=== PATIENT | male | born 1940 | race Caucasian/White ===

== ENCOUNTER 2016-06-10 06:34 | Outpatient (CLI) | payer MEDICARE ==
[2016-06-10] VITALS (13 sets, daily range): BP systolic 113–173; BP diastolic 57–93
[~2016-06-10] VITALS: Ht 167.6 cm; Wt 78.0 kg
[~2016-06-10 06:34] MED LIST: ACET325T9 PO; AMLO10TA2 PO; ASCO10002 PO; ATEN50TA PO; ATOR10TA60 PO; CALC500T27 PO; CIPR500T94 PO; FLUT16SP NS; HYDR12.53 PO; IBUP-1027 PO; LISI-334 PO; LOSA1TAB2 PO; TAMS0.4C2 PO; TIOT18CA IH; VENTOLIN HFA18 GM INH; atenolol; atorvastin PO; calcium PO; flomax PO; flonase NS; norvasc PO; nystatin
[2016-06-10] MEDS ORDERED: ASCO10002 PO (07:12)
[2016-06-10] MEDS ORDERED: ASPI81TA2 PO (07:12)
[2016-06-10 07:29] LABS: INR 1.1 (0.8-1.1); PROTHROMBIN TIME PATIENT 13.7 SEC (11.7-14.0)
[2016-06-10 07:42] LABS: BASO # 0.1 x10^3/uL (0.0-0.2); BASO % 2 % (0-3); EOS % 5 % (0-3); HEMATOCRIT 38.6 % (39.0-53.0); HEMOGLOBIN 12.4 g/dL (13.0-17.5); LYMPH % 17 % (24-48); MEAN CORPUSCULAR HEMOGLOBIN 28 pg (25-35); MEAN CORPUSCULAR HGB CONC 32 g/dL (31-37); MEAN CORPUSCULAR VOLUME 88 fL (79-100); MONO % 11 % (0-9); NEUT % 66 % (31-73); PLATELET COUNT 163 x10^3/uL (140-400); RED BLOOD COUNT 4.39 x10^6/uL (4.30-5.70); WHITE BLOOD COUNT 6.2 x10^3/uL (4.0-11.0)
[2016-06-10] MEDS ORDERED: ALBUTEROL SULFATE 2.5 MG/3 ML NEBU. NEB ONE ×2 (08:00→13:30)
[2016-06-10] MEDS ORDERED: LIDOCAINE 1% / SOD BICARB 8.4% 20 ML VIAL. IJ ONE ×2 (08:11→09:00)
[2016-06-10] MEDS ORDERED: MIDAZOLAM HCL 2 MG/2 ML VIAL. ONE (08:36)
[2016-06-10] MEDS ORDERED: FENTANYL PF 100 MCG/2 ML VIAL. ONE (08:37)
[2016-06-10] MEDS ORDERED: MIDAZOLAM HCL 2 MG/2 ML VIAL. IV ONE (09:00)
[2016-06-10] MEDS ORDERED: FENTANYL PF 100 MCG/2 ML VIAL. IV ONE (09:00)
--- NOTE | 2016-06-10 09:44 | PDOC ---
MODERATE SEDATION ASSESSMENT RISKS/ALTERNATIVES Risks/Alternatives Risks and alternatives of this type of sedation and procedure discussed with: RISK/ALTERNATIVES: Patient H & P ON CHART H & P H & P on chart and reviewed for co-morbid conditions and appropriate labs. H&P ON CHART: Yes STATUS PREG STATUS ASSESSED: N/A MEDS/ALLERGIES REVIEWED Meds/Allergies Reviewed Medications and Allergies including time and route of recently administered narcotics and sedatives. MEDS/ALLERGIES REVIEWED: Yes ASA RATING ASA RATING: II AIRWAY ASSESSMENT Airway Assessment Airway patency, oral function limitations, presence of caps, crowns, dentures, partials, and ability to extend neck assessed. AIRWAY ASSESSMENT: Yes MALLAMPATI SCORE MALLAMPATI SCORE: III PRE-SEDATION ASSESSMENT PRE-SEDATION ASSESSMENT: Yes MAURICIO BAILON MD Jun 10, 2016 09:44
--- NOTE | 2016-06-10 09:46 | PDOC1 ---
History and Physical Date of Procedure Date of Admission 06/10/[address] guided renal bx Indication Indication 76 YO male with HTN and CKD. Past Medical History Past Medical History See Nursing Pre procedure PMH Past Surgical History Past Surgical History See Nursing Pre procedure PSH Current Medications Current Medications Current Medications Albuterol Sulfate (Ventolin Neb Soln) 2.5 mg 1X ONCE NEB Last administered on 06/10/16 08:03; Start 06/10/16 at 08:00; Stop 06/10/16 at 08:01; Status DC Lidocaine/Sodium Bicarbonate (Buffered Lidocaine 1%) 20 ml STK-MED ONCE IJ ; Start 06/10/16 at 08:11; Stop 06/10/16 at 08:12; Status DC Midazolam HCl (Versed) 2 mg STK-MED ONCE .ROUTE ; Start 06/10/16 at 08:36; Stop 06/10/16 at 08:37; Status DC Fentanyl Citrate (Fentanyl 2ml Vial) 100 mcg STK-MED ONCE .ROUTE ; Start at 08:37; Stop 06/10/16 at 08:38; Status DC Lidocaine/Sodium Bicarbonate (Buffered Lidocaine 1%) 20 ml 1X ONCE IJ Last administered on 06/10/16 09:00; Start 06/10/16 at 09:00; Stop 06/10/16 at 09:05 ; Status DC Midazolam HCl (Versed) 2 mg 1X ONCE IV Last administered on 06/10/16 09:20; Start 06/10/16 at 09:00; Stop 06/10/16 at 09:05; Status DC Fentanyl Citrate (Fentanyl 2ml Vial) 100 mcg 1X ONCE IV Last administered on 09:20; Start 06/10/16 at 09:00; Stop 06/10/16 at 09:05; Status DC Active Scripts Active Reported Vitamin C (Ascorbic Acid) 1,000 Mg Tablet 1,000 Mg PO DAILY Aspirin 81 Mg Tab.chew 1 Tab PO DAILY Hyzaar 50-12.5 Tablet (Losartan/Hydrochlorothiazide) 1 Each Tablet 1 Tab PO DAILY Ibuprofen 400 Mg Tablet 400 Mg PO PRN Q6HRS PRN Vitamin C (Ascorbic Acid) 1,000 Mg Tablet 1,000 Mg PO DAILY Tamsulosin Hcl 0.4 Mg Cap.er.24h 0.4 Mg PO BID Spiriva (Tiotropium Ovalo) 18 Mcg Cap.w.dev 1 Cap IH DAILY Fluticasone Propionate Nasal [place] (Fluticasone Propionate) 16 Gm [place].susp 1 [place] NS BID Ventolin Hfa Inhaler (Albuterol Sulfate) 18 Gm Hfa.aer.ad 2 Puff INH QID Amlodipine Besylate 10 Mg Tablet 10 Mg PO HS Atorvastatin Calcium 10 Mg Tablet 10 Mg PO HS Atenolol 50 Mg Tablet 25 Mg PO DAILY Allergies Allergies: Coded Allergies: cetirizine (Verified Allergy, Intermediate, hives, 03/19/16) Physical Exam Vital Signs Vital Signs Date Time Temp Pulse Resp B/P Pulse Ox O2 Delivery O2 Flow Rate FiO2 06/10/16 09:27 58 14 98 Nasal Cannula 3.0 06/10/16 07:30 97.7 146/72 97.7 Lungs: Clear to auscultation Heart: Regular rate Psych/Mental Status: Mental status NL Assessment Assessment Essential HTN. CKD. Image guided renal bx requested by Nephrology Problems: Plan Plan CT guided renal bx MAURICIO BAILON MD Jun 10, 2016 09:46
--- NOTE | 2016-06-10 09:49 | PDOC ---
Exam Shipwright Apprentice Shipwright Apprentice Camille Vendor Analyst Vendor Analyst B Cates Pre-Procedure Diagnosis Pre-Procedure Diagnosis 76 YO male with HTN and CKD. Post-Procedure Diagnosis Post-Procedure Diagnosis Same Procedure Performed Procedure Performed CT guided bx lower pole left kidney Type of Anesthesia Type of Anesthesia Local + mod sedation Estimated Blood Loss EBL: Minimal Specimens Specimans 2 18 G core bx in formalin 2 18G core bx in Charanjit's fixative Condition of Patient Condition of Patient Stable. No apparent complication. Minimal, localized post bx perinephric bleed Disposition Disposition Home from [facility] post 4 hr observation, if no bleeding or other problems. F/u with Dr Cummings. Full report to follow. MAURICIO BAILON MD Jun 10, 2016 09:49
[2016-06-10] MEDS ORDERED: ALBUTEROL SULFATE 2.5 MG/3 ML NEBU. ONE (13:26)
--- NOTE | 2016-06-11 06:49 | RAD ---
CT-guided renal biopsy Indication: 76-year-old male with essential hypertension and with chronic kidney disease. Image guided renal biopsy has been requested by nephrology. Anesthesia: 26 minutes moderate sedation was provided utilizing a total of 1 mg Versed and 50 mcg fentanyl, IV. The patient was appropriately monitored by a qualified independent observer throughout the time of moderate sedation. RS Compliance Statement: One or more of the following individualized dose reduction techniques were utilized for this CT procedure: 1. Automated exposure control. 2. Adjustment of mA and/or kV according to patient size. 3. Iterative reconstruction technique. Procedure: Informed consent was obtained from the patient. He was placed prone on the CT scanner. Preliminary noncontrast CT images were obtained through kidneys. An overlying left posterolateral skin site suitable for CT-guided biopsy of lower pole of left kidney was selected and marked. That area was prepped and draped in the usual sterile fashion. Moderate sedation was provided with IV Versed and fentanyl. Using aseptic technique, local anesthesia, and CT guidance, an 18-gauge guide needle was successfully advanced into parenchyma of lower pole of left kidney. A total of 4 18-gauge core biopsy samples were obtained. 2 samples were submitted in formalin to pathology. 2 samples were submitted in Charanjit's fixative to pathology. Hemostasis was achieved with autologous clot introduced through the biopsy guide needle, which was then removed. A sterile dressing was applied. Completion CT images revealed no evidence of significant postbiopsy subcapsular or perinephric hemorrhage. Impression: Successful, uneventful CT-guided biopsy of lower pole of left kidney, as described.
--- NOTE | 2016-06-15 08:40 | PATHOLOGY ---
PATHOLOGY REPORT * * * * * * * * FINAL DIAGNOSIS: Please see next page for scanned image of report submitted by consultant nurse pathologist, Aurelio Jeffrey M.D. (JPM:[email or web address]; d/t: 06/15/2016) REPORT ELECTRONICALLY SIGNED BY: Adalberto De La Paz M.D. DATE/TIME: 06/15/2016 08:39 * * * * * * * * INITIAL CPT CODE(S): A; 505[address] Professional and Technical services performed by [employer], [facility] , [address], [place] [address]. SPECIMEN(S) RECEIVED: A.Percutaneous renal biopsy CLINICAL HISTORY: HTN/CKD PATIENT: NEGAR ADALBERTO /AGE: 11 1940 (Age: 76) PATIENT #: [id number] ALT CASE #: SPECIMEN COLLECTION DATE: 06/10/2016 SPECIMEN RECEIVED DATE: 06/10/2016 [facility] - [id number] [place] [address] - PHONE: [phone] * * * END OF REPORT * * *
== END 2016-06-10 13:45 | disposition home or self-care (01) ==
LOC: INTRAD 06:34
PROVIDERS: ATTEND Internal Medicine Nephrology
DX: I12.9 Hypertensive chronic kidney disease with stage 1 through stage 4 chronic kidney disease, or unspecified chronic kidney disease (principal); N18.9 Chronic kidney disease, unspecified; E78.00 Pure hypercholesterolemia, unspecified; J44.9 Chronic obstructive pulmonary disease, unspecified; J45.909 Unspecified asthma, uncomplicated; M19.90 Unspecified osteoarthritis, unspecified site; F17.200 Nicotine dependence, unspecified, uncomplicated
CPT/HCPCS: 36415; 50200; 77012; 85027; 85610; 94640; J2250; J3010; 88305

== ENCOUNTER 2016-06-15 10:31 | Emergency (ER) | payer MEDICARE ==
[~2016-06-15] VITALS: Ht 167.6 cm; Wt 81.2 kg
[~2016-06-15 10:31] MED LIST changes: +ASPI81TA2 PO
[2016-06-15 11:42] LABS: BASO % 1 % (0-3); EOS % 8 % (0-3); HEMATOCRIT 40.4 % (39.0-53.0); LYMPH # 1.1 x10^3/uL (1.0-4.8); LYMPH % 16 % (24-48); MEAN CORPUSCULAR HEMOGLOBIN 28 pg (25-35); MEAN CORPUSCULAR HGB CONC 32 g/dL (31-37); MEAN CORPUSCULAR VOLUME 88 fL (79-100); MONO % 10 % (0-9); NEUT % 66 % (31-73); PLATELET COUNT 150 x10^3/uL (140-400); RED BLOOD COUNT 4.61 x10^6/uL (4.30-5.70); RED CELL DISTRIBUTION WIDTH 14.8 % (11.5-14.5); WHITE BLOOD COUNT 6.8 x10^3/uL (4.0-11.0)
[2016-06-15 11:51] LABS: CALCIUM 9.8 mg/dL (8.5-10.1); CREATININE 2.6 mg/dL (0.7-1.3); GFR 24.1; POTASSIUM 3.7 mmol/L (3.5-5.1)
--- NOTE | 2016-06-15 12:16 | RAD ---
Exam performed: CT scan of the abdomen and pelvis without contrast. Clinical Indication: Recent left renal biopsy. Continued pain, suspected bleeding Date of Service: 06/15/16 comparison: Limited CT images during left renal biopsy. Technique: Contiguous helical acquisitions are obtained through the abdomen and pelvis without IV contrast. Sagittal and coronal reformatted images are obtained and reviewed. CT abdomen and pelvis findings: Streaky linear left basilar opacity. Right lung base is clear. Visualized heart is normal. Lack of IV contrast limits evaluation of abdominal viscera, however the liver, gallbladder, spleen and pancreas are normal. Bilateral adrenal nodules. Bilateral kidneys are symmetric in size without hydronephrosis or nephrolithiasis. No evidence of perinephric fluid collection or hematoma is identified. Bilateral renal cysts are redemonstrated. Aorta is normal in caliber demonstrating atheromatous changes without aneurysm. The small and large bowel loops are nondilated and unremarkable. The appendix is not clearly seen. No secondary signs of acute appendicitis Distal ureters are nondilated. Urinary bladder is decompressed, however normal. [Prostate gland, seminal vesicles appear normal] diffuse scattered stool throughout the colon with extensive stool in the rectosigmoid region. Diffuse sigmoid diverticulosis without acute diverticulitis No free or focal fluid collections are identified. Spondylotic changes multilevel degenerative changes involving the lumbar spine. Impression: 1. No acute intra-abdominal or pelvic process detected. 2. Bilateral renal cysts 3. No evidence of perinephric fluid collection or hematoma is identified PQRS Compliance Statement: One or more of the following individualized dose reduction techniques were utilized for this examination: 1. Automated exposure control 2. Adjustment of the mA and/or kV according to patient size 3. Use of iterative reconstruction technique
--- NOTE | 2016-06-15 13:04 | PHYS DOC ---
Past Medical History Past Medical History: COPD, High Cholesterol, Hypertension, Other Additional Past Medical Histor: seasonal allergies/sob/smoker,ENLARGED PROSTATE Past Surgical History: Other Additional Past Surgical Histo: cataracts,L KNEE Alcohol Use: None Drug Use: None Adult General Chief Complaint Chief Complaint: POST-OP PROBLEM HPI HPI Patient is a 76 year old male with history of COPD, kidney failure and hypertension who presents today with concern of blood collection on the left upper abdomen. Patient states he had a left renal biopsy done one week ago. He states he feels the left upper abdomen is swollen, he states he called the renal doctor in the and the nurse told him to come to the ED to be evaluated for fluid collection in the area. Patient denies any urgency frequency or dysuria. Denies any hematuria. Denies any abdominal pain. Review of Systems Review of Systems Constitutional: Denies fever or chills [] Eyes: Denies change in visual acuity, redness, or eye pain [] HENT: Denies nasal congestion or sore throat [] Respiratory: Denies cough or shortness of breath [] Cardiovascular: No additional information not addressed in HPI [] GI: Denies abdominal pain, nausea, vomiting, bloody stools or diarrhea [] : left upper abdomen possible fluid collection from renal biopsy Musculoskeletal: Denies back pain or joint pain [] Integument: Denies rash or skin lesions [] Neurologic: Denies headache, focal weakness or sensory changes [] Endocrine: Denies polyuria or polydipsia [] Allergies Allergies Allergies Coded Allergies Type Severity Reaction Last Updated Verified cetirizine Allergy Intermediate hives 03/19/16 Yes Physical Exam Physical Exam Constitutional: Well developed, well nourished, no acute distress, non-toxic appearance. [] HENT: Normocephalic, atraumatic, bilateral external ears normal, oropharynx moist, no oral exudates, nose normal. [] Eyes: PERRLA, EOMI, conjunctiva normal, no discharge. [] Neck: Normal range of motion, no tenderness, supple, no stridor. [] Cardiovascular:Heart rate regular rhythm, no murmur [] Lungs & Thorax: Bilateral breath sounds clear to auscultation [] Abdomen: Bowel sounds normal, soft, no tenderness, no masses, no pulsatile masses. [] Patient has no swelling on the left upper abdomen, there is no swelling on his left upper back. There is no signs of fluid collection anywhere in his abdomen or back. Skin: Warm, dry, no erythema, no rash. [] Back: No tenderness, no CVA tenderness. [] Extremities: No tenderness, no cyanosis, no clubbing, ROM intact, no edema. [] Neurologic: Alert and oriented X 3, normal motor function, normal sensory function, no focal deficits noted. [] Psychologic: Affect normal, judgement normal, mood normal. [] Current Patient Data Vital Signs Vital Signs Date Time Temp Pulse Resp B/P Pulse Ox O2 Delivery O2 Flow Rate FiO2 06/15/16 12:29 50 13 179/80 100 Nasal Cannula 3 06/15/16 10:45 97.9 97.9 Lab Values Laboratory Tests Test 06/15/16 11:10 White Blood Count 6.8x10^3/uL (4.0-11.0) Red Blood Count 4.61x10^6/uL (4.30-5.70) Hemoglobin 13.0g/dL (13.0-17.5) Hematocrit 40.4% (39.0-53.0) Mean Corpuscular Volume 88fL (79-100) Mean Corpuscular Hemoglobin 28pg (25-35) Mean Corpuscular Hemoglobin Concent 32g/dL (31-37) Red Cell Distribution Width 14.8% (11.5-14.5) H Platelet Count 150x10^3/uL (140-400) Neutrophils (%) (Auto) 66% (31-73) Lymphocytes (%) (Auto) 16% (24-48) L Monocytes (%) (Auto) 10% (0-9) H Eosinophils (%) (Auto) 8% (0-3) H Basophils (%) (Auto) 1% (0-3) Neutrophils # (Auto) 4.5x10^3uL (1.8-7.7) Lymphocytes # (Auto) 1.1x10^3/uL (1.0-4.8) Monocytes # (Auto) 0.7x10^3/uL (0.0-1.1) Eosinophils # (Auto) 0.5x10^3/uL (0.0-0.7) Basophils # (Auto) 0.0x10^3/uL (0.0-0.2) Sodium Level 147mmol/L (136-145) H Potassium Level 3.7mmol/L (3.5-5.1) Chloride Level 107mmol/L (98-107) Carbon Dioxide Level 35mmol/L (21-32) H Anion Gap 5 (6-14) L Blood Urea Nitrogen 33mg/dL (8-26) H Creatinine 2.6mg/dL (0.7-1.3) H Estimated GFR (Cockcroft-Gault) 24.1 Glucose Level 97mg/dL (70-99) Calcium Level 9.8mg/dL (8.5-10.1) Laboratory Tests 06/15/16 11:10 Laboratory Tests 06/15/16 11:10 EKG EKG [] Radiology/Procedures Radiology/Procedures []PROCEDURE: ABDOMEN PELVIS WO CONTRAST Exam performed: CT scan of the abdomen and pelvis without contrast. Clinical Indication: Recent left renal biopsy. Continued pain, suspected bleeding Date of Service: 06/15/16 comparison: Limited CT images during left renal biopsy. Technique: Contiguous helical acquisitions are obtained through the abdomen and pelvis without IV contrast. Sagittal and coronal reformatted images are obtained and reviewed. CT abdomen and pelvis findings: Streaky linear left basilar opacity. Right lung base is clear. Visualized heart is normal. Lack of IV contrast limits evaluation of abdominal viscera, however the liver, gallbladder, spleen and pancreas are normal. Bilateral adrenal nodules. Bilateral kidneys are symmetric in size without hydronephrosis or nephrolithiasis. No evidence of perinephric fluid collection or hematoma is identified. Bilateral renal cysts are redemonstrated. Aorta is normal in caliber demonstrating atheromatous changes without aneurysm. The small and large bowel loops are nondilated and unremarkable. The appendix is not clearly seen. No secondary signs of acute appendicitis Distal ureters are nondilated. Urinary bladder is decompressed, however normal. [Prostate gland, seminal vesicles appear normal] diffuse scattered stool throughout the colon with extensive stool in the rectosigmoid region. Diffuse sigmoid diverticulosis without acute diverticulitis No free or focal fluid collections are identified. Spondylotic changes multilevel degenerative changes involving the lumbar spine. Impression: 1. No acute intra-abdominal or pelvic process detected. 2. Bilateral renal cysts 3. No evidence of perinephric fluid collection or hematoma is identified PQRS Compliance Statement: One or more of the following individualized dose reduction techniques were utilized for this examination: 1. Automated exposure control 2. Adjustment of the mA and/or kV according to patient size 3. Use of iterative reconstruction technique DICTATED and SIGNED BY: ESTEFANIA VIGIL MD DATE: 06/15/16 1208 CC: LEONELA EDGE MD; DAVID SANTIAGO APRN ~ Course & Med Decision Making Course & Med Decision Making Pertinent Labs and Imaging studies reviewed. (See chart for details) Patient had a renal biopsy done one week ago and is presenting today concerned he could have fluid collection on the left upper abdomen. There is no obvious sign of fluid collection anywhere on his back or abdomen. CT of the abdomen and pelvic is negative for any fluid collection or hematoma. CT is negative for any acute findings. It's noted for bilateral renal cysts. BMP with creatinine of 2.6, BUN 33, this is patient's baseline from chronic kidney disease. CBC no acute findings. Patient was discharged with instructions to follow-up with his kidney doctor in the next 7 days. He was precautions and discharged in stable condition. Provided return Dragon Disclaimer Dragon Disclaimer This electronic medical record was generated, in whole or in part, using a voice recognition dictation system. Departure Departure Impression: Primary Impression: Well adult Additional Impression: Chronic renal failure Disposition: HOME, SELF-CARE Condition: STABLE Referrals: LEONELA EDGE MD (PCP) Follow-up with your your kidney doctor in one week Patient Instructions: Kidney Failure, [id number] Additional Instructions: You were seen with concern of fluid collection on the left upper abdomen. We did a CT scan of your abdomen and pelvic. There is no fluid collection to the area. Follow-up with your kidney doctor in the next 7 days. Come back to the emergency room if you have any other concerning symptoms. Problem Qualifiers Additional Impression: Chronic renal failure Chronic kidney disease stage: stage 4 (severe) Qualified Code: N18.4 - Chronic kidney disease, stage 4 (severe) DAVID SANTIAGO APRN Jun 15, 2016 13:03
[2016-06-15 13:23] VITALS: BP 192/84
== END 2016-06-15 13:35 | disposition home or self-care (01) ==
LOC: ER 10:31
DX: N18.9 Chronic kidney disease, unspecified (principal); I12.9 Hypertensive chronic kidney disease with stage 1 through stage 4 chronic kidney disease, or unspecified chronic kidney disease; Z00.00 Encounter for general adult medical examination without abnormal findings; E78.00 Pure hypercholesterolemia, unspecified; J44.9 Chronic obstructive pulmonary disease, unspecified; N40.0 Benign prostatic hyperplasia without lower urinary tract symptoms; N28.1 Cyst of kidney, acquired; Z88.8 Allergy status to other drugs, medicaments and biological substances
CPT/HCPCS: 36415; 74176; 80048; 85027; 99285-25

== ENCOUNTER → 2016-08-14 | Outpatient (CLI) | payer MEDICARE ==
--- NOTE | 2016-08-14 14:48 | RAD ---
CT of the chest without contrast, 08/14/2016: History: Follow-up pulmonary nodule Noncontrast scans were obtained and compared to a study from 02/24/2016. There is a persistent tiny right upper lobe pulmonary opacity. It is elongated in configuration measuring approximate 6 x 2.5 mm on sagittal image 6 of series #5. It is unchanged since 02/24/2016. There is a tiny 2 mm nodule in the lateral aspect of the right lower lobe as seen on image 172 of series #3 which is unchanged. There is a small subpleural linear opacity in the anterior aspect of the right middle lobe compatible with a scar. There is also mild linear scarring or atelectasis anterior inferiorly in the right middle lobe. Streaky parenchymal opacities in the lingula have worsened. This process abuts the oblique fissure the appearance suggests atelectasis and/or pneumonitis. Mild streaky opacities in the anterior aspect of the left lower lobe are similar to those seen on the previous study. A couple of tiny calcified granulomata are present in the left lower lobe. A small elongated opacity in the lateral aspect of the left lower lobe seen on image 245 of series #3 is new. There is no evidence of pleural fluid. There is calcific plaquing of the thoracic aorta without evidence of aneurysm. Moderate scattered coronary artery calcifications are present. No mediastinal adenopathy is identified. Again noted are bilateral low-density adrenal nodules compatible with adenomatous. A small right renal cyst is again noted. A 2.5 cm left renal cortical nodule is of higher density than a simple cyst and may be a complicated cyst. It was smaller on an old study from 03/09/2014, but that time demonstrated a low density compatible with a simple cyst. IMPRESSION: 1. Worsening streaky lingular opacity is on the left compatible with atelectasis and/or pneumonitis. CT follow-up is suggested to exclude underlying neoplasm. 2. Unchanged small right upper lobe nodule. 3. Scattered linear scars and granulomas. 4. New tiny left lower lobe nodule or scar. 5. Coronary artery disease. PQRS Compliance Statement: One or more of the following individualized dose reduction techniques were utilized for this examination: 1. Automated exposure control 2. Adjustment of the mA and/or kV according to patient size 3. Use of iterative reconstruction technique
== END | disposition home or self-care (01) ==
LOC: CT 09:39
PROVIDERS: ATTEND Internal Medicine Pulmonary Disease
DX: R91.1 Solitary pulmonary nodule (principal); I25.10 Atherosclerotic heart disease of native coronary artery without angina pectoris
CPT/HCPCS: 71250

== ENCOUNTER → 2016-09-01 | Outpatient (CLI) | payer MEDICARE ==
--- NOTE | 2016-09-01 12:07 | KCIC ---
PROCEDURE Bone density. HISTORY Loss of height. Adult fracture. 76-year-old male. COMPARISON None. FINDINGS Dual photon densitometry of the lumbar spine and left proximal femur is performed. Bone mineral density values are measured in grams per cm2. Lumbar spine, L1-L4, total bone mineral density 1.546, T-score 4.1, Z-score 5.2. There is probably reactive sclerosis of the L3 and L4 vertebral bodies that likely increase the bone mineral density. Left femur bone mineral density 0.975, T-score -0.4, Z-score 0.5. World Health Organization criteria for bone mineral density interpretation classify patient's as normal (T-score at or above -1.0), osteopenic (T-score between -1 and -2.5), or osteoporotic (T-score at or below -2.5). IMPRESSION Normal bone mineral density of the lumbar spine and the left femur. Electronically signed by: Jah Gee MD (Sep 01, 2016 12:05:59)
--- NOTE | 2016-09-01 12:28 | KCIC ---
PROCEDURE Coronary artery calcium score HISTORY Calcium screening. Hypertension, hyperlipidemia. TECHNIQUE High resolution, computed tomography of the heart was performed with ECG gating and suspended respiration using the Siemens HeartView CT. No contrast material was administered. Post processing was performed on the 3-D computer workstation using diastolic phase images to measure the amount of coronary vascular calcium. Scoring was performed utilizing the Agatston Method. COMPARISON CT chest without contrast February 24, 2016. FINDINGS Thorax: Cardiac size is normal. No pericardial effusion. Bilateral adrenal adenomas are partially seen in the upper abdomen and appear stable. There is linear consolidation in the left lower lobe that is similar, there are a few air bronchograms. There is linear consolidation with air bronchograms in the lingula that is increased from prior study. Slight thickening along the left major fissure is unchanged. Coronary arteries:CALCIUM IS PRESENT TOTAL AGATSTON CALCIUM SCORE = 293.7. Calcium is detected in the coronary circulation and confirms the presence of atherosclerotic plaque. Calcium score in the left main is 132.5, LAD 119.1, circumflex 0, and RCA 42. The presence of coronary calcium confirms the presence of atherosclerotic plaque. The greater the amount of coronary calcium, the greater the likelihood of stenotic or occlusive coronary artery disease. However, there is not a one-to-one relationship, and findings may not be site specific. The total amount of calcium correlates best with the total amount of atherosclerotic plaque, although the true "plaque burden" can be underestimated by calcium score. MODERATE coronary atherosclerosis is present. Individuals in this score range typically have mild to moderate luminal irregularity at coronary angiography. There is an INTERMEDIATE RISK of cardiovascular events based on this test. IMPRESSION 1. Coronary atherosclerosis is present, moderate amount. 2. Intermediate risk of cardiovascular event. 3. There is increased linear consolidation with air bronchograms in the lingula. Scarring or chronic atelectasis are considerations. Suggest outpatient follow-up CT chest. RECOMMENDATIONS 1. Further evaluation and prevention strategies should be based on global assessment of cardiovascular risk factors in addition to the results of this test. 2. Aggressive reduction of modifiable cardiovascular risk factors should be considered. Additional supporting information concerning the findings and recommendation contained within this report can be found in the consensus statements on coronary vascular calcium published by the [place] [employer] and [place] College [employer] and Prevention 5 Conference (Circulation 1996; 94: 5734-2464; J Am Gill Cardiol 2000; 36: 326-340 and Circulation 2000; 101: 111-116). Electronically signed by: Jah Gee MD (Sep 01, 2016 12:26:36)
== END | disposition home or self-care (01) ==
LOC: KCIC CT 09:18
PROVIDERS: ATTEND Family Medicine
DX: I10 Essential (primary) hypertension (principal); E78.5 Hyperlipidemia, unspecified; I25.10 Atherosclerotic heart disease of native coronary artery without angina pectoris; R29.890 Loss of height; Z87.81 Personal history of (healed) traumatic fracture; M85.88 Other specified disorders of bone density and structure, other site
CPT/HCPCS: 75571; 77080

== ENCOUNTER → 2016-10-14 | Outpatient (CLI) | payer MEDICARE ==
--- NOTE | 2016-10-14 14:11 | KCIC ---
EXAM: Lumbar spine, 3 views. HISTORY: Pain. COMPARISON: None. FINDINGS: Frontal, lateral and coned sacral views of the lumbar spine are obtained. There is lumbar levoscoliosis centered at L3. There is slight retrolisthesis of L2 on L3, L3 on L4 and L4-L5. There is degenerative endplate remodeling with disc space narrowing, osteophytosis and facet arthropathy predominantly at L3-L4 and L4-L5. IMPRESSION: 1. Multilevel degenerative change throughout the lumbar spine, predominantly at L3-L4 and L4-L5. 2. Lumbar scoliosis and slight listhesis at multilevels. Electronically signed by: Ronna Gentile MD (10/14/2016 2:08 PM)
== END | disposition home or self-care (01) ==
LOC: KCIC 13:44
PROVIDERS: ATTEND Nurse Practitioner Family
DX: M47.896 Other spondylosis, lumbar region (principal); M41.86 Other forms of scoliosis, lumbar region
CPT/HCPCS: 72100

== ENCOUNTER → 2017-03-12 | Outpatient (CLI) | payer MEDICARE ==
[~2017-03-12] MED LIST changes: +ASPI-630 PO; -ASPI81TA2 PO; -CALC500T27 PO; +CALC500T30 PO
--- NOTE | 2017-03-12 09:39 | RAD ---
CT of the chest without contrast, 03/12/2017: History: Follow-up lung nodule Noncontrast scans were obtained and compared to a study from 08/14/2016. There are several calcified granulomata are present bilaterally. A tiny elongated nodule is again seen anteriorly in the right upper lobe on image 163 of series #3. It measures 4-5 mm in AP dimension and is unchanged. A tiny nodule seen laterally in the right lower lobe on image 170 of series 3 is also unchanged. It may be partially calcified, suggesting a granuloma. A small subpleural density in the anterior aspect of the right middle lobe seen on image 202 of series #3 is unchanged and is probably a scar. There are streaky opacities in the posterior aspect of the left upper lobe, most prominent in the lingula. These have worsened since the previous study. There are underlying air bronchograms and probable mild bronchiectasis. There is mild narrowing of the left upper lobe bronchus as seen on axial image 147 of series #3. This may be due to mucous debris or scarring. A neoplastic etiology cannot be excluded. No large central obstructing mass is evident. Faint linear and tree-in-bud type opacities in the lateral aspect of the left lower lobe are unchanged. The findings suggest scarring and/or chronic inflammation. There is moderate calcific plaquing of the thoracic aorta without evidence of aneurysm. Moderate coronary artery calcifications are present. The heart is not enlarged. No mediastinal adenopathy is seen. Renal and adrenal nodules appear unchanged. IMPRESSION: 1. Old healed granulomatous disease in the chest with scattered parenchymal scars. 2. Increasing elongated parenchymal opacities in the posterior aspect of the left upper lobe compatible with atelectasis and/or scarring. A component of chronic pneumonia cannot be excluded. 3. Mild narrowing of the proximal left upper lobe bronchus may be due to mucoid debris. Correlation with bronchoscopic findings is suggested. 4. Coronary artery disease. PQRS Compliance Statement: One or more of the following individualized dose reduction techniques were utilized for this examination: 1. Automated exposure control 2. Adjustment of the mA and/or kV according to patient size 3. Use of iterative reconstruction technique
== END | disposition home or self-care (01) ==
LOC: CT 07:21
PROVIDERS: ATTEND Internal Medicine Pulmonary Disease
DX: I25.10 Atherosclerotic heart disease of native coronary artery without angina pectoris (principal); R91.8 Other nonspecific abnormal finding of lung field; R91.1 Solitary pulmonary nodule
CPT/HCPCS: 71250

== ENCOUNTER 2017-03-17 07:15 | Day surgery (SDC) | payer MEDICARE ==
[~2017-03-17] VITALS: Ht 167.6 cm; Wt 77.1 kg
[~2017-03-17 07:15] MED LIST changes: +BACL10TA PO; +CALC600T4 PO; +HEPARIN SODIUM 5,000 UNIT in IV NORMAL SALINE 500ML BAG 500 ML IRR ONE; +HYDROmorphone 2 MG/ML VIAL IV PRN; +IV RINGERS,LACTATED 1000ML 1,000 ML IV SCH; +LIDOCAINE 1% PF 2 ML VIAL. ID PRN; +MORPHINE SULFATE 2 MG/ML DISP.SYRIN. IV PRN; +ONDANSETRON PF 4 MG/2 ML VIAL. IV PRN; +PROCHLORPERAZINE 10 MG/2 ML VIAL. IV PRN; +UMEC62.5 IH; +fentaNYL PF VIAL 100 MCG/2 ML VIAL IV PRN
[2017-03-17] MEDS ORDERED: SURGICEL FIBRILLAR 1X2 EACH. ONE (07:47)
[2017-03-17] MEDS ORDERED: LIDOCAINE 1% 20 ML VIAL. ONE (07:47)
[2017-03-17] MEDS ORDERED: IV NORMAL SALINE 1000ML BAG 1,000 ML IV SCH (08:15)
--- NOTE | 2017-03-17 08:29 | DISCH ---
DISCHARGE INSTRUCTIONS Condition on Discharge Condition on Discharge: Stable Activity After Discharge Activity Instructions for Disc: Activity as tolerated Bathing Instructions: Shower-keep dressing dry Diet after Discharge Diet after Discharge: Renal Dialysis Wound Incision Care Wound Care Equipment: Dressings (remove dressing in 2 days, keep steristrips in place 7 days) Follow-Up Follow up with: Dr. Bethea in 3 weeks, CIRO YARBROUGH APRN Mar 17, 2017 08:29
[2017-03-17] MEDS ORDERED: LIDOCAINE 2% PF Vial for OR 5 ML VIAL. ONE (08:32)
[2017-03-17] MEDS ORDERED: ONDANSETRON PF 4 MG/2 ML VIAL. ONE (08:32)
[2017-03-17] MEDS ORDERED: DEXAMETHASONE SOD PHOS 20 MG/5 ML VIAL. ONE (08:32)
[2017-03-17] MEDS ORDERED: fentaNYL PF VIAL 100 MCG/2 ML VIAL ONE (08:32)
[2017-03-17] MEDS ORDERED: PROPOFOL 20 ML IV ONE ×2 (08:32→09:36)
[2017-03-17 08:47] LABS: BASO % 1 % (0-3); EOS % 2 % (0-3); HEMATOCRIT 43.8 % (39.0-53.0); HEMOGLOBIN 14.3 g/dL (13.0-17.5); LYMPH # 0.8 x10^3/uL (1.0-4.8); LYMPH % 11 % (24-48); MEAN CORPUSCULAR HEMOGLOBIN 30 pg (25-35); MEAN CORPUSCULAR HGB CONC 33 g/dL (31-37); MEAN CORPUSCULAR VOLUME 91 fL (79-100); MONO % 10 % (0-9); NEUT % 77 % (31-73); PLATELET COUNT 162 x10^3/uL (140-400); RED BLOOD COUNT 4.79 x10^6/uL (4.30-5.70); RED CELL DISTRIBUTION WIDTH 14.7 % (11.5-14.5); WHITE BLOOD COUNT 7.8 x10^3/uL (4.0-11.0)
[2017-03-17 09:02] LABS: CALCIUM 9.6 mg/dL (8.5-10.1); CREATININE 2.5 mg/dL (0.7-1.3); GFR 25.2; POTASSIUM 3.7 mmol/L (3.5-5.1)
[2017-03-17 09:10] LABS: PROTHROMBIN TIME PATIENT 12.4 SEC (11.7-14.0)
--- NOTE | 2017-03-17 10:00 | PDOC ---
BRIEF OPERATIVE NOTE Date: Mar 17, 2017 Pre-Op Diagnosis Renal failure Post-Op Diagnosis same Procedure Performed Left brachiocephalic fistula placement Surgeon Dr. Bethea Patient Admitting Representative Ciro Yarbrough NP Anesthesia Type: MAC, Local Blood Loss 10cc Specimens Obtained none Findings good thrill and bruit post procedure Complications none, stable to [facility] CIRO YARBROUGH APRN Mar 17, 2017 10:00
[2017-03-17] MEDS ORDERED: ASPIRIN ENTERIC COATED 81 MG TABLET.DR. PO ONE (10:30)
[2017-03-17] MEDS ORDERED: HYDROcodone/APAP 5/325MG 1 TAB TABLET PO ONE (10:30)
[2017-03-17] MEDS ORDERED: HYDR-971 PO (10:32)
[2017-03-17] MEDS ORDERED: ASPI-612 PO (10:34)
--- NOTE | 2017-03-17 10:38 | OP ---
DATE OF SURGERY: 03/17/2017 PREOPERATIVE DIAGNOSIS: Renal failure with need for access. POSTOPERATIVE DIAGNOSIS: Renal failure with need for access. PROCEDURE PERFORMED: Placement of left antecubital arteriovenous fistula to cephalic vein. SURGEON: Kehinde Bethea M.D. COASTAL/HARBOR DEFENSE OFFICER: Odilia Toribio APRN, certified nurse practitioner, carpenter's assistant. ANESTHETIC: 1% lidocaine with sedation. DESCRIPTION OF PROCEDURE: After preparation and draping, lidocaine was used to infiltrate the antecubital area. Incision made, bleeding controlled with cautery. Crossing small vessels divided between Hemoclips with a cautery. The cephalic vein was dissected out, there was also a nice medial basilic vein as well, which was preserved a branch off the cephalic vein was ligated distally and it was divided and then, it was ligated off of the basilic vein junction and divided and then spatulated through these branches. Heparin irrigated easily into the cephalic vein. He was given 4000 units of heparin IV, lidocaine was used to infiltrate the fascia. The fascia was divided. The brachial artery was identified, dissected out, clamped proximally and distally and arteriotomy made. The vein was anastomosed to the side of the artery with a 7-0 Prolene stitch. After completion of that, clamps were released and flow was allowed into the vein and it was very nice distention of the vein. A couple of additional stitches were needed to control bleeding. The side branch was identified within the confines of the incision ligated and divided between silk tie and Hemoclip. The wound was irrigated and the incision was then closed with subcutaneous Vicryl, subcuticular Vicryl, Mastisol, Steri-Strips, sterile dressings were applied. The patient tolerated the procedure well. Minimal blood loss. Left the Operating Room in stable condition. KEHINDE BETHEA MD DR: VAL/carly JOB#: [id number] / [id number]
[2017-03-17 10:51] VITALS: BP 188/80
== END 2017-03-17 11:33 | disposition home or self-care (01) ==
LOC: SURG 07:15
PROVIDERS: ATTEND Specialist
DX: N18.4 Chronic kidney disease, stage 4 (severe) (principal); Z99.2 Dependence on renal dialysis; I25.10 Atherosclerotic heart disease of native coronary artery without angina pectoris; Z98.49 Cataract extraction status, unspecified eye; Z98.890 Other specified postprocedural states; Z85.828 Personal history of other malignant neoplasm of skin; F17.210 Nicotine dependence, cigarettes, uncomplicated; Z79.899 Other long term (current) drug therapy
CPT/HCPCS: 36415; 36821; 80048; 85025; 85610; 85730; C1769; J0690; J1100; J1644; J2405; J2704; J3010; J7040; J2001

== ENCOUNTER → 2017-03-24 | Day surgery (SDC) | payer MEDICARE ==
[~2017-03-24] MED LIST changes: +ALBUTEROL SULFATE 2.5 MG/3 ML NEBU. ONE; +ASPI-612 PO; -HEPARIN SODIUM 5,000 UNIT in IV NORMAL SALINE 500ML BAG 500 ML IRR ONE; +HYDR-971 PO; +IV NORMAL SALINE 1000ML BAG 1,000 ML IV SCH; +PROPOFOL 20 ML IV ONE
[2017-03-24 12:57] LABS: BASO % 0 % (0-3); EOS % 3 % (0-3); HEMATOCRIT 41.4 % (39.0-53.0); HEMOGLOBIN 13.8 g/dL (13.0-17.5); LYMPH % 12 % (24-48); MEAN CORPUSCULAR HEMOGLOBIN 30 pg (25-35); MEAN CORPUSCULAR HGB CONC 33 g/dL (31-37); MEAN CORPUSCULAR VOLUME 92 fL (79-100); MONO % 10 % (0-9); NEUT % 75 % (31-73); PLATELET COUNT 167 x10^3/uL (140-400); RED BLOOD COUNT 4.53 x10^6/uL (4.30-5.70); RED CELL DISTRIBUTION WIDTH 14.7 % (11.5-14.5); WHITE BLOOD COUNT 8.4 x10^3/uL (4.0-11.0)
[2017-03-24 13:04] LABS: PROTHROMBIN TIME PATIENT 12.1 SEC (11.7-14.0)
[2017-03-24 13:36] VITALS: BP 153/72
--- NOTE | 2017-03-25 13:37 | PATHOLOGY ---
CYTOPATHOLOGY REPORT CLINICAL HISTORY: Endobronchial lesion. SPECIMEN(S) RECEIVED: A.Bronchoalveolar lavage, JHONY FINAL DIAGNOSIS: Left upper lobe bronchoalveolar lavage, ThinPrep: - No malignant cells identified. - Focally reactive bronchial epithelial cells, squamous epithelial cells, few pulmonary macrophages, and scattered inflammatory cells identified. (JPM:mgr; 03/25/2017) PATHOLOGIST: Adalberto De La Paz M.D. REPORT ELECTRONICALLY SIGNED BY: Adalberto De La Paz M.D. DATE/TIME: 03/25/2017 13:36 GROSS PATHOLOGY: A. Bronchoalveolar lavage, JHONY: The specimen is submitted unfixed, labeled "Adalberto Barbosa". Received by the Cytology Department is 7 mL of cloudy fluid. One ThinPrep slide was prepared. (clt 03.24.2017) RECORDS MANAGEMENT ASSISTANT(S): JOSIE Messina(ASCP) INITIAL CPT CODE(S): A; 97488 Professional services performed by [facility] [place] [address] Technical services performed by [facility] at [address] [place] [address], [address], [place] [address]. PATIENT: ADALBERTO BARBOSA /AGE: 11 1940 (Age: 76) SEX: M PATIENT #: [id number] ALT CASE #: SPECIMEN COLLECTION DATE: 03/24/2017 SPECIMEN RECEIVED DATE: 03/24/[address] [facility] [address] [place] [address], [address] [place] [address] PHONE: [phone] DIRECTOR: Aidan Valdovinos M.D. * * * END OF REPORT * * *
== END | disposition home or self-care (01) ==
LOC: SURG 11:29
PROVIDERS: ATTEND Internal Medicine Pulmonary Disease
DX: J98.09 Other diseases of bronchus, not elsewhere classified (principal); E78.00 Pure hypercholesterolemia, unspecified; I10 Essential (primary) hypertension; J44.9 Chronic obstructive pulmonary disease, unspecified; F17.200 Nicotine dependence, unspecified, uncomplicated; Z79.01 Long term (current) use of anticoagulants; Z72.0 Tobacco use; Z88.8 Allergy status to other drugs, medicaments and biological substances
CPT/HCPCS: 31624; 36415; 85025; 85610; 85730; 87070; 87102; 87205; 88112; 94640; J2704; J7613; 31622

== ENCOUNTER → 2018-02-25 | Outpatient (CLI) | payer MEDICARE ==
[2017-03-24 13:36] VITALS: BP 153/72
[~2018-02-25] MED LIST changes: -ALBUTEROL SULFATE 2.5 MG/3 ML NEBU. ONE; -AMLO10TA2 PO; +AMLO10TA6 PO; -HYDROmorphone 2 MG/ML VIAL IV PRN; -IV NORMAL SALINE 1000ML BAG 1,000 ML IV SCH; -IV RINGERS,LACTATED 1000ML 1,000 ML IV SCH; -LIDOCAINE 1% PF 2 ML VIAL. ID PRN; -MORPHINE SULFATE 2 MG/ML DISP.SYRIN. IV PRN; -ONDANSETRON PF 4 MG/2 ML VIAL. IV PRN; -PROCHLORPERAZINE 10 MG/2 ML VIAL. IV PRN; -PROPOFOL 20 ML IV ONE; -fentaNYL PF VIAL 100 MCG/2 ML VIAL IV PRN
--- NOTE | 2018-02-25 12:09 | RAD ---
CT CHEST WO CONTRAST Indication: Cough Technique: Noncontrast CT imaging was performed of the chest, multiplanar reconstruction images submitted. One or more of the following individualized dose reduction techniques were utilized for this examination: 1. Automated exposure control 2. Adjustment of the mA and/or kV according to patient size 3. Use of iterative reconstruction technique. Contrast: None Comparison: 03/12/2017 Findings: There is persistent, somewhat increased infiltrate of the lingula. For example this now measures 3.2 x 4.6 cm versus previously 3.7 x 3.8 cm axial oblique dimensions. There is no new separate infiltrate. There is no significant pericardial pleural fluid or pneumothorax. There is coronary calcification. Thoracic aortic caliber is stable, maximal dimension about 3.6 cm ascending thoracic aorta near arch. There is no new significant lymphadenopathy of the chest. There is emphysema, most notable left upper lobe. Small right upper lobe nodule axial image 30 series 2 at 0.5 cm is stable. Tiny 0.2 cm right lower lobe nodule axial image 32 is unchanged. There are again foci of nodularity of the bilateral adrenal glands overall similar in appearance, largest on the left about 1.9 cm. There is exophytic focus of density along the lateral margin of left kidney up to 3.7 cm versus previously 2.6 cm, internal density measurements of 36 Hounsfield units. There may be minimal cholelithiasis. There is again exophytic lesion of the superior, posterior right kidney, density measurements 23 Hounsfield units, size about 1.7 cm similar. There is coronary calcification. There is minimal density in the right mainstem bronchus likely due to mucus. There is multilevel thoracic degenerative disc disease. IMPRESSION: 1. There is persistent, somewhat increased focus of infiltrate of the lingula. Findings may be due to indolent/chronic infection or inflammatory process although variants of adenocarcinoma not excludable by imaging. No new separate infiltrate is identified. Previously seen small pulmonary nodules are stable. 2. There is emphysema most notable left upper lobe. 3. There is coronary calcification. 4. There are again foci of nodularity of the bilateral adrenal glands which are similar. There is stable probable cyst of the superior right kidney. There is exophytic focus of density of the lateral left kidney which is larger, indeterminate measurements for a simple cyst for which ultrasound evaluation recommended. Electronically signed by: Maynor Carpio MD (02/25/2018 12:07 PM) [facility]
== END | disposition home or self-care (01) ==
LOC: CT 10:07
PROVIDERS: ATTEND Internal Medicine Pulmonary Disease
DX: J43.8 Other emphysema (principal); R91.8 Other nonspecific abnormal finding of lung field; I25.10 Atherosclerotic heart disease of native coronary artery without angina pectoris; M51.34 Other intervertebral disc degeneration, thoracic region
CPT/HCPCS: 71250

== ENCOUNTER → 2018-03-10 | Outpatient (CLI) | payer MEDICARE ==
[2017-03-24 13:36] VITALS: BP 153/72
--- NOTE | 2018-03-10 12:22 | RAD ---
FDG tumor localization scan, PET/CT, 03/10/2018: History: Lung mass Following IV injection of 14.2 mCi of 18 F-FDG, imaging was performed from the skull base to the proximal thighs. The noncontrast CT component was performed for attenuation correction and anatomic localization purposes rather than for primary diagnosis. The patient's blood glucose level at the time of injection was 122 MG/DL. There is physiologic activity in the larynx. There are elongated areas of increased activity in the neck, more so on the left than the right. These appear to correspond to musculature and are probably physiologic. No definite hypermetabolic adenopathy is seen. There is streaky pulmonary consolidation in the left upper lobe along the anterior aspect of the left hilum in the lingula region, as also evident on previous CT studies such as a 02/25/2018 exam. There is low level FDG uptake in this region with a maximum SUV of approximately 2.6. This is similar to the mediastinal background activity. No focal avid FDG uptake is seen in this region to suggest underlying neoplasm. There is a smaller abnormal streaky parenchymal opacity anteromedially in the left lower lobe abutting the left heart border. This cannot be clearly from the hypermetabolic left ventricle, however, there appears to be only low level FDG uptake in this region, similar to that seen in the left upper lobe perihilar region. Normal GI tract and urinary tract activity is present in the abdomen and pelvis. No hypermetabolic abdominal or pelvic process is seen. Incidental CT findings include the presence of moderate calcific plaquing of the aorta and its branches including the coronary arteries. There are bilateral renal cysts. A hyperdense small cortical nodule arising from the anterior aspect of the right kidney may be a complicated cyst. There is moderate sigmoid diverticulosis. The prostate gland is mildly enlarged. Mucoid debris is evident in the trachea and proximal left main bronchus. There is narrowing of the left main bronchus and the origins of the upper and lower lobe bronchi at the left hilum. There is volume loss in the left upper lobe. The left lower lobe is hyperexpanded and hyperlucent. IMPRESSION: 1. Low level FDG uptake related to areas of consolidation in the lingula and anteromedial aspect of the left lower lobe, likely inflammatory in nature. No avid focal uptake is seen to suggest malignancy, although low-grade malignancy cannot be entirely excluded. 2. Mucoid debris in the trachea and left main bronchus with bronchial narrowing at the left hilum. There is volume loss in the left upper lobe and hyperexpansion of the left lower lobe. Correlation with bronchoscopic findings is suggested. 3. Incidental CT findings as described above.
== END | disposition home or self-care (01) ==
LOC: PETSC 08:46
PROVIDERS: ATTEND Internal Medicine Pulmonary Disease
DX: R91.8 Other nonspecific abnormal finding of lung field (principal); K57.30 Diverticulosis of large intestine without perforation or abscess without bleeding; N28.1 Cyst of kidney, acquired
CPT/HCPCS: 78815; A9552

== ENCOUNTER 2019-11-29 17:52 | Inpatient (IN) | payer MEDICARE ==
[~2019-11-29] VITALS: Ht 167.6 cm; Wt 67.6 kg
[2019-11-29 17:50] VITALS: BP 139/53
[~2019-11-29 17:52] MED LIST changes: +ACET500T68 PO; +AMIO200T4 PO; -AMLO10TA6 PO; +AMLO10TA8 PO; +AMOX1TAB58 PO; -CALC600T4 PO; +CALC600T5 PO; +CALC667T6 PO; +FLUT1DIS3 PO; +FOLI1TAB30 PO; +HYDR-2869 PO; +HYDR-3164 PO; -HYDR-971 PO; -HYDR12.53 PO; +HYDR12.575 PO; +IPRA3AMP29 NEB; +ISOS30TA4 PO; +METO25TA4 PO; +[UNRECOGNIZED DRUG - OTHER] PO
[2019-11-29 19:00] VITALS: BP 125/49
[2019-11-29] MEDS: PIPERACILLIN/TAZOBACTAM 2.25 GM in IV NORMAL SALINE 50ML 50 ML IV SCH ×2 (21:18→23:18)
[2019-11-29 23:00] VITALS: BP 135/48
[2019-11-30 03:00] VITALS: BP 133/50
[2019-11-30 04:27] LABS: BASO % 0 % (0-3); EOS % 1 % (0-3); HEMATOCRIT 29.5 % (39.0-53.0); HEMOGLOBIN 9.1 g/dL (13.0-17.5); LYMPH # 0.3 x10^3/uL (1.0-4.8); LYMPH % 13 % (24-48); MEAN CORPUSCULAR HEMOGLOBIN 31 pg (25-35); MEAN CORPUSCULAR HGB CONC 31 g/dL (31-37); MEAN CORPUSCULAR VOLUME 100 fL (79-100); MONO # 0.5 x10^3/uL (0.0-1.1); MONO % 20 % (0-9); NEUT # 1.6 x10^3/uL (1.8-7.7); NEUT % 66 % (31-73); PLATELET COUNT 105 x10^3/uL (140-400); RED BLOOD COUNT 2.95 x10^6/uL (4.30-5.70); RED CELL DISTRIBUTION WIDTH 16.8 % (11.5-14.5); WHITE BLOOD COUNT 2.5 x10^3/uL (4.0-11.0)
[2019-11-30 04:45] LABS: ALBUMIN 2.2 g/dL (3.4-5.0); ALBUMIN/GLOBULIN RATIO 0.7 (1.0-1.7); CALCIUM 8.3 mg/dL (8.5-10.1); CREATININE 8.6 mg/dL (0.7-1.3); POTASSIUM 5.2 mmol/L (3.5-5.1); TOTAL BILIRUBIN 0.3 mg/dL (0.2-1.0); TOTAL PROTEIN 5.5 g/dL (6.4-8.2)
[2019-11-30 06:05] LABS: % BANDS 17 % (0-9); % EOS 1 % (0-5); % LYMPHS 13 % (24-48); % METAS 1 % (0-0); % MONOS 15 % (0-10); % SEGS 53 % (35-66); NUCLEATED RBC 1; PLT ESTIMATE DECREASED (ADEQUATE)
[2019-11-30 06:06] LABS: ANISOCYTOSIS SLIGHT
[2019-11-30 06:07] LABS: POLYCHROMASIA SLIGHT
[2019-11-30] MEDS: PIPERACILLIN/TAZOBACTAM 2.25 GM in IV NORMAL SALINE 50ML 50 ML IV SCH ×3 (06:31→16:54)
[2019-11-30 07:15] VITALS: BP 141/54
[2019-11-30] MEDS ORDERED: CHOL100013 PO (07:28)
[2019-11-30] MEDS ORDERED: ZINC220T3 PO (07:29)
--- NOTE | 2019-11-30 10:13 | PDOC2 ---
CONSULT Date of Consult Date of Consult DATE: 11/30/19 TIME: 09:59 Reason for Consult Reason for Consult: ESRD Source Source: Chart review, Patient History of Present Illness Reason for Visit: Pt is a 79 yo male with ESRD transferred to [facility] from [facility]. He was sent to [facility] from Dialysis unit yesterday with fever of 101. He felt some chills and has chronic cough. He states cough is mildly worse with sinus drainage . He also noticed some pain in Lt scapula with coughing .He Denies any exposure to CoVId -19. He has Chr SOB which is stable , has COPD and is on home O2 . Denies any N/V/D. No abdominal pain . He makes small amt of Urine, denies dysuria. Currently he states he is feeling ok except some decreased energy . He missed HD yesterday as he was sent to the ER from the OP unit Past Medical History Cardiovascular: HTN, Hyperlipidemia Pulmonary: COPD CENTRAL NERVOUS SYSTEM: Other GI: No pertinent hx Heme/Onc: No pertinent hx Hepatobiliary: No pertinent hx Psych: No pertinent hx Musculoskeletal: Osteoarthritis Rheumatologic: No pertinent hx Infectious disease: No pertinent hx Renal/: Benign prostatic enlarg. Endocrine: No pertinent hx Past Surgical History Past Surgical History: Cataract Removal, Total knee replacement, Other Family History Family History Cancer, Diabetes Social History ALCOHOL: none Drugs: None Lives: Alone Domestic Violence: Neg Current Medications Current Medications Current Medications Piperacillin Sod/ Tazobactam Sod 2.25 gm/Sodium Chloride 50 ml @ 100 mls/hr Q6HRS IV Last administered on 11/30/19at 06:31; Start 11/29/19 at 20:00 Active Scripts Active Isosorbide Mononitrate Er (Isosorbide Mononitrate) 30 Mg Tab.er.24h 30 Mg PO BID 30 Days Hydralazine Hcl 50 Mg Tablet 50 Mg PO BID 30 Days Amiodarone Hcl 200 Mg Tablet 1 Tab PO DAILY 30 Days Duoneb 0.5-3(2.5) Mg/3 Ml (Albuterol/Ipratropium) 3 Ml Ampul.neb 3 Ml NEB RTQID 30 Days Reported Zinc Sulfate 220 Mg Tablet 1 Tab PO DAILY 30 Days Vitamin D3 (Cholecalciferol (Vitamin D3)) 25 Mcg Capsule 25 Mcg PO DAILY 1 Days Acetaminophen 500 Mg Tablet 1 Tab PO PRN Q6HRS PRN 15 Days Calcium Acetate 667 Mg Tablet 1 Cap PO TIDAC Metoprolol Tartrate 25 Mg Tablet 0.5 Tab PO BID [ahreds] 1 Cap PO BID Ahreds #2 Preservision, One softgel by mouth twice a day Dialyvite Tablet (Folic Acid/Vitamin B Comp W-C) 1 Each Tablet 1 Tab PO DAILY Advair 250-50 Diskus (Fluticasone/Salmeterol) 1 Each Disk.w.dev 1 Puff PO BID Aspirin Ec (Aspirin) 81 Mg Tablet.dr 1 Tab PO BID LAST DOSE GIVEN: DATE: 03/17/17 TIME: 1030 am so start taking this daily tomorrow Hyzaar 50-12.5 Tablet (Losartan/Hydrochlorothiazide) 1 Each Tablet 1 Tab PO DAILY Tamsulosin Hcl 0.4 Mg Cap.er.24h 0.4 Mg PO BID Ventolin Hfa Inhaler (Albuterol Sulfate) 18 Gm Hfa.aer.ad 2 Puff INH QID Atorvastatin Calcium 10 Mg Tablet 10 Mg PO HS Allergies Allergies: Coded Allergies: cetirizine (Verified Allergy, Intermediate, hives, 03/30/19) ROS Review of System As per HPI, rest 12 point ROS is negative Physical Exam Physical Exam General: No acute distress HEENT: OM moist , Chronic home O2 Neck supple Lungs: Clear to auscultation Heart: Regular rate, Normal S1, Normal S2 Abdomen: Normal bowel sounds, Soft, No tenderness Extremities: No edema Skin: No rash Neuro: grossly normal No clark Vital Signs Vital Signs Date Time Temp Pulse Resp B/P (MAP) Pulse Ox O2 Delivery O2 Flow Rate FiO2 11/30/19 07:15 96.6 86 16 141/54 (83) 92 Nasal Cannula 4.0 96.6 Assessment & Plan ESRD- On HD MWF Missed yesterday, currently stable Vol status , No emergent indication for HD Dialysis tomorrow per his schedule HyperKalemia- Mild Pneumonia- Reported on CxR Covid19 pending Lt Pleural effusion- moderate, new in interval. Underlying neoplastic etiology not excluded Defer to Primary/Pulm Pancytopenia - present at previous admission as well Per primary Anemia CHF- compensated, On RA CAD- stable AFib- HTN - stable Labs Labs Laboratory Tests Test 11/30/19 04:00 11/30/19 04:06 Sodium Level 138 mmol/L (136-145) Potassium Level 5.2 mmol/L (3.5-5.1) Chloride Level 102 mmol/L (98-107) Carbon Dioxide Level 27 mmol/L (21-32) Anion Gap 9 (6-14) Blood Urea Nitrogen 58 mg/dL (8-26) Creatinine 8.6 mg/dL (0.7-1.3) Estimated GFR (Cockcroft-Gault) 6.0 BUN/Creatinine Ratio 7 (6-20) Glucose Level 96 mg/dL (70-99) Calcium Level 8.3 mg/dL (8.5-10.1) Total Bilirubin 0.3 mg/dL (0.2-1.0) Aspartate Amino Transf (AST/SGOT) 11 U/L (15-37) Alanine Aminotransferase (ALT/SGPT) 9 U/L (16-63) Alkaline Phosphatase 48 U/L (46-116) Total Protein 5.5 g/dL (6.4-8.2) Albumin 2.2 g/dL (3.4-5.0) Albumin/Globulin Ratio 0.7 (1.0-1.7) White Blood Count 2.5 x10^3/uL (4.0-11.0) Red Blood Count 2.95 x10^6/uL (4.30-5.70) Hemoglobin 9.1 g/dL (13.0-17.5) Hematocrit 29.5 % (39.0-53.0) Mean Corpuscular Volume 100 fL (79-100) Mean Corpuscular Hemoglobin 31 pg (25-35) Mean Corpuscular Hemoglobin Concent 31 g/dL (31-37) Red Cell Distribution Width 16.8 % (11.5-14.5) Platelet Count 105 x10^3/uL (140-400) Neutrophils (%) (Auto) 66 % (31-73) Lymphocytes (%) (Auto) 13 % (24-48) Monocytes (%) (Auto) 20 % (0-9) Eosinophils (%) (Auto) 1 % (0-3) Basophils (%) (Auto) 0 % (0-3) Neutrophils # (Auto) 1.6 x10^3/uL (1.8-7.7) Lymphocytes # (Auto) 0.3 x10^3/uL (1.0-4.8) Monocytes # (Auto) 0.5 x10^3/uL (0.0-1.1) Eosinophils # (Auto) 0.0 x10^3/uL (0.0-0.7) Basophils # (Auto) 0.0 x10^3/uL (0.0-0.2) Segmented Neutrophils % 53 % (35-66) Band Neutrophils % 17 % (0-9) Lymphocytes % 13 % (24-48) Monocytes % 15 % (0-10) Eosinophils % 1 % (0-5) Metamyelocytes % 1 % (0-0) Nucleated Red Blood Cells 1 Platelet Estimate Decreased (ADEQUATE) Polychromasia Slight Anisocytosis Slight Laboratory Tests Test 11/30/19 04:00 11/30/19 04:06 Sodium Level 138 mmol/L (136-145) Potassium Level 5.2 mmol/L (3.5-5.1) Chloride Level 102 mmol/L (98-107) Carbon Dioxide Level 27 mmol/L (21-32) Anion Gap 9 (6-14) Blood Urea Nitrogen 58 mg/dL (8-26) Creatinine 8.6 mg/dL (0.7-1.3) Estimated GFR (Cockcroft-Gault) 6.0 BUN/Creatinine Ratio 7 (6-20) Glucose Level 96 mg/dL (70-99) Calcium Level 8.3 mg/dL (8.5-10.1) Total Bilirubin 0.3 mg/dL (0.2-1.0) Aspartate Amino Transf (AST/SGOT) 11 U/L (15-37) Alanine Aminotransferase (ALT/SGPT) 9 U/L (16-63) Alkaline Phosphatase 48 U/L (46-116) Total Protein 5.5 g/dL (6.4-8.2) Albumin 2.2 g/dL (3.4-5.0) Albumin/Globulin Ratio 0.7 (1.0-1.7) White Blood Count 2.5 x10^3/uL (4.0-11.0) Red Blood Count 2.95 x10^6/uL (4.30-5.70) Hemoglobin 9.1 g/dL (13.0-17.5) Hematocrit 29.5 % (39.0-53.0) Mean Corpuscular Volume 100 fL (79-100) Mean Corpuscular Hemoglobin 31 pg (25-35) Mean Corpuscular Hemoglobin Concent 31 g/dL (31-37) Red Cell Distribution Width 16.8 % (11.5-14.5) Platelet Count 105 x10^3/uL (140-400) Neutrophils (%) (Auto) 66 % (31-73) Lymphocytes (%) (Auto) 13 % (24-48) Monocytes (%) (Auto) 20 % (0-9) Eosinophils (%) (Auto) 1 % (0-3) Basophils (%) (Auto) 0 % (0-3) Neutrophils # (Auto) 1.6 x10^3/uL (1.8-7.7) Lymphocytes # (Auto) 0.3 x10^3/uL (1.0-4.8) Monocytes # (Auto) 0.5 x10^3/uL (0.0-1.1) Eosinophils # (Auto) 0.0 x10^3/uL (0.0-0.7) Basophils # (Auto) 0.0 x10^3/uL (0.0-0.2) Segmented Neutrophils % 53 % (35-66) Band Neutrophils % 17 % (0-9) Lymphocytes % 13 % (24-48) Monocytes % 15 % (0-10) Eosinophils % 1 % (0-5) Metamyelocytes % 1 % (0-0) Nucleated Red Blood Cells 1 Platelet Estimate Decreased (ADEQUATE) Polychromasia Slight Anisocytosis Slight Review All relevant outside records, renal labs, imaging studies, telemetry/EKG's were reviewed. Images Images CxR- Large Lt apical Bulla. Subjacent atelectasis and infiltrates . Mod Lt Pl effusion new in interval. Underlying neoplastic etiology is not excluded GLORIA ANGUIANO MD Nov 30, 2019 10:13
--- NOTE | 2019-11-30 10:49 | PDOC ---
Infectious Disease Note Vital Sign Vital Signs Vital Signs Date Time Temp Pulse Resp B/P (MAP) Pulse Ox O2 Delivery O2 Flow Rate FiO2 11/30/19 07:15 96.6 86 16 141/54 (83) 92 Nasal Cannula 4.0 96.6 Labs Lab Laboratory Tests Test 11/30/19 04:00 11/30/19 04:06 Sodium Level 138 mmol/L (136-145) Potassium Level 5.2 mmol/L (3.5-5.1) Chloride Level 102 mmol/L (98-107) Carbon Dioxide Level 27 mmol/L (21-32) Anion Gap 9 (6-14) Blood Urea Nitrogen 58 mg/dL (8-26) Creatinine 8.6 mg/dL (0.7-1.3) Estimated GFR (Cockcroft-Gault) 6.0 BUN/Creatinine Ratio 7 (6-20) Glucose Level 96 mg/dL (70-99) Calcium Level 8.3 mg/dL (8.5-10.1) Total Bilirubin 0.3 mg/dL (0.2-1.0) Aspartate Amino Transf (AST/SGOT) 11 U/L (15-37) Alanine Aminotransferase (ALT/SGPT) 9 U/L (16-63) Alkaline Phosphatase 48 U/L (46-116) Total Protein 5.5 g/dL (6.4-8.2) Albumin 2.2 g/dL (3.4-5.0) Albumin/Globulin Ratio 0.7 (1.0-1.7) White Blood Count 2.5 x10^3/uL (4.0-11.0) Red Blood Count 2.95 x10^6/uL (4.30-5.70) Hemoglobin 9.1 g/dL (13.0-17.5) Hematocrit 29.5 % (39.0-53.0) Mean Corpuscular Volume 100 fL (79-100) Mean Corpuscular Hemoglobin 31 pg (25-35) Mean Corpuscular Hemoglobin Concent 31 g/dL (31-37) Red Cell Distribution Width 16.8 % (11.5-14.5) Platelet Count 105 x10^3/uL (140-400) Neutrophils (%) (Auto) 66 % (31-73) Lymphocytes (%) (Auto) 13 % (24-48) Monocytes (%) (Auto) 20 % (0-9) Eosinophils (%) (Auto) 1 % (0-3) Basophils (%) (Auto) 0 % (0-3) Neutrophils # (Auto) 1.6 x10^3/uL (1.8-7.7) Lymphocytes # (Auto) 0.3 x10^3/uL (1.0-4.8) Monocytes # (Auto) 0.5 x10^3/uL (0.0-1.1) Eosinophils # (Auto) 0.0 x10^3/uL (0.0-0.7) Basophils # (Auto) 0.0 x10^3/uL (0.0-0.2) Segmented Neutrophils % 53 % (35-66) Band Neutrophils % 17 % (0-9) Lymphocytes % 13 % (24-48) Monocytes % 15 % (0-10) Eosinophils % 1 % (0-5) Metamyelocytes % 1 % (0-0) Nucleated Red Blood Cells 1 Platelet Estimate Decreased (ADEQUATE) Polychromasia Slight Anisocytosis Slight Objective Assessment PT SEEN, CONSULT DICTATED Plan Plan of Care / ATTILA MEADOWS MD Nov 30, 2019 10:49
[2019-11-30 11:15] VITALS: BP 138/50
--- NOTE | 2019-11-30 11:16 | CONS ---
DATE OF CONSULTATION: 11/30/2019 REQUESTING PHYSICIAN: Lance Luis MD REASON FOR CONSULTATION: Pneumonia, antibiotic management, leukopenia. HISTORY OF PRESENT ILLNESS: This is an 79-year-old gentleman who has multiple medical problems including on hemodialysis. The patient in fact went to the hemodialysis center yesterday without any symptoms or complaints or problems. The patient was found to be having 101 fever on hemodialysis and had chills. The patient does have a chronic cough, which is nothing new. Dialysis has been trying to evaluate leukopenia that he has had maybe for about a month. The patient was then transferred to [place] [facility] and from there he came here for further management. The patient denies any shortness of breath. Denies any nausea, vomiting, diarrhea. Denies any chest pain, abdominal pain, urinary symptoms or bowel symptoms. The patient was also noted to have a large left apical bulla on the chest x-ray and atelectasis/infiltrate and moderate effusion. Also, the white count has been 2.2. PAST MEDICAL HISTORY: Positive for macular degeneration; hyperlipidemia; atrial fibrillation; hypertension; COPD; sleep apnea; end-stage renal disease, on hemodialysis; benign prostatic hypertrophy; transurethral resection done in the past; osteoarthritis; joint replacement done in the past. SOCIAL HISTORY: Positive for smoking, though the patient is on oxygen at home. No alcohol use or drug use. ALLERGIES: LISTED ALLERGIC TO CETIRIZINE. CURRENT MEDICATIONS: Reviewed. The patient is on Zosyn and vancomycin dose has been given. REVIEW OF SYSTEMS: As per HPI, all other systems reviewed are negative. PHYSICAL EXAMINATION: GENERAL: Alert, oriented gentleman, not in distress. VITAL SIGNS: Stable. T-max is 99.6. HEENT: NAD. NECK: Supple, no JVP, no lymphadenopathy. LUNGS: Clear. HEART: S1, S2 regular. ABDOMEN: Benign. EXTREMITIES: No edema, cyanosis. SKIN: Unremarkable. NEUROLOGIC: The patient is alert, awake and appropriate. No focal neurologic deficit. LABORATORY DATA: White count is 2.5, hemoglobin 9.1, platelets are 105,000. The patient does have lymphopenia. BUN and creatinine is 58 and 8.6. COVID-19 has been ordered and is pending and the cultures are pending. Chest x-ray showed as I mentioned large pleural effusion, some atelectasis/infiltrate. IMPRESSION: 1. Leukopenia, possible COVID-19. The patient also has a cough. 2. Large pleural effusion with infiltrate/atelectasis, chronic versus new. The patient has had atelectasis in the left lower lobe in the past. 3. End-stage renal disease, on hemodialysis. 4. Chronic obstructive pulmonary disease. 5. Hypertension. 6. Hyperlipidemia. RECOMMENDATIONS: Continue vancomycin and Zosyn, supportive care, benoit-culture and we will continue to follow. Thank you very much, Dr. Luis, for giving me the opportunity to participate in this patient's care. ATTILA MEADOWS MD DR: WU/carly JOB#: [id number] / [id number]
[2019-11-30] MEDS: ALBUTEROL SULFATE 2.5 MG/3 ML NEBU. NEB SCH ×3 (12:00→19:38)
[2019-11-30] MEDS: BUDESONIDE 0.5 MG/2 ML NEBU. NEB SCH ×2 (12:00→19:38)
[2019-11-30] MEDS: ALBUTEROL SULFATE 2.5 MG/3 ML NEBU. NEB PRN ×2 (12:15→23:12)
[2019-11-30] MEDS: hydroCHLOROthiazide 12.5 MG CAPSULE PO SCH (13:05)
[2019-11-30] MEDS: LOSARTAN POTASSIUM 50 MG TABLET. PO SCH (13:05)
[2019-11-30] MEDS: ZINC SULFATE 220 MG CAPSULE. PO SCH (13:05)
[2019-11-30] MEDS: CALCIUM ACETATE 667 MG CAPSULE PO SCH ×2 (13:05→16:54)
[2019-11-30] MEDS: ISOSORBIDE MONONITRATE ER 30 MG TAB.ER.24H PO SCH ×2 (13:06→20:46)
[2019-11-30] MEDS: FOLIC/VIT B COMP W-C (RENAL) TABLET. PO SCH (13:06)
[2019-11-30 15:15] VITALS: BP 138/46
--- NOTE | 2019-11-30 17:05 | NUR ---
SW following for discharge planning. Reviewed chat and spoke with RN. Pt transferred from [facility]. Pt on IV Zosyn and IV Vancomycin. Pt on 1l 02 and has home 02. Pt does out-patient dialysis at [facility] in [place], ; [phone] (fax). SW to continue following.
[2019-11-30 19:00] VITALS: BP 143/57
[2019-11-30] MEDS: TAMSULOSIN 0.4 MG CAP.ER.24H. PO SCH (20:44)
[2019-11-30] MEDS: ATORVASTATIN CALCIUM 10 MG TABLET. PO SCH (20:45)
[2019-11-30] MEDS: METOPROLOL TART IMMED RELEASE 25 MG TABLET. PO SCH (20:45)
[2019-11-30] MEDS: HEPARIN for SUB-Q USE 5,000 UNIT/ML VIAL. SQ SCH (20:47)
[2019-11-30 23:00] VITALS: BP 123/42
[2019-12-01] MEDS: PIPERACILLIN/TAZOBACTAM 2.25 GM in IV NORMAL SALINE 50ML 50 ML IV SCH ×4 (00:07→23:06)
[2019-12-01 03:01] VITALS: BP 121/40
[2019-12-01 05:35] LABS: CALCIUM 8.1 mg/dL (8.5-10.1); CREATININE 9.7 mg/dL (0.7-1.3); GFR 5.2; POTASSIUM 5.7 mmol/L (3.5-5.1)
[2019-12-01] MEDS: ALBUTEROL SULFATE 2.5 MG/3 ML NEBU. NEB PRN (05:40)
[2019-12-01] MEDS: HEPARIN for SUB-Q USE 5,000 UNIT/ML VIAL. SQ SCH ×3 (06:00→21:55)
[2019-12-01] MEDS: ALBUTEROL SULFATE 2.5 MG/3 ML NEBU. NEB SCH ×4 (07:19→19:59)
[2019-12-01] MEDS: BUDESONIDE 0.5 MG/2 ML NEBU. NEB SCH ×2 (07:19→19:59)
[2019-12-01 07:48] VITALS: BP 125/44
[2019-12-01] MEDS: CALCIUM ACETATE 667 MG CAPSULE PO SCH ×3 (08:00→17:39)
[2019-12-01] MEDS ORDERED: IV NORMAL SALINE 1000ML BAG 1,000 ML IV PRN ×2 (08:05)
[2019-12-01] MEDS ORDERED: DIALYSIS PATIENT. MC PRN (08:15)
[2019-12-01] MEDS ORDERED: ALBUMIN HUMAN 25% 200 ML IV PRN (08:15)
--- NOTE | 2019-12-01 10:43 | PDOC ---
Infectious Disease Note Subjective Subjective Patient is feeling better he is getting hemodialysis ROS ROS No nausea vomiting diarrhea chest pain shortness of breath Vital Sign Vital Signs Vital Signs Date Time Temp Pulse Resp B/P (MAP) Pulse Ox O2 Delivery O2 Flow Rate FiO2 12/01/19 08:00 Nasal Cannula 3.5 12/01/19 07:48 98.1 83 18 125/44 (71) 92 98.1 Physical Exam PHYSICAL EXAM PHYSICAL EXAMINATION: GENERAL: Alert, oriented gentleman, not in distress. VITAL SIGNS: Stable HEENT: NAD. NECK: Supple, no JVP, no lymphadenopathy. LUNGS: Clear. HEART: S1, S2 regular. ABDOMEN: Benign. EXTREMITIES: No edema, cyanosis. SKIN: Unremarkable. NEUROLOGIC: The patient is alert, awake and appropriate. No focal neurologic deficit. Labs Lab Laboratory Tests Test 12/01/19 04:30 Sodium Level 138 mmol/L (136-145) Potassium Level 5.7 mmol/L (3.5-5.1) Chloride Level 103 mmol/L (98-107) Carbon Dioxide Level 25 mmol/L (21-32) Anion Gap 10 (6-14) Blood Urea Nitrogen 73 mg/dL (8-26) Creatinine 9.7 mg/dL (0.7-1.3) Estimated GFR (Cockcroft-Gault) 5.2 Glucose Level 86 mg/dL (70-99) Calcium Level 8.1 mg/dL (8.5-10.1) Objective Assessment IMPRESSION: 1. Leukopenia, possible COVID-19. The patient also has a cough. 2. Large pleural effusion with infiltrate/atelectasis, chronic versus new. The patient has had atelectasis in the left lower lobe in the past. 3. End-stage renal disease, on hemodialysis. 4. Chronic obstructive pulmonary disease. 5. Hypertension. 6. Hyperlipidemia. Plan Plan of Care /RECOMMENDATIONS: Continue vancomycin and Zosyn, supportive care, benoit-culture and we will continue to follow. ATTILA MEADOWS MD Dec 01, 2019 10:43
--- NOTE | 2019-12-01 11:38 | PDOC ---
SUBJECTIVE ROS seen on HD, stable OBJECTIVE Vital Signs Vital Signs Date Time Temp Pulse Resp B/P (MAP) Pulse Ox O2 Delivery O2 Flow Rate FiO2 12/01/19 08:00 Nasal Cannula 3.5 12/01/19 07:48 98.1 83 18 125/44 (71) 92 98.1 I & 0 Intake and Output 12/01/19 07:00 Intake Total 50 ml Output Total 0 ml Balance 50 ml IV Total 50 ml Output Urine Total 0 ml # Bowel Movements 1 PHYSICAL EXAM Physical Exam General: No acute distress HEENT: OM moist , Chronic home O2 Neck supple Lungs: Clear to auscultation Heart: Regular rate, Normal S1, Normal S2 Abdomen: Normal bowel sounds, Soft, No tenderness Extremities: No edema Skin: No rash Neuro: grossly normal No clark DIAGNOSIS/ASSESSMENT Assessment & Plan ESRD- On HD MWF @ [facility]- Dr. Mccall Seen on HD, tolerating well, continue as ordered, Joaquin Mckeon HyperKalemia- Mild Pneumonia- Reported on CxR Covid19 pending Lt Pleural effusion- moderate, new in interval. Underlying neoplastic etiology not excluded Defer to Primary/Pulm COMMENT/RELEVANT DATA Meds Current Medications Medications (Trade) Dose Ordered Sig/Samina Start Time Stop Time Status Last Admin Dose Admin Acetaminophen (Tylenol) 500 mg PRN Q6HRS PRN 11/30/19 12:00 Albumin Human 200 ml @ 200 mls/hr 1X PRN PRN 12/01/19 08:15 12/01/19 14:14 Albuterol Sulfate (Ventolin Neb Soln) 2.5 mg RTQID 11/30/19 12:00 12/01/19 07:19 2.5 MG Amiodarone HCl (Cordarone) 200 mg DAILY 12/01/19 09:00 Aspirin (Ecotrin) 81 mg DAILY 12/01/19 09:00 Atorvastatin Calcium (Lipitor) 10 mg HS 11/30/19 21:00 11/30/19 20:45 10 MG Budesonide (Pulmicort) 0.5 mg RTBID 11/30/19 12:00 12/01/19 07:19 0.5 MG Calcium Acetate (Phoslo) 667 mg TIDWMEALS 11/30/19 12:30 11/30/19 16:54 667 MG Heparin Sodium (Porcine) (Heparin Sodium) 5,000 unit Q8HRS 7/16/20 22:00 Hydralazine HCl (Apresoline) 50 mg BID 11/30/19 21:00 11/30/19 20:45 50 MG Hydrochlorothiazide (Microzide) 12.5 mg DAILY 11/30/19 12:30 11/30/19 13:05 12.5 MG Info (PHARMACY MONITORING -- do not chart) 1 each PRN DAILY PRN 12/01/19 08:15 Isosorbide Mononitrate (Imdur) 30 mg BID 11/30/19 12:30 11/30/19 20:46 30 MG Losartan Potassium (Cozaar) 50 mg DAILY 11/30/19 12:30 11/30/19 13:05 50 MG Metoprolol Tartrate (Lopressor) 12.5 mg BID 11/30/19 21:00 11/30/19 20:45 12.5 MG Piperacillin Sod/ Tazobactam Sod 2.25 gm/Sodium Chloride 50 ml @ 100 mls/hr Q6HRS 11/29/19 20:00 12/01/19 06:07 100 MLS/HR Sodium Chloride 1,000 ml @ 400 mls/hr Q2H30M PRN 12/01/19 08:05 12/01/19 20:04 Tamsulosin HCl (Flomax) 0.4 mg BID 11/30/19 21:00 11/30/19 20:44 0.4 MG Vitamin B Complex/ Vitamin C (Neha-Ronnie) 1 tab DAILY 11/30/19 12:30 11/30/19 13:06 1 TAB Vitamin D (Vitamin D3) 1,000 unit DAILY 12/01/19 09:00 Zinc Sulfate (Orazinc) 220 mg DAILY 11/30/19 12:30 11/30/19 13:05 220 MG Lab Laboratory Tests Test 12/01/19 04:30 Sodium Level 138 mmol/L (136-145) Potassium Level 5.7 mmol/L (3.5-5.1) Chloride Level 103 mmol/L (98-107) Carbon Dioxide Level 25 mmol/L (21-32) Anion Gap 10 (6-14) Blood Urea Nitrogen 73 mg/dL (8-26) Creatinine 9.7 mg/dL (0.7-1.3) Estimated GFR (Cockcroft-Gault) 5.2 Glucose Level 86 mg/dL (70-99) Calcium Level 8.1 mg/dL (8.5-10.1) Results All relevant outside records, renal labs, imaging studies, telemetry/EKG's were reviewed. Justicifation of Admission Dx: Justifications for Admission: Justification of Admission Dx: N/A GLORIA ANGUIANO MD Dec 01, 2019 11:38
--- NOTE | 2019-12-01 11:42 | PDOC2 ---
CONSULT Date of Consult Date of Consult DATE: 12/01/19 TIME: 11:40 Reason for Consult Reason for Consult: Pancytopenia Referring Physician Referring Physician: Dr. Luis Identification/Chief Complaint Chief Complaint Leukopenia and cough Problems: (1) Pancytopenia (2) B12 deficiency History of Present Illness Reason for Visit: Shahab jones is 79-year-old male with history of end-stage renal disease and B12 deficiency who has been admitted to the hospital for further evaluation of cough and was found to have persistent leukopenia. The patient reports that he has been noted to have low white cell count at his dialysis facility for the past few weeks and this was being evaluated further. He denies recent fever or chills. He denies recent changes in his diet. He does report occasional dry cough. He denies shortness of breath. He denies night sweats. He reports gradually progressing fatigue and mild weight loss. He has previously been seen at [facility] by hematology (Dr. Kwong). He was found to have B12 deficiency at the time and oral B12 supplementation was recommended. He has no additional concerns at this time. Past Medical History Cardiovascular: HTN, Hyperlipidemia Pulmonary: COPD CENTRAL NERVOUS SYSTEM: Other GI: No pertinent hx Heme/Onc: No pertinent hx Hepatobiliary: No pertinent hx Psych: No pertinent hx Musculoskeletal: Osteoarthritis Rheumatologic: No pertinent hx Infectious disease: No pertinent hx Renal/: Benign prostatic enlarg. Endocrine: No pertinent hx Past Surgical History Past Surgical History: Cataract Removal, Total knee replacement, Other Family History Family History No pertinent family history Social History ALCOHOL: none Drugs: None Lives: Alone Domestic Violence: Neg Current Medications Current Medications Current Medications Piperacillin Sod/ Tazobactam Sod 2.25 gm/Sodium Chloride 50 ml @ 100 mls/hr Q6HRS IV Last administered on 12/01/19at 06:07; Start 11/29/19 at 20:00 Acetaminophen (Tylenol) 500 mg PRN Q6HRS PRN PO FEVER; Start 11/30/19 at 12:00 Amiodarone HCl (Cordarone) 200 mg DAILY PO ; Start 12/01/19 at 09:00 Aspirin (Ecotrin) 81 mg DAILY PO ; Start 12/01/19 at 09:00 Atorvastatin Calcium (Lipitor) 10 mg HS PO Last administered on 11/30/19at 20:45 ; Start 11/30/19 at 21:00 Hydralazine HCl (Apresoline) 50 mg BID PO Last administered on 11/30/19 20:45; Start 11/30/19 at 21:00 Isosorbide Mononitrate (Imdur) 30 mg BID PO Last administered on 11/30/19at 20:46; Start 11/30/19 at 12:30 Metoprolol Tartrate (Lopressor) 12.5 mg BID PO Last administered on 11/30/19 20:45; Start 11/30/19 at 21:00 Tamsulosin HCl (Flomax) 0.4 mg BID PO Last administered on 11/30/19 20:44; Start 11/30/19 at 21:00 Calcium Acetate (Phoslo) 667 mg TIDWMEALS PO Last administered on 11/30/19at 16:54; Start 11/30/19 at 12:30 Vitamin D (Vitamin D3) 1,000 unit DAILY PO ; Start 12/01/19 at 09:00 Budesonide (Pulmicort) 0.5 mg RTBID NEB Last administered on 12/01/19at 07:19; Start 11/30/19 at 12:00 Vitamin B Complex/ Vitamin C (Neha-Ronnie) 1 tab DAILY PO Last administered on 11/30/19 13:06; Start 11/30/19 at 12:30 Losartan Potassium (Cozaar) 50 mg DAILY PO Last administered on 11/30/19at 13:05; Start 11/30/19 at 12:30 Zinc Sulfate (Orazinc) 220 mg DAILY PO Last administered on 11/30/19at 13:05; Start 11/30/19 at 12:30 Albuterol Sulfate (Ventolin Neb Soln) 2.5 mg PRN Q4HRS PRN NEB SHORTNESS OF BREATH Last administered on 12/01/19at 05:40; Start 11/30/19 at 12:00 Hydrochlorothiazide (Microzide) 12.5 mg DAILY PO Last administered on 11/30/19at 13:05; Start 11/30/19 at 12:30 Albuterol Sulfate (Ventolin Neb Soln) 2.5 mg RTQID NEB Last administered on 12/01/19at 07:19; Start 11/30/19 at 12:00 Heparin Sodium (Porcine) (Heparin Sodium) 5,000 unit Q8HRS SQ ; Start 11/30/19 at 22:00 Sodium Chloride 1,000 ml @ 1,000 mls/hr Q1H PRN IV hypotension; Start 12/01/19 at 08:05; Stop 12/01/19 at 14:04 Albumin Human 200 ml @ 200 mls/hr 1X PRN PRN IV Hypotension; Start 12/01/19 at 08:15; Stop 12/01/19 at 14:14 Sodium Chloride 1,000 ml @ 400 mls/hr Q2H30M PRN IV PATENCY; Start 12/01/19 at 08:05; Stop 12/01/19 at 20:04 Info (PHARMACY MONITORING -- do not chart) 1 each PRN DAILY PRN MC SEE COMMENTS; Start 12/01/19 at 08:15 Active Scripts Active Isosorbide Mononitrate Er (Isosorbide Mononitrate) 30 Mg Tab.er.24h 30 Mg PO BID 30 Days Hydralazine Hcl 50 Mg Tablet 50 Mg PO BID 30 Days Amiodarone Hcl 200 Mg Tablet 1 Tab PO DAILY 30 Days Duoneb 0.5-3(2.5) Mg/3 Ml (Albuterol/Ipratropium) 3 Ml Ampul.neb 3 Ml NEB RTQID 30 Days Reported Zinc Sulfate 220 Mg Tablet 1 Tab PO DAILY 30 Days Vitamin D3 (Cholecalciferol (Vitamin D3)) 25 Mcg Capsule 25 Mcg PO DAILY 1 Days Acetaminophen 500 Mg Tablet 1 Tab PO PRN Q6HRS PRN 15 Days Calcium Acetate 667 Mg Tablet 1 Cap PO TIDAC Metoprolol Tartrate 25 Mg Tablet 0.5 Tab PO BID [ahreds] 1 Cap PO BID Ahreds #2 Preservision, One softgel by mouth twice a day Dialyvite Tablet (Folic Acid/Vitamin B Comp W-C) 1 Each Tablet 1 Tab PO DAILY Advair 250-50 Diskus (Fluticasone/Salmeterol) 1 Each Disk.w.dev 1 Puff PO BID Aspirin Ec (Aspirin) 81 Mg Tablet. 1 Tab PO BID LAST DOSE GIVEN: DATE: 03/17/17 TIME: 1030 am so start taking this daily tomorrow Hyzaar 50-12.5 Tablet (Losartan/Hydrochlorothiazide) 1 Each Tablet 1 Tab PO DAILY Tamsulosin Hcl 0.4 Mg Cap.er.24h 0.4 Mg PO BID Ventolin Hfa Inhaler (Albuterol Sulfate) 18 Gm Hfa.aer.ad 2 Puff INH QID Atorvastatin Calcium 10 Mg Tablet 10 Mg PO HS Allergies Allergies: Coded Allergies: cetirizine (Verified Allergy, Intermediate, hives, 03/30/19) Vitals VITALS Vital Signs Date Time Temp Pulse Resp B/P (MAP) Pulse Ox O2 Delivery O2 Flow Rate FiO2 12/01/19 08:00 Nasal Cannula 3.5 12/01/19 07:48 98.1 83 18 125/44 (71) 92 98.1 Labs Labs Laboratory Tests Test 11/30/19 04:00 11/30/19 04:06 12/01/19 04:30 Sodium Level 138 mmol/L (136-145) 138 mmol/L (136-145) Potassium Level 5.2 mmol/L (3.5-5.1) 5.7 mmol/L (3.5-5.1) Chloride Level 102 mmol/L (98-107) 103 mmol/L (98-107) Carbon Dioxide Level 27 mmol/L (21-32) 25 mmol/L (21-32) Anion Gap 9 (6-14) 10 (6-14) Blood Urea Nitrogen 58 mg/dL (8-26) 73 mg/dL (8-26) Creatinine 8.6 mg/dL (0.7-1.3) 9.7 mg/dL (0.7-1.3) Estimated GFR (Cockcroft-Gault) 6.0 5.2 BUN/Creatinine Ratio 7 (6-20) Glucose Level 96 mg/dL (70-99) 86 mg/dL (70-99) Calcium Level 8.3 mg/dL (8.5-10.1) 8.1 mg/dL (8.5-10.1) Total Bilirubin 0.3 mg/dL (0.2-1.0) Aspartate Amino Transf (AST/SGOT) 11 U/L (15-37) Alanine Aminotransferase (ALT/SGPT) 9 U/L (16-63) Alkaline Phosphatase 48 U/L (46-116) Total Protein 5.5 g/dL (6.4-8.2) Albumin 2.2 g/dL (3.4-5.0) Albumin/Globulin Ratio 0.7 (1.0-1.7) White Blood Count 2.5 x10^3/uL (4.0-11.0) Red Blood Count 2.95 x10^6/uL (4.30-5.70) Hemoglobin 9.1 g/dL (13.0-17.5) Hematocrit 29.5 % (39.0-53.0) Mean Corpuscular Volume 100 fL (79-100) Mean Corpuscular Hemoglobin 31 pg (25-35) Mean Corpuscular Hemoglobin Concent 31 g/dL (31-37) Red Cell Distribution Width 16.8 % (11.5-14.5) Platelet Count 105 x10^3/uL (140-400) Neutrophils (%) (Auto) 66 % (31-73) Lymphocytes (%) (Auto) 13 % (24-48) Monocytes (%) (Auto) 20 % (0-9) Eosinophils (%) (Auto) 1 % (0-3) Basophils (%) (Auto) 0 % (0-3) Neutrophils # (Auto) 1.6 x10^3/uL (1.8-7.7) Lymphocytes # (Auto) 0.3 x10^3/uL (1.0-4.8) Monocytes # (Auto) 0.5 x10^3/uL (0.0-1.1) Eosinophils # (Auto) 0.0 x10^3/uL (0.0-0.7) Basophils # (Auto) 0.0 x10^3/uL (0.0-0.2) Segmented Neutrophils % 53 % (35-66) Band Neutrophils % 17 % (0-9) Lymphocytes % 13 % (24-48) Monocytes % 15 % (0-10) Eosinophils % 1 % (0-5) Metamyelocytes % 1 % (0-0) Nucleated Red Blood Cells 1 Platelet Estimate Decreased (ADEQUATE) Polychromasia Slight Anisocytosis Slight Laboratory Tests Test 12/01/19 04:30 Sodium Level 138 mmol/L (136-145) Potassium Level 5.7 mmol/L (3.5-5.1) Chloride Level 103 mmol/L (98-107) Carbon Dioxide Level 25 mmol/L (21-32) Anion Gap 10 (6-14) Blood Urea Nitrogen 73 mg/dL (8-26) Creatinine 9.7 mg/dL (0.7-1.3) Estimated GFR (Cockcroft-Gault) 5.2 Glucose Level 86 mg/dL (70-99) Calcium Level 8.1 mg/dL (8.5-10.1) Images Images Reviewed radiology Assessment/Plan Assessment/Plan Pancytopenia: I reviewed the patient's presenting history, radiology and prior records including hematology consultation from prior visit. He is an 79-year-old man with history of pancytopenia and previously diagnosed B12 deficiency. I suspect that his pancytopenia is multifactorial with a competent of chronic kidney disease related anemia in addition to B12 deficiency. We would recommend rechecking B12, folic acid level, iron studies at this time. Would also recommend replacing folic acid orally and B12 parenterally. I would not recommend a bone marrow biopsy if he is B12 deficient is at at this time since this would likely show myelodysplasia secondary to B12 deficiency and would not yield a diagnosis. We would like to see him in clinic following B12 replacement and reassess need for additional hematologic evaluation Cough: Defer further evaluation to hospitalist service. Consider CT chest and COVID-19 testing ESRD: Nephrology following. Thank you for this consultation. Epi Horton MD Medical Oncology/Hematology Ph: [phone] JAQUELIN HORTON MD Dec 01, 2019 11:42
[2019-12-01] MEDS: LOSARTAN POTASSIUM 50 MG TABLET. PO SCH (13:28)
[2019-12-01] MEDS: FOLIC/VIT B COMP W-C (RENAL) TABLET. PO SCH (13:28)
[2019-12-01] MEDS: ZINC SULFATE 220 MG CAPSULE. PO SCH (13:28)
[2019-12-01] MEDS: CHOLECALCIFEROL (VITAMIN D3) 1,000 UNIT TABLET PO SCH (13:28)
[2019-12-01] MEDS: hydroCHLOROthiazide 12.5 MG CAPSULE PO SCH (13:29)
[2019-12-01] MEDS: TAMSULOSIN 0.4 MG CAP.ER.24H. PO SCH ×2 (13:30→21:43)
[2019-12-01] MEDS: AMIODARONE HCL 200 MG TABLET. PO SCH (13:30)
[2019-12-01] MEDS: ASPIRIN ENTERIC COATED 81 MG TABLET.DR. PO SCH (13:31)
[2019-12-01] MEDS: ISOSORBIDE MONONITRATE ER 30 MG TAB.ER.24H PO SCH ×2 (13:31→21:43)
[2019-12-01] MEDS: METOPROLOL TART IMMED RELEASE 25 MG TABLET. PO SCH ×2 (13:31→21:43)
[2019-12-01] MEDS: VANCOMYCIN PER PHARMACY MC PRN ×2 (15:08→18:34)
--- NOTE | 2019-12-01 15:20 | PN ---
DATE: 11/30/2019 SUBJECTIVE: The patient was referred to [facility] Emergency Room from the Dialysis Unit as he spiked his temperature. He was evaluated in the Emergency Room, was found to have community-acquired pneumonia, started on IV antibiotic, and was transferred to [facility]. I did consult the solar designer as well as the Infectious Disease specialist. His lab work on ,, was unremarkable and there was no need for any urgent hemodialysis. When I examined him, he was resting flat in bed comfortably. He did complain of mild discomfort in the left side of his chest. Generally, he felt fine. PHYSICAL EXAMINATION: VITAL SIGNS: His heart rate was 86, blood pressure was 141/54, temperature 96.6, respiratory rate was 16, and oxygen saturation was 92% on 4 liters of oxygen. HEAD, EYES, EARS, NOSE, AND THROAT: Showed normocephalic, atraumatic. NECK: Supple. HEART: Showed normal first and second heart sounds. No gallop, rub, or murmur. CHEST: Clear to auscultation. No crepitation or rhonchi anteriorly. ABDOMEN: Distended, soft, nontender. NEUROLOGIC: He was awake, alert, responding appropriately. All cranial nerves are intact. He moves extremities without difficulty. His intake and output were incompletely recorded. LABORATORY DATA: His lab work showed a serum sodium 138, potassium 5.2, chloride 102, bicarbonate 27, anion gap of 9, BUN 58, creatinine 8.6, glucose was 96, calcium was 8.3. Total bilirubin, AST, ALT, alkaline phosphatase were normal. Total protein was 5.5, albumin 2.2. His white cell count was 2500, hemoglobin 9, hematocrit 29, MCV 100, and platelet count of 105,000 with normal manual differential. ASSESSMENT AND PLAN: In summary, this is an 79-year-old male patient with: 1. Community-acquired pneumonia. 2. Probably underlying chronic obstructive pulmonary disease. 3. End-stage renal disease, on hemodialysis Wednesday, Wednesday, Wednesday. 4. He has pancytopenia with a low white cell count, hemoglobin, hematocrit, and platelets. I did consult the broke man to evaluate him for his pancytopenia given that his white cell count and platelets were within normal range last year. He was seen by the Infectious Disease specialist and was continued on vancomycin and Zosyn. He would be dialyzed on 12/01/2019. RALEIGH ZHAO MD DR: TAYLOR/carly JOB#: [id number] / [id number]
[2019-12-01 15:23] VITALS: BP 142/59
--- NOTE | 2019-12-01 15:25 | HP ---
ADMIT DATE: HISTORY OF PRESENT ILLNESS: The patient is an 79-year-old male patient, who apparently was referred from his dialysis center in [place] with fever of 101. He stated also he had some chills on the day before arrival to the Emergency Room of [facility] and also had chronic cough that he said maybe increased slightly and he noted also some sinus drainage in the morning of admission. He also noted some pain in his left scapula with coughing as he had had pneumonia in that site in the past. He denied any exposure to COVID-19 that he knows. The patient has stable shortness of breath and he is known to have COPD, on home oxygen, but otherwise breathing normally. Denied any vomiting, no abdominal pain. He does still continue to make small amount of urine; however, he is on hemodialysis on Wednesday, Wednesday, Wednesday. He was extensively investigated in the Emergency Room of [facility]. His lab work showed that he has leukopenia, anemia and thrombocytopenia. He obviously is known to have end-stage renal disease. His BUN was 49, creatinine was 8 with normal potassium. His urinalysis showed he has 20-40 wbc's, 6-10 rbc's. He was swabbed for COVID-19 and was transferred to [facility] and kept in droplet precaution and we did consult the microsoft dynamics manager architect. He has also had a chest x-ray, which showed that the patient has a new left upper lung field mass, left basilar retrocardiac consolidation and small pleural effusion. His CT scan of the chest showed interval development of a large left apical bulla, subjacent atelectasis and infiltrate noted, moderate-sized left pleural effusion is new in the interval, underlying neoplastic etiologies not excluded. He has lingular atelectasis also seen, minimal left lower lobe basilar atelectasis. He was started on IV antibiotic and was transferred to [facility] and kept on droplet precautions. We did consult the Infectious Disease specialist as well as the microsoft dynamics manager architect. PAST MEDICAL HISTORY: Significant for: 1. End-stage renal disease. 2. Prior right elbow infection. 3. Macular degeneration. 4. Cataracts. 5. Hypertension. 6. Hyperlipidemia. 7. Atrial fibrillation. 8. Chronic obstructive pulmonary disease. 9. Bronchial asthma. 10. Obstructive sleep apnea. 11. Benign prostatic hypertrophy. 12. Generalized osteoarthritis. PAST SURGICAL HISTORY: Significant for hemodialysis catheter placement, right knee replacement, skin cancer excision. ALLERGIES: ALLERGIC TO ZYRTEC. FAMILY HISTORY: Mom with cancer and lymphoma in the family. SOCIAL HISTORY: He lives alone. He is . He has 2 children, 1 lives nearby and the other lives out of state. He is an ex-smoker and does not drink alcohol or use any recreational drugs. He is fairly independent. MEDICATIONS: He is currently on following medications: He is on vitamin D 1000 [employer] Unit once a day, aspirin 81 mg once a day, amiodarone 200 mg once a day. He is on tamsulosin 0.4 mg twice a day, metoprolol tartrate 12.5 mg twice a day, hydralazine 50 mg twice a day, atorvastatin, calcium 10 mg at bedtime, hydrochlorothiazide 12.5 mg once a day, zinc sulfate 220 mg once a day, losartan potassium 50 mg once a day, vitamin B complex with Neha-Ronnie 1 tablet once a day, calcium acetate 667 mg 3 times a day with meals, isosorbide mononitrate 30 mg twice a day, albuterol sulfate 2.5 mg by nebulizer 4 times a day, budesonide 0.5 mg by nebulizer twice a day, acetaminophen 500 mg every 6 hours. PHYSICAL EXAMINATION: GENERAL: On arrival to the Emergency Room, he looked somewhat pale, but no jaundice, cyanosis or thyromegaly. No jugular venous distention. No limb edema. VITAL SIGNS: His heart rate was 100, blood pressure 156/56, his temperature was 98.1, respiratory rate 20, and oxygen saturation was 96% on 3.5 liters by nasal cannula. HEAD, EYES, EARS, NOSE AND THROAT: Showed normocephalic, atraumatic. NECK: Supple. HEART: Showed normal first and second heart sounds. No gallop or murmur. CHEST: Shows central trachea, equal bilateral expansion, air entry, vesicular breath sounds. No crepitation or rhonchi anteriorly. ABDOMEN: Distended, soft, nontender. NEUROLOGIC: He was awake, alert, responding appropriately. All cranial nerves intact. EXTREMITIES: He moves extremities without difficulty. LABORATORY DATA: His lab work on arrival to the Emergency Room showed a white cell count of 2200, hemoglobin 9.8, hematocrit 32, MCV 101 and platelet count of 127,000, with normal manual differential. His chemistry showed a serum sodium 143, potassium 4.7, chloride 102, bicarbonate 30, anion gap of 11, BUN 49, creatinine 8. Estimated GFR was 6.5 mL per minute. His glucose 112, lactic acid was 1.7, calcium was 8.8. Total bilirubin, AST, ALT, and alkaline phosphatase were normal. His beta natriuretic peptide was more than 12,000. Total protein was 5.6, albumin was 2.7. Urinalysis showed the urine was yellow, hazy with a pH of 5, specific gravity of 1.025 with a small amount of protein. The urine was negative for glucose, ketone, blood, nitrite. There was a small amount of leukocyte esterase. There were 6-10 rbc's, 20-40 wbc's, and no bacteria. He was swabbed for COVID-[address] scan of the chest showed that there is interval development of a large left apical bulla, subjacent atelectasis and infiltrates noted. Moderate-sized left pleural effusion is new in the interval. Underlying neoplastic etiologies not excluded. ASSESSMENT AND PLAN: In summary, this is an 79-year-old male patient, who was admitted with community-acquired pneumonia on a background probably of chronic obstructive pulmonary disease. He has also end-stage renal disease. He was started on IV Zosyn and Zyvox, and I did obviously consult the microsoft dynamics manager architect as well as Infectious Disease specialist as he probably missed his dialysis on the day of admission. Meanwhile, we will continue with all his other medications. RALEIGH ZHAO MD DR: TAYLOR/carly JOB#: [id number] / [id number]
[2019-12-01] MEDS ORDERED: VANCOMYCIN RANDOM LEVEL. MC ONE (16:00)
--- NOTE | 2019-12-01 16:41 | NUR ---
SW following. Spoke with RN and CM. Coordinated care with Dr. Pool and reviewed chart. Pt not ready for discharge. PT/OT still to evaluate as OT attempted to see pt after dialysis and pt was to tired. SW to continue to follow.
--- NOTE | 2019-12-01 18:12 | NUR ---
Arrived to unit [place] bed from [place]. Oriented to room and controls. Side rails up x's 2 with call light in reach. Son at bedside.
--- NOTE | 2019-12-01 18:35 | NUR ---
Pharmacy Vancomycin Dosing Note S:Consulted to monitor and dose vancomycin started 11/29/19. O:ADALBERTO BILLS is a 79 year old M with HCAP . Height: 5 feet, 6 inches Weight: 71.1 kg Bangs Body Weight: 63.80 Adjusted Body Weight: 66.72 Dosing Weight: Actual Other Antibiotics: ZOSYN LABS: Last BUN: 73 Last Creatinine: 9.7 Creatinine Clearance: HD mL/min Last WBC: 2.5 Last Procalcitonin: Tmax (past 24 hours): Microbiology: I/O: 50/- Drug Levels: Last level: on at Last dose given at Vancomycin Dosing: Loading Dose: 1750 mg x1 Dosing Weight: Actual Target Trough: 15-20 A: Based on: POST HD LEVEL=13.8 P: 1. Begin Vancomycin IV MWF p HD 2. Follow up Random level on 12/01/19 at 1600 3. Pharmacy will continue to monitor, follow and adjust therapy as needed. JUDE CALLOWAY, [facility], 12/01/19 [id number]
[2019-12-01 19:00] VITALS: BP 128/53
[2019-12-01] MEDS: VANCOMYCIN 500 MG in IV NORMAL SALINE 100ML 100 ML IV SCH (21:41)
[2019-12-01] MEDS: LACTOBACILLUS RHAMNOSUS GG 1 CAPSULE. PO SCH (21:43)
[2019-12-01] MEDS: ATORVASTATIN CALCIUM 10 MG TABLET. PO SCH (21:43)
[2019-12-01 23:00] VITALS: BP 146/49
[2019-12-01] MEDS: MULTIVITAMIN I-VITE TABLET. PO SCH ×2 (23:00→23:06)
[2019-12-02] MEDS: ALBUTEROL SULFATE 2.5 MG/3 ML NEBU. NEB PRN ×2 (00:12→04:18)
[2019-12-02 03:00] VITALS: BP 143/76
[2019-12-02] MEDS: HEPARIN for SUB-Q USE 5,000 UNIT/ML VIAL. SQ SCH ×3 (06:00→22:00)
[2019-12-02] MEDS: PIPERACILLIN/TAZOBACTAM 2.25 GM in IV NORMAL SALINE 50ML 50 ML IV SCH ×3 (06:00→22:24)
[2019-12-02 07:00] VITALS: BP 131/43
[2019-12-02] MEDS: ALBUTEROL SULFATE 2.5 MG/3 ML NEBU. NEB SCH ×4 (07:58→20:25)
[2019-12-02] MEDS: BUDESONIDE 0.5 MG/2 ML NEBU. NEB SCH ×2 (07:58→20:25)
[2019-12-02 08:18] LABS: RED BLOOD COUNT 2.98 x10^6/uL (4.30-5.70); RED CELL DISTRIBUTION WIDTH 16.7 % (11.5-14.5); WHITE BLOOD COUNT 2.8 x10^3/uL (4.0-11.0)
[2019-12-02] MEDS: FOLIC/VIT B COMP W-C (RENAL) TABLET. PO SCH (09:00)
[2019-12-02] MEDS: TAMSULOSIN 0.4 MG CAP.ER.24H. PO SCH ×2 (09:00→22:28)
[2019-12-02] MEDS: ZINC SULFATE 220 MG CAPSULE. PO SCH (09:00)
[2019-12-02] MEDS: CHOLECALCIFEROL (VITAMIN D3) 1,000 UNIT TABLET PO SCH (10:16)
[2019-12-02] MEDS: LACTOBACILLUS RHAMNOSUS GG 1 CAPSULE. PO SCH ×2 (10:16→22:27)
[2019-12-02] MEDS: ASPIRIN ENTERIC COATED 81 MG TABLET.DR. PO SCH (10:19)
[2019-12-02] MEDS: AMIODARONE HCL 200 MG TABLET. PO SCH (10:19)
[2019-12-02] MEDS: LOSARTAN POTASSIUM 50 MG TABLET. PO SCH (10:20)
[2019-12-02] MEDS: hydroCHLOROthiazide 12.5 MG CAPSULE PO SCH (10:20)
[2019-12-02] MEDS: MULTIVITAMIN I-VITE TABLET. PO SCH (10:21)
[2019-12-02] MEDS: CALCIUM ACETATE 667 MG CAPSULE PO SCH ×3 (10:21→17:22)
[2019-12-02] MEDS: ISOSORBIDE MONONITRATE ER 30 MG TAB.ER.24H PO SCH ×2 (10:22→22:27)
[2019-12-02] MEDS: METOPROLOL TART IMMED RELEASE 25 MG TABLET. PO SCH ×2 (10:23→22:33)
[2019-12-02] MEDS ORDERED: CYANOCOBALAMIN (VITAMIN B-12) 1,000 MCG/ML VIAL IM ONE (10:45)
--- NOTE | 2019-12-02 10:57 | PDOC ---
Infectious Disease Note Subjective Subjective Feels "so-so" Still on 4L O2 Denies increase SOA/CP/cough Denies F/C/S ROS ROS as mentioned above Vital Sign Vital Signs Vital Signs Date Time Temp Pulse Resp B/P (MAP) Pulse Ox O2 Delivery O2 Flow Rate FiO2 12/02/19 10:23 60 131/43 12/02/19 07:55 94 Nasal Cannula 4.0 12/02/19 07:00 97.9 16 97.9 Physical Exam PHYSICAL EXAM GENERAL: Lying down HENT: Oral cavity dry NECK: Supple, no JVP, no lymphadenopathy. LUNGS: Diminished aeration bases, nonlabored HEART: S1, S2 regular. ABDOMEN: Soft and nontender EXTREMITIES: No edema, cyanosis. SKIN: warm to touch. No signs of rash NEUROLOGIC: Awake and appropriate. No focal neurologic deficit. PIV Labs Lab Laboratory Tests Test 12/01/19 17:05 12/02/19 07:45 Random Vancomycin Level 13.8 mcg/mL White Blood Count 2.8 x10^3/uL (4.0-11.0) Red Blood Count 2.98 x10^6/uL (4.30-5.70) Hemoglobin 9.0 g/dL (13.0-17.5) Hematocrit 29.0 % (39.0-53.0) Mean Corpuscular Volume 97 fL (79-100) Mean Corpuscular Hemoglobin 30 pg (25-35) Mean Corpuscular Hemoglobin Concent 31 g/dL (31-37) Red Cell Distribution Width 16.7 % (11.5-14.5) Platelet Count 123 x10^3/uL (140-400) Micro CT chest ([facility]) Intervertebral development of a large left apical bulla. Subjacent atelectasis and infiltrates noted. Moderate size left pleural effusion is new in the interval. Underlying neoplastic etiology is not excluded. Interval follow-up to assess resolution. Lingular atelectasis is again seen. Minimal left lower lobe basilar atelectasis. 11/28. Urine culture no growth 11/28. BC neg after 2 days Objective Assessment Leukopenia - slowly improving COVID-19 neg, 11/28 ([facility]) Large pleural effusion with infiltrate/atelectasis, chronic versus new. ([facility]- [facility]) End-stage renal disease, on hemodialysis. Chronic obstructive pulmonary disease. Hypertension. Hyperlipidemia. Plan Plan of Care Continue vancomycin and Zosyn Random vanc 13.8 f/u cultures from [facility], neg so far Monitor labs/temp Maintain aspiration precautions Supportive care Attending Co-Sign The patient was seen and interviewed as well as examined at the bedside. The chart was reviewed. The case was discussed. Agree with the plan of care. PROSPER POWELL APRN Dec 02, 2019 10:57 ATTILA MEADOWS MD Dec 02, 2019 14:12
[2019-12-02 11:00] VITALS: BP 112/68
--- NOTE | 2019-12-02 11:01 | PDOC ---
Infectious Disease Note Subjective Subjective Feels "so-so" Still on 4L O2 Denies increase SOA/CP/cough Denies F/C/S Vital Sign Vital Signs Vital Signs Date Time Temp Pulse Resp B/P (MAP) Pulse Ox O2 Delivery O2 Flow Rate FiO2 12/02/19 10:23 60 131/43 12/02/19 07:55 94 Nasal Cannula 4.0 12/02/19 07:00 97.9 16 97.9 Physical Exam PHYSICAL EXAM GENERAL: Lying down HENT: Oral cavity dry NECK: Supple, no JVP, no lymphadenopathy. LUNGS: Diminished aeration bases, nonlabored HEART: S1, S2 regular. ABDOMEN: Soft and nontender EXTREMITIES: No edema, cyanosis. SKIN: warm to touch. No signs of rash NEUROLOGIC: Awake and appropriate. No focal neurologic deficit. PIV Labs Lab Laboratory Tests Test 12/01/19 17:05 12/02/19 07:45 Random Vancomycin Level 13.8 mcg/mL White Blood Count 2.8 x10^3/uL (4.0-11.0) Red Blood Count 2.98 x10^6/uL (4.30-5.70) Hemoglobin 9.0 g/dL (13.0-17.5) Hematocrit 29.0 % (39.0-53.0) Mean Corpuscular Volume 97 fL (79-100) Mean Corpuscular Hemoglobin 30 pg (25-35) Mean Corpuscular Hemoglobin Concent 31 g/dL (31-37) Red Cell Distribution Width 16.7 % (11.5-14.5) Platelet Count 123 x10^3/uL (140-400) Micro CT chest ([facility]) Intervertebral development of a large left apical bulla. Subjacent atelectasis and infiltrates noted. Moderate size left pleural effusion is new in the interval. Underlying neoplastic etiology is not excluded. Interval follow-up to assess resolution. Lingular atelectasis is again seen. Minimal left lower lobe basilar atelectasis. 11/28. Urine culture no growth 11/28. BC neg after 2 days Objective Assessment Leukopenia - slowly improving COVID-19 neg, 11/28 ([facility]) Large pleural effusion with infiltrate/atelectasis, chronic versus new. ([facility]- CT) End-stage renal disease, on hemodialysis. Chronic obstructive pulmonary disease. Hypertension. Hyperlipidemia. Plan Plan of Care Continue vancomycin and Zosyn Random vanc 13.8 f/u cultures from [facility], neg so far Monitor labs/temp Maintain aspiration precautions Supportive care Attending Co-Sign The patient was seen and interviewed as well as examined at the bedside. The chart was reviewed. The case was discussed. Agree with the plan of care. PROSPER POWELL APRN Dec 02, 2019 11:01 ATTILA MEADOWS MD Dec 02, 2019 14:13
--- NOTE | 2019-12-02 11:21 | PN ---
DATE: 12/02/2019 SUBJECTIVE: The patient is resting, slightly flat in bed, in no apparent respiratory distress. He is awake, alert, apparently still not feeling reluctant to participate with physical therapy. We did consult the life guard and he recommended to check his vitamin B12 level as well as iron studies. PHYSICAL EXAMINATION: GENERAL: When I saw him this morning, he was pale, but no jaundice, cyanosis, or thyromegaly. No jugular venous distention. No limb edema. VITAL SIGNS: His heart rate was 60, blood pressure 131/43. His temperature was 97.9, respiratory rate was 16, and his oxygen saturation was 94%. HEAD, EYES, EARS, NOSE AND THROAT: Showed normocephalic, atraumatic. NECK: Supple. HEART: Showed normal first and second heart sounds. No gallop or murmur. CHEST: Clear to auscultation. No crepitation or rhonchi. ABDOMEN: Distended, soft, nontender. No guarding or rigidity. No organomegaly. All hernial orifices intact. Bowel sounds normal. NEUROLOGIC: He is awake, alert, responding appropriately. All cranial nerves are intact. He moves extremities without difficulty. He is mostly bedbound. His intake and output were incompletely recorded. LABORATORY DATA: As of this morning showed a white cell count of 2800, hemoglobin 9, hematocrit 29, MCV 97, platelet count of 223,000. His chemistry showed a serum sodium 138, potassium 5.7, chloride 103, bicarbonate 25, anion gap of 10, BUN 73, creatinine 9.7. Vitamin B12 was 302 pg/mL and his iron studies are still pending at the time of this dictation. ASSESSMENT: 1. Community-acquired pneumonia. 2. Chronic obstructive pulmonary disease. 3. End-stage renal disease, on hemodialysis Wednesday, Wednesday, Wednesday. 4. He has pancytopenia with low white cell count, hemoglobin, hematocrit, and platelets. PLAN: Start him on cyanocobalamin. Await the result of the iron studies. Continue in the meanwhile with IV antibiotic in the form of vancomycin and Zosyn. We did order physical and occupational therapy. The patient continued to be refusing to participate. I have had a lengthy discussion with him this morning. RALEIGH ZHAO MD DR: TAYLOR/carly JOB#: [id number] / [id number]
[2019-12-02] MEDS: [UNRECOGNIZED DRUG - OTHER] PO SCH ×2 (12:50→22:29)
[2019-12-02] MEDS: VANCOMYCIN PER PHARMACY MC PRN (13:05)
[2019-12-02 15:00] VITALS: BP 127/40
[2019-12-02 19:00] VITALS: BP 135/56
[2019-12-02] MEDS: ATORVASTATIN CALCIUM 10 MG TABLET. PO SCH (22:28)
[2019-12-02 23:00] VITALS: BP 144/55
[2019-12-03 03:00] VITALS: BP 134/49
[2019-12-03] MEDS: ACETAMINOPHEN 500 MG TABLET PO PRN (03:22)
[2019-12-03] MEDS: HEPARIN for SUB-Q USE 5,000 UNIT/ML VIAL. SQ SCH ×3 (04:34→20:29)
[2019-12-03] MEDS: PIPERACILLIN/TAZOBACTAM 2.25 GM in IV NORMAL SALINE 50ML 50 ML IV SCH ×3 (04:36→20:28)
[2019-12-03 07:00] VITALS: BP 133/53
[2019-12-03] MEDS: BUDESONIDE 0.5 MG/2 ML NEBU. NEB SCH ×2 (07:34→20:07)
[2019-12-03] MEDS: ALBUTEROL SULFATE 2.5 MG/3 ML NEBU. NEB SCH ×4 (07:34→20:07)
[2019-12-03] MEDS: [UNRECOGNIZED DRUG - OTHER] PO SCH ×2 (08:59→20:23)
[2019-12-03] MEDS: ASPIRIN ENTERIC COATED 81 MG TABLET.DR. PO SCH (08:59)
[2019-12-03] MEDS: ZINC SULFATE 220 MG CAPSULE. PO SCH (08:59)
[2019-12-03] MEDS: TAMSULOSIN 0.4 MG CAP.ER.24H. PO SCH ×2 (08:59→20:21)
[2019-12-03] MEDS: FOLIC/VIT B COMP W-C (RENAL) TABLET. PO SCH (09:00)
[2019-12-03] MEDS: ISOSORBIDE MONONITRATE ER 30 MG TAB.ER.24H PO SCH ×2 (09:00→20:22)
[2019-12-03] MEDS: LOSARTAN POTASSIUM 50 MG TABLET. PO SCH (09:00)
[2019-12-03] MEDS: hydroCHLOROthiazide 12.5 MG CAPSULE PO SCH (09:00)
[2019-12-03] MEDS: CHOLECALCIFEROL (VITAMIN D3) 1,000 UNIT TABLET PO SCH (09:01)
[2019-12-03] MEDS: AMIODARONE HCL 200 MG TABLET. PO SCH (09:01)
[2019-12-03] MEDS: CALCIUM ACETATE 667 MG CAPSULE PO SCH ×3 (09:01→17:38)
[2019-12-03] MEDS: LACTOBACILLUS RHAMNOSUS GG 1 CAPSULE. PO SCH ×2 (09:01→20:21)
[2019-12-03] MEDS: METOPROLOL TART IMMED RELEASE 25 MG TABLET. PO SCH ×2 (09:02→20:22)
--- NOTE | 2019-12-03 09:35 | PDOC ---
Infectious Disease Note Subjective Subjective O2 down to 3.5L Some wheezing earlier No increase SOA/CP/cough Denies F/C/S ROS ROS as mentioned above Vital Sign Vital Signs Vital Signs Date Time Temp Pulse Resp B/P (MAP) Pulse Ox O2 Delivery O2 Flow Rate FiO2 12/03/19 09:02 68 133/53 12/03/19 07:36 93 Nasal Cannula 4.0 12/03/19 07:00 98.4 16 98.4 Physical Exam PHYSICAL EXAM GENERAL: Alert, lying down, appears comfortable HENT: Oral cavity dry NECK: Supple LUNGS: Diminished aeration bases, nonlabored HEART: S1, S2 regular. ABDOMEN: Soft and nontender EXTREMITIES: No edema, cyanosis. SKIN: warm to touch. No signs of rash NEUROLOGIC: ALert, appropriate. PIV Labs Micro CT chest ([facility]) Intervertebral development of a large left apical bulla. Subjacent atelectasis and infiltrates noted. Moderate size left pleural effusion is new in the interval. Underlying neoplastic etiology is not excluded. Interval follow-up to assess resolution. Lingular atelectasis is again seen. Minimal left lower lobe basilar atelectasis. 11/28. Urine culture no growth 11/28. BC neg after 2 days Objective Assessment Leukopenia - slowly improving COVID-19 neg, 11/28 ([facility]) Large pleural effusion with infiltrate/atelectasis, chronic versus new. ([facility]- CT) End-stage renal disease, on hemodialysis. Chronic obstructive pulmonary disease. Hypertension. Hyperlipidemia. Plan Plan of Care Continue vancomycin and Zosyn Random vanc 13.8 f/u cultures from [facility], neg so far Monitor labs/temp CBC in am Maintain aspiration precautions Supportive care Consult pulm Attending Co-Sign The patient was seen and interviewed as well as examined at the bedside. The chart was reviewed. The case was discussed. Agree with the plan of care. PROSPER POWELL APRN Dec 03, 2019 09:35 ATTILA MEADOWS MD Dec 03, 2019 10:32
--- NOTE | 2019-12-03 10:23 | PN ---
DATE: 12/03/2019 SUBJECTIVE: The patient is resting, almost flat in bed, sleeping comfortably. On questioning him, he continued to have some left-sided discomfort, but denied any other complaint. Nursing staff did not voice any concerns that he has an uneventful night. He did manage to get out of the bed to the chair yesterday. PHYSICAL EXAMINATION: GENERAL: When I examined him, he looked pale. No jaundice, cyanosis or thyromegaly. No jugular venous distention. No limb edema. VITAL SIGNS: His heart rate was 68, blood pressure was 133/53, temperature 98.4, respiratory rate was 16, and oxygen saturation was 93% on 4 liters of oxygen. HEENT: Showed normocephalic, atraumatic. NECK: Supple. CARDIAC: Normal first and second heart sounds. No gallop, rub or murmur. CHEST: Shows central trachea. Equal bilateral chest expansion, air entry, vesicular sounds. No crepitation or rhonchi anteriorly. He has dull percussion noted and absent breath sounds on the left side posteriorly. ABDOMEN: Slightly distended, soft, nontender. NEUROLOGIC: He was sleepy, but arousable. All his cranial nerves are intact. He moves extremities without difficulty. His intake was 1000. No output was recorded. LABORATORY WORK: As of yesterday showed a white cell count of 2800, hemoglobin 9, hematocrit 29, MCV 97 and platelet count of 123,000. His chemistry is variable as hemodialysis dependent. His serum iron, TIBC and iron saturation are consistent with anemia of chronic disease. His serum ferritin is high at 446. His vitamin B12 was borderline at 302 pg/mL. ASSESSMENT: 1. Community-acquired pneumonia, for which he is on IV antibiotic in the form of piperacillin, tazobactam as well as vancomycin. 2. Chronic obstructive pulmonary disease. 3. End-stage renal disease, on hemodialysis Wednesday, Wednesday, Wednesday. 4. The patient has pancytopenia with 2 white cell count, anemia and thrombocytopenia. 5. 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 6. He has senile macular degeneration, for which he is on PreserVision. PLAN: My plan is to continue with cyanocobalamin daily for the next few days and we will repeat his lab work again tomorrow. We have consulted Dr. Rangel for his left side pleural effusion. RALEIGH ZHAO MD DR: TAYLOR/carly JOB#: [id number] / [id number]
[2019-12-03 11:00] VITALS: BP 128/52
[2019-12-03] MEDS: CYANOCOBALAMIN (VITAMIN B-12) 1,000 MCG/ML VIAL IM SCH (13:13)
[2019-12-03] MEDS: VANCOMYCIN PER PHARMACY MC PRN (13:31)
[2019-12-03 15:00] VITALS: BP 119/54
[2019-12-03 19:00] VITALS: BP 127/42
[2019-12-03] MEDS: ATORVASTATIN CALCIUM 10 MG TABLET. PO SCH (20:21)
[2019-12-03 23:00] VITALS: BP 119/36
[2019-12-04] MEDS: ALBUTEROL SULFATE 2.5 MG/3 ML NEBU. NEB PRN (00:22)
[2019-12-04 03:00] VITALS: BP 132/46
[2019-12-04] MEDS: HEPARIN for SUB-Q USE 5,000 UNIT/ML VIAL. SQ SCH ×3 (04:53→22:35)
[2019-12-04] MEDS: ACETAMINOPHEN 500 MG TABLET PO PRN (04:57)
[2019-12-04] MEDS: PIPERACILLIN/TAZOBACTAM 2.25 GM in IV NORMAL SALINE 50ML 50 ML IV SCH ×3 (04:57→22:32)
[2019-12-04 05:33] LABS: BASO % 0 % (0-3); EOS # 0.1 x10^3/uL (0.0-0.7); EOS % 2 % (0-3); HEMATOCRIT 27.6 % (39.0-53.0); HEMOGLOBIN 8.7 g/dL (13.0-17.5); LYMPH # 0.3 x10^3/uL (1.0-4.8); LYMPH % 7 % (24-48); MEAN CORPUSCULAR HEMOGLOBIN 31 pg (25-35); MEAN CORPUSCULAR HGB CONC 32 g/dL (31-37); MEAN CORPUSCULAR VOLUME 97 fL (79-100); MONO # 0.8 x10^3/uL (0.0-1.1); MONO % 19 % (0-9); NEUT % 72 % (31-73); PLATELET COUNT 125 x10^3/uL (140-400); RED BLOOD COUNT 2.85 x10^6/uL (4.30-5.70); RED CELL DISTRIBUTION WIDTH 17.3 % (11.5-14.5); WHITE BLOOD COUNT 4.1 x10^3/uL (4.0-11.0)
[2019-12-04 06:04] LABS: ALBUMIN 1.7 g/dL (3.4-5.0); ALBUMIN/GLOBULIN RATIO 0.5 (1.0-1.7); CALCIUM 8.4 mg/dL (8.5-10.1); CREATININE 8.9 mg/dL (0.7-1.3); GFR 5.8; POTASSIUM 5.2 mmol/L (3.5-5.1); TOTAL BILIRUBIN 0.4 mg/dL (0.2-1.0); TOTAL PROTEIN 5.2 g/dL (6.4-8.2)
[2019-12-04 07:00] VITALS: BP 113/64
[2019-12-04] MEDS: ALBUTEROL SULFATE 2.5 MG/3 ML NEBU. NEB SCH ×4 (07:49→19:52)
[2019-12-04] MEDS: BUDESONIDE 0.5 MG/2 ML NEBU. NEB SCH ×2 (07:49→19:52)
[2019-12-04] MEDS ORDERED: IV NORMAL SALINE 1000ML BAG 1,000 ML IV PRN ×2 (08:21)
[2019-12-04] MEDS ORDERED: DIALYSIS PATIENT. MC PRN ×2 (08:30)
[2019-12-04] MEDS ORDERED: ALBUMIN HUMAN 25% 200 ML IV PRN (08:30)
[2019-12-04] MEDS ORDERED: ACETAMINOPHEN 500 MG TABLET PO PRN (08:30)
[2019-12-04] MEDS ORDERED: diphenhydrAMINE 50 MG/ML VIAL IV PRN ×2 (08:30)
[2019-12-04] MEDS: hydroCHLOROthiazide 12.5 MG CAPSULE PO SCH (08:47)
[2019-12-04] MEDS: ASPIRIN ENTERIC COATED 81 MG TABLET.DR. PO SCH (08:47)
[2019-12-04] MEDS: CALCIUM ACETATE 667 MG CAPSULE PO SCH ×3 (08:47→17:20)
[2019-12-04] MEDS: LOSARTAN POTASSIUM 50 MG TABLET. PO SCH (08:48)
[2019-12-04] MEDS: ZINC SULFATE 220 MG CAPSULE. PO SCH (08:48)
[2019-12-04] MEDS: AMIODARONE HCL 200 MG TABLET. PO SCH (08:48)
[2019-12-04] MEDS: FOLIC/VIT B COMP W-C (RENAL) TABLET. PO SCH (08:48)
[2019-12-04] MEDS: CHOLECALCIFEROL (VITAMIN D3) 1,000 UNIT TABLET PO SCH (08:48)
[2019-12-04] MEDS: TAMSULOSIN 0.4 MG CAP.ER.24H. PO SCH ×2 (08:48→20:54)
[2019-12-04] MEDS: ISOSORBIDE MONONITRATE ER 30 MG TAB.ER.24H PO SCH ×2 (08:49→20:55)
[2019-12-04] MEDS: METOPROLOL TART IMMED RELEASE 25 MG TABLET. PO SCH ×2 (08:49→20:58)
[2019-12-04] MEDS: LACTOBACILLUS RHAMNOSUS GG 1 CAPSULE. PO SCH ×2 (08:49→20:54)
[2019-12-04] MEDS: [UNRECOGNIZED DRUG - OTHER] PO SCH ×2 (08:50→20:54)
[2019-12-04] MEDS: CYANOCOBALAMIN (VITAMIN B-12) 1,000 MCG/ML VIAL IM SCH (08:51)
--- NOTE | 2019-12-04 09:15 | NUR ---
SW following. Spoke with RN and reviewed chart. Pt at dialysis. JOSEFA called therapy department to request that pt be seen for evaluation. Pt remains on IV abx and 4l 02. Pt does have 02 at home. Pulmonology consulted. SW to continue following.
--- NOTE | 2019-12-04 09:42 | PN ---
DATE: 12/04/2019 SUBJECTIVE: The patient is resting, slightly propped up in bed, in no apparent distress. He continued to complain of discomfort in his left chest and also generalized weakness; however, he has a good night sleep and the nursing staff did not voice any concern and stated that he had an uneventful night. PHYSICAL EXAMINATION: GENERAL: When I examined him, he looked pale, but no jaundice, cyanosis or thyromegaly. No jugular venous distention. No limb edema. VITAL SIGNS: Her heart rate was 67, blood pressure was 113/64, temperature 97.6, respiratory rate was 19, and oxygen saturation was 91% on 3 L of oxygen. HEAD, EYES, EARS, NOSE, AND THROAT: Showed normocephalic, atraumatic. NECK: Supple. HEART: Normal first and second heart sounds. No gallop or murmur. CHEST: Shows central trachea, equal bilateral expansion, air entry expands. No crepitation or rhonchi anteriorly. Does have dull percussion note and absent breath sounds posteriorly in the left side. ABDOMEN: Slightly distended, soft, nontender. NEUROLOGIC: He is awake, alert, responding appropriately. All cranial nerves are intact. He moves extremities without difficulty. His intake and output were incompletely recorded. LABORATORY DATA: As of this morning, his white cell count has risen up to 4100, hemoglobin 8.7, hematocrit 27, MCV 97, and platelet count up to 125,000. His chemistry is variable as he is hemodialysis dependent. His serum iron, TIBC, and iron saturation are all low and serum ferritin was 446. His vitamin B12 was 302 pg/mL. ASSESSMENT: 1. Community-acquired pneumonia, for which he continues to be on IV antibiotic in the form of piperacillin and tazobactam as well as vancomycin. 2. Chronic obstructive pulmonary disease. 3. End-stage renal disease, on hemodialysis Wednesday, Wednesday, and Wednesday. 4. The patient has pancytopenia, felt to be multifactorial including vitamin B12 deficiency and anemia of chronic kidney disease. He is responding very well to vitamin B12 supplement. In fact, his white cell count and platelets are rising. 5. 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 6. He has senile macular degeneration, for which he is on PreserVision. PLAN: To continue with cyanocobalamin daily for the next few days. Continue with IV antibiotic. We did consult Dr. Rangel to see him for management of his left-sided pleural effusion. RALEIGH ZHAO MD DR: TAYLOR/carly JOB#: [id number] / [id number]
--- NOTE | 2019-12-04 10:11 | PDOC ---
Infectious Disease Note Subjective: Subjective Pt seen in dialysis unit No increase SOA/CP/cough Denies F/C/N/V/D Vital Signs: Vital Signs Vital Signs Date Time Temp Pulse Resp B/P (MAP) Pulse Ox O2 Delivery O2 Flow Rate FiO2 12/04/19 08:50 67 113/64 12/04/19 07:50 91 Nasal Cannula 3.0 12/04/19 07:00 97.6 19 97.6 Physical Exam: PHYSICAL EXAM GENERAL: Alert, lying down, appears comfortable HENT: Oral cavity dry NECK: Supple LUNGS: Diminished aeration bases, nonlabored HEART: S1, S2 regular. ABDOMEN: Soft and nontender EXTREMITIES: No edema, cyanosis. SKIN: warm to touch. No signs of rash NEUROLOGIC: ALert, appropriate. PIV Medications: Inpatient Meds: Current Medications Medications (Trade) Dose Ordered Sig/Samina Start Time Stop Time Status Last Admin Dose Admin Acetaminophen (Tylenol) 500 mg 1X PRN PRN 12/04/19 08:30 12/05/19 08:29 Albumin Human 200 ml @ 200 mls/hr 1X PRN PRN 12/04/19 08:30 12/04/19 14:29 Albuterol Sulfate (Ventolin Neb Soln) 2.5 mg RTQID 11/30/19 12:00 12/04/19 07:49 2.5 MG Amiodarone HCl (Cordarone) 200 mg DAILY 12/01/19 09:00 12/04/19 08:48 200 MG Aspirin (Ecotrin) 81 mg DAILY 12/01/19 09:00 12/04/19 08:47 81 MG Atorvastatin Calcium (Lipitor) 10 mg HS 11/30/19 21:00 12/03/19 20:21 10 MG Budesonide (Pulmicort) 0.5 mg RTBID 11/30/19 12:00 12/04/19 07:49 0.5 MG Calcium Acetate (Phoslo) 667 mg TIDWMEALS 11/30/19 12:30 12/04/19 08:47 667 MG Cyanocobalamin (Vitamin B-12) 1,000 mcg DAILY 12/03/19 11:00 12/06/19 10:59 12/04/19 08:51 1,000 MCG Diphenhydramine HCl (Benadryl) 25 mg 1X PRN PRN 12/04/19 08:30 12/05/19 08:29 Heparin Sodium (Porcine) (Heparin Sodium) 5,000 unit Q8HRS 11/30/19 22:00 Hydralazine HCl (Apresoline) 50 mg BID 11/30/19 21:00 12/04/19 08:50 50 MG Hydrochlorothiazide (Microzide) 12.5 mg DAILY 11/30/19 12:30 12/04/19 08:47 12.5 MG Info (PHARMACY MONITORING -- do not chart) 1 each PRN DAILY PRN 12/04/19 08:30 12/04/19 08:34 DC Isosorbide Mononitrate (Imdur) 30 mg BID 11/30/19 12:30 12/04/19 08:49 30 MG Lactobacillus Rhamnosus (Culturelle) 1 cap BID 12/01/19 21:00 12/04/19 08:49 1 CAP Losartan Potassium (Cozaar) 50 mg DAILY 11/30/19 12:30 12/04/19 08:48 50 MG Metoprolol Tartrate (Lopressor) 12.5 mg BID 11/30/19 21:00 12/04/19 08:49 12.5 MG Multivitamins/ Minerals (I-Ronnie) 1 tab BID 12/01/19 23:00 12/02/19 11:04 DC 12/02/19 10:21 1 TAB Non-Formulary Medication 1 ea BID 12/02/19 11:00 12/04/19 08:50 1 EA Piperacillin Sod/ Tazobactam Sod 2.25 gm/Sodium Chloride 50 ml @ 100 mls/hr Q8HRS 12/01/19 22:00 12/04/19 04:57 100 MLS/HR Sodium Chloride 1,000 ml @ 400 mls/hr Q2H30M PRN 12/04/19 08:21 12/04/19 20:20 Tamsulosin HCl (Flomax) 0.4 mg BID 11/30/19 21:00 12/04/19 08:48 0.4 MG Vancomycin HCl (Vanco Per Pharmacy) 1 each PRN DAILY PRN 12/01/19 15:00 12/03/19 13:31 1 EACH Vancomycin HCl (Vancomycin Random Level) 1 each 1X ONCE 7/17/20 16:00 12/01/19 16:01 DC 12/01/19 16:00 1 EACH Vancomycin HCl 500 mg/Sodium Chloride 100 ml @ 100 mls/hr QMWF 12/01/19 20:00 12/01/19 21:41 100 MLS/HR Vitamin B Complex/ Vitamin C (Neha-Ronnie) 1 tab DAILY 11/30/19 12:30 12/04/19 08:48 1 TAB Vitamin D (Vitamin D3) 1,000 unit DAILY 12/01/19 09:00 12/04/19 08:48 1,000 UNIT Zinc Sulfate (Orazinc) 220 mg DAILY 11/30/19 12:30 12/04/19 08:48 220 MG Labs: Lab Laboratory Tests Test 12/04/19 04:45 White Blood Count 4.1 x10^3/uL (4.0-11.0) Red Blood Count 2.85 x10^6/uL (4.30-5.70) Hemoglobin 8.7 g/dL (13.0-17.5) Hematocrit 27.6 % (39.0-53.0) Mean Corpuscular Volume 97 fL (79-100) Mean Corpuscular Hemoglobin 31 pg (25-35) Mean Corpuscular Hemoglobin Concent 32 g/dL (31-37) Red Cell Distribution Width 17.3 % (11.5-14.5) Platelet Count 125 x10^3/uL (140-400) Neutrophils (%) (Auto) 72 % (31-73) Lymphocytes (%) (Auto) 7 % (24-48) Monocytes (%) (Auto) 19 % (0-9) Eosinophils (%) (Auto) 2 % (0-3) Basophils (%) (Auto) 0 % (0-3) Neutrophils # (Auto) 3.0 x10^3/uL (1.8-7.7) Lymphocytes # (Auto) 0.3 x10^3/uL (1.0-4.8) Monocytes # (Auto) 0.8 x10^3/uL (0.0-1.1) Eosinophils # (Auto) 0.1 x10^3/uL (0.0-0.7) Basophils # (Auto) 0.0 x10^3/uL (0.0-0.2) Sodium Level 137 mmol/L (136-145) Potassium Level 5.2 mmol/L (3.5-5.1) Chloride Level 99 mmol/L (98-107) Carbon Dioxide Level 26 mmol/L (21-32) Anion Gap 12 (6-14) Blood Urea Nitrogen 72 mg/dL (8-26) Creatinine 8.9 mg/dL (0.7-1.3) Estimated GFR (Cockcroft-Gault) 5.8 BUN/Creatinine Ratio 8 (6-20) Glucose Level 75 mg/dL (70-99) Calcium Level 8.4 mg/dL (8.5-10.1) Total Bilirubin 0.4 mg/dL (0.2-1.0) Aspartate Amino Transf (AST/SGOT) 29 U/L (15-37) Alanine Aminotransferase (ALT/SGPT) 25 U/L (16-63) Alkaline Phosphatase 38 U/L (46-116) Total Protein 5.2 g/dL (6.4-8.2) Albumin 1.7 g/dL (3.4-5.0) Albumin/Globulin Ratio 0.5 (1.0-1.7) Objective: Assessment: Leukopenia - resolved h/o B12 deficiency COVID-19 neg, 11/28 ([facility]) Large pleural effusion with infiltrate/atelectasis, chronic versus new. ([facility]- CT) End-stage renal disease, on hemodialysis. Chronic obstructive pulmonary disease. Hypertension. Hyperlipidemia. Plan: Plan of Care Continue vancomycin and Zosyn Random vanc 13.8 f/u cultures from [facility], neg so far Monitor labs/temp Maintain aspiration precautions Supportive care THEODORA MEADOWS MD Dec 04, 2019 10:10
[2019-12-04 15:16] VITALS: BP 132/48
--- NOTE | 2019-12-04 15:27 | PDOC ---
Renal-Progress Notes Subjective Notes Notes NO NEW COMPLAINTS History of Present Illness Hx of present illness STABLE Vitals Vitals Vital Signs Date Time Temp Pulse Resp B/P (MAP) Pulse Ox O2 Delivery O2 Flow Rate FiO2 12/04/19 15:16 98.1 81 18 132/48 (76) 91 Nasal Cannula 98.1 12/04/19 12:03 4.0 Weight Weight [ ] I.O. Intake and Output Intake and Output 12/04/19 07:00 Intake Total 150 ml Output Total 450 ml Balance -300 ml Intake Oral 100 ml IV Total 50 ml Output Urine Total 450 ml # Voids 3 Labs Labs Laboratory Tests Test 12/04/19 04:45 White Blood Count 4.1 x10^3/uL (4.0-11.0) Red Blood Count 2.85 x10^6/uL (4.30-5.70) Hemoglobin 8.7 g/dL (13.0-17.5) Hematocrit 27.6 % (39.0-53.0) Mean Corpuscular Volume 97 fL (79-100) Mean Corpuscular Hemoglobin 31 pg (25-35) Mean Corpuscular Hemoglobin Concent 32 g/dL (31-37) Red Cell Distribution Width 17.3 % (11.5-14.5) Platelet Count 125 x10^3/uL (140-400) Neutrophils (%) (Auto) 72 % (31-73) Lymphocytes (%) (Auto) 7 % (24-48) Monocytes (%) (Auto) 19 % (0-9) Eosinophils (%) (Auto) 2 % (0-3) Basophils (%) (Auto) 0 % (0-3) Neutrophils # (Auto) 3.0 x10^3/uL (1.8-7.7) Lymphocytes # (Auto) 0.3 x10^3/uL (1.0-4.8) Monocytes # (Auto) 0.8 x10^3/uL (0.0-1.1) Eosinophils # (Auto) 0.1 x10^3/uL (0.0-0.7) Basophils # (Auto) 0.0 x10^3/uL (0.0-0.2) Sodium Level 137 mmol/L (136-145) Potassium Level 5.2 mmol/L (3.5-5.1) Chloride Level 99 mmol/L (98-107) Carbon Dioxide Level 26 mmol/L (21-32) Anion Gap 12 (6-14) Blood Urea Nitrogen 72 mg/dL (8-26) Creatinine 8.9 mg/dL (0.7-1.3) Estimated GFR (Cockcroft-Gault) 5.8 BUN/Creatinine Ratio 8 (6-20) Glucose Level 75 mg/dL (70-99) Calcium Level 8.4 mg/dL (8.5-10.1) Total Bilirubin 0.4 mg/dL (0.2-1.0) Aspartate Amino Transf (AST/SGOT) 29 U/L (15-37) Alanine Aminotransferase (ALT/SGPT) 25 U/L (16-63) Alkaline Phosphatase 38 U/L (46-116) Total Protein 5.2 g/dL (6.4-8.2) Albumin 1.7 g/dL (3.4-5.0) Albumin/Globulin Ratio 0.5 (1.0-1.7) Review of Systems Constitutional: yes: other (CONFUSED) Physical Exam General Appearance: no apparent distress Skin: warm Respiratory: bilateral CTA Heart: S1S2 Abdomen: soft, bowel sounds present Genitourinary: bladder flat Extremities: pulses present Neurology: alert, confused Musculoskeletal: Osteoarthritis Assessment Assessment IMP ESRD ANEMIA HTN HX COPD PNA PLAN HD TODAY UF TO DW JENNIFER NEEDED WILL FOLLOW RAMIREZ AYALA MD Dec 04, 2019 15:27
[2019-12-04] MEDS: VANCOMYCIN 500 MG in IV NORMAL SALINE 100ML 100 ML IV SCH (16:33)
[2019-12-04] MEDS: VANCOMYCIN PER PHARMACY MC PRN (16:36)
--- NOTE | 2019-12-04 17:48 | PDOC ---
PULMONARY PROGRESS NOTES Vitals Vital Signs Date Time Temp Pulse Resp B/P (MAP) Pulse Ox O2 Delivery O2 Flow Rate FiO2 12/04/19 16:22 94 Nasal Cannula 4.0 12/04/19 15:16 98.1 81 18 132/48 (76) 98.1 General: Alert, No acute distress Lungs: Clear Cardiovascular: S1, S2 Abdomen: Soft Extremities: No Edema Labs Laboratory Tests Test 12/04/19 04:45 White Blood Count 4.1 x10^3/uL (4.0-11.0) Red Blood Count 2.85 x10^6/uL (4.30-5.70) Hemoglobin 8.7 g/dL (13.0-17.5) Hematocrit 27.6 % (39.0-53.0) Mean Corpuscular Volume 97 fL (79-100) Mean Corpuscular Hemoglobin 31 pg (25-35) Mean Corpuscular Hemoglobin Concent 32 g/dL (31-37) Red Cell Distribution Width 17.3 % (11.5-14.5) Platelet Count 125 x10^3/uL (140-400) Neutrophils (%) (Auto) 72 % (31-73) Lymphocytes (%) (Auto) 7 % (24-48) Monocytes (%) (Auto) 19 % (0-9) Eosinophils (%) (Auto) 2 % (0-3) Basophils (%) (Auto) 0 % (0-3) Neutrophils # (Auto) 3.0 x10^3/uL (1.8-7.7) Lymphocytes # (Auto) 0.3 x10^3/uL (1.0-4.8) Monocytes # (Auto) 0.8 x10^3/uL (0.0-1.1) Eosinophils # (Auto) 0.1 x10^3/uL (0.0-0.7) Basophils # (Auto) 0.0 x10^3/uL (0.0-0.2) Sodium Level 137 mmol/L (136-145) Potassium Level 5.2 mmol/L (3.5-5.1) Chloride Level 99 mmol/L (98-107) Carbon Dioxide Level 26 mmol/L (21-32) Anion Gap 12 (6-14) Blood Urea Nitrogen 72 mg/dL (8-26) Creatinine 8.9 mg/dL (0.7-1.3) Estimated GFR (Cockcroft-Gault) 5.8 BUN/Creatinine Ratio 8 (6-20) Glucose Level 75 mg/dL (70-99) Calcium Level 8.4 mg/dL (8.5-10.1) Total Bilirubin 0.4 mg/dL (0.2-1.0) Aspartate Amino Transf (AST/SGOT) 29 U/L (15-37) Alanine Aminotransferase (ALT/SGPT) 25 U/L (16-63) Alkaline Phosphatase 38 U/L (46-116) Total Protein 5.2 g/dL (6.4-8.2) Albumin 1.7 g/dL (3.4-5.0) Albumin/Globulin Ratio 0.5 (1.0-1.7) Laboratory Tests Test 12/04/19 04:45 White Blood Count 4.1 x10^3/uL (4.0-11.0) Red Blood Count 2.85 x10^6/uL (4.30-5.70) Hemoglobin 8.7 g/dL (13.0-17.5) Hematocrit 27.6 % (39.0-53.0) Mean Corpuscular Volume 97 fL (79-100) Mean Corpuscular Hemoglobin 31 pg (25-35) Mean Corpuscular Hemoglobin Concent 32 g/dL (31-37) Red Cell Distribution Width 17.3 % (11.5-14.5) Platelet Count 125 x10^3/uL (140-400) Neutrophils (%) (Auto) 72 % (31-73) Lymphocytes (%) (Auto) 7 % (24-48) Monocytes (%) (Auto) 19 % (0-9) Eosinophils (%) (Auto) 2 % (0-3) Basophils (%) (Auto) 0 % (0-3) Neutrophils # (Auto) 3.0 x10^3/uL (1.8-7.7) Lymphocytes # (Auto) 0.3 x10^3/uL (1.0-4.8) Monocytes # (Auto) 0.8 x10^3/uL (0.0-1.1) Eosinophils # (Auto) 0.1 x10^3/uL (0.0-0.7) Basophils # (Auto) 0.0 x10^3/uL (0.0-0.2) Sodium Level 137 mmol/L (136-145) Potassium Level 5.2 mmol/L (3.5-5.1) Chloride Level 99 mmol/L (98-107) Carbon Dioxide Level 26 mmol/L (21-32) Anion Gap 12 (6-14) Blood Urea Nitrogen 72 mg/dL (8-26) Creatinine 8.9 mg/dL (0.7-1.3) Estimated GFR (Cockcroft-Gault) 5.8 BUN/Creatinine Ratio 8 (6-20) Glucose Level 75 mg/dL (70-99) Calcium Level 8.4 mg/dL (8.5-10.1) Total Bilirubin 0.4 mg/dL (0.2-1.0) Aspartate Amino Transf (AST/SGOT) 29 U/L (15-37) Alanine Aminotransferase (ALT/SGPT) 25 U/L (16-63) Alkaline Phosphatase 38 U/L (46-116) Total Protein 5.2 g/dL (6.4-8.2) Albumin 1.7 g/dL (3.4-5.0) Albumin/Globulin Ratio 0.5 (1.0-1.7) Medications Active Scripts Medications Dose Route/Sig Max Daily Dose Days Date Category Dose Instructions Zinc Sulfate 220 Mg Tablet 1 Tab PO DAILY 30 11/30/19 Reported Vitamin D3 (Cholecalciferol (Vitamin D3)) 25 Mcg Capsule 25 Mcg PO DAILY 1 11/30/19 Reported Isosorbide Mononitrate Er (Isosorbide Mononitrate) 30 Mg Tab.er.24h 30 Mg PO BID 30 08/14/19 Rx Hydralazine Hcl 50 Mg Tablet 50 Mg PO BID 30 08/14/19 Rx Amiodarone Hcl 200 Mg Tablet 1 Tab PO DAILY 30 08/14/19 Rx Acetaminophen 500 Mg Tablet 1 Tab PO PRN Q6HRS PRN 15 08/07/19 Reported Calcium Acetate 667 Mg Tablet 1 Cap PO TIDAC 08/07/19 Reported Metoprolol Tartrate 25 Mg Tablet 0.5 Tab PO BID 08/07/19 Reported Duoneb 0.5-3(2.5) Mg/3 Ml (Albuterol/Ipratropium) 3 Ml Ampul.neb 3 Ml NEB RTQID 30 03/31/19 Rx [ahreds] 1 Cap PO BID 03/28/19 Reported Ahreds #2 Preservision, One softgel by mouth twice a day Dialyvite Tablet (Folic Acid/Vitamin B Comp W-C) 1 Each Tablet 1 Tab PO DAILY 03/27/19 Reported Advair 250-50 Diskus (Fluticasone/Salmeterol) 1 Each Disk.w.dev 1 Puff PO BID 03/27/19 Reported Aspirin Ec (Aspirin) 81 Mg Tablet.dr 1 Tab PO BID 03/17/17 Reported LAST DOSE GIVEN: DATE: 03/17/17 TIME: 1030 am so start taking this daily tomorrow Hyzaar 50-12.5 Tablet (Losartan/Hydrochlorothiazide) 1 Each Tablet 1 Tab PO DAILY 06/09/16 Reported Tamsulosin Hcl 0.4 Mg Cap.er.24h 0.4 Mg PO BID 12/06/15 Reported Ventolin Hfa Inhaler (Albuterol Sulfate) 18 Gm Hfa.aer.ad 2 Puff INH QID 12/06/15 Reported Atorvastatin Calcium 10 Mg Tablet 10 Mg PO HS 12/06/15 Reported Impression . Full report to be dictated Abnormal CT chest revealing a large left-sided bullae, possible endobronchial obstruction, effusion on the left. We will review my office records, I believe patient has undergone bronchoscopy in the past. We will proceed with bronchoscopy in the morning. ANA CROOKS MD Dec 04, 2019 17:48
[2019-12-04 19:00] VITALS: BP 112/39
[2019-12-04] MEDS: ATORVASTATIN CALCIUM 10 MG TABLET. PO SCH (20:56)
[2019-12-04 23:00] VITALS: BP 98/39
[2019-12-05 03:00] VITALS: BP 101/45
[2019-12-05] MEDS: ACETAMINOPHEN 500 MG TABLET PO PRN (05:28)
[2019-12-05] MEDS: PIPERACILLIN/TAZOBACTAM 2.25 GM in IV NORMAL SALINE 50ML 50 ML IV SCH ×3 (05:29→22:00)
[2019-12-05] MEDS: HEPARIN for SUB-Q USE 5,000 UNIT/ML VIAL. SQ SCH ×3 (06:00→22:00)
--- NOTE | 2019-12-05 06:00 | NUR ---
Heparin held. Patient having bronchoscopy today.
[2019-12-05] MEDS ORDERED: LIDOCAINE 2% VISCOUS 100 ML BOTTLE. MM PRN (07:15)
[2019-12-05] MEDS ORDERED: LIDOCAINE 4% TOPICAL 50 ML SOLUTION. MM PRN (07:15)
[2019-12-05] MEDS ORDERED: LIDOCAINE 1% Multi-Dose 20 ML VIAL. INJ PRN (07:15)
[2019-12-05] MEDS ORDERED: EPINEPHrine 1 MG/ML VIAL INJ PRN (07:15)
[2019-12-05] MEDS: ALBUTEROL SULFATE 2.5 MG/3 ML NEBU. NEB SCH ×4 (07:22→19:22)
[2019-12-05] MEDS: BUDESONIDE 0.5 MG/2 ML NEBU. NEB SCH ×2 (07:22→19:22)
[2019-12-05 07:24] VITALS: BP 97/47
[2019-12-05] MEDS ORDERED: LIDOCAINE 2% VISCOUS 100 ML BOTTLE. ONE (07:37)
[2019-12-05] MEDS ORDERED: LIDOCAINE 1% Multi-Dose 20 ML VIAL. ONE (07:37)
[2019-12-05] MEDS ORDERED: LIDOCAINE 4% TOPICAL 50 ML SOLUTION. ONE (07:37)
[2019-12-05] MEDS ORDERED: EPINEPHrine 1 MG/ML VIAL ONE (07:37)
[2019-12-05] MEDS: CALCIUM ACETATE 667 MG CAPSULE PO SCH ×3 (07:59→17:58)
[2019-12-05] MEDS: [UNRECOGNIZED DRUG - OTHER] PO SCH ×2 (08:00→21:00)
[2019-12-05] MEDS: TAMSULOSIN 0.4 MG CAP.ER.24H. PO SCH ×2 (08:01→21:00)
[2019-12-05] MEDS: ISOSORBIDE MONONITRATE ER 30 MG TAB.ER.24H PO SCH ×2 (08:01→21:00)
[2019-12-05] MEDS: ASPIRIN ENTERIC COATED 81 MG TABLET.DR. PO SCH (08:01)
[2019-12-05] MEDS: hydroCHLOROthiazide 12.5 MG CAPSULE PO SCH (08:01)
[2019-12-05] MEDS: AMIODARONE HCL 200 MG TABLET. PO SCH (08:01)
[2019-12-05] MEDS: LACTOBACILLUS RHAMNOSUS GG 1 CAPSULE. PO SCH ×2 (08:01→21:00)
[2019-12-05] MEDS: LOSARTAN POTASSIUM 50 MG TABLET. PO SCH (08:01)
[2019-12-05] MEDS: FOLIC/VIT B COMP W-C (RENAL) TABLET. PO SCH (08:02)
[2019-12-05] MEDS: ZINC SULFATE 220 MG CAPSULE. PO SCH (08:02)
[2019-12-05] MEDS: CHOLECALCIFEROL (VITAMIN D3) 1,000 UNIT TABLET PO SCH (08:02)
--- NOTE | 2019-12-05 09:12 | PN ---
DATE: 12/05/2019 SUBJECTIVE: The patient is resting flat in bed, sleeping comfortably, is arousable. On questioning, he continued to complain of pain in his left side of chest and left shoulder. He was seen by Dr. Rangel yesterday and he is scheduled for bronchoscopy today. He stated that he walked with physical therapy yesterday. PHYSICAL EXAMINATION: GENERAL: When I saw him this morning, he looked well and was clearly in no apparent respiratory distress, pale, but no jaundice, cyanosis or thyromegaly. No jugular venous distention. No lower limb edema. VITAL SIGNS: His heart rate was 68, blood pressure was 97/47, temperature was 98, respiratory rate was 18 and oxygen saturation was 95% on 4 liters of oxygen. HEAD, EYES, EARS, NOSE AND THROAT: Showed normocephalic, atraumatic. NECK: Supple. HEART: Normal first and second heart sounds. No gallop or murmur. CHEST: Showed central trachea, equal bilateral expansion, air entry, vesicular sounds. No crepitation or rhonchi anteriorly, has dull percussion noted and absent breath sounds on the left side posteriorly. NEUROLOGIC: He is grossly intact. His intake was 150, output was 450. LABORATORY DATA: As of yesterday, his white cell count was up to 4100, hemoglobin 8.7, hematocrit 27, MCV 97, platelet count of 125,000. His chemistry is variable as he is hemodialysis dependent. In fact, he was dialyzed yesterday. ASSESSMENT: 1. Community-acquired pneumonia for which he continues to be on IV antibiotic in the form piperacillin and tazobactam as well as vancomycin. 2. Chronic obstructive pulmonary disease exacerbation. 3. End-stage renal disease, on hemodialysis Wednesday, Wednesday, Wednesday. 4. The patient presented with pancytopenia felt to be multifactorial including vitamin B12 deficiency and anemia of chronic kidney disease. His B12 level was borderline. However, his iron stores are adequate and he is now on vitamin B12 injection on a daily basis and in fact, his white cell count and platelets has already risen. 5. 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 6. He has senile macular degeneration, for which he is on PreserVision. 7. He has severe protein-calorie malnutrition with serum albumin of only 1.7 g/dL. PLAN: To continue with IV antibiotic. Continue with cyanocobalamin injection on a daily basis. Continue with DVT prophylaxis and continue with physical and occupational therapy. The patient is scheduled for bronchoscopy today. RALEIGH ZHAO MD DR: TAYLOR/carly JOB#: [id number] / [id number]
[2019-12-05] MEDS: CYANOCOBALAMIN (VITAMIN B-12) 1,000 MCG/ML VIAL IM SCH (09:30)
[2019-12-05] MEDS: METOPROLOL TART IMMED RELEASE 25 MG TABLET. PO SCH ×2 (09:32→21:00)
--- NOTE | 2019-12-05 09:50 | PDOC ---
Infectious Disease Note Subjective: Subjective Pt seen in dialysis unit No increase SOA/CP/cough Denies F/C/N/V/D Vital Signs: Vital Signs Vital Signs Date Time Temp Pulse Resp B/P (MAP) Pulse Ox O2 Delivery O2 Flow Rate FiO2 12/05/19 09:32 68 97/47 12/05/19 07:24 98.0 18 94 Room Air 98.0 12/05/19 07:24 4.0 Physical Exam: PHYSICAL EXAM GENERAL: Alert, lying down, appears comfortable HENT: Oral cavity dry NECK: Supple LUNGS: Diminished aeration bases, nonlabored HEART: S1, S2 regular. ABDOMEN: Soft and nontender EXTREMITIES: No edema, cyanosis. SKIN: warm to touch. No signs of rash NEUROLOGIC: ALert, appropriate. PIV Medications: Inpatient Meds: Current Medications Medications (Trade) Dose Ordered Sig/Samina Start Time Stop Time Status Last Admin Dose Admin Acetaminophen (Tylenol) 500 mg 1X PRN PRN 12/04/19 08:30 12/04/19 19:00 DC Albumin Human 200 ml @ 200 mls/hr 1X PRN PRN 12/04/19 08:30 12/04/19 14:29 DC Albuterol Sulfate (Ventolin Neb Soln) 2.5 mg RTQID 11/30/19 12:00 12/05/19 07:22 2.5 MG Amiodarone HCl (Cordarone) 200 mg DAILY 12/01/19 09:00 12/04/19 08:48 200 MG Aspirin (Ecotrin) 81 mg DAILY 12/01/19 09:00 12/04/19 08:47 81 MG Atorvastatin Calcium (Lipitor) 10 mg HS 11/30/19 21:00 12/04/19 20:56 10 MG Budesonide (Pulmicort) 0.5 mg RTBID 11/30/19 12:00 12/05/19 07:22 0.5 MG Calcium Acetate (Phoslo) 667 mg TIDWMEALS 11/30/19 12:30 12/04/19 17:20 667 MG Cyanocobalamin (Vitamin B-12) 1,000 mcg DAILY 12/03/19 11:00 12/06/19 10:59 12/05/19 09:30 1,000 MCG Diphenhydramine HCl (Benadryl) 25 mg 1X PRN PRN 12/04/19 08:30 12/04/19 19:00 DC Epinephrine HCl (Adrenalin) 1 mg STK-MED ONCE 12/05/19 07:37 12/05/19 07:37 DC Heparin Sodium (Porcine) (Heparin Sodium) 5,000 unit Q8HRS 11/30/19 22:00 12/04/19 22:35 5,000 UNIT Hydralazine HCl (Apresoline) 50 mg BID 11/30/19 21:00 12/04/19 20:58 50 MG Hydrochlorothiazide (Microzide) 12.5 mg DAILY 11/30/19 12:30 12/04/19 08:47 12.5 MG Info (PHARMACY MONITORING -- do not chart) 1 each PRN DAILY PRN 12/04/19 08:30 12/04/19 08:34 DC Isosorbide Mononitrate (Imdur) 30 mg BID 11/30/19 12:30 12/04/19 20:55 30 MG Lactobacillus Rhamnosus (Culturelle) 1 cap BID 12/01/19 21:00 12/04/19 20:54 1 CAP Lidocaine HCl (Lidocaine 1% 20ml Vial) 20 ml STK-MED ONCE 12/05/19 07:37 12/05/19 07:38 DC Lidocaine HCl (Lidocaine 2% Viscous) 100 ml STK-MED ONCE 12/05/19 07:37 12/05/19 07:38 DC Lidocaine HCl (Lidocaine 4% Topical) 50 ml STK-MED ONCE 12/05/19 07:37 12/05/19 07:38 DC Losartan Potassium (Cozaar) 50 mg DAILY 11/30/19 12:30 12/04/19 08:48 50 MG Metoprolol Tartrate (Lopressor) 12.5 mg BID 11/30/19 21:00 12/05/19 09:32 12.5 MG Multivitamins/ Minerals (I-Ronnie) 1 tab BID 12/01/19 23:00 12/02/19 11:04 DC 12/02/19 10:21 1 TAB Non-Formulary Medication 1 ea BID 12/02/19 11:00 12/04/19 20:54 1 EA Piperacillin Sod/ Tazobactam Sod 2.25 gm/Sodium Chloride 50 ml @ 100 mls/hr Q8HRS 12/01/19 22:00 12/05/19 05:29 100 MLS/HR Sodium Chloride 1,000 ml @ 400 mls/hr Q2H30M PRN 12/04/19 08:21 12/04/19 20:20 DC Tamsulosin HCl (Flomax) 0.4 mg BID 11/30/19 21:00 12/04/19 20:54 0.4 MG Vancomycin HCl (Vanco Per Pharmacy) 1 each PRN DAILY PRN 12/01/19 15:00 12/04/19 16:36 1 EACH Vancomycin HCl (Vancomycin Random Level) 1 each 1X ONCE 12/01/19 16:00 12/01/19 16:01 DC 12/01/19 16:00 1 EACH Vancomycin HCl 500 mg/Sodium Chloride 100 ml @ 100 mls/hr QMWF 12/01/19 20:00 12/04/19 16:33 100 MLS/HR Vitamin B Complex/ Vitamin C (Neha-Ronnie) 1 tab DAILY 11/30/19 12:30 12/04/19 08:48 1 TAB Vitamin D (Vitamin D3) 1,000 unit DAILY 12/01/19 09:00 12/04/19 08:48 1,000 UNIT Zinc Sulfate (Orazinc) 220 mg DAILY 11/30/19 12:30 12/04/19 08:48 220 MG Objective: Assessment: Leukopenia - resolved h/o B12 deficiency COVID-19 neg, 11/28 ([facility]) Large pleural effusion with infiltrate/atelectasis, chronic versus new. ([facility]) End-stage renal disease, on hemodialysis. Chronic obstructive pulmonary disease. Hypertension. Hyperlipidemia. Thrombocytopenia Plan: Plan of Care Continue Zosyn DC IV Vanco f/u cultures from [facility], neg so far Monitor labs/temp Maintain aspiration precautions Pulmonary plans noted, awaiting bronchoscopy today Supportive care THEODORA MEADOWS MD Dec 05, 2019 09:50
[2019-12-05 11:08] VITALS: BP 127/52
--- NOTE | 2019-12-05 11:35 | NUR ---
SW following. Discussed with RN, pt from home alone, NPO. PT/OT recommending home health, except yesterday PT recommended SNU. SW requested confirmation from therapy department RE recommendation. Pt having a bronchoscopy today. SW will continue to follow.
--- NOTE | 2019-12-05 11:43 | PDOC ---
Renal-Progress Notes Subjective Notes Notes NO NEW COMPLAINTS History of Present Illness Hx of present illness STABLE Vitals Vitals Vital Signs Date Time Temp Pulse Resp B/P (MAP) Pulse Ox O2 Delivery O2 Flow Rate FiO2 12/05/19 11:08 98.0 72 18 127/52 (77) 95 Room Air 98.0 12/05/19 07:35 4.0 Weight Weight [ ] I.O. Intake and Output Intake and Output 12/05/19 07:00 Intake Total 360 ml Output Total 500 ml Balance -140 ml Intake Oral 360 ml Output Urine Total 500 ml # Voids 2 # Bowel Movements 1 Review of Systems Constitutional: yes: other (CONFUSED) Physical Exam General Appearance: no apparent distress Skin: warm Respiratory: bilateral CTA Heart: S1S2 Abdomen: soft, bowel sounds present Genitourinary: bladder flat Extremities: pulses present Neurology: alert, confused Musculoskeletal: Osteoarthritis Assessment Assessment IMP ESRD ANEMIA HTN HX COPD PNA PLAN HD TOMORROW JENNIFER NEEDED WILL FOLLOW RAMIREZ AYALA MD Dec 05, 2019 11:43
--- NOTE | 2019-12-05 13:27 | NUR ---
1400 Heparin SQ to be held due to pt having bronchoscopy today.
--- NOTE | 2019-12-05 13:34 | PDOC ---
PULMONARY PROGRESS NOTES Subjective Patient with no new symptoms no hemoptysis no chest pain no pressure Vitals Vital Signs Date Time Temp Pulse Resp B/P (MAP) Pulse Ox O2 Delivery O2 Flow Rate FiO2 12/05/19 13:12 98.0 67 16 139/62 91 Simple Mask 10 98.0 ROS: No Nausea, No Chest Pain, No Abdominal Pain, No Increase Cough General: Alert, No acute distress Lungs: Clear Cardiovascular: S1, S2 Abdomen: Soft Extremities: No Edema Labs Laboratory Tests Test 12/04/19 04:45 White Blood Count 4.1 x10^3/uL (4.0-11.0) Red Blood Count 2.85 x10^6/uL (4.30-5.70) Hemoglobin 8.7 g/dL (13.0-17.5) Hematocrit 27.6 % (39.0-53.0) Mean Corpuscular Volume 97 fL (79-100) Mean Corpuscular Hemoglobin 31 pg (25-35) Mean Corpuscular Hemoglobin Concent 32 g/dL (31-37) Red Cell Distribution Width 17.3 % (11.5-14.5) Platelet Count 125 x10^3/uL (140-400) Neutrophils (%) (Auto) 72 % (31-73) Lymphocytes (%) (Auto) 7 % (24-48) Monocytes (%) (Auto) 19 % (0-9) Eosinophils (%) (Auto) 2 % (0-3) Basophils (%) (Auto) 0 % (0-3) Neutrophils # (Auto) 3.0 x10^3/uL (1.8-7.7) Lymphocytes # (Auto) 0.3 x10^3/uL (1.0-4.8) Monocytes # (Auto) 0.8 x10^3/uL (0.0-1.1) Eosinophils # (Auto) 0.1 x10^3/uL (0.0-0.7) Basophils # (Auto) 0.0 x10^3/uL (0.0-0.2) Sodium Level 137 mmol/L (136-145) Potassium Level 5.2 mmol/L (3.5-5.1) Chloride Level 99 mmol/L (98-107) Carbon Dioxide Level 26 mmol/L (21-32) Anion Gap 12 (6-14) Blood Urea Nitrogen 72 mg/dL (8-26) Creatinine 8.9 mg/dL (0.7-1.3) Estimated GFR (Cockcroft-Gault) 5.8 BUN/Creatinine Ratio 8 (6-20) Glucose Level 75 mg/dL (70-99) Calcium Level 8.4 mg/dL (8.5-10.1) Total Bilirubin 0.4 mg/dL (0.2-1.0) Aspartate Amino Transf (AST/SGOT) 29 U/L (15-37) Alanine Aminotransferase (ALT/SGPT) 25 U/L (16-63) Alkaline Phosphatase 38 U/L (46-116) Total Protein 5.2 g/dL (6.4-8.2) Albumin 1.7 g/dL (3.4-5.0) Albumin/Globulin Ratio 0.5 (1.0-1.7) Medications Active Scripts Medications Dose Route/Sig Max Daily Dose Days Date Category Dose Instructions Zinc Sulfate 220 Mg Tablet 1 Tab PO DAILY 30 11/30/19 Reported Vitamin D3 (Cholecalciferol (Vitamin D3)) 25 Mcg Capsule 25 Mcg PO DAILY 1 11/30/19 Reported Isosorbide Mononitrate Er (Isosorbide Mononitrate) 30 Mg Tab.er.24h 30 Mg PO BID 30 08/14/19 Rx Hydralazine Hcl 50 Mg Tablet 50 Mg PO BID 30 08/14/19 Rx Amiodarone Hcl 200 Mg Tablet 1 Tab PO DAILY 30 08/14/19 Rx Acetaminophen 500 Mg Tablet 1 Tab PO PRN Q6HRS PRN 15 08/07/19 Reported Calcium Acetate 667 Mg Tablet 1 Cap PO TIDAC 08/07/19 Reported Metoprolol Tartrate 25 Mg Tablet 0.5 Tab PO BID 08/07/19 Reported Duoneb 0.5-3(2.5) Mg/3 Ml (Albuterol/Ipratropium) 3 Ml Ampul.neb 3 Ml NEB RTQID 30 03/31/19 Rx [ahreds] 1 Cap PO BID 03/28/19 Reported Ahreds #2 Preservision, One softgel by mouth twice a day Dialyvite Tablet (Folic Acid/Vitamin B Comp W-C) 1 Each Tablet 1 Tab PO DAILY 03/27/19 Reported Advair 250-50 Diskus (Fluticasone/Salmeterol) 1 Each Disk.w.dev 1 Puff PO BID 03/27/19 Reported Aspirin Ec (Aspirin) 81 Mg Tablet.dr 1 Tab PO BID 03/17/17 Reported LAST DOSE GIVEN: DATE: 03/17/17 TIME: 1030 am so start taking this daily tomorrow Hyzaar 50-12.5 Tablet (Losartan/Hydrochlorothiazide) 1 Each Tablet 1 Tab PO DAILY 06/09/16 Reported Tamsulosin Hcl 0.4 Mg Cap.er.24h 0.4 Mg PO BID 12/06/15 Reported Ventolin Hfa Inhaler (Albuterol Sulfate) 18 Gm Hfa.aer.ad 2 Puff INH QID 12/06/15 Reported Atorvastatin Calcium 10 Mg Tablet 10 Mg PO HS 12/06/15 Reported Impression . Impression Abnormal CT chest revealing a large left-sided bullae, possible endobronchial obstruction, effusion on the left. Acute hypoxemic respiratory failure secondary to above Patient had a previous bronchoscopy back in 2017 revealing no endobronchial lesion, he had PET scanning revealing low FDG uptake of the consolidation in the lingula Acute exacerbation of COPD Plan . Reviewed risk benefits and alternatives of bronchoscopy with the patient he is consented We will proceed with bronchoscopy Continue empiric antibiotics for now ANA CROOKS MD Dec 05, 2019 13:34
--- NOTE | 2019-12-05 13:54 | OP ---
DATE OF SURGERY: 12/05/2019 ATTENDING PHYSICIAN: Lance Luis MD PROCEDURE: Bronchoscopy with possible biopsy. INDICATION: The patient presented for abnormal CT chest revealing a new large bulla on left consolidated lingular, possible lung mass. Undergoing diagnostic bronchoscopy. Risks, benefits, and alternatives reviewed with the patient. He consented. The patient has had a previous bronchoscopy, which was essentially normal in 2017. There was no endobronchial lesion. He had a PET scan in 03/2018 revealing low FDG uptake. At that time, it was recommended that the patient undergo a repeat scan of the chest, followup in the office. SEDATION: Please see Anesthesia's notes. DESCRIPTION OF PROCEDURE: Timeout was performed prior to initiating the procedure. Vital signs and O2 saturations were maintained within normal limits. The bronchoscope was then passed through the left naris. The vocal cords were identified moving bilaterally without any dysfunction. The vocal cords were then anesthetized with a total of 5 mL of 4% lidocaine. The bronchoscope was passed through the vocal cords into the proximal trachea which was normal. The right segments and subsegments were visualized. There was no endobronchial lesion. Upon inspecting the left side, there was mucus plugging in the lingula and left lower lobe. On several occasions, I had to withdraw the bronchoscope and clear the port of any mucus, it did get plugged up with thick mucus. Eventually, I cleared the mucus away. I was able to visualize the left upper lobe segments and subsegments along with the lingula. There was significant extrinsic compression of the lingula. I was unable to pass the scope, pass the small opening. A lavage of that area was performed. There were no endobronchial lesions per se. FINDINGS: 1. Normal vocal cords. 2. Normal right-sided segments and subsegments. 3. Severe distortion of the lingular subsegment with extrinsic compression. I was unable to fully visualize anything besides a small opening. There was some mucosal edema. Otherwise, no endobronchial lesion was seen. PLAN: We will await the BAL results. ANA CROOKS MD DR: DEMARCUS/carly JOB#: [id number] / [id number]
--- NOTE | 2019-12-05 14:23 | CONS ---
DATE OF CONSULTATION: ATTENDING PHYSICIAN: Dr. Luis. CONSULTING PHYSICIAN: Dr. Crooks. REASON FOR CONSULTATION: The patient is seen in pulmonary consultation at the request of Dr. Luis for abnormal CT chest. HISTORY OF PRESENT ILLNESS: The patient is an 79-year-old male that was referred from [facility] in [place] with a temperature of 101. He presented to the Emergency Room at [facility] with chronic cough, temperature elevation increasing shortness of breath. The patient denied any exposure to COVID-19. He was seen in the Emergency Room. Part of his workup included CT chest, which showed interval development of a large apical bulla with subsequent atelectasis and infiltrate. There was a moderate sized left-sided pleural effusion. There is also minimal left lower lobe atelectasis. I was asked to see the patient in consultation. The patient is well known to me. He was last seen in the office on 02/16/2019. I reviewed my office record, he had a previously abnormal CT chest revealing possibility of an endobronchial lesion. He underwent bronchoscopy in March of 2017 which was essentially normal, BAL at that time revealed no evidence of malignant cells. He had a repeat CT chest showed somewhat increase in size of the density. He underwent a PET scanning revealed low FDG uptake in the lingular consolidated area. He then underwent a repeat chest in August 2018, there was no significant change in the airspace consolidation involving the lingula. The patient was scheduled to undergo repeat scan in 08/2019 and follow up in my office. As a consequence of a current COVID-19 pandemic, he has not had any folowup yet. He now presents with the above. I was asked to see him in consultation. He is awake, alert, following commands, in no respiratory distress. He denies hemoptysis. PAST MEDICAL HISTORY: Otherwise remarkable for: 1. End-stage renal disease, on hemodialysis.. 2. Abnormal CT chest dated back to 2017 as described in the history of present illness. 3. Tobacco dependence, in remission. 4. Macular degeneration. 5. Hypertension. 6. Hyperlipidemia. 7. COPD. 8. Obstructive sleep apnea. 9. Benign prostatic hypertrophy. PAST SURGICAL HISTORY: He has had previous scar hemodialysis catheter, previous bronchoscopy in 2017 revealing no endobronchial lesion on BAL. Cytological examination was negative for malignant cells. FAMILY HISTORY: Mother and father with lymphoma. SOCIAL HISTORY: He lives on his own. He is , has 2 children, is currently not smoking. He continues to drive. ALLERGIES: ADHESIVE TAPE AND CETIRIZINE. MEDICATIONS: List was reviewed. REVIEW OF SYSTEMS: As indicated above, otherwise, a 10-point system was reviewed and negative. Please see details in the history of present illness. PHYSICAL EXAMINATION: GENERAL: The patient was in no respiratory distress. Since admission, he is afebrile. He is currently on 4 liters of oxygen supplementation. HEENT: Eyes, the sclerae were nonicteric. NECK: Jugular venous distention was not elevated. No lymphadenopathy. CHEST: Full expansion. LUNGS: Diminished breath sounds in the left. CARDIOVASCULAR: Regular rate and rhythm with S1, S2, no S3. ABDOMEN: Soft, nontender, nondistended. EXTREMITIES: No clubbing, cyanosis or edema. NEUROLOGIC: The patient was awake, alert, following commands. A detailed neuro exam was not performed. LABORATORY DATA: Reviewed. White count was 4.1, hemoglobin and hematocrit were noted. Electrolytes were noted. BUN is elevated. Creatinine is elevated. Albumin was low. He is currently on vancomycin. IMPRESSION: 1. Abnormal CT chest obtained at [facility] revealing several findings, a large apical bulla. 2. Moderate sized left side effusion. 3. Atelectatic lingula. 4. Acute exacerbation of chronic obstructive pulmonary disease. 5. Macular degeneration. 6. End-stage renal disease, on hemodialysis. 7. Fever. 8. Tobacco dependence, in remission. As indicated above, the patient has had a previous workup for lingular consolidation and possible endobronchial lesion. He underwent bronchoscopy in 2017, which revealed no endobronchial lesion. He underwent a PET scanning as an outpatient, revealing low FDG uptake in the consolidation of the lingula. He was due to undergo repeat CT chest on 08/2019. Due to the COVID-19 pandemic, he has not been able to do so. He now presents with abnormal CT chest as described above. PLAN: 1. We will proceed with diagnostic bronchoscopy. 2. If diagnostic bronchoscopy is negative, we will review films with Interventional Radiology for further options, possibility of thoracentesis, I do not think he is a candidate for fine needle aspiration. 3. Continue antibiotics. 4. DVT and GI prophylaxis. 5. Oxygen supplementation. ANA CROOKS MD DR: Zain JOB#: [id number] / [id number]
[2019-12-05 14:56] VITALS: BP 135/45
--- NOTE | 2019-12-05 15:37 | NUR ---
Pt's gag reflex checked, reflex not yet in tact. Pt. states he feels "like it is on the verge but not there yet". Pt. remaining NPO at this time.
--- NOTE | 2019-12-05 16:53 | NUR ---
Pt's gag reflex intact. Pt. given ice chips.
[2019-12-05 19:00] VITALS: BP 138/50
[2019-12-05] MEDS: ATORVASTATIN CALCIUM 10 MG TABLET. PO SCH (21:00)
[2019-12-05 23:00] VITALS: BP 122/52
[2019-12-06 03:00] VITALS: BP 109/47
[2019-12-06] MEDS: ACETAMINOPHEN 500 MG TABLET PO PRN ×2 (03:30→18:03)
[2019-12-06] MEDS: PIPERACILLIN/TAZOBACTAM 2.25 GM in IV NORMAL SALINE 50ML 50 ML IV SCH ×4 (06:12→22:01)
[2019-12-06] MEDS: HEPARIN for SUB-Q USE 5,000 UNIT/ML VIAL. SQ SCH ×3 (06:15→22:00)
[2019-12-06 07:01] LABS: HEMATOCRIT 27.1 % (39.0-53.0); HEMOGLOBIN 8.3 g/dL (13.0-17.5); RED BLOOD COUNT 2.76 x10^6/uL (4.30-5.70); RED CELL DISTRIBUTION WIDTH 16.8 % (11.5-14.5); WHITE BLOOD COUNT 4.7 x10^3/uL (4.0-11.0)
[2019-12-06] MEDS: ALBUTEROL SULFATE 2.5 MG/3 ML NEBU. NEB SCH ×4 (07:26→20:15)
[2019-12-06] MEDS: BUDESONIDE 0.5 MG/2 ML NEBU. NEB SCH ×2 (07:26→20:15)
[2019-12-06 07:51] VITALS: BP 130/52
[2019-12-06] MEDS: hydroCHLOROthiazide 12.5 MG CAPSULE PO SCH (08:34)
[2019-12-06] MEDS: [UNRECOGNIZED DRUG - OTHER] PO SCH ×2 (08:34→20:55)
[2019-12-06] MEDS: AMIODARONE HCL 200 MG TABLET. PO SCH (08:35)
[2019-12-06] MEDS: TAMSULOSIN 0.4 MG CAP.ER.24H. PO SCH ×2 (08:35→20:53)
[2019-12-06] MEDS: CALCIUM ACETATE 667 MG CAPSULE PO SCH ×3 (08:35→17:31)
[2019-12-06] MEDS: LOSARTAN POTASSIUM 50 MG TABLET. PO SCH (08:35)
[2019-12-06] MEDS: ASPIRIN ENTERIC COATED 81 MG TABLET.DR. PO SCH (08:36)
[2019-12-06] MEDS: LACTOBACILLUS RHAMNOSUS GG 1 CAPSULE. PO SCH ×2 (08:36→20:53)
[2019-12-06] MEDS: ZINC SULFATE 220 MG CAPSULE. PO SCH (08:36)
[2019-12-06] MEDS: CHOLECALCIFEROL (VITAMIN D3) 1,000 UNIT TABLET PO SCH (08:36)
[2019-12-06] MEDS: ISOSORBIDE MONONITRATE ER 30 MG TAB.ER.24H PO SCH ×2 (08:36→20:53)
[2019-12-06] MEDS: FOLIC/VIT B COMP W-C (RENAL) TABLET. PO SCH (08:36)
[2019-12-06] MEDS: METOPROLOL TART IMMED RELEASE 25 MG TABLET. PO SCH ×2 (08:36→20:57)
[2019-12-06] MEDS: CYANOCOBALAMIN (VITAMIN B-12) 1,000 MCG/ML VIAL IM SCH (08:37)
[2019-12-06] MEDS ORDERED: IV NORMAL SALINE 1000ML BAG 1,000 ML IV PRN ×2 (08:55)
[2019-12-06] MEDS ORDERED: DIALYSIS PATIENT. MC PRN ×2 (09:00)
[2019-12-06] MEDS ORDERED: ALBUMIN HUMAN 25% 200 ML IV PRN (09:00)
--- NOTE | 2019-12-06 09:29 | PDOC ---
PULMONARY PROGRESS NOTES Subjective Patient with no new symptoms no hemoptysis no chest pain no pressure Vitals Vital Signs Date Time Temp Pulse Resp B/P (MAP) Pulse Ox O2 Delivery O2 Flow Rate FiO2 12/06/19 08:36 72 130/52 12/06/19 07:51 97.7 18 92 Nasal Cannula 4.0 97.7 ROS: No Nausea, No Chest Pain, No Abdominal Pain, No Increase Cough General: Alert, No acute distress Lungs: Clear Cardiovascular: S1, S2 Abdomen: Soft Extremities: No Edema Labs Laboratory Tests Test 12/06/19 06:00 White Blood Count 4.7 x10^3/uL (4.0-11.0) Red Blood Count 2.76 x10^6/uL (4.30-5.70) Hemoglobin 8.3 g/dL (13.0-17.5) Hematocrit 27.1 % (39.0-53.0) Mean Corpuscular Volume 98 fL (79-100) Mean Corpuscular Hemoglobin 30 pg (25-35) Mean Corpuscular Hemoglobin Concent 31 g/dL (31-37) Red Cell Distribution Width 16.8 % (11.5-14.5) Platelet Count 150 x10^3/uL (140-400) Laboratory Tests Test 12/06/19 06:00 White Blood Count 4.7 x10^3/uL (4.0-11.0) Red Blood Count 2.76 x10^6/uL (4.30-5.70) Hemoglobin 8.3 g/dL (13.0-17.5) Hematocrit 27.1 % (39.0-53.0) Mean Corpuscular Volume 98 fL (79-100) Mean Corpuscular Hemoglobin 30 pg (25-35) Mean Corpuscular Hemoglobin Concent 31 g/dL (31-37) Red Cell Distribution Width 16.8 % (11.5-14.5) Platelet Count 150 x10^3/uL (140-400) Medications Active Scripts Medications Dose Route/Sig Max Daily Dose Days Date Category Dose Instructions Zinc Sulfate 220 Mg Tablet 1 Tab PO DAILY 30 11/30/19 Reported Vitamin D3 (Cholecalciferol (Vitamin D3)) 25 Mcg Capsule 25 Mcg PO DAILY 1 11/30/19 Reported Isosorbide Mononitrate Er (Isosorbide Mononitrate) 30 Mg Tab.er.24h 30 Mg PO BID 30 08/14/19 Rx Hydralazine Hcl 50 Mg Tablet 50 Mg PO BID 30 08/14/19 Rx Amiodarone Hcl 200 Mg Tablet 1 Tab PO DAILY 30 08/14/19 Rx Acetaminophen 500 Mg Tablet 1 Tab PO PRN Q6HRS PRN 15 08/07/19 Reported Calcium Acetate 667 Mg Tablet 1 Cap PO TIDAC 08/07/19 Reported Metoprolol Tartrate 25 Mg Tablet 0.5 Tab PO BID 08/07/19 Reported Duoneb 0.5-3(2.5) Mg/3 Ml (Albuterol/Ipratropium) 3 Ml Ampul.neb 3 Ml NEB RTQID 30 03/31/19 Rx [ahreds] 1 Cap PO BID 03/28/19 Reported Ahreds #2 Preservision, One softgel by mouth twice a day Dialyvite Tablet (Folic Acid/Vitamin B Comp W-C) 1 Each Tablet 1 Tab PO DAILY 03/27/19 Reported Advair 250-50 Diskus (Fluticasone/Salmeterol) 1 Each Disk.w.dev 1 Puff PO BID 03/27/19 Reported Aspirin Ec (Aspirin) 81 Mg Tablet.dr 1 Tab PO BID 03/17/17 Reported LAST DOSE GIVEN: DATE: 03/17/17 TIME: 1030 am so start taking this daily tomorrow Hyzaar 50-12.5 Tablet (Losartan/Hydrochlorothiazide) 1 Each Tablet 1 Tab PO DAILY 06/09/16 Reported Tamsulosin Hcl 0.4 Mg Cap.er.24h 0.4 Mg PO BID 12/06/15 Reported Ventolin Hfa Inhaler (Albuterol Sulfate) 18 Gm Hfa.aer.ad 2 Puff INH QID 12/06/15 Reported Atorvastatin Calcium 10 Mg Tablet 10 Mg PO HS 12/06/15 Reported Impression . IMPRESSION: 1. Abnormal CT chest obtained at [facility] revealing several findings, a large apical bulla. 2. Moderate sized left side effusion. 3. Atelectatic lingula. 4. Acute exacerbation of chronic obstructive pulmonary disease. 5. Macular degeneration. 6. End-stage renal disease, on hemodialysis. 7. Fever. 8. Tobacco dependence, in remission. As indicated above, the patient has had a previous workup for lingular consolidation and possible endobronchial lesion. He underwent bronchoscopy in 2017, which revealed no endobronchial lesion. He underwent a PET scanning as an outpatient, revealing low FDG uptake in the consolidation of the lingula. He was due to undergo repeat CT chest on 08/2019. Due to the COVID-19 pandemic, he has not been able to do so. He now presents with abnormal CT chest as described above. Plan . See bronchoscopy report Discussed case with Dr. moreland from interventional radiology, will proceed with thoracentesis We will proceed with thoracentesis later today Follow-up on BAL Continue empiric antibiotics for now ANA CROOKS MD Dec 06, 2019 09:29
[2019-12-06 10:30] LABS: PROTHROMBIN TIME PATIENT 14.8 SEC (11.7-14.0)
--- NOTE | 2019-12-06 10:58 | PN ---
DATE: 12/06/2019 SUBJECTIVE: The patient is resting, slightly propped up, having his scheduled hemodialysis. He has had his bronchoscopy yesterday, which showed no evidence of any endobronchial tumor. His white cell count and platelets are actually improving, in fact his white cell count is up to 4700 and platelets up to 150,000. PHYSICAL EXAMINATION: GENERAL: When I examined him this morning, he looked well and was clearly in no apparent respiratory distress, pale. No jaundice, cyanosis or thyromegaly. No jugular venous distention. No lower limb edema. VITAL SIGNS: His heart rate was 72, blood pressure was 130/50, temperature 97.7, respiratory rate 18, and oxygen saturation was 92% on 4 liters of oxygen. HEENT: Showed normocephalic, atraumatic. NECK: Supple. CARDIAC: Normal first and second heart sounds. No gallop or murmur. CHEST: Shows central trachea, equal bilateral expansion, air entry, vesicular sounds. No crepitation or rhonchi anteriorly. He has dull percussion noted and absent breath sounds on the left side posteriorly. ABDOMEN: Slightly distended, soft, nontender. NEUROLOGIC: He is grossly intact. His intake was 360, output was 500. LABORATORY DATA: As of this morning, his white cell count was 4700, hemoglobin was 8.3, hematocrit 27, MCV 98 and platelet count of 150,000. His prothrombin time, INR and aPTT are slightly elevated. His chemistry is variable. His iron stores are adequate and his B12 was borderline low at 302 pg/mL. ASSESSMENT: 1. Community-acquired pneumonia, for which continues to be on IV antibiotic in the form of Zosyn and vancomycin. 2. Chronic obstructive pulmonary disease exacerbation. 3. End-stage renal disease, on hemodialysis Wednesday, Wednesday, Wednesday. 4. The patient presented with pancytopenia, felt to be multifactorial including vitamin B12 deficiency and anemia of chronic kidney disease. His B12 level was borderline. However, his iron stores are adequate and he is now on vitamin B12 injection on a daily basis. In fact, his white cell count is up to 4700 and platelet up to 150,000. He has large left-sided pleural effusion and large emphysematous bullae in the left upper lobe. 5. He has senile macular degeneration, for which he is on PreserVision. 6. He has severe protein-calorie malnutrition with serum albumin only 1.7 g/dL. 7. Has had bronchoscopy, which showed no evidence of any endobronchial lesion. 8. He is scheduled for thoracentesis after he completed the dialysis. RALEIGH ZHAO MD DR: TAYLOR/carly JOB#: [id number] / [id number]
--- NOTE | 2019-12-06 11:17 | PDOC ---
Infectious Disease Note Subjective: Subjective Pt seen in dialysis unit No increase SOA/CP/cough Denies F/C/N/V/D Vital Signs: Vital Signs Vital Signs Date Time Temp Pulse Resp B/P (MAP) Pulse Ox O2 Delivery O2 Flow Rate FiO2 12/06/19 08:36 72 130/52 12/06/19 07:51 97.7 18 92 Nasal Cannula 4.0 97.7 Physical Exam: PHYSICAL EXAM GENERAL: Alert, lying down, appears comfortable HENT: Oral cavity dry NECK: Supple LUNGS: Diminished aeration bases, nonlabored HEART: S1, S2 regular. ABDOMEN: Soft and nontender EXTREMITIES: No edema, cyanosis. SKIN: warm to touch. No signs of rash NEUROLOGIC: ALert, appropriate. PIV Medications: Inpatient Meds: Current Medications Medications (Trade) Dose Ordered Sig/Samina Start Time Stop Time Status Last Admin Dose Admin Acetaminophen (Tylenol) 500 mg 1X PRN PRN 12/04/19 08:30 12/04/19 19:00 DC Albumin Human 200 ml @ 200 mls/hr 1X PRN PRN 12/06/19 09:00 12/06/19 14:59 Albuterol Sulfate (Ventolin Neb Soln) 2.5 mg RTQID 11/30/19 12:00 12/06/19 07:26 2.5 MG Amiodarone HCl (Cordarone) 200 mg DAILY 12/01/19 09:00 12/06/19 08:35 200 MG Aspirin (Ecotrin) 81 mg DAILY 12/01/19 09:00 12/06/19 08:36 81 MG Atorvastatin Calcium (Lipitor) 10 mg HS 11/30/19 21:00 12/05/19 21:00 10 MG Budesonide (Pulmicort) 0.5 mg RTBID 11/30/19 12:00 12/06/19 07:26 0.5 MG Calcium Acetate (Phoslo) 667 mg TIDWMEALS 11/30/19 12:30 12/06/19 08:35 667 MG Cyanocobalamin (Vitamin B-12) 1,000 mcg DAILY 12/03/19 11:00 12/06/19 10:59 DC 12/06/19 08:37 1,000 MCG Diphenhydramine HCl (Benadryl) 25 mg 1X PRN PRN 12/04/19 08:30 12/04/19 19:00 DC Epinephrine HCl (Adrenalin) 1 mg STK-MED ONCE 12/05/19 07:37 12/05/19 07:37 DC Heparin Sodium (Porcine) (Heparin Sodium) 5,000 unit Q8HRS 11/30/19 22:00 12/06/19 06:15 5,000 UNIT Hydralazine HCl (Apresoline) 50 mg BID 11/30/19 21:00 12/06/19 08:35 50 MG Hydrochlorothiazide (Microzide) 12.5 mg DAILY 11/30/19 12:30 12/06/19 08:34 12.5 MG Info (PHARMACY MONITORING -- do not chart) 1 each PRN DAILY PRN 12/06/19 09:00 Isosorbide Mononitrate (Imdur) 30 mg BID 11/30/19 12:30 12/06/19 08:36 30 MG Lactobacillus Rhamnosus (Culturelle) 1 cap BID 12/01/19 21:00 12/06/19 08:36 1 CAP Lidocaine HCl (Lidocaine 1% 20ml Vial) 20 ml STK-MED ONCE 12/05/19 07:37 12/05/19 07:38 DC Lidocaine HCl (Lidocaine 2% Viscous) 100 ml STK-MED ONCE 12/05/19 07:37 12/05/19 07:38 DC Lidocaine HCl (Lidocaine 4% Topical) 50 ml STK-MED ONCE 12/05/19 07:37 12/05/19 07:38 DC Losartan Potassium (Cozaar) 50 mg DAILY 11/30/19 12:30 12/06/19 08:35 50 MG Metoprolol Tartrate (Lopressor) 12.5 mg BID 11/30/19 21:00 12/06/19 08:36 12.5 MG Multivitamins/ Minerals (I-Ronnie) 1 tab BID 12/01/19 23:00 12/02/19 11:04 DC 12/02/19 10:21 1 TAB Non-Formulary Medication 1 ea BID 12/02/19 11:00 12/06/19 08:34 1 EA Piperacillin Sod/ Tazobactam Sod 2.25 gm/Sodium Chloride 50 ml @ 100 mls/hr Q8HRS 12/01/19 22:00 12/06/19 06:12 100 MLS/HR Sodium Chloride 1,000 ml @ 400 mls/hr Q2H30M PRN 12/06/19 08:55 12/06/19 20:54 Tamsulosin HCl (Flomax) 0.4 mg BID 11/30/19 21:00 12/06/19 08:35 0.4 MG Vancomycin HCl (Vanco Per Pharmacy) 1 each PRN DAILY PRN 12/01/19 15:00 12/05/19 10:21 DC 12/04/19 16:36 1 EACH Vancomycin HCl (Vancomycin Random Level) 1 each 1X ONCE 12/01/19 16:00 12/01/19 16:01 DC 12/01/19 16:00 1 EACH Vancomycin HCl 500 mg/Sodium Chloride 100 ml @ 100 mls/hr QMWF 12/01/19 20:00 12/05/19 10:20 DC 12/04/19 16:33 100 MLS/HR Vitamin B Complex/ Vitamin C (Neha-Ronnie) 1 tab DAILY 11/30/19 12:30 12/06/19 08:36 1 TAB Vitamin D (Vitamin D3) 1,000 unit DAILY 12/01/19 09:00 12/06/19 08:36 1,000 UNIT Zinc Sulfate (Orazinc) 220 mg DAILY 11/30/19 12:30 12/06/19 08:36 220 MG Labs: Lab Laboratory Tests Test 12/06/19 06:00 12/06/19 10:15 White Blood Count 4.7 x10^3/uL (4.0-11.0) Red Blood Count 2.76 x10^6/uL (4.30-5.70) Hemoglobin 8.3 g/dL (13.0-17.5) Hematocrit 27.1 % (39.0-53.0) Mean Corpuscular Volume 98 fL (79-100) Mean Corpuscular Hemoglobin 30 pg (25-35) Mean Corpuscular Hemoglobin Concent 31 g/dL (31-37) Red Cell Distribution Width 16.8 % (11.5-14.5) Platelet Count 150 x10^3/uL (140-400) Prothrombin Time 14.8 SEC (11.7-14.0) Prothromb Time International Ratio 1.2 (0.8-1.1) Activated Partial Thromboplast Time 41 SEC (24-38) Objective: Assessment: Leukopenia - resolved h/o B12 deficiency COVID-19 neg, 11/28 ([facility]) Chronic obstructive pulmonary disease. Large pleural effusion with infiltrate/atelectasis, chronic versus new. ([facility]- CT) Status post bronchoscopy December 05, 2019 Cultures negative so far End-stage renal disease, on hemodialysis. Hypertension. Hyperlipidemia. Thrombocytopenia Plan: Plan of Care Continue Zosyn Off IV vancomycin f/u cultures from [facility], neg so far Monitor labs/temp Maintain aspiration precautions Follow-up bronchoscopy cultures Awaiting thoracocentesis later today Supportive care Discussed with nursing staff THEODORA MEADOWS MD Dec 06, 2019 11:17
--- NOTE | 2019-12-06 11:24 | PDOC ---
Renal-Progress Notes Subjective Notes Notes NO NEW COMPLAINTS History of Present Illness Hx of present illness STABLE Vitals Vitals Vital Signs Date Time Temp Pulse Resp B/P (MAP) Pulse Ox O2 Delivery O2 Flow Rate FiO2 12/06/19 08:36 72 130/52 12/06/19 07:51 97.7 18 92 Nasal Cannula 4.0 97.7 Weight Weight [ ] I.O. Intake and Output Intake and Output 12/06/19 07:00 Intake Total 270 ml Output Total 0 ml Balance 270 ml Intake Oral 270 ml Output Urine Total 0 ml # Voids 50 Labs Labs Laboratory Tests Test 12/06/19 06:00 12/06/19 10:15 White Blood Count 4.7 x10^3/uL (4.0-11.0) Red Blood Count 2.76 x10^6/uL (4.30-5.70) Hemoglobin 8.3 g/dL (13.0-17.5) Hematocrit 27.1 % (39.0-53.0) Mean Corpuscular Volume 98 fL (79-100) Mean Corpuscular Hemoglobin 30 pg (25-35) Mean Corpuscular Hemoglobin Concent 31 g/dL (31-37) Red Cell Distribution Width 16.8 % (11.5-14.5) Platelet Count 150 x10^3/uL (140-400) Prothrombin Time 14.8 SEC (11.7-14.0) Prothromb Time International Ratio 1.2 (0.8-1.1) Activated Partial Thromboplast Time 41 SEC (24-38) Micro Micro Microbiology 12/05/19 Gram Stain - Final, Complete Review of Systems Constitutional: yes: other (CONFUSED) Physical Exam General Appearance: no apparent distress Skin: warm Respiratory: bilateral CTA Heart: S1S2 Abdomen: soft, bowel sounds present Genitourinary: bladder flat Extremities: pulses present Neurology: alert, confused Musculoskeletal: Osteoarthritis Assessment Assessment IMP ESRD ANEMIA HTN HX COPD PNA PL EFFUSION PLAN HD TODAY UF TO DW THORACENTESIS JENNIFER NEEDED WILL FOLLOW RAMIREZ AYALA MD Dec 06, 2019 11:24
[2019-12-06] MEDS ORDERED: LIDOCAINE WITH 8.4% SOD BICARB 3 ML DISP.SYRIN. ONE (12:16)
[2019-12-06] MEDS ORDERED: LIDOCAINE WITH 8.4% SOD BICARB 3 ML DISP.SYRIN. INJ ONE (12:30)
[2019-12-06 13:10] VITALS: BP 136/48
--- NOTE | 2019-12-06 13:11 | NUR ---
SW following. Discussed with RN, pt having a thoracentesis today after dialysis. SW to meet with pt to discuss SNU vs Home Health. Therapy to work with pt again to determine recommendation. SW will continue to follow.
--- NOTE | 2019-12-06 13:46 | NUR ---
1400 Heparin held due to pt having throacentesis today.
--- NOTE | 2019-12-06 15:08 | PATHOLOGY ---
Note [facility] Accession Number: [id number] TESTS RESULT FLAG UNITS REF RANGE LAB Clinician Provided Cytology Information No. of containers..01 Other (Miscellaneous) Source: BAL JHONY DIAGNOSIS: BAL JHONY NEGATIVE FOR MALIGNANT CELLS. FOCALLY REACTIVE BRONCHIAL EPITHELIAL CELLS, BENIGN SQUAMOUS EPITHELIAL CELLS, AND PULMONARY MACROPHAGES PRESENT. Signed out by: 02 Shahab De La Paz MD, Pathologist NPI- [id number] Performed by: Shante López, Manager Commodities ([facility]) Gross description: 01 5ML, CLEAR, 1 TP /LCS 12/05/20191909 Local FLAG LEGEND: L-Low Normal,H-High Normal,LL-Alert Low,HH-Alert High <-Panic Low,>-Panic High,A-Abnormal,AA-Critical Abnormal Performed at: [address] [place] [address] Gibson Rivas MD, 02 [facility] [address] [place] [address] Shahab De La Paz MD, Specimen Comment: A courtesy copy of this report has been sent to [phone] Specimen Comment: Report sent to Specimen Comment: A duplicate report has been generated due to demographic updates. Performed at: [address], [place], [place] [id number] MD Gibson Rivas MD Phone: [phone]
[2019-12-06 15:13] LABS: BF CLARITY CLOUDY; BF COLOR RED; BF SOURCE PLEURAL
[2019-12-06 15:14] LABS: BF MON % 10 %; BF OTHER % 3 %; BF PMN % 87 %; BF RBC COUNT 15897 /cmm (Not Established); BF WBC COUNT 1018 /cmm (Not Established)
[2019-12-06 15:15] LABS: PH,BODY FLUID 7.29
[2019-12-06 15:23] VITALS: BP 146/53
--- NOTE | 2019-12-06 15:49 | NUR ---
Unable to flush R FA IV. Attempt x 2 made to start new IV. JORDI Wynn also attempted x 2 with no success. Will contact Nursing supervisor record press to attempt.
[2019-12-06 19:00] VITALS: BP 129/46
[2019-12-06] MEDS: ATORVASTATIN CALCIUM 10 MG TABLET. PO SCH (20:53)
[2019-12-06 23:00] VITALS: BP 130/49
[2019-12-07 03:00] VITALS: BP 129/49
[2019-12-07] MEDS: ACETAMINOPHEN 500 MG TABLET PO PRN ×3 (03:28→17:54)
[2019-12-07] MEDS: PIPERACILLIN/TAZOBACTAM 2.25 GM in IV NORMAL SALINE 50ML 50 ML IV SCH ×3 (06:07→22:00)
[2019-12-07] MEDS: HEPARIN for SUB-Q USE 5,000 UNIT/ML VIAL. SQ SCH ×3 (06:09→22:26)
[2019-12-07 07:00] VITALS: BP 115/33
[2019-12-07] MEDS: BUDESONIDE 0.5 MG/2 ML NEBU. NEB SCH ×2 (07:35→20:39)
[2019-12-07] MEDS: ALBUTEROL SULFATE 2.5 MG/3 ML NEBU. NEB SCH ×4 (07:35→20:40)
[2019-12-07] MEDS: ASPIRIN ENTERIC COATED 81 MG TABLET.DR. PO SCH (08:29)
[2019-12-07] MEDS: LACTOBACILLUS RHAMNOSUS GG 1 CAPSULE. PO SCH ×2 (08:29→20:31)
[2019-12-07] MEDS: [UNRECOGNIZED DRUG - OTHER] PO SCH ×2 (08:29→20:31)
[2019-12-07] MEDS: CALCIUM ACETATE 667 MG CAPSULE PO SCH ×3 (08:29→17:54)
[2019-12-07] MEDS: LOSARTAN POTASSIUM 50 MG TABLET. PO SCH (08:30)
[2019-12-07] MEDS: hydroCHLOROthiazide 12.5 MG CAPSULE PO SCH (08:30)
[2019-12-07] MEDS: AMIODARONE HCL 200 MG TABLET. PO SCH (08:30)
[2019-12-07] MEDS: FOLIC/VIT B COMP W-C (RENAL) TABLET. PO SCH (08:30)
[2019-12-07] MEDS: TAMSULOSIN 0.4 MG CAP.ER.24H. PO SCH ×2 (08:31→20:30)
[2019-12-07] MEDS: ZINC SULFATE 220 MG CAPSULE. PO SCH (08:31)
[2019-12-07] MEDS: METOPROLOL TART IMMED RELEASE 25 MG TABLET. PO SCH ×2 (09:00→20:29)
[2019-12-07] MEDS: CHOLECALCIFEROL (VITAMIN D3) 1,000 UNIT TABLET PO SCH (09:00)
[2019-12-07] MEDS: ISOSORBIDE MONONITRATE ER 30 MG TAB.ER.24H PO SCH ×2 (09:00→20:30)
--- NOTE | 2019-12-07 09:20 | NUR ---
SW following. Discussed with RN, now on renal diet, pt does not have dialysis today, therapy to work with pt to ascertain true therapy needs now that pt is not NPO and it not being a dialysis day. SW will continue to follow.
--- NOTE | 2019-12-07 09:22 | PDOC ---
PULMONARY PROGRESS NOTES Subjective Patient feels better less short of air no chest pain no pressure Vitals Vital Signs Date Time Temp Pulse Resp B/P (MAP) Pulse Ox O2 Delivery O2 Flow Rate FiO2 12/07/19 08:31 67 115/33 12/07/19 07:37 95 Nasal Cannula 3.5 12/07/19 07:00 98.3 16 98.3 ROS: No Nausea, No Chest Pain, No Abdominal Pain, No Increase Cough General: Alert, No acute distress Lungs: Clear Cardiovascular: S1, S2 Abdomen: Soft Extremities: No Edema Labs Laboratory Tests Test 12/06/19 06:00 12/06/19 10:15 12/06/19 13:10 White Blood Count 4.7 x10^3/uL (4.0-11.0) Red Blood Count 2.76 x10^6/uL (4.30-5.70) Hemoglobin 8.3 g/dL (13.0-17.5) Hematocrit 27.1 % (39.0-53.0) Mean Corpuscular Volume 98 fL (79-100) Mean Corpuscular Hemoglobin 30 pg (25-35) Mean Corpuscular Hemoglobin Concent 31 g/dL (31-37) Red Cell Distribution Width 16.8 % (11.5-14.5) Platelet Count 150 x10^3/uL (140-400) Prothrombin Time 14.8 SEC (11.7-14.0) Prothromb Time International Ratio 1.2 (0.8-1.1) Activated Partial Thromboplast Time 41 SEC (24-38) Body Fluid Source Pleural Body Fluid Color Red Body Fluid Clarity Cloudy Body Fluid pH 7.29 Body Fluid Nucleated Cells 1018 /cmm (Not Established) Body Fluid Mononuclear WBCs (%) 10 % Body Fluid Polymorphonuclear Cells 87 % Body Fluid Total RBCs Counted 10324 /cmm (Not Body Fluid Other Cells (%) 3 % Body Fluid Glucose 101 mg/dL (.) Body Fluid Total Protein 2.3 g/dL (.) Body Fluid Lactate Dehydrogenase 57 IU/L (.) Laboratory Tests Test 12/06/19 10:15 12/06/19 13:10 Prothrombin Time 14.8 SEC (11.7-14.0) Prothromb Time International Ratio 1.2 (0.8-1.1) Activated Partial Thromboplast Time 41 SEC (24-38) Body Fluid Source Pleural Body Fluid Color Red Body Fluid Clarity Cloudy Body Fluid pH 7.29 Body Fluid Nucleated Cells 1018 /cmm (Not Established) Body Fluid Mononuclear WBCs (%) 10 % Body Fluid Polymorphonuclear Cells 87 % Body Fluid Total RBCs Counted 71160 /cmm (Not Body Fluid Other Cells (%) 3 % Body Fluid Glucose 101 mg/dL (.) Body Fluid Total Protein 2.3 g/dL (.) Body Fluid Lactate Dehydrogenase 57 IU/L (.) Medications Active Scripts Medications Dose Route/Sig Max Daily Dose Days Date Category Dose Instructions Zinc Sulfate 220 Mg Tablet 1 Tab PO DAILY 30 11/30/19 Reported Vitamin D3 (Cholecalciferol (Vitamin D3)) 25 Mcg Capsule 25 Mcg PO DAILY 1 11/30/19 Reported Isosorbide Mononitrate Er (Isosorbide Mononitrate) 30 Mg Tab.er.24h 30 Mg PO BID 30 08/14/19 Rx Hydralazine Hcl 50 Mg Tablet 50 Mg PO BID 30 08/14/19 Rx Amiodarone Hcl 200 Mg Tablet 1 Tab PO DAILY 30 08/14/19 Rx Acetaminophen 500 Mg Tablet 1 Tab PO PRN Q6HRS PRN 15 08/07/19 Reported Calcium Acetate 667 Mg Tablet 1 Cap PO TIDAC 08/07/19 Reported Metoprolol Tartrate 25 Mg Tablet 0.5 Tab PO BID 08/07/19 Reported Duoneb 0.5-3(2.5) Mg/3 Ml (Albuterol/Ipratropium) 3 Ml Ampul.neb 3 Ml NEB RTQID 30 03/31/19 Rx [ahreds] 1 Cap PO BID 03/28/19 Reported Ahreds #2 Preservision, One softgel by mouth twice a day Dialyvite Tablet (Folic Acid/Vitamin B Comp W-C) 1 Each Tablet 1 Tab PO DAILY 03/27/19 Reported Advair 250-50 Diskus (Fluticasone/Salmeterol) 1 Each Disk.w.dev 1 Puff PO BID 03/27/19 Reported Aspirin Ec (Aspirin) 81 Mg Tablet. 1 Tab PO BID 03/17/17 Reported LAST DOSE GIVEN: DATE: 03/17/17 TIME: 1030 am so start taking this daily tomorrow Hyzaar 50-12.5 Tablet (Losartan/Hydrochlorothiazide) 1 Each Tablet 1 Tab PO DAILY 1/24/17 Reported Tamsulosin Hcl 0.4 Mg Cap.er.24h 0.4 Mg PO BID 12/06/15 Reported Ventolin Hfa Inhaler (Albuterol Sulfate) 18 Gm Hfa.aer.ad 2 Puff INH QID 12/06/15 Reported Atorvastatin Calcium 10 Mg Tablet 10 Mg PO HS 12/06/15 Reported Impression . IMPRESSION: 1. Abnormal CT chest obtained at [facility] revealing several findings, a large apical bulla. 2. Moderate sized left side effusion. 3. Atelectatic lingula. 4. Acute exacerbation of chronic obstructive pulmonary disease. 5. Macular degeneration. 6. End-stage renal disease, on hemodialysis. 7. Fever. 8. Tobacco dependence, in remission. 9. Pleural effusion status post thoracentesis 12/05 10. BAL cytology negative for malignant cells Discussion As indicated above, the patient has had a previous workup for lingular consolidation and possible endobronchial lesion. He underwent bronchoscopy in 2016, which revealed no endobronchial lesion. He underwent a PET scanning as an outpatient, revealing low FDG uptake in the consolidation of the lingula. He was due to undergo repeat CT chest on 08/2019. Due to the COVID-19 pandemic, he has not been able to do so. He now presents with abnormal CT chest as described above. Plan . So far all cultures negative, reviewed with patient. Pleural fluid cytology is pending Options will be to perform free perform PET scanning, as an outpatient. Dr Conti does not think he could biopsy anything at this time See bronchoscopy report Continue empiric antibiotics for now ANA CROOKS MD Dec 07, 2019 09:22
--- NOTE | 2019-12-07 09:44 | PDOC ---
Infectious Disease Note Subjective: Subjective Pt says feels ok No increase SOA/CP/cough Denies F/C/N/V/D Vital Signs: Vital Signs Vital Signs Date Time Temp Pulse Resp B/P (MAP) Pulse Ox O2 Delivery O2 Flow Rate FiO2 12/07/19 08:31 67 115/33 12/07/19 07:37 95 Nasal Cannula 3.5 12/07/19 07:00 98.3 16 98.3 Physical Exam: PHYSICAL EXAM GENERAL: Alert, lying down, appears comfortable HENT: Oral cavity dry NECK: Supple LUNGS: Diminished aeration bases, nonlabored HEART: S1, S2 regular. ABDOMEN: Soft and nontender EXTREMITIES: No edema, cyanosis. SKIN: warm to touch. No signs of rash NEUROLOGIC: ALert, appropriate. PIV Medications: Inpatient Meds: Current Medications Medications (Trade) Dose Ordered Sig/Samina Start Time Stop Time Status Last Admin Dose Admin Acetaminophen (Tylenol) 500 mg 1X PRN PRN 12/04/19 08:30 12/04/19 19:00 DC Albumin Human 200 ml @ 200 mls/hr 1X PRN PRN 12/06/19 09:00 12/06/19 14:59 DC Albuterol Sulfate (Ventolin Neb Soln) 2.5 mg RTQID 11/30/19 12:00 12/07/19 07:35 2.5 MG Amiodarone HCl (Cordarone) 200 mg DAILY 12/01/19 09:00 12/07/19 08:30 200 MG Aspirin (Ecotrin) 81 mg DAILY 12/01/19 09:00 12/07/19 08:29 81 MG Atorvastatin Calcium (Lipitor) 10 mg HS 11/30/19 21:00 12/06/19 20:53 10 MG Budesonide (Pulmicort) 0.5 mg RTBID 11/30/19 12:00 12/07/19 07:35 0.5 MG Calcium Acetate (Phoslo) 667 mg TIDWMEALS 11/30/19 12:30 12/07/19 08:29 667 MG Cyanocobalamin (Vitamin B-12) 1,000 mcg DAILY 12/03/19 11:00 12/06/19 10:59 DC 12/06/19 08:37 1,000 MCG Diphenhydramine HCl (Benadryl) 25 mg 1X PRN PRN 12/04/19 08:30 12/04/19 19:00 DC Epinephrine HCl (Adrenalin) 1 mg STK-MED ONCE 12/05/19 07:37 12/05/19 07:37 DC Heparin Sodium (Porcine) (Heparin Sodium) 5,000 unit Q8HRS 11/30/19 22:00 12/07/19 06:09 5,000 UNIT Hydralazine HCl (Apresoline) 50 mg BID 11/30/19 21:00 12/07/19 08:31 50 MG Hydrochlorothiazide (Microzide) 12.5 mg DAILY 11/30/19 12:30 12/07/19 08:30 12.5 MG Info (PHARMACY MONITORING -- do not chart) 1 each PRN DAILY PRN 12/06/19 09:00 Isosorbide Mononitrate (Imdur) 30 mg BID 11/30/19 12:30 12/06/19 20:53 30 MG Lactobacillus Rhamnosus (Culturelle) 1 cap BID 12/01/19 21:00 12/07/19 08:29 1 CAP Lidocaine HCl (Buffered Lidocaine 1%) 6 ml 1X ONCE 12/06/19 12:30 12/06/19 12:31 DC 12/06/19 13:17 5 ML Lidocaine HCl (Lidocaine 1% 20ml Vial) 20 ml STK-MED ONCE 12/05/19 07:37 12/05/19 07:38 DC Lidocaine HCl (Lidocaine 2% Viscous) 100 ml STK-MED ONCE 12/05/19 07:37 12/05/19 07:38 DC Lidocaine HCl (Lidocaine 4% Topical) 50 ml STK-MED ONCE 12/05/19 07:37 12/05/19 07:38 DC Losartan Potassium (Cozaar) 50 mg DAILY 11/30/19 12:30 12/07/19 08:30 50 MG Metoprolol Tartrate (Lopressor) 12.5 mg BID 11/30/19 21:00 12/06/19 20:57 12.5 MG Multivitamins/ Minerals (I-Ronnie) 1 tab BID 12/01/19 23:00 12/02/19 11:04 DC 12/02/19 10:21 1 TAB Non-Formulary Medication 1 ea BID 12/02/19 11:00 12/07/19 08:29 1 EA Piperacillin Sod/ Tazobactam Sod 2.25 gm/Sodium Chloride 50 ml @ 100 mls/hr Q8HRS 12/01/19 22:00 12/07/19 06:07 100 MLS/HR Sodium Chloride 1,000 ml @ 400 mls/hr Q2H30M PRN 12/06/19 08:55 12/06/19 20:54 DC Tamsulosin HCl (Flomax) 0.4 mg BID 11/30/19 21:00 12/07/19 08:31 0.4 MG Vancomycin HCl (Vanco Per Pharmacy) 1 each PRN DAILY PRN 12/01/19 15:00 12/05/19 10:21 DC 12/04/19 16:36 1 EACH Vancomycin HCl (Vancomycin Random Level) 1 each 1X ONCE 12/01/19 16:00 12/01/19 16:01 DC 12/01/19 16:00 1 EACH Vancomycin HCl 500 mg/Sodium Chloride 100 ml @ 100 mls/hr QMWF 12/01/19 20:00 12/05/19 10:20 DC 12/04/19 16:33 100 MLS/HR Vitamin B Complex/ Vitamin C (Neha-Ronnie) 1 tab DAILY 11/30/19 12:30 12/07/19 08:30 1 TAB Vitamin D (Vitamin D3) 1,000 unit DAILY 12/01/19 09:00 12/06/19 08:36 1,000 UNIT Zinc Sulfate (Orazinc) 220 mg DAILY 11/30/19 12:30 12/07/19 08:31 220 MG Labs: Lab Laboratory Tests Test 12/06/19 10:15 12/06/19 13:10 Prothrombin Time 14.8 SEC (11.7-14.0) Prothromb Time International Ratio 1.2 (0.8-1.1) Activated Partial Thromboplast Time 41 SEC (24-38) Body Fluid Source Pleural Body Fluid Color Red Body Fluid Clarity Cloudy Body Fluid pH 7.29 Body Fluid Nucleated Cells 1018 /cmm (Not Established) Body Fluid Mononuclear WBCs (%) 10 % Body Fluid Polymorphonuclear Cells 87 % Body Fluid Total RBCs Counted 17929 /cmm (Not Body Fluid Other Cells (%) 3 % Body Fluid Glucose 101 mg/dL (.) Body Fluid Total Protein 2.3 g/dL (.) Body Fluid Lactate Dehydrogenase 57 IU/L (.) Objective: Assessment: Leukopenia - resolved h/o B12 deficiency COVID-19 neg, 11/28 ([facility]) Chronic obstructive pulmonary disease. Large pleural effusion with infiltrate/atelectasis, chronic versus new. ([facility]- CT) Status post bronchoscopy December 05, 2019 Cultures negative so far End-stage renal disease, on hemodialysis. Hypertension. Hyperlipidemia. Thrombocytopenia Plan: Plan of Care Cont zosyn for now Off IV vancomycin f/u cultures from [facility], neg so far Monitor labs/temp Maintain aspiration precautions Follow-up bronchoscopy cultures Awaiting thoracocentesis later today Supportive care Discussed with nursing staff THEODORA MEADOWS MD Dec 07, 2019 09:44
--- NOTE | 2019-12-07 09:59 | PN ---
DATE: 12/07/2019 SUBJECTIVE: The patient is resting flat in bed, no apparent distress, continued to complain of pain in his left shoulder and also generalized weakness, has had thoracentesis yesterday and about 970 mL of fluid was removed. PHYSICAL EXAMINATION: GENERAL: When I examined him, he looked pale, no jaundice, cyanosis, or thyromegaly. No jugular venous distension. No lower limb edema. VITAL SIGNS: His heart rate was 67, blood pressure was 115/33, temperature was 98.3, respiratory rate was 16, and oxygen saturation was 97% on room air. HEAD, EYES, EARS, NOSE, AND THROAT: Showed normocephalic, atraumatic. NECK: Supple. HEART: Normal first and second heart sounds. No gallop, rub or murmur. CHEST: Clear to auscultation. No crepitation or rhonchi. ABDOMEN: Soft, nontender. NEUROLOGIC: He is sleepy, but arousable. All cranial nerves are intact. He moves extremities without difficulty. His intake and output were incompletely recorded. LABORATORY DATA: No lab work done yesterday and this morning. ASSESSMENT AND PLAN: 1. Community-acquired pneumonia for which he continues to be on V antibiotic in the form of Zosyn and vancomycin. 2. Chronic obstructive pulmonary disease exacerbation. 3. End-stage renal disease, on hemodialysis Wednesday, Wednesday, Wednesday. 4. Pancytopenia, felt to be multifactorial including vitamin B12 deficiency as well as anemia of chronic kidney disease. His B12 level was borderline; however, his iron stores are adequate. He is now on vitamin B12 injections daily and his white cell count is up to 4700 and platelet up to 150,000. 5. He has large left-sided pleural effusion for which he underwent thoracentesis yesterday successfully. 6. He has senile macular degeneration, which he is on PreserVision. 7. He has severe protein-calorie malnutrition with serum albumin is only 1.7 g/dL. 8. Bronchoscopy showed no evidence of any endobronchial lesion. RALEIGH ZHAO MD DR: TAYLOR/carly JOB#: [id number] / [id number]
[2019-12-07 11:00] VITALS: BP 131/41
--- NOTE | 2019-12-07 12:02 | PDOC ---
Renal-Progress Notes Subjective Notes Notes NO NEW COMPLAINTS History of Present Illness Hx of present illness STABLE Vitals Vitals Vital Signs Date Time Temp Pulse Resp B/P (MAP) Pulse Ox O2 Delivery O2 Flow Rate FiO2 12/07/19 11:00 98.7 75 16 131/41 (71) 95 Nasal Cannula 4.0 98.7 Weight Weight [ ] I.O. Intake and Output Intake and Output 12/07/19 07:00 Intake Total 320 ml Output Total 1950 ml Balance -1630 ml Intake Oral 320 ml Output Urine Total 0 ml Drainage Total 1950 ml Labs Labs Laboratory Tests Test 12/06/19 13:10 Body Fluid Source Pleural Body Fluid Color Red Body Fluid Clarity Cloudy Body Fluid pH 7.29 Body Fluid Nucleated Cells 1018 /cmm (Not Established) Body Fluid Mononuclear WBCs (%) 10 % Body Fluid Polymorphonuclear Cells 87 % Body Fluid Total RBCs Counted 20145 /cmm (Not Body Fluid Other Cells (%) 3 % Body Fluid Glucose 101 mg/dL (.) Body Fluid Total Protein 2.3 g/dL (.) Body Fluid Lactate Dehydrogenase 57 IU/L (.) Micro Micro Microbiology 12/06/19 Gram Stain - Final, Resulted 12/06/19 Aerobic and Anaerobic Culture, Resulted Pending 12/05/19 Gram Stain - Final, Complete Review of Systems Constitutional: yes: other (CONFUSED) Physical Exam General Appearance: no apparent distress Skin: warm Respiratory: bilateral CTA Heart: S1S2 Abdomen: soft, bowel sounds present Genitourinary: bladder flat Extremities: pulses present Neurology: alert, confused Musculoskeletal: Osteoarthritis Assessment Assessment IMP ESRD ANEMIA HTN HX COPD PNA PL EFFUSION PLAN HD TOMORROW THORACENTESIS JENNIFER NEEDED WILL FOLLOW RAMIREZ AYALA MD Dec 07, 2019 12:02
[2019-12-07 15:00] VITALS: BP 117/63
--- NOTE | 2019-12-07 18:06 | PATHOLOGY ---
Note [facility] Accession Number: [id number] TESTS RESULT FLAG UNITS REF RANGE LAB Clinician Provided Cytology Information No. of containers..01 Other (Miscellaneous) Source: 01 PLEURAL FL DIAGNOSIS: 02 PLEURAL FL NEGATIVE FOR MALIGNANT CELLS. REACTIVE MESOTHELIAL CELLS PRESENT WITHIN A BACKGROUND OF NEUTROPHILS, FEWER LYMPHOCYTES, AND RED BLOOD CELLS. THIS INTERPRETATION INCLUDES EVALUATION OF A CELL BLOCK. Signed out by: 02 Shahab De La Paz MD, Pathologist NPI- [id number] Performed by: Eugenie Salas, Cash Register Operator ([facility]) Gross description: 01 30ML, CLOUDY RED, 1TP 1CB /LCS 12/07/2019 0444 Local FLAG LEGEND: L-Low Normal,H-High Normal,LL-Alert Low,HH-Alert High <-Panic Low,>-Panic High,A-Abnormal,AA-Critical Abnormal Performed at: 01 [facility] [address] [place] [address] Gibson Rivas MD, 02 [facility] [address] [place] [address] Shahab De La Paz MD, Specimen Comment: A courtesy copy of this report has been sent to [phone] Specimen Comment: [id number], , Specimen Comment: Report sent to DR JAMIL,DR PAREKH,DR CROOKS / DR ZHAO Specimen Comment: A duplicate report has been generated due to demographic updates. Performed at: 01 [facility] [id number], [place], [place] [id number] MD Gibson Rivas MD Phone: [phone]
[2019-12-07 19:44] VITALS: BP 117/53
[2019-12-07] MEDS: ATORVASTATIN CALCIUM 10 MG TABLET. PO SCH (20:30)
[2019-12-07 23:58] VITALS: BP 129/40
--- NOTE | 2019-12-08 00:10 | NUR ---
This RN inputted wrong vital signs for BP medication. BP 117/53 HR 80 when Imdur and Metoprolol given. BP 129/40 HR 78 when Hydralazine given. Advised pt hydralazine could be held d/t low BP. Pt explains he will take medication d/t BP running "normal" for him.
[2019-12-08] MEDS: ACETAMINOPHEN 500 MG TABLET PO PRN (03:21)
[2019-12-08 03:29] VITALS: BP 117/75
[2019-12-08] MEDS: PIPERACILLIN/TAZOBACTAM 2.25 GM in IV NORMAL SALINE 50ML 50 ML IV SCH (06:13)
[2019-12-08] MEDS: HEPARIN for SUB-Q USE 5,000 UNIT/ML VIAL. SQ SCH ×2 (06:16→15:43)
[2019-12-08 06:48] LABS: HEMATOCRIT 26.2 % (39.0-53.0); HEMOGLOBIN 8.3 g/dL (13.0-17.5); RED BLOOD COUNT 2.7 x10^6/uL (4.30-5.70); RED CELL DISTRIBUTION WIDTH 16.9 % (11.5-14.5); WHITE BLOOD COUNT 8.5 x10^3/uL (4.0-11.0)
[2019-12-08 07:00] VITALS: BP 121/41
--- NOTE | 2019-12-08 07:28 | RAD ---
Ultrasound-guided left-sided thoracentesis 12/08/2019 5:24 AM Indication: Left effusion Procedure: Informed consent was obtained. A timeout procedure was performed. Sonographic evaluation of the left chest was performed demonstrating moderate pleural effusion. The left posterior chest was prepped and draped in sterile fashion. 1% lidocaine without epinephrine was administered for local anesthesia. Real-time ultrasonographic guidance was used in passing a 5 [place] catheter into the left pleural space. 1.0 L of serosanguineous pleural fluid was removed. Samples of fluid were sent to the lab for further evaluation per ordering physician request. The catheter was removed and pressure held to achieve hemostasis. A sterile dressing was applied. No immediate complications were identified. The patient tolerated the procedure well. Impression: Left sided ultrasound-guided thoracentesis
[2019-12-08] MEDS: BUDESONIDE 0.5 MG/2 ML NEBU. NEB SCH (07:43)
[2019-12-08] MEDS: ALBUTEROL SULFATE 2.5 MG/3 ML NEBU. NEB SCH ×3 (07:43→16:03)
[2019-12-08] MEDS: CHOLECALCIFEROL (VITAMIN D3) 1,000 UNIT TABLET PO SCH (07:56)
[2019-12-08] MEDS ORDERED: IV NORMAL SALINE 1000ML BAG 1,000 ML IV PRN ×2 (07:56)
[2019-12-08] MEDS: ASPIRIN ENTERIC COATED 81 MG TABLET.DR. PO SCH (07:56)
[2019-12-08] MEDS: TAMSULOSIN 0.4 MG CAP.ER.24H. PO SCH (07:56)
[2019-12-08] MEDS: LACTOBACILLUS RHAMNOSUS GG 1 CAPSULE. PO SCH (07:56)
[2019-12-08] MEDS: CALCIUM ACETATE 667 MG CAPSULE PO SCH ×3 (07:57→17:23)
[2019-12-08] MEDS: FOLIC/VIT B COMP W-C (RENAL) TABLET. PO SCH (07:57)
[2019-12-08] MEDS: ZINC SULFATE 220 MG CAPSULE. PO SCH (07:57)
[2019-12-08] MEDS: [UNRECOGNIZED DRUG - OTHER] PO SCH (07:57)
[2019-12-08] MEDS: ISOSORBIDE MONONITRATE ER 30 MG TAB.ER.24H PO SCH (07:58)
[2019-12-08] MEDS: LOSARTAN POTASSIUM 50 MG TABLET. PO SCH (07:58)
[2019-12-08] MEDS: hydroCHLOROthiazide 12.5 MG CAPSULE PO SCH (07:58)
[2019-12-08] MEDS: AMIODARONE HCL 200 MG TABLET. PO SCH (07:59)
[2019-12-08] MEDS: METOPROLOL TART IMMED RELEASE 25 MG TABLET. PO SCH (07:59)
[2019-12-08] MEDS ORDERED: DIALYSIS PATIENT. MC PRN (08:00)
[2019-12-08] MEDS ORDERED: ALBUMIN HUMAN 25% 200 ML IV PRN (08:00)
--- NOTE | 2019-12-08 08:34 | PDOC ---
Infectious Disease Note Subjective: Subjective Patient feels much better Shortness of breath has improved No nausea vomiting fever diarrhea abdominal pain Some constipation Vital Signs: Vital Signs Vital Signs Date Time Temp Pulse Resp B/P (MAP) Pulse Ox O2 Delivery O2 Flow Rate FiO2 12/08/19 07:59 71 121/41 12/08/19 07:46 98 Nasal Cannula 3.5 12/08/19 07:00 97.9 18 97.9 Physical Exam: PHYSICAL EXAM GENERAL: Alert, lying down, appears comfortable HENT: Oral cavity dry NECK: Supple LUNGS: Diminished aeration bases, nonlabored HEART: S1, S2 regular. ABDOMEN: Soft and nontender EXTREMITIES: No edema, cyanosis. SKIN: warm to touch. No signs of rash NEUROLOGIC: ALert, appropriate. PIV Medications: Inpatient Meds: Current Medications Medications (Trade) Dose Ordered Sig/Samina Start Time Stop Time Status Last Admin Dose Admin Acetaminophen (Tylenol) 500 mg 1X PRN PRN 12/04/19 08:30 12/04/19 19:00 DC Albumin Human 200 ml @ 200 mls/hr 1X PRN PRN 12/08/19 08:00 12/08/19 13:59 Albuterol Sulfate (Ventolin Neb Soln) 2.5 mg RTQID 11/30/19 12:00 12/08/19 07:43 2.5 MG Amiodarone HCl (Cordarone) 200 mg DAILY 12/01/19 09:00 12/08/19 07:59 200 MG Aspirin (Ecotrin) 81 mg DAILY 12/01/19 09:00 12/08/19 07:56 81 MG Atorvastatin Calcium (Lipitor) 10 mg HS 11/30/19 21:00 12/07/19 20:30 10 MG Budesonide (Pulmicort) 0.5 mg RTBID 11/30/19 12:00 12/08/19 07:43 0.5 MG Calcium Acetate (Phoslo) 667 mg TIDWMEALS 11/30/19 12:30 12/08/19 07:57 667 MG Cyanocobalamin (Vitamin B-12) 1,000 mcg DAILY 12/03/19 11:00 12/06/19 10:59 DC 12/06/19 08:37 1,000 MCG Diphenhydramine HCl (Benadryl) 25 mg 1X PRN PRN 12/04/19 08:30 12/04/19 19:00 DC Epinephrine HCl (Adrenalin) 1 mg STK-MED ONCE 12/05/19 07:37 12/05/19 07:37 DC Heparin Sodium (Porcine) (Heparin Sodium) 5,000 unit Q8HRS 11/30/19 22:00 12/08/19 06:16 5,000 UNIT Hydralazine HCl (Apresoline) 50 mg BID 11/30/19 21:00 12/08/19 07:57 50 MG Hydrochlorothiazide (Microzide) 12.5 mg DAILY 11/30/19 12:30 12/08/19 07:58 12.5 MG Info (PHARMACY MONITORING -- do not chart) 1 each PRN DAILY PRN 12/08/19 08:00 Isosorbide Mononitrate (Imdur) 30 mg BID 11/30/19 12:30 12/08/19 07:58 30 MG Lactobacillus Rhamnosus (Culturelle) 1 cap BID 12/01/19 21:00 12/08/19 07:56 1 CAP Lidocaine HCl (Buffered Lidocaine 1%) 6 ml 1X ONCE 12/06/19 12:30 12/06/19 12:31 DC 12/06/19 13:17 5 ML Lidocaine HCl (Lidocaine 1% 20ml Vial) 20 ml STK-MED ONCE 12/05/19 07:37 12/05/19 07:38 DC Lidocaine HCl (Lidocaine 2% Viscous) 100 ml STK-MED ONCE 12/05/19 07:37 12/05/19 07:38 DC Lidocaine HCl (Lidocaine 4% Topical) 50 ml STK-MED ONCE 12/05/19 07:37 12/05/19 07:38 DC Losartan Potassium (Cozaar) 50 mg DAILY 11/30/19 12:30 12/08/19 07:58 50 MG Metoprolol Tartrate (Lopressor) 12.5 mg BID 11/30/19 21:00 12/08/19 07:59 12.5 MG Multivitamins/ Minerals (I-Ronnie) 1 tab BID 12/01/19 23:00 12/02/19 11:04 DC 12/02/19 10:21 1 TAB Non-Formulary Medication 1 ea BID 12/02/19 11:00 12/08/19 07:57 1 EA Piperacillin Sod/ Tazobactam Sod 2.25 gm/Sodium Chloride 50 ml @ 100 mls/hr Q8HRS 12/01/19 22:00 12/08/19 06:13 100 MLS/HR Sodium Chloride 1,000 ml @ 400 mls/hr Q2H30M PRN 12/08/19 07:56 12/08/19 19:55 Tamsulosin HCl (Flomax) 0.4 mg BID 11/30/19 21:00 12/08/19 07:56 0.4 MG Vancomycin HCl (Vanco Per Pharmacy) 1 each PRN DAILY PRN 12/01/19 15:00 12/05/19 10:21 DC 12/04/19 16:36 1 EACH Vancomycin HCl (Vancomycin Random Level) 1 each 1X ONCE 12/01/19 16:00 12/01/19 16:01 DC 12/01/19 16:00 1 EACH Vancomycin HCl 500 mg/Sodium Chloride 100 ml @ 100 mls/hr QMWF 12/01/19 20:00 12/05/19 10:20 DC 12/04/19 16:33 100 MLS/HR Vitamin B Complex/ Vitamin C (Neha-Ronnie) 1 tab DAILY 11/30/19 12:30 12/08/19 07:57 1 TAB Vitamin D (Vitamin D3) 1,000 unit DAILY 12/01/19 09:00 12/08/19 07:56 1,000 UNIT Zinc Sulfate (Orazinc) 220 mg DAILY 11/30/19 12:30 12/08/19 07:57 220 MG Labs: Lab Laboratory Tests Test 12/08/19 05:41 White Blood Count 8.5 x10^3/uL (4.0-11.0) Red Blood Count 2.70 x10^6/uL (4.30-5.70) Hemoglobin 8.3 g/dL (13.0-17.5) Hematocrit 26.2 % (39.0-53.0) Mean Corpuscular Volume 97 fL (79-100) Mean Corpuscular Hemoglobin 31 pg (25-35) Mean Corpuscular Hemoglobin Concent 32 g/dL (31-37) Red Cell Distribution Width 16.9 % (11.5-14.5) Platelet Count 176 x10^3/uL (140-400) Micro Bronc cultures negative so far Pleural fluid cultures negative so far Objective: Assessment: Leukopenia - resolved h/o B12 deficiency COVID-19 neg, 11/28 ([place]) Chronic obstructive pulmonary disease. Large pleural effusion with infiltrate/atelectasis, chronic versus new. ([place]- [place]) Status post bronchoscopy December 05, 2019 Cultures negative so far End-stage renal disease, on hemodialysis. Hypertension. Hyperlipidemia. Thrombocytopenia Plan: Plan of Care [place] [facility] Follow-up cultures and lab supportive care THEODORA MEADOWS MD Dec 08, 2019 08:34
--- NOTE | 2019-12-08 09:15 | NUR ---
SW following. Discussed with RN, PT/OT recommending home health. Pt currently on IV zosyn. SW reached out to Dr. Schmid to determine if pt can discharge home today. SW to meet with pt to discuss home health options. SW will continue to follow. Addendum: 12/08/19 at 1126 by REGINA TODD SW Mattie Sellers RN met with pt, pt agreeable to home health. Pt accepted with [facility], Dr. Schmid notified. Anticipate possible discharge home today with home health. RN notified.
--- NOTE | 2019-12-08 10:21 | PDOC ---
PROGRESS NOTES Subjective Subjective seen in dialysis unit Objective Objective Vital Signs Date Time Temp Pulse Resp B/P (MAP) Pulse Ox O2 Delivery O2 Flow Rate FiO2 12/08/19 08:00 Nasal Cannula 12/08/19 07:59 71 121/41 12/08/19 07:46 98 3.5 12/08/19 07:00 97.9 18 97.9 Intake and Output 12/08/19 07:00 Intake Total 480 ml Balance 480 ml Intake Oral 480 ml # Voids 2 Physical Exam Abdomen: Normal bowel sounds, Soft Heart: Regular rate, Normal S1 Extremities: No clubbing General: Alert HEENT: Atraumatic Lungs: Clear to auscultation MUSCULOSKELETAL: Osteoarthritic changes both hands Neck: Supple Neuro: Normal speech Psych/Mental Status: Mood NL Skin: No breakdown Assessment Assessment IMPRESSION: 1. Abnormal CT chest obtained at [facility] revealing several findings, a large apical bulla. 2. Moderate sized left side effusion. 3. Atelectatic lingula. 4. Acute exacerbation of chronic obstructive pulmonary disease. 5. Macular degeneration. 6. End-stage renal disease, on hemodialysis. 7. Fever. 8. Tobacco dependence, in remission. 9. Pleural effusion status post thoracentesis 12/05 10. BAL cytology negative for malignant cells Plan Plan Iv Zosyn c/s neg dialysis today SNu screen. labs reviewed So far all cultures negative, reviewed with patient. Pleural fluid cytology is pending Options will be to perform free perform PET scanning, as an outpatient. Dr Conti does not think he could biopsy anything at this time See bronchoscopy report Continue empiric antibiotics for now Comment Review of Relevant I have reviewed the following items ron (where applicable) has been applied. Labs Laboratory Tests Test 12/08/19 05:41 White Blood Count 8.5 x10^3/uL (4.0-11.0) Red Blood Count 2.70 x10^6/uL (4.30-5.70) Hemoglobin 8.3 g/dL (13.0-17.5) Hematocrit 26.2 % (39.0-53.0) Mean Corpuscular Volume 97 fL (79-100) Mean Corpuscular Hemoglobin 31 pg (25-35) Mean Corpuscular Hemoglobin Concent 32 g/dL (31-37) Red Cell Distribution Width 16.9 % (11.5-14.5) Platelet Count 176 x10^3/uL (140-400) Microbiology 12/06/19 Gram Stain - Final, Resulted 12/06/19 Aerobic and Anaerobic Culture - Preliminary, Resulted 12/05/19 Gram Stain - Final, Complete Medications Current Medications Albumin Human 200 ml @ 200 mls/hr 1X PRN PRN IV Hypotension; Start 12/08/19 at 08:00; Stop 12/08/19 at 13:59 Info (PHARMACY MONITORING -- do not chart) 1 each PRN DAILY PRN MC SEE COMMENTS; Start 12/08/19 at 08:00 Sodium Chloride 1,000 ml @ 400 mls/hr Q2H30M PRN IV PATENCY; Start 12/08/19 at 07:56; Stop 12/08/19 at 19:55 Sodium Chloride 1,000 ml @ 1,000 mls/hr Q1H PRN IV hypotension; Start 12/08/19 at 07:56; Stop 12/08/19 at 13:55 Vitals/I & O Vital Sign - Last 24 Hours 12/07/19 12/07/19 12/07/19 12/07/19 11:00 12:26 15:00 15:33 Temp 98.7 98.5 98.7 98.5 Pulse 75 72 Resp 16 16 B/P (MAP) 131/41 (71) 117/63 (81) Pulse Ox 95 95 92 O2 Delivery Nasal Cannula Nasal Cannula Nasal Cannula Nasal Cannula O2 Flow Rate 4.0 3.5 4.0 3.5 12/07/19 12/07/19 12/07/19 12/07/19 19:44 20:10 20:29 20:30 Temp 97.5 97.5 Pulse 80 80 80 Resp 16 B/P (MAP) 117/53 (74) 117/53 117/53 Pulse Ox 95 O2 Delivery Nasal Cannula Nasal Cannula O2 Flow Rate 4.0 3.5 12/07/19 12/07/19 12/07/19 12/07/19 20:42 20:42 22:21 23:58 Temp 98.2 98.2 Pulse 78 78 Resp 18 B/P (MAP) 129/40 129/40 (69) Pulse Ox 96 96 96 O2 Delivery Nasal Cannula Nasal Cannula Nasal Cannula O2 Flow Rate 3.5 3.5 4.0 12/08/19 12/08/19 12/08/1920 03:29 07:00 07:46 07:46 Temp 97.9 97.9 97.9 97.9 Pulse 88 71 Resp 16 18 B/P (MAP) 117/75 (89) 121/41 (67) Pulse Ox 90 97 98 98 O2 Delivery Room Air Room Air Nasal Cannula Nasal Cannula O2 Flow Rate 3.5 3.5 12/08/19 12/08/19 12/08/19 12/08/19 07:57 07:58 07:58 07:59 Pulse 71 71 71 71 B/P (MAP) 121/41 121/41 121/41 121/41 12/08/19 12/08/19 07:59 08:00 Pulse 71 B/P (MAP) 121/41 O2 Delivery Nasal Cannula Intake and Output 12/07/19 12/07/19 12/08/19 15:00 23:00 07:00 Intake Total 480 ml 0 ml Balance 480 ml 0 ml Justicifation of Admission Dx: Justifications for Admission: Justification of Admission Dx: N/A Nutrition Consultation Dietary Evaluation: Recommendations by RD: Dietary education by RD, Increase Calorie Intake, Protein supplementation Comments: REC continue Renal diet with FR per MD Expected Outcomes/Goals: to meet >75% est nutr needs- met at times, goal ongoing Malnutrition Findings: Body Fat Depletion (Non Severe: Mild Depletion Weight Status: Appropriate JANA TEJADA MD Dec 08, 2019 10:21
--- NOTE | 2019-12-08 11:39 | PDOC ---
Renal-Progress Notes Subjective Notes Notes LESS SOB AFTER THORACENTESIS History of Present Illness Hx of present illness IMPROVED Vitals Vitals Vital Signs Date Time Temp Pulse Resp B/P (MAP) Pulse Ox O2 Delivery O2 Flow Rate FiO2 12/08/19 08:00 Nasal Cannula 12/08/19 07:59 71 121/41 12/08/19 07:46 98 3.5 12/08/19 07:00 97.9 18 97.9 Weight Weight [ ] I.O. Intake and Output Intake and Output 12/08/19 07:00 Intake Total 480 ml Balance 480 ml Intake Oral 480 ml # Voids 2 Labs Labs Laboratory Tests Test 12/08/19 05:41 White Blood Count 8.5 x10^3/uL (4.0-11.0) Red Blood Count 2.70 x10^6/uL (4.30-5.70) Hemoglobin 8.3 g/dL (13.0-17.5) Hematocrit 26.2 % (39.0-53.0) Mean Corpuscular Volume 97 fL (79-100) Mean Corpuscular Hemoglobin 31 pg (25-35) Mean Corpuscular Hemoglobin Concent 32 g/dL (31-37) Red Cell Distribution Width 16.9 % (11.5-14.5) Platelet Count 176 x10^3/uL (140-400) Micro Micro Microbiology 12/06/19 Gram Stain - Final, Resulted 12/06/19 Aerobic and Anaerobic Culture - Preliminary, Resulted 12/05/19 Gram Stain - Final, Complete Review of Systems Constitutional: yes: other (CONFUSED) Physical Exam General Appearance: no apparent distress Skin: warm Respiratory: bilateral CTA Heart: S1S2 Abdomen: soft, bowel sounds present Genitourinary: bladder flat Extremities: pulses present Neurology: alert, confused Musculoskeletal: Osteoarthritis Assessment Assessment IMP ESRD ANEMIA HTN HX COPD PNA PL EFFUSION PLAN HD TODAY UF TO DW THORACENTESIS DONE JENNIFER NEEDED WILL FOLLOW RAMIREZ AYALA MD Dec 08, 2019 11:39
--- NOTE | 2019-12-08 12:20 | PDOC ---
PULMONARY PROGRESS NOTES Subjective Patient feels better less short of air no chest pain no pressure Vitals Vital Signs Date Time Temp Pulse Resp B/P (MAP) Pulse Ox O2 Delivery O2 Flow Rate FiO2 12/08/19 12:01 Nasal Cannula 3.5 12/08/19 07:59 71 121/41 12/08/19 07:46 98 12/08/19 07:00 97.9 18 97.9 ROS: No Nausea, No Chest Pain, No Abdominal Pain, No Increase Cough General: Alert, No acute distress Lungs: Clear Cardiovascular: S1, S2 Abdomen: Soft Extremities: No Edema Labs Laboratory Tests Test 12/06/19 13:10 12/08/19 05:41 Body Fluid Source Pleural Body Fluid Color Red Body Fluid Clarity Cloudy Body Fluid pH 7.29 Body Fluid Nucleated Cells 1018 /cmm (Not Established) Body Fluid Mononuclear WBCs (%) 10 % Body Fluid Polymorphonuclear Cells 87 % Body Fluid Total RBCs Counted 99515 /cmm (Not Body Fluid Other Cells (%) 3 % Body Fluid Glucose 101 mg/dL (.) Body Fluid Total Protein 2.3 g/dL (.) Body Fluid Lactate Dehydrogenase 57 IU/L (.) White Blood Count 8.5 x10^3/uL (4.0-11.0) Red Blood Count 2.70 x10^6/uL (4.30-5.70) Hemoglobin 8.3 g/dL (13.0-17.5) Hematocrit 26.2 % (39.0-53.0) Mean Corpuscular Volume 97 fL (79-100) Mean Corpuscular Hemoglobin 31 pg (25-35) Mean Corpuscular Hemoglobin Concent 32 g/dL (31-37) Red Cell Distribution Width 16.9 % (11.5-14.5) Platelet Count 176 x10^3/uL (140-400) Laboratory Tests Test 12/08/19 05:41 White Blood Count 8.5 x10^3/uL (4.0-11.0) Red Blood Count 2.70 x10^6/uL (4.30-5.70) Hemoglobin 8.3 g/dL (13.0-17.5) Hematocrit 26.2 % (39.0-53.0) Mean Corpuscular Volume 97 fL (79-100) Mean Corpuscular Hemoglobin 31 pg (25-35) Mean Corpuscular Hemoglobin Concent 32 g/dL (31-37) Red Cell Distribution Width 16.9 % (11.5-14.5) Platelet Count 176 x10^3/uL (140-400) Medications Active Scripts Medications Dose Route/Sig Max Daily Dose Days Date Category Dose Instructions Zinc Sulfate 220 Mg Tablet 1 Tab PO DAILY 30 11/30/19 Reported Vitamin D3 (Cholecalciferol (Vitamin D3)) 25 Mcg Capsule 25 Mcg PO DAILY 1 11/30/19 Reported Isosorbide Mononitrate Er (Isosorbide Mononitrate) 30 Mg Tab.er.24h 30 Mg PO BID 30 08/14/19 Rx Hydralazine Hcl 50 Mg Tablet 50 Mg PO BID 30 08/14/19 Rx Amiodarone Hcl 200 Mg Tablet 1 Tab PO DAILY 30 08/14/19 Rx Acetaminophen 500 Mg Tablet 1 Tab PO PRN Q6HRS PRN 15 08/07/19 Reported Calcium Acetate 667 Mg Tablet 1 Cap PO TIDAC 08/07/19 Reported Metoprolol Tartrate 25 Mg Tablet 0.5 Tab PO BID 08/07/19 Reported Duoneb 0.5-3(2.5) Mg/3 Ml (Albuterol/Ipratropium) 3 Ml Ampul.neb 3 Ml NEB RTQID 30 03/31/19 Rx [ahreds] 1 Cap PO BID 03/28/19 Reported Ahreds #2 Preservision, One softgel by mouth twice a day Dialyvite Tablet (Folic Acid/Vitamin B Comp W-C) 1 Each Tablet 1 Tab PO DAILY 03/27/19 Reported Advair 250-50 Diskus (Fluticasone/Salmeterol) 1 Each Disk.w.dev 1 Puff PO BID 03/27/19 Reported Aspirin Ec (Aspirin) 81 Mg Tablet.dr 1 Tab PO BID 03/17/17 Reported LAST DOSE GIVEN: DATE: 03/17/17 TIME: 1030 am so start taking this daily tomorrow Hyzaar 50-12.5 Tablet (Losartan/Hydrochlorothiazide) 1 Each Tablet 1 Tab PO DAILY 06/09/16 Reported Tamsulosin Hcl 0.4 Mg Cap.er.24h 0.4 Mg PO BID 12/06/15 Reported Ventolin Hfa Inhaler (Albuterol Sulfate) 18 Gm Hfa.aer.ad 2 Puff INH QID 12/06/15 Reported Atorvastatin Calcium 10 Mg Tablet 10 Mg PO HS 12/06/15 Reported Impression . IMPRESSION: 1. Abnormal CT chest obtained at [facility] revealing several findings, a large apical bulla. Moderate sized left side effusion. Atelectatic lingula. 4. Acute exacerbation of chronic obstructive pulmonary disease. 5. Macular degeneration. 6. End-stage renal disease, on hemodialysis. 7. Fever. 8. Tobacco dependence, in remission. 9. Pleural effusion status post thoracentesis 12/05,transudate 10. BAL cytology negative for malignant cells Discussion As indicated above, the patient has had a previous workup for lingular consolidation and possible endobronchial lesion. He underwent bronchoscopy in 2017, which revealed no endobronchial lesion. He underwent a PET scanning as an outpatient, revealing low FDG uptake in the consolidation of the lingula. He was due to undergo repeat CT chest on 08/2019. Due to the COVID-19 pandemic, he has not been able to do so. He now presents with abnormal CT chest as described above. Plan . So far all cultures negative, reviewed with patient. Pleural fluid cytology is neg. Options will be to perform PET scanning, as an outpatient. Dr Conti does not think he could biopsy anything at this time See bronchoscopy report Continue empiric antibiotics for now ok with dc home and PET as OP and f/u at office with ESTEVAN Arrieta MD Dec 08, 2019 12:20
[2019-12-08 15:00] VITALS: BP 117/41
--- NOTE | 2019-12-08 15:16 | SNU/HH DC ---
DISCHARGE WITH HOME HEALTH DISCHARGE INFORMATION: Discharge Date: Dec 08, 2019 Condition on Discharge: Stable CODE STATUS: Code Status: Full HOME HEALTH: Face to Face: I certify this patient is under my care and that I, or a nurse practitioner or ronaldo melgar's product safety technical assistant working with me, had a face to face encounter that meets the physician face to face encounter requirements with this patient on []. Medical Complications: COPD, Pneumonia RN For Eval/Treatment: Yes Physical Therapy For: Evalulation/Treatment Home Health Aide For: Self-care PAIN MANAGEMENT NURSE PRACTITIONER For: Community Resources Pt Meets Homebound Status: Poor coordination w/ amb. POST DISCHARGE ORDERS: Activity Instructions for Disc: Activity as tolerated Weight Bearing Status after Di: No restrictions, As tolerated Bathing Instructions: Shower-keep dressing dry DIET AFTER DISCHARGE: Renal Wound/Incision Care: No wound care needed CHECKS AFTER DISCHARGE: Checks after discharge: Check blood press - daily, Check your Temp as needed TREATMENT/EQUIPMENT ORDERS: Adaptive Equipment Issued: None Discharge Respiratory Equipmen: Oxygen CERTIFICATION STATEMENT: Certification Statement: Certification Statement: Based on the above finding, I certify that this patient is confined to the home and needs intermittent chcf care, physical therapy and/or speech therapy, or continues to need occupational therapy.~ This patient is under my care, and I have initiated the establishment of the plan of care.~ This patient will be followed by myself or a community physician who will periodically review the plan of care. Home Meds Active Scripts Isosorbide Mononitrate (ISOSORBIDE MONONITRATE ER) 30 Mg Tab.er.24h, 30 MG PO BID for CHF for 30 Days, #60 TAB.SR 2 Refills Prov:OPAL PRESTON MD 08/14/19 Hydralazine Hcl (HYDRALAZINE HCL) 50 Mg Tablet, 50 MG PO BID for CHF for 30 Days, #60 TAB 2 Refills Prov:OPAL PRESTON MD 08/14/19 Amiodarone Hcl (AMIODARONE HCL) 200 Mg Tablet, 1 TAB PO DAILY for rhythm control for 30 Days, #30 TAB 2 Refills Prov:CHARLES DUFF APRN 08/14/19 Ipratropium/Albuterol Sulfate (DUONEB 0.5-3(2.5) MG/3 ML) 3 Ml Ampul.neb, 3 ML NEB RTQID for copd for 30 Days, #120 EACH Prov:RACHNA DELANEY MD 03/31/19 Reported Medications Zinc Sulfate (ZINC SULFATE) 220 Mg Tablet, 1 TAB PO DAILY for ZINCE REPLACEMENT for 30 Days, #30 TAB 0 Refills 11/30/19 Cholecalciferol (Vitamin D3) (Vitamin D3) 25 Mcg Capsule, 25 MCG PO DAILY for VIT REPLACEMENT for 1 Day, #1 CAP 11/30/19 Acetaminophen (ACETAMINOPHEN) 500 Mg Tablet, 1 TAB PO PRN Q6HRS PRN for pain or fever for 15 Days, #60 TAB 0 Refills 08/07/19 Calcium Acetate (Calcium Acetate) 667 Mg Tablet, 1 CAP PO TIDAC for supplement 08/07/19 Metoprolol Tartrate (METOPROLOL TARTRATE) 25 Mg Tablet, 0.5 TAB PO BID for blood pressure 08/07/19 [ahreds] No Conflict Check, 1 CAP PO BID Ahreds #2 Preservision, One softgel by mouth twice a day 03/28/19 Folic Acid/Vitamin B Comp W-C (DIALYVITE TABLET) 1 Each Tablet, 1 TAB PO DAILY for vitamin 03/27/19 Fluticasone/Salmeterol (ADVAIR 250-50 DISKUS) 1 Each Disk.w.dev, 1 PUFF PO BID for breathing 03/27/19 Aspirin (ASPIRIN EC) 81 Mg Tablet., 1 TAB PO BID for blood thinner, #30 TAB 3 Refills LAST DOSE GIVEN: DATE: 03/17/17 TIME: 1030 am so start taking this daily tomorrow 03/17/17 Losartan/Hydrochlorothiazide (HYZAAR 50-12.5 TABLET) 1 Each Tablet, 1 TAB PO DAILY, #30 TAB 5 Refills 06/09/16 Tamsulosin Hcl (TAMSULOSIN HCL) 0.4 Mg Cap.er.24h, 0.4 MG PO BID, TAB 12/06/15 Albuterol Sulfate (VENTOLIN HFA INHALER) 18 Gm Hfa.aer.ad, 2 PUFF INH QID for FOR ASTHMA, INHALER 0 Refills 12/06/15 Atorvastatin Calcium (ATORVASTATIN CALCIUM) 10 Mg Tablet, 10 MG PO HS for FOR CHOLESTEROL, #30 TAB 0 Refills 12/06/15 JANA TEJADA MD Dec 08, 2019 15:16
--- NOTE | 2019-12-08 16:40 | NUR ---
Report given to JORDI Juarez. Pt sleeping in bed, call light within reach.
--- NOTE | 2019-12-08 18:16 | NUR ---
Pt was escorted out by wheelchair and home O2 to private vehicle. Education given to family and patient. IV discontinued. Belongings with patient.
== END 2019-12-08 18:16 | disposition home health service (06) | DRG 177 ==
LOC: 6 SOUTH 17:52 → 4 NORTH 12-01 18:34
PROVIDERS: ADMIT Internal Medicine; ATTEND Internal Medicine
PROC: 5A1D70Z Performance of Urinary Filtration, Intermittent, Less than 6 Hours Per Day (ICD-10-PCS; 2019-12-01)
PROC: 5A1D70Z Performance of Urinary Filtration, Intermittent, Less than 6 Hours Per Day (ICD-10-PCS; 2019-12-04)
PROC: 0B9H7ZX Drainage of Lung Lingula, Via Natural or Artificial Opening, Diagnostic (ICD-10-PCS; 2019-12-05)
PROC: 0W9B3ZZ Drainage of Left Pleural Cavity, Percutaneous Approach (ICD-10-PCS; principal; 2019-12-06)
PROC: 5A1D70Z Performance of Urinary Filtration, Intermittent, Less than 6 Hours Per Day (ICD-10-PCS; 2019-12-06)
PROC: 5A1D70Z Performance of Urinary Filtration, Intermittent, Less than 6 Hours Per Day (ICD-10-PCS; 2019-12-08)
DX: J15.6 Pneumonia due to other Gram-negative bacteria (principal); N18.6 End stage renal disease; E43 Unspecified severe protein-calorie malnutrition; D61.818 Other pancytopenia; I12.0 Hypertensive chronic kidney disease with stage 5 chronic kidney disease or end stage renal disease; J44.0 Chronic obstructive pulmonary disease with (acute) lower respiratory infection; J44.1 Chronic obstructive pulmonary disease with (acute) exacerbation; J90 Pleural effusion, not elsewhere classified; J98.11 Atelectasis; D46.9 Myelodysplastic syndrome, unspecified; D63.1 Anemia in chronic kidney disease; E53.8 Deficiency of other specified B group vitamins; E78.5 Hyperlipidemia, unspecified; F17.201 Nicotine dependence, unspecified, in remission; H35.30 Unspecified macular degeneration; I48.91 Unspecified atrial fibrillation; K59.00 Constipation, unspecified; M15.9 Polyosteoarthritis, unspecified; N40.0 Benign prostatic hyperplasia without lower urinary tract symptoms; Z20.828 Contact with and (suspected) exposure to other viral communicable diseases; Z80.7 Family history of other malignant neoplasms of lymphoid, hematopoietic and related tissues; Z83.3 Family history of diabetes mellitus; Z85.828 Personal history of other malignant neoplasm of skin; Z96.651 Presence of right artificial knee joint; Z99.2 Dependence on renal dialysis; Z99.81 Dependence on supplemental oxygen; Z88.8 Allergy status to other drugs, medicaments and biological substances
CPT/HCPCS: 31622; 32555; 36415; 80048; 80053; 80202; 82607; 82728; 82945; 83540; 83550; 83615; 83986; 84157; 85007; 85025; 85027; 85610; 85730; 87070; 87071; 87075; 87116; 87205; 88112; 88305; 89050; 94640; 94760; C1892; J1644; J2543; J3370; J3420; J3490; 97116-GP; 97530-GP; 97535-GO; G0378; J7613; J7626

== ENCOUNTER 2019-12-15 11:12 | Emergency (ER) | payer MEDICARE ==
[~2019-12-15] VITALS: Ht 167.6 cm; Wt 62.7 kg
[~2019-12-15 11:12] MED LIST changes: +ASCO100019 PO; -ASCO10002 PO; -ASPI-612 PO; +ASPI-886 PO; -CALC600T5 PO; +CALC600T6 PO; +CHOL100013 PO; +ZINC220T3 PO
[2019-12-15 12:35] LABS: CALCIUM 8.6 mg/dL (8.5-10.1); GFR 9.1; POTASSIUM 5.3 mmol/L (3.5-5.1)
--- NOTE | 2019-12-15 12:35 | PHYS DOC ---
Past Medical History Past Medical History: COPD, Pneumonia, Renal Failure Additional Past Medical Histor: seasonal allergies/sob/smoker,ENLARGED PROSTATE Past Surgical History: Other Additional Past Surgical Histo: cataracts,L KNEE Smoking Status: Current Every Day Smoker Alcohol Use: None Drug Use: None General Adult EDM: Chief Complaint: HYPOTENSION HPI: HPI: Patient is a 79 year old male presents via PCP office for hypotension and Afib with RVR. Onset was reported this morning at PCP visit prior to arrival without known onset. PAtient denies any overt pain but admits generalized weakness and chest palpitations while in PCP office. PAtient recently hospitalized and had thorough workup that is still pending full completion for pulmonary effusions requiring recent thoracentesis. PAtient denies any fever, He is ESRD and attends dialysis MWF, he has not missed a session, he is at his dry weight of 148lbs. Patient asymptomatic on [facility] ED arrival admitting feelings of palpitations were transient and self-resolved en route without intervention. He admits seeing a customer operations intern for this and is on a b-block and CCV in outpatient setting for rate control Review of Systems: Review of Systems: Fourteen system , review of systems has been reviewed. See HPI for pertinent positives and negative responses, other montez all other systems are negative, non pertinent or non contributory Heart Score: Risk Factors: Risk Factors: DM, Current or recent (<one month) smoker, HTN, HLP, family history of CAD, obesity. Risk Scores: Score 0 - 3: 2.5% MACE over next 6 weeks - Discharge Home Score 4 - 6: 20.3% MACE over next 6 weeks - Admit for Clinical Observation Score 7 - 10: 72.7% MACE over next 6 weeks - Early Invasive Strategies Allergies: Allergies: Allergies Coded Allergies Type Severity Reaction Last Updated Verified adhesive Allergy Intermediate 12/05/19 Yes cetirizine Allergy Intermediate hives 12/05/19 Yes Physical Exam: PE: Constitutional: Well developed, well nourished, no acute distress, non-toxic appearance. [] HENT: Normocephalic, atraumatic, bilateral external ears normal, oropharynx moist, no oral exudates, nose normal. [] Eyes: PERRLA, EOMI, conjunctiva normal, no discharge. [] Neck: Normal range of motion, no tenderness, supple, no stridor. [] Cardiovascular:Heart rate regular rhythm, no murmur [] Lungs & Thorax: Bilateral course breath sounds, no wheezes, diminished lung sounds Lt>Rt[] Abdomen: Bowel sounds normal, soft, no tenderness, no masses, no pulsatile masses. [] Skin: Warm, dry, no erythema, no rash. Mild observed bruises to bilateral UEs f rom prior venipunctures[] Back: No tenderness, no CVA tenderness. [] Extremities: No tenderness, no cyanosis, no clubbing, ROM intact, no edema. [] Neurologic: Alert and oriented X 3, normal motor function, normal sensory function, no focal deficits noted. [] Psychologic: Affect normal, judgement normal, mood normal. [] Current Patient Data: Labs: Laboratory Tests Test 12/15/19 12:13 White Blood Count 8.6 x10^3/uL Red Blood Count 2.64 x10^6/uL Hemoglobin 8.0 g/dL Hematocrit 25.6 % Mean Corpuscular Volume 97 fL Mean Corpuscular Hemoglobin 30 pg Mean Corpuscular Hemoglobin Concent 31 g/dL Red Cell Distribution Width 17.6 % Platelet Count 207 x10^3/uL Neutrophils (%) (Auto) 88 % Lymphocytes (%) (Auto) 3 % Monocytes (%) (Auto) 8 % Eosinophils (%) (Auto) 1 % Basophils (%) (Auto) 1 % Neutrophils # (Auto) 7.6 x10^3/uL Lymphocytes # (Auto) 0.3 x10^3/uL Monocytes # (Auto) 0.7 x10^3/uL Eosinophils # (Auto) 0.0 x10^3/uL Basophils # (Auto) 0.1 x10^3/uL Segmented Neutrophils % 88 % Band Neutrophils % 3 % Lymphocytes % 2 % Monocytes % 7 % Platelet Estimate Adequate Anisocytosis Slight Sodium Level 134 mmol/L Potassium Level 5.3 mmol/L Chloride Level 97 mmol/L Carbon Dioxide Level 31 mmol/L Anion Gap 6 Blood Urea Nitrogen 50 mg/dL Creatinine 6.0 mg/dL Estimated GFR (Cockcroft-Gault) 9.1 BUN/Creatinine Ratio 8 Glucose Level 91 mg/dL Lactic Acid Level 1.6 mmol/L Calcium Level 8.6 mg/dL Phosphorus Level 2.8 mg/dL Magnesium Level 1.9 mg/dL Total Bilirubin 0.3 mg/dL Aspartate Amino Transf (AST/SGOT) 22 U/L Alanine Aminotransferase (ALT/SGPT) 26 U/L Alkaline Phosphatase 58 U/L Troponin I Quantitative < 0.017 ng/mL XB-[id number]-I-Type Natriuretic Peptide > 00876 pg/mL Total Protein 5.7 g/dL Albumin 1.7 g/dL Albumin/Globulin Ratio 0.4 Vital Signs: Vital Signs Date Time Temp Pulse Resp B/P (MAP) Pulse Ox O2 Delivery O2 Flow Rate FiO2 12/15/19 15:33 104 101/44 (63) 100 Nasal Cannula 3.0 12/15/19 15:26 99 84/40 (55) 98 Nasal Cannula 3.0 12/15/19 14:55 97 92/46 (61) 98 Nasal Cannula 3.0 12/15/19 14:26 100 86/48 (61) 100 Nasal Cannula 3.0 12/15/19 13:56 96 85/57 (66) 96 Nasal Cannula 3.0 12/15/19 13:26 100 101/59 (73) 100 Nasal Cannula 3.0 12/15/19 12:56 96 98/61 (73) 98 Nasal Cannula 3.0 12/15/19 12:26 102 93/64 (74) 98 Nasal Cannula 3.0 12/15/19 12:01 97.5 22 100/59 (73) 100 Nasal Cannula 4.0 97.5 12/15/19 11:56 100/59 (73) EKG: EKG: EKG ordered and interpreted by myself at 1234 hrs. as atrial fibrillation with ventricular rate 111 bpm, prolonged QTC at 479, mild left axis deviation, no ischemic findings, no STEMI Radiology/Procedures: Radiology/Procedures: PROCEDURE: PORTABLE CHEST 1V Single AP view of the chest. Comparison: 08/06/2019. Indication: Atrial fibrillation Findings: The heart is enlarged but stable. In the left lung there is a new apical opacity which does appear to have a few small cavitations. Additionally there is a layering opacity in the lung base. Impression: 1. Possible cavitary mass or pneumonia in the left lung apex. There is additional opacity, potentially an effusion in the left lung base. Recommend correlation with cross-sectional imaging. Electronically signed by: Patel Ulloa MD (12/15/2019 12:36 PM) [id number] Course & Med Decision Making: Course & Med Decision Making PAtient seen by myself on arrival, hypotensive otherwise AAOx3 without concerning findings Afib with RVR resolved prior to arrival Pertinent labs and imaging obtained and review Concerning x-ray findings prompted me to call and discuss case with pulmonology (Dr. Rogel) who performed patient's thoracentesis recently Given clinical picture, both in agreement for discharge home with PO antibiotics and close follow-up with PCP & Dr. Rogel Discussed this recommendation with patient who agreed. All questions and concerns discussed, strict return precautions discussed with good understanding by patient Patient to be discharge home with RX Doxycycline and close outpatient follow-up Patient called his dialysis center who advised patient to return tomorrow for re gularly scheduled dialysis Nehal Disclaimer: Nehal Disclaimer: This electronic medical record was generated, in whole or in part, using a voice recognition dictation system. Departure Departure Impression: Primary Impression: PNA (pneumonia) Additional Impression: ESRD (end stage renal disease) on dialysis Disposition: HOME, SELF-CARE Condition: STABLE Referrals: ANN-MARIE PAREKH MD (PCP) Patient Instructions: Doxycycline tablets or capsules Additional Instructions: As discussed prior to ER departure, please call your primary care physician immediately after discharge to discuss follow-up within the next 3 to 7 days As discussed prior to discharge, ensure you attend dialysis today, Wednesday, as previously planned Return precautions discussed with you prior to discharge, please feel free to call PCP or present back to ER if any concerning signs or symptoms present themselves prior to being seen in outpatient setting Please take your prescribed antibiotic as scheduled daily to completion Scripts Doxycycline Hyclate (DOXYCYCLINE HYCLATE) 100 Mg Capsule 1 CAP PO BID, #14 CAP Prov: FBAIAN ARAYA DO 12/15/19 Justicifation of Admission Dx: Justifications for Admission: Justification of Admission Dx: N/A FABIAN ARAYA DO Dec 15, 2019 12:35
[2019-12-15 12:36] LABS: BASO # 0.1 x10^3/uL (0.0-0.2); BASO % 1 % (0-3); EOS % 1 % (0-3); HEMATOCRIT 25.6 % (39.0-53.0); LYMPH # 0.3 x10^3/uL (1.0-4.8); LYMPH % 3 % (24-48); MEAN CORPUSCULAR HEMOGLOBIN 30 pg (25-35); MEAN CORPUSCULAR HGB CONC 31 g/dL (31-37); MEAN CORPUSCULAR VOLUME 97 fL (79-100); MONO # 0.7 x10^3/uL (0.0-1.1); MONO % 8 % (0-9); NEUT # 7.6 x10^3/uL (1.8-7.7); NEUT % 88 % (31-73); PLATELET COUNT 207 x10^3/uL (140-400); RED BLOOD COUNT 2.64 x10^6/uL (4.30-5.70); RED CELL DISTRIBUTION WIDTH 17.6 % (11.5-14.5); WHITE BLOOD COUNT 8.6 x10^3/uL (4.0-11.0)
--- NOTE | 2019-12-15 12:39 | RAD ---
Single AP view of the chest. Comparison: 08/06/2019. Indication: Atrial fibrillation Findings: The heart is enlarged but stable. In the left lung there is a new apical opacity which does appear to have a few small cavitations. Additionally there is a layering opacity in the lung base. Impression: 1. Possible cavitary mass or pneumonia in the left lung apex. There is additional opacity, potentially an effusion in the left lung base. Recommend correlation with cross-sectional imaging. Electronically signed by: Patel Ulloa MD (12/15/2019 12:36 PM) [id number]
[2019-12-15 12:41] LABS: ALBUMIN 1.7 g/dL (3.4-5.0); ALBUMIN/GLOBULIN RATIO 0.4 (1.0-1.7); MAGNESIUM 1.9 mg/dL (1.8-2.4); PHOSPHORUS 2.8 mg/dL (2.6-4.7); TOTAL BILIRUBIN 0.3 mg/dL (0.2-1.0); TOTAL PROTEIN 5.7 g/dL (6.4-8.2)
[2019-12-15 13:25] LABS: % BANDS 3 % (0-9); % LYMPHS 2 % (24-48); % MONOS 7 % (0-10); % SEGS 88 % (35-66); ANISOCYTOSIS SLIGHT; PLT ESTIMATE ADEQUATE (ADEQUATE)
[2019-12-15] MEDS ORDERED: DOXY100C2 PO (13:43)
[2019-12-15 15:33] VITALS: BP 101/44
--- NOTE | 2019-12-18 15:07 | EKG ---
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
[2020-01-02] MEDS ORDERED: CYAN10002 IM (09:51)
[2020-01-02] MEDS ORDERED: PANT40TA77 PO (09:51)
== END 2019-12-15 16:40 | disposition home or self-care (01) ==
LOC: ER 11:12
DX: J18.9 Pneumonia, unspecified organism (principal); N18.6 End stage renal disease; Z99.2 Dependence on renal dialysis; J44.9 Chronic obstructive pulmonary disease, unspecified; F17.200 Nicotine dependence, unspecified, uncomplicated; Z88.8 Allergy status to other drugs, medicaments and biological substances
CPT/HCPCS: 36415; 71045; 80053; 83605; 83735; 83880; 84100; 84484; 85007; 85025; 87040; 93005; 99285-25

== ENCOUNTER 2019-12-27 04:06 | Inpatient (IN) | payer MEDICARE ==
[~2019-12-27] VITALS: Ht 167.6 cm; Wt 76.7 kg
[2019-12-27] VITALS (11 sets, daily range): BP systolic 96–147; BP diastolic 35–85
[~2019-12-27 04:06] MED LIST changes: +DOXY100C2 PO
--- NOTE | 2019-12-27 04:32 | PHYS DOC ---
Past Medical History Past Medical History: COPD, Pneumonia, Renal Failure Additional Past Medical Histor: seasonal allergies/sob/smoker,ENLARGED PROSTATE Past Surgical History: Other Additional Past Surgical Histo: cataracts,L KNEE Smoking Status: Current Every Day Smoker Alcohol Use: None Drug Use: None General Adult EDM: Chief Complaint: WEAKNESS/GENERALIZED HPI: HPI: Patient is a 79 year old female who male who presents with a chief complaint of weakness. Patient was getting up from the stool at around 11:00 and felt numbness and weakness below his left knee and fell to the ground. Patient not have loss of consciousness but he was unable to get up. Patient feels globally weak currently but was having left arm and left leg weakness and numbness that has gotten better he still feels some tingling in his left leg. Patient denies any recent illnesses. Patient denies any fever cough or difficulty breathing patient denies any nausea vomiting or blood in the stool. Patient is on dialysis and due for dialysis later today. Patient states he was on the ground for about 4 hours before he could reach the phone to call 911 Review of Systems: Review of Systems: Constitutional: Denies fever or chills. [] Eyes: Denies change in visual acuity. [] HENT: Denies nasal congestion or sore throat. [] Respiratory: Denies cough or shortness of breath. [] Cardiovascular: Denies chest pain or edema. [] GI: Denies abdominal pain, nausea, vomiting, bloody stools or diarrhea. [] : Denies dysuria. [] Musculoskeletal: Denies back pain or joint pain. [] Integument: Denies rash. [] Neurologic: Denies headache, but complains of generalized weakness which was more pronounced on the left side (the left side has improved) Endocrine: Denies polyuria or polydipsia. [] Lymphatic: Denies swollen glands. [] Psychiatric: Denies depression or anxiety. [] Heart Score: Risk Factors: Risk Factors: DM, Current or recent (<one month) smoker, HTN, HLP, family history of CAD, obesity. Risk Scores: Score 0 - 3: 2.5% MACE over next 6 weeks - Discharge Home Score 4 - 6: 20.3% MACE over next 6 weeks - Admit for Clinical Observation Score 7 - 10: 72.7% MACE over next 6 weeks - Early Invasive Strategies Allergies: Allergies: Allergies Coded Allergies Type Severity Reaction Last Updated Verified adhesive Allergy Intermediate 12/05/19 Yes cetirizine Allergy Intermediate hives 12/05/19 Yes Physical Exam: PE: Constitutional: Well developed, well nourished, MOD distress, non-toxic appearance. [] HENT: Normocephalic, atraumatic, bilateral external ears normal, no trismus, nose normal. [] Eyes: PERRLA, EOMI, pale conjunctiva Neck: Normal range of motion, no tenderness, supple, no stridor. [] Cardiovascular:Heart rate regular rhythm, peripheral pulses intact. Lungs & Thorax: Diminished breath sounds in the left, no respiratory distress Abdomen: soft, no tenderness, no masses, no pulsatile masses. [] Rectal exam: Rn Hospital present black stool Skin: Pale, intact Back: No tenderness, no CVA tenderness. [] Extremities: No tenderness, no cyanosis, no clubbing, ROM intact, no edema. [] Neurologic: Alert and oriented X 3, normal motor function, normal sensory function, no focal deficits noted. [] Psychologic: Affect normal, judgement normal, mood normal. [] Current Patient Data: Labs: Laboratory Tests Test 12/27/19 04:22 12/27/19 04:30 Stool Occult Blood Positive White Blood Count 11.5 x10^3/uL Red Blood Count 2.21 x10^6/uL Hemoglobin 6.5 g/dL Hematocrit 22.1 % Mean Corpuscular Volume 100 fL Mean Corpuscular Hemoglobin 29 pg Mean Corpuscular Hemoglobin Concent 29 g/dL Red Cell Distribution Width 19.3 % Platelet Count 175 x10^3/uL Neutrophils (%) (Auto) 92 % Lymphocytes (%) (Auto) 2 % Monocytes (%) (Auto) 5 % Eosinophils (%) (Auto) 0 % Basophils (%) (Auto) 1 % Neutrophils # (Auto) 10.6 x10^3/uL Lymphocytes # (Auto) 0.2 x10^3/uL Monocytes # (Auto) 0.6 x10^3/uL Eosinophils # (Auto) 0.0 x10^3/uL Basophils # (Auto) 0.1 x10^3/uL Segmented Neutrophils % 87 % Band Neutrophils % 7 % Lymphocytes % 1 % Monocytes % 4 % Metamyelocytes % 1 % Toxic Granulation Slight Platelet Estimate Adequate Polychromasia Slight Anisocytosis Slight Prothrombin Time 15.3 SEC Prothromb Time International Ratio 1.3 Activated Partial Thromboplast Time 33 SEC Sodium Level 138 mmol/L Potassium Level 6.9 mmol/L Chloride Level 104 mmol/L Carbon Dioxide Level 29 mmol/L Anion Gap 5 Blood Urea Nitrogen 87 mg/dL Creatinine 6.2 mg/dL Estimated GFR (Cockcroft-Gault) 8.8 BUN/Creatinine Ratio 14 Glucose Level 133 mg/dL Lactic Acid Level 3.3 mmol/L Calcium Level 8.4 mg/dL Magnesium Level 2.1 mg/dL Total Bilirubin 0.3 mg/dL Aspartate Amino Transf (AST/SGOT) 15 U/L Alanine Aminotransferase (ALT/SGPT) 18 U/L Alkaline Phosphatase 50 U/L Creatine Kinase 50 U/L Troponin I Quantitative < 0.017 ng/mL PT-Vlk-U-Type Natriuretic Peptide 52825 pg/mL Total Protein 5.0 g/dL Albumin 1.8 g/dL Albumin/Globulin Ratio 0.6 Lipase 267 U/L Current Medications Medications (Trade) Dose Ordered Sig/Samina Route PRN Reason Start Time Stop Time Status Last Admin Dose Admin Pantoprazole Sodium (PROTONIX VIAL for IV PUSH) 80 mg 1X ONCE IVP 12/27/19 05:15 12/27/19 05:16 DC 12/27/19 05:31 Pantoprazole Sodium 80 mg/ Sodium Chloride 100 ml @ 10 mls/hr Q10H IV 12/27/19 05:15 12/27/19 05:32 Calcium Gluconate (Calcium Gluconate) 1,000 mg 1X ONCE IVP 12/27/19 05:30 12/27/19 05:31 DC Insulin Human Regular (HumuLIN R VIAL) 10 unit 1X ONCE IV 12/27/19 05:30 12/27/19 05:31 DC Dextrose (Dextrose 50%-Water Syringe) 50 gm 1X ONCE IV 12/27/19 05:30 12/27/19 05:31 DC Ondansetron HCl (Zofran) 4 mg PRN Q8HRS PRN IV NAUSEA/VOMITING 12/27/19 05:45 12/28/19 05:44 Vital Signs: Vital Signs Date Time Temp Pulse Resp B/P (MAP) Pulse Ox O2 Delivery O2 Flow Rate FiO2 12/27/19 04:18 98.3 63 16 97/50 (66) 88 Room Air 98.3 EKG: EKG: [] EKG interpreted by me normal sinus rhythm with a rate of 61, left axis deviation nonspecific ST changes with first-degree AV block normal QTC Radiology/Procedures: Radiology/Procedures: [][facility] [address] [place] [address] IMAGING REPORT Signed PATIENT: ADALBERTO BILLS ACCOUNT: [id number] : 1940 LOCATION: ER AGE: 79 SEX: M EXAM STATUS: REG ER ORD. PHYSICIAN: MARIOLA MCDERMOTT MD REASON: WEAK PROCEDURE: PORTABLE CHEST 1V AP chest x-ray COMPARISON: Chest x-ray December 15, 2019. HISTORY: Weakness. FINDINGS: Heart size stable. There is persistent consolidative opacity at the left upper lobe there is also asymmetric left hilar density which could indicate mass or adenopathy. There is a moderate left pleural effusion and consolidation of the left lower lobe which is stable. The opacity at the left lung apex has increased. Right lung clear. IMPRESSION: Increased opacity at the left upper lobe since the prior study, and associated asymmetric left hilar density which could be due to underlying mass or adenopathy. Consolidation of the left lower lobe and moderate left pleural effusion is stable. Electronically signed by: Adan Munguia MD (12/27/2019 5:31 AM) [facility] [place] DICTATED and SIGNED BY: ADAN MUNGUIA MD DATE: 12/27/19 [id number] [place], [place] [id number] IMAGING REPORT Signed PATIENT: ADALBERTO BILLS ACCOUNT: [id number] : 1940 LOCATION: ER AGE: 79 SEX: M EXAM STATUS: REG ER ORD. PHYSICIAN: MARIOLA MCDERMOTT MD REASON: FALL PROCEDURE: CT HEAD WO CONTRAST CT head without contrast PQRS statement: CT scans at this facility use dose reduction including either automated exposure control, iterative reconstructions, and /or weight based radiation dosing via mA and kV modification when appropriate to reduce radiation dose to as low as reasonably achievable. HISTORY: Fall. FINDINGS: Mild generalized brain atrophy. Mild cerebral periventricular white matter hypoattenuation most likely imaging changes of proximal vessel ischemic disease. No intracranial hemorrhage, mass, hydrocephalus or infarction. There is extensive fluid density within the right middle ear cavity and mastoid air cells. Orbits and bones are unremarkable. IMPRESSION: No acute intracranial CT abnormality. Right middle ear cavity and mastoid extensive fluid may indicate otitis media and mastoiditis, or right eustachian tube obstruction. Electronically signed by: Adan Munguia MD (12/27/2019 5:53 AM) [facility] [place] DICTATED and SIGNED BY: ADAN MUNGUIA MD DATE: 12/27/19 0553 Course & Med Decision Making: Course & Med Decision Making Pertinent Labs and Imaging studies reviewed. (See chart for details) [] 79-year-old male comes in by ambulance with weakness. Patient found to have profound anemia and hyperkalemia. Patient will be given blood as well as insulin and D50 with calcium gluconate. Patient has increased density in the left upper lobe be given antibiotics. Patient's lactate is elevated I do not think he has severe sepsis or septic shock I will not be giving him the sepsis f luids because I think that will worsen his clinical condition. I discussed the case with who will admit. Consult will be placed with GI for his GI bleed and nephrology because he will need emergent dialysis this morning. Critical care time was [35] minutes exclusive of procedures. Critical care time was [35] minutes which includes time at bedside, spent in discussion of patient's care with specialist and/or family members, with interpretation of laboratory and/or radiological studies and is exclusive of procedures. Critical condition: Profound anemia, hyperkalemia Critical interventions: Blood transfusion Protonix, insulin, D50, calcium gluconate, admit to the stepdown unit. Multiple consults. Dragon Disclaimer: Nehal Disclaimer: This electronic medical record was generated, in whole or in part, using a voice recognition dictation system. Departure Departure Impression: Primary Impression: Hyperkalemia Additional Impressions: Anemia Upper GI bleed ESRD (end stage renal disease) on dialysis Weakness Disposition: ADMITTED INPATIENT Admitting Physician: Madi. Lucas Condition: GUARDED Referrals: ANN-MARIE PAREKH MD (PCP) Justicifation of Admission Dx: Justifications for Admission: Justification of Admission Dx: Yes MARIOLA MCDERMOTT MD Dec 27, 2019 04:32
--- NOTE | 2019-12-27 04:34 | EKG ---
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
[2019-12-27 04:55] LABS: BASO # 0.1 x10^3/uL (0.0-0.2); BASO % 1 % (0-3); EOS % 0 % (0-3); HEMATOCRIT 22.1 % (39.0-53.0); LYMPH # 0.2 x10^3/uL (1.0-4.8); LYMPH % 2 % (24-48); MEAN CORPUSCULAR HEMOGLOBIN 29 pg (25-35); MEAN CORPUSCULAR HGB CONC 29 g/dL (31-37); MEAN CORPUSCULAR VOLUME 100 fL (79-100); MONO # 0.6 x10^3/uL (0.0-1.1); MONO % 5 % (0-9); NEUT # 10.6 x10^3/uL (1.8-7.7); NEUT % 92 % (31-73); PLATELET COUNT 175 x10^3/uL (140-400); RED BLOOD COUNT 2.21 x10^6/uL (4.30-5.70); RED CELL DISTRIBUTION WIDTH 19.3 % (11.5-14.5); WHITE BLOOD COUNT 11.5 x10^3/uL (4.0-11.0)
[2019-12-27 05:01] LABS: HEMOGLOBIN 6.5 g/dL (13.0-17.5)
[2019-12-27 05:05] LABS: PROTHROMBIN TIME PATIENT 15.3 SEC (11.7-14.0)
[2019-12-27 05:12] LABS: FECAL OB PT POSITIVE (NEG)
[2019-12-27] MEDS ORDERED: PANTOPRAZOLE IV PUSH 40 MG VIAL. IVP ONE (05:15)
[2019-12-27 05:20] LABS: ALBUMIN 1.8 g/dL (3.4-5.0); ALBUMIN/GLOBULIN RATIO 0.6 (1.0-1.7); CALCIUM 8.4 mg/dL (8.5-10.1); CREATININE 6.2 mg/dL (0.7-1.3); GFR 8.8; MAGNESIUM 2.1 mg/dL (1.8-2.4); TOTAL BILIRUBIN 0.3 mg/dL (0.2-1.0)
[2019-12-27 05:22] LABS: POTASSIUM 6.9 mmol/L (3.5-5.1)
[2019-12-27] MEDS ORDERED: CALCIUM GLUCONATE 1,000 MG/10 ML VIAL. IVP ONE (05:30)
[2019-12-27] MEDS ORDERED: INSULIN REGULAR 100 UNIT/ML 3ML VIAL. IV ONE (05:30)
[2019-12-27] MEDS ORDERED: DEXTROSE 50% 25 GM / 50ML DISP.SYRIN. IV ONE (05:30)
[2019-12-27] MEDS: PANTOPRAZOLE SODIUM IV DRIP 80 MG in IV NORMAL SALINE 100ML 100 ML IV SCH ×2 (05:32→14:35)
--- NOTE | 2019-12-27 05:34 | RAD ---
AP chest x-ray COMPARISON: Chest x-ray December 15, 2019. HISTORY: Weakness. FINDINGS: Heart size stable. There is persistent consolidative opacity at the left upper lobe there is also asymmetric left hilar density which could indicate mass or adenopathy. There is a moderate left pleural effusion and consolidation of the left lower lobe which is stable. The opacity at the left lung apex has increased. Right lung clear. IMPRESSION: Increased opacity at the left upper lobe since the prior study, and associated asymmetric left hilar density which could be due to underlying mass or adenopathy. Consolidation of the left lower lobe and moderate left pleural effusion is stable. Electronically signed by: Martinez Munguia MD (12/27/2019 5:31 AM) [facility]
[2019-12-27 05:37] LABS: % BANDS 7 % (0-9); % LYMPHS 1 % (24-48); % METAS 1 % (0-0); % MONOS 4 % (0-10); % SEGS 87 % (35-66); ANISOCYTOSIS SLIGHT; PLT ESTIMATE ADEQUATE (ADEQUATE); POLYCHROMASIA SLIGHT; TOXIC GRANULATION SLIGHT
[2019-12-27] MEDS ORDERED: ONDANSETRON PF 4 MG/2 ML VIAL. IV PRN (05:45)
--- NOTE | 2019-12-27 05:56 | RAD ---
CT head without contrast PQRS statement: CT scans at this facility use dose reduction including either automated exposure control, iterative reconstructions, and /or weight based radiation dosing via mA and kV modification when appropriate to reduce radiation dose to as low as reasonably achievable. HISTORY: Fall. FINDINGS: Mild generalized brain atrophy. Mild cerebral periventricular white matter hypoattenuation most likely imaging changes of proximal vessel ischemic disease. No intracranial hemorrhage, mass, hydrocephalus or infarction. There is extensive fluid density within the right middle ear cavity and mastoid air cells. Orbits and bones are unremarkable. IMPRESSION: No acute intracranial CT abnormality. Right middle ear cavity and mastoid extensive fluid may indicate otitis media and mastoiditis, or right eustachian tube obstruction. Electronically signed by: Martinez Munguia MD (12/27/2019 5:53 AM) [facility]
[2019-12-27] MEDS ORDERED: cefTRIAXone IV Push 1 GM VIAL. IVP ONE (06:00)
[2019-12-27] MEDS ORDERED: AZITHRMYCN 500MG IVPB FOR OMNI 250 ML IV ONE (06:15)
[2019-12-27] MEDS ORDERED: IV NORMAL SALINE 1000ML BAG 1,000 ML IV PRN ×2 (09:20)
[2019-12-27] MEDS ORDERED: DIALYSIS PATIENT. MC PRN (09:30)
--- NOTE | 2019-12-27 10:21 | PDOC2 ---
CONSULT Date of Consult Date of Consult DATE: 12/27/19 TIME: 10:16 Reason for Consult Reason for Consult: ESRD Referring Physician Referring Physician: CECE Identification/Chief Complaint Chief Complaint WEAKNESS Source Source: Chart review, Patient History of Present Illness Reason for Visit: THIS IS AN 79 YR OLD ESRD PT ON OP HD ON MWF. LAST HD ON WEDNESDAY. ADMITTED WITH WEAKNESS AND HIS KNEES GAVE OUT. HGB OF 6.5 AND K OF 6.9 ON ADMIT. ESRD DUE TO HTN. LABS ARE C/W ESRD. HAS NOT NOTED ANY BLOOD LOSS. HAS BEEN RECEIVING IV VENOFER AND EPOGEN AT HIS [facility]. HE HAS A LEFT ARM AVF AND IT IS PATENT. Past Medical History Cardiovascular: HTN, Hyperlipidemia Pulmonary: COPD CENTRAL NERVOUS SYSTEM: Other GI: No pertinent hx Heme/Onc: No pertinent hx Hepatobiliary: No pertinent hx Psych: No pertinent hx Musculoskeletal: Osteoarthritis Rheumatologic: No pertinent hx Infectious disease: No pertinent hx Renal/: Chronic renal failure, Benign prostatic enlarg. Endocrine: No pertinent hx, Hyperparathyroidism Past Surgical History Past Surgical History L ARM AVF Past Surgical History: Cataract Removal, Total knee replacement, Other Family History Family History: No Significant Social History ALCOHOL: none Drugs: None Lives: Alone Domestic Violence: Neg Current Problem List Problem List Problems Medical Problems: (1) Weakness Status: Acute Current Medications Current Medications Current Medications Pantoprazole Sodium (PROTONIX VIAL for IV PUSH) 80 mg 1X ONCE IVP Last administered on 12/27/19at 05:31; Start 12/27/19 at 05:15; Stop 12/27/19 at 05:16; Status DC Pantoprazole Sodium 80 mg/ Sodium Chloride 100 ml @ 10 mls/hr Q10H IV Last administered on 12/27/19at 05:32; Start 12/27/19 at 05:15 Calcium Gluconate (Calcium Gluconate) 1,000 mg 1X ONCE IVP Last administered on 12/27/19at 05:53; Start 12/27/19 at 05:30; Stop 12/27/19 at 05:31; Status DC Insulin Human Regular (HumuLIN R VIAL) 10 unit 1X ONCE IV Last administered on 12/27/19at 05:58; Start 12/27/19 at 05:30; Stop 12/27/19 at 05:31; Status DC Dextrose (Dextrose 50%-Water Syringe) 50 gm 1X ONCE IV Last administered on 12/27/19at 05:46; Start 12/27/19 at 05:30; Stop 12/27/19 at 05:31; Status DC Ondansetron HCl (Zofran) 4 mg PRN Q8HRS PRN IV NAUSEA/VOMITING; Start 12/27/19 at 05:45; Stop 12/28/19 at 05:44 Ceftriaxone Sodium (Rocephin) 1 gm 1X ONCE IVP Last administered on 12/27/19at 06:25; Start 12/27/19 at 06:00; Stop 12/27/19 at 06:06; Status DC Azithromycin 250 ml @ 250 mls/hr 1X ONCE IV Last administered on 12/27/19at 06:25; Start 12/27/19 at 06:15; Stop 12/27/19 at 07:14; Status DC Sodium Chloride 1,000 ml @ 1,000 mls/hr Q1H PRN IV hypotension; Start 12/27/19 at 09:20; Stop 12/27/19 at 15:19 Sodium Chloride 1,000 ml @ 400 mls/hr Q2H30M PRN IV PATENCY; Start 12/27/19 at 09:20; Stop 12/27/19 at 21:19 Info (PHARMACY MONITORING -- do not chart) 1 each PRN DAILY PRN MC SEE COMMENTS; Start 12/27/19 at 09:30 Active Scripts Active Doxycycline Hyclate 100 Mg Capsule 1 Cap PO BID Isosorbide Mononitrate Er (Isosorbide Mononitrate) 30 Mg Tab.er.24h 30 Mg PO BID 30 Days Hydralazine Hcl 50 Mg Tablet 50 Mg PO BID 30 Days Amiodarone Hcl 200 Mg Tablet 1 Tab PO DAILY 30 Days Duoneb 0.5-3(2.5) Mg/3 Ml (Albuterol/Ipratropium) 3 Ml Ampul.neb 3 Ml NEB RTQID 30 Days Reported Zinc Sulfate 220 Mg Tablet 1 Tab PO DAILY 30 Days Vitamin D3 (Cholecalciferol (Vitamin D3)) 25 Mcg Capsule 25 Mcg PO DAILY 1 Days Acetaminophen 500 Mg Tablet 1 Tab PO PRN Q6HRS PRN 15 Days Calcium Acetate 667 Mg Tablet 1 Cap PO TIDAC Metoprolol Tartrate 25 Mg Tablet 0.5 Tab PO BID [ahreds] 1 Cap PO BID Ahreds #2 Preservision, One softgel by mouth twice a day Dialyvite Tablet (Folic Acid/Vitamin B Comp W-C) 1 Each Tablet 1 Tab PO DAILY Advair 250-50 Diskus (Fluticasone/Salmeterol) 1 Each Disk.w.dev 1 Puff PO BID Aspirin Ec (Aspirin) 81 Mg Tablet. 1 Tab PO BID LAST DOSE GIVEN: DATE: 03/17/17 TIME: 1030 am so start taking this daily tomorrow Hyzaar 50-12.5 Tablet (Losartan/Hydrochlorothiazide) 1 Each Tablet 1 Tab PO DAILY Tamsulosin Hcl 0.4 Mg Cap.er.24h 0.4 Mg PO BID Ventolin Hfa Inhaler (Albuterol Sulfate) 18 Gm Hfa.aer.ad 2 Puff INH QID Atorvastatin Calcium 10 Mg Tablet 10 Mg PO HS Allergies Allergies: Coded Allergies: adhesive (Verified Allergy, Intermediate, 12/05/19) Skin irritation cetirizine (Verified Allergy, Intermediate, hives, 12/05/19) ROS General: YES: Fatigue, Malaise, Appetite PSYCHOLOGICAL ROS: YES: Anxiety Eyes: Yes Decreased vision HEENT: YES: Heacaches Respiratory: YES: Cough, Shortness of breath Gastrointestinal: Yes Constipation Genitourinary: YES Other (ANURIA) Musculoskeletal: Yes Muscular Weakness Neurological: Yes Weakness Skin: Yes Dry Skin Physical Exam Physical Exam L ARM AVF WITH A GOOD THRILL AND BRUIT. General: Alert, Oriented X3, No acute distress HEENT: Atraumatic Lungs: Clear to auscultation Heart: Normal S1 Abdomen: Normal bowel sounds Extremities: No clubbing, No edema Neuro: Normal speech, Sensation intact Psych/Mental Status: Mental status NL, Mood NL MUSCULOSKELETAL: No joint tenderness, No deformity Vitals VITALS Vital Signs Date Time Temp Pulse Resp B/P (MAP) Pulse Ox O2 Delivery O2 Flow Rate FiO2 12/27/19 09:14 63 98 12/27/19 08:49 97.8 16 102/50 97.8 12/27/19 04:18 Room Air Labs Labs Laboratory Tests Test 12/27/19 04:22 12/27/19 04:30 12/27/19 07:55 Stool Occult Blood Positive (NEG) White Blood Count 11.5 x10^3/uL (4.0-11.0) Red Blood Count 2.21 x10^6/uL (4.30-5.70) Hemoglobin 6.5 g/dL (13.0-17.5) Hematocrit 22.1 % (39.0-53.0) Mean Corpuscular Volume 100 fL (79-100) Mean Corpuscular Hemoglobin 29 pg (25-35) Mean Corpuscular Hemoglobin Concent 29 g/dL (31-37) Red Cell Distribution Width 19.3 % (11.5-14.5) Platelet Count 175 x10^3/uL (140-400) Neutrophils (%) (Auto) 92 % (31-73) Lymphocytes (%) (Auto) 2 % (24-48) Monocytes (%) (Auto) 5 % (0-9) Eosinophils (%) (Auto) 0 % (0-3) Basophils (%) (Auto) 1 % (0-3) Neutrophils # (Auto) 10.6 x10^3/uL (1.8-7.7) Lymphocytes # (Auto) 0.2 x10^3/uL (1.0-4.8) Monocytes # (Auto) 0.6 x10^3/uL (0.0-1.1) Eosinophils # (Auto) 0.0 x10^3/uL (0.0-0.7) Basophils # (Auto) 0.1 x10^3/uL (0.0-0.2) Segmented Neutrophils % 87 % (35-66) Band Neutrophils % 7 % (0-9) Lymphocytes % 1 % (24-48) Monocytes % 4 % (0-10) Metamyelocytes % 1 % (0-0) Toxic Granulation Slight Platelet Estimate Adequate (ADEQUATE) Polychromasia Slight Anisocytosis Slight Prothrombin Time 15.3 SEC (11.7-14.0) Prothromb Time International Ratio 1.3 (0.8-1.1) Activated Partial Thromboplast Time 33 SEC (24-38) Sodium Level 138 mmol/L (136-145) Potassium Level 6.9 mmol/L (3.5-5.1) Chloride Level 104 mmol/L (98-107) Carbon Dioxide Level 29 mmol/L (21-32) Anion Gap 5 (6-14) Blood Urea Nitrogen 87 mg/dL (8-26) Creatinine 6.2 mg/dL (0.7-1.3) Estimated GFR (Cockcroft-Gault) 8.8 BUN/Creatinine Ratio 14 (6-20) Glucose Level 133 mg/dL (70-99) Lactic Acid Level 3.3 mmol/L (0.4-2.0) 2.4 mmol/L (0.4-2.0) Calcium Level 8.4 mg/dL (8.5-10.1) Magnesium Level 2.1 mg/dL (1.8-2.4) Total Bilirubin 0.3 mg/dL (0.2-1.0) Aspartate Amino Transf (AST/SGOT) 15 U/L (15-37) Alanine Aminotransferase (ALT/SGPT) 18 U/L (16-63) Alkaline Phosphatase 50 U/L (46-116) Creatine Kinase 50 U/L (39-308) Troponin I Quantitative < 0.017 ng/mL (0.000-0.055) LV-Xmi-H-Type Natriuretic Peptide 24130 pg/mL (0-449) Total Protein 5.0 g/dL (6.4-8.2) Albumin 1.8 g/dL (3.4-5.0) Albumin/Globulin Ratio 0.6 (1.0-1.7) Lipase 267 U/L (73-393) Laboratory Tests Test 12/27/19 04:22 12/27/19 04:30 12/27/19 07:55 Stool Occult Blood Positive (NEG) White Blood Count 11.5 x10^3/uL (4.0-11.0) Red Blood Count 2.21 x10^6/uL (4.30-5.70) Hemoglobin 6.5 g/dL (13.0-17.5) Hematocrit 22.1 % (39.0-53.0) Mean Corpuscular Volume 100 fL (79-100) Mean Corpuscular Hemoglobin 29 pg (25-35) Mean Corpuscular Hemoglobin Concent 29 g/dL (31-37) Red Cell Distribution Width 19.3 % (11.5-14.5) Platelet Count 175 x10^3/uL (140-400) Neutrophils (%) (Auto) 92 % (31-73) Lymphocytes (%) (Auto) 2 % (24-48) Monocytes (%) (Auto) 5 % (0-9) Eosinophils (%) (Auto) 0 % (0-3) Basophils (%) (Auto) 1 % (0-3) Neutrophils # (Auto) 10.6 x10^3/uL (1.8-7.7) Lymphocytes # (Auto) 0.2 x10^3/uL (1.0-4.8) Monocytes # (Auto) 0.6 x10^3/uL (0.0-1.1) Eosinophils # (Auto) 0.0 x10^3/uL (0.0-0.7) Basophils # (Auto) 0.1 x10^3/uL (0.0-0.2) Segmented Neutrophils % 87 % (35-66) Band Neutrophils % 7 % (0-9) Lymphocytes % 1 % (24-48) Monocytes % 4 % (0-10) Metamyelocytes % 1 % (0-0) Toxic Granulation Slight Platelet Estimate Adequate (ADEQUATE) Polychromasia Slight Anisocytosis Slight Prothrombin Time 15.3 SEC (11.7-14.0) Prothromb Time International Ratio 1.3 (0.8-1.1) Activated Partial Thromboplast Time 33 SEC (24-38) Sodium Level 138 mmol/L (136-145) Potassium Level 6.9 mmol/L (3.5-5.1) Chloride Level 104 mmol/L (98-107) Carbon Dioxide Level 29 mmol/L (21-32) Anion Gap 5 (6-14) Blood Urea Nitrogen 87 mg/dL (8-26) Creatinine 6.2 mg/dL (0.7-1.3) Estimated GFR (Cockcroft-Gault) 8.8 BUN/Creatinine Ratio 14 (6-20) Glucose Level 133 mg/dL (70-99) Lactic Acid Level 3.3 mmol/L (0.4-2.0) 2.4 mmol/L (0.4-2.0) Calcium Level 8.4 mg/dL (8.5-10.1) Magnesium Level 2.1 mg/dL (1.8-2.4) Total Bilirubin 0.3 mg/dL (0.2-1.0) Aspartate Amino Transf (AST/SGOT) 15 U/L (15-37) Alanine Aminotransferase (ALT/SGPT) 18 U/L (16-63) Alkaline Phosphatase 50 U/L (46-116) Creatine Kinase 50 U/L (39-308) Troponin I Quantitative < 0.017 ng/mL (0.000-0.055) PM-Ftv-W-Type Natriuretic Peptide 06746 pg/mL (0-449) Total Protein 5.0 g/dL (6.4-8.2) Albumin 1.8 g/dL (3.4-5.0) Albumin/Globulin Ratio 0.6 (1.0-1.7) Lipase 267 U/L (73-393) Assessment/Plan Assessment/Plan IMP SEVERE HYPERNATREMIA ANEMIA ESRD HTN HX HYPOTENSION PLAN PRBC CHECK IRON VENOFER NEEDED START ARANESP HD TODAY UF TO DW SUGGEST HOLD BP MEDS WILL FOLLOW RAMIREZ AYALA MD Dec 27, 2019 10:21
[2019-12-27] MEDS: FOLIC/VIT B COMP W-C (RENAL) TABLET. PO SCH (12:00)
[2019-12-27] MEDS: CHOLECALCIFEROL (VITAMIN D3) 1,000 UNIT TABLET PO SCH (12:00)
[2019-12-27] MEDS: TAMSULOSIN 0.4 MG CAP.ER.24H. PO SCH ×2 (12:00→21:30)
[2019-12-27] MEDS: ISOSORBIDE MONONITRATE ER 30 MG TAB.ER.24H PO SCH ×2 (12:00→21:30)
[2019-12-27] MEDS: CALCIUM ACETATE 667 MG CAPSULE PO SCH ×2 (12:00→14:35)
[2019-12-27] MEDS: METOPROLOL TART IMMED RELEASE 25 MG TABLET. PO SCH ×2 (12:00→21:30)
[2019-12-27] MEDS: ZINC SULFATE 220 MG CAPSULE. PO SCH (12:00)
[2019-12-27] MEDS ORDERED: ACETAMINOPHEN 500 MG TABLET PO PRN (12:00)
[2019-12-27] MEDS: AMIODARONE HCL 200 MG TABLET. PO SCH (12:00)
--- NOTE | 2019-12-27 12:20 | PDOC2 ---
GI CONSULT Date of Service: DATE: 12/27/19 TIME: 11:55 Reason For Consult: UGIB HPI: HPI: 79 y/o male to ER overnight after fall. ER note indicates dark tarry stool in brief. H/o anemia - gradually worse throughout the year. Hgb 6.5 this time, +Hemoccult. Denies past h/o anemia. No reflux/heartburn, dysphagia, n/v, abd pain, diarrhea, constipation, hematochezia, or melena. No record of past endoscopy at our office. Diverticulosis on past imaging. No GB, pancreas, or PUD history. "I might have had a little bit of a liver problem." Past hematology consult noted - suspected pancytopenia/anemia related to B12 deficiency and CKD. Started on B12 replacement. Past iron profile w/ ACD/YSABEL. Reviewed renal note - gets Venofer. Summary list includes ASA and amiodarone. PMH: PMH: A Fib, HTN, COPD, pneumonia, BPH, ESRD on HD, B12 deficiency, macular degeneration, pleural effusion, elbow infection cataract removal, total knee replacement, skin cancer removal, bronchoscopy and thoracentesis, renal biopsy FH: Family History: No pertinent hx Social History: Smoke: Quit ALCOHOL: none Drugs: None ROS: GEN: Denies fevers, chills, sweats HEENT: Denies blurred vision, sore throat CV: Denies chest pain RESP: Denies shortness of air, cough GI: Per HPI : Denies hematuria, dysuria ENDO: Denies weight changes NEURO: Denies confusion, dizziness MSK: +weakness SKIN: Denies jaundice, pruritus Vitals: Vitals: Vital Signs Date Time Temp Pulse Resp B/P (MAP) Pulse Ox O2 Delivery O2 Flow Rate FiO2 12/27/19 11:15 97.3 66 14 97/35 97.3 12/27/19 10:20 Nasal Cannula 3.0 12/27/19 10:15 99 Labs: Labs: Laboratory Tests Test 12/27/19 04:22 12/27/19 04:30 12/27/19 07:55 Stool Occult Blood Positive (NEG) White Blood Count 11.5 x10^3/uL (4.0-11.0) Red Blood Count 2.21 x10^6/uL (4.30-5.70) Hemoglobin 6.5 g/dL (13.0-17.5) Hematocrit 22.1 % (39.0-53.0) Mean Corpuscular Volume 100 fL (79-100) Mean Corpuscular Hemoglobin 29 pg (25-35) Mean Corpuscular Hemoglobin Concent 29 g/dL (31-37) Red Cell Distribution Width 19.3 % (11.5-14.5) Platelet Count 175 x10^3/uL (140-400) Neutrophils (%) (Auto) 92 % (31-73) Lymphocytes (%) (Auto) 2 % (24-48) Monocytes (%) (Auto) 5 % (0-9) Eosinophils (%) (Auto) 0 % (0-3) Basophils (%) (Auto) 1 % (0-3) Neutrophils # (Auto) 10.6 x10^3/uL (1.8-7.7) Lymphocytes # (Auto) 0.2 x10^3/uL (1.0-4.8) Monocytes # (Auto) 0.6 x10^3/uL (0.0-1.1) Eosinophils # (Auto) 0.0 x10^3/uL (0.0-0.7) Basophils # (Auto) 0.1 x10^3/uL (0.0-0.2) Segmented Neutrophils % 87 % (35-66) Band Neutrophils % 7 % (0-9) Lymphocytes % 1 % (24-48) Monocytes % 4 % (0-10) Metamyelocytes % 1 % (0-0) Toxic Granulation Slight Platelet Estimate Adequate (ADEQUATE) Polychromasia Slight Anisocytosis Slight Prothrombin Time 15.3 SEC (11.7-14.0) Prothromb Time International Ratio 1.3 (0.8-1.1) Activated Partial Thromboplast Time 33 SEC (24-38) Sodium Level 138 mmol/L (136-145) Potassium Level 6.9 mmol/L (3.5-5.1) Chloride Level 104 mmol/L (98-107) Carbon Dioxide Level 29 mmol/L (21-32) Anion Gap 5 (6-14) Blood Urea Nitrogen 87 mg/dL (8-26) Creatinine 6.2 mg/dL (0.7-1.3) Estimated GFR (Cockcroft-Gault) 8.8 BUN/Creatinine Ratio 14 (6-20) Glucose Level 133 mg/dL (70-99) Lactic Acid Level 3.3 mmol/L (0.4-2.0) 2.4 mmol/L (0.4-2.0) Calcium Level 8.4 mg/dL (8.5-10.1) Magnesium Level 2.1 mg/dL (1.8-2.4) Total Bilirubin 0.3 mg/dL (0.2-1.0) Aspartate Amino Transf (AST/SGOT) 15 U/L (15-37) Alanine Aminotransferase (ALT/SGPT) 18 U/L (16-63) Alkaline Phosphatase 50 U/L (46-116) Creatine Kinase 50 U/L (39-308) Troponin I Quantitative < 0.017 ng/mL (0.000-0.055) DT-Rwr-R-Type Natriuretic Peptide 53784 pg/mL (0-449) Total Protein 5.0 g/dL (6.4-8.2) Albumin 1.8 g/dL (3.4-5.0) Albumin/Globulin Ratio 0.6 (1.0-1.7) Lipase 267 U/L (73-393) Allergies: Coded Allergies: adhesive (Verified Allergy, Intermediate, 12/05/19) Skin irritation cetirizine (Verified Allergy, Intermediate, hives, 12/05/19) Medications: Current Medications Medications (Trade) Dose Ordered Sig/Samina Route PRN Reason Start Time Stop Time Status Last Admin Dose Admin Pantoprazole Sodium (PROTONIX VIAL for IV PUSH) 80 mg 1X ONCE IVP 12/27/19 05:15 12/27/19 05:16 DC 12/27/19 05:31 Pantoprazole Sodium 80 mg/ Sodium Chloride 100 ml @ 10 mls/hr Q10H IV 12/27/19 05:15 12/27/19 05:32 Calcium Gluconate (Calcium Gluconate) 1,000 mg 1X ONCE IVP 12/27/19 05:30 12/27/19 05:31 DC 12/27/19 05:53 Insulin Human Regular (HumuLIN R VIAL) 10 unit 1X ONCE IV 12/27/19 05:30 12/27/19 05:31 DC 12/27/19 05:58 Dextrose (Dextrose 50%-Water Syringe) 50 gm 1X ONCE IV 12/27/19 05:30 12/27/19 05:31 DC 12/27/19 05:46 Ceftriaxone Sodium (Rocephin) 1 gm 1X ONCE IVP 12/27/19 06:00 12/27/19 06:06 DC 12/27/19 06:25 Azithromycin 250 ml @ 250 mls/hr 1X ONCE IV 12/27/19 06:15 12/27/19 07:14 DC 12/27/19 06:25 Imaging: Imaging: CXR IMPRESSION: Increased opacity at the left upper lobe since the prior study, and associated asymmetric left hilar density which could be due to underlying mass or adenopathy. Consolidation of the left lower lobe and moderate left pleural effusion is stable. Head CT IMPRESSION: No acute intracranial CT abnormality. Right middle ear cavity and mastoid extensive fluid may indicate otitis media and mastoiditis, or right eustachian tube obstruction. PE: GEN: dialyzing, looks fatigued HEENT: Atraumatic, PERRL LUNGS: diminished anteriorly HEART: RRR ABD: NABS, S/ND/NT EXTREMITY: No edema SKIN: pale NEURO/PSYCH: A & O 3 A/P: A/P: Weakness, s/p fall Dark stool - per ER note, +Hemoccult Anemia - worse now; past iron profile w/ ACD/YSABEL, also h/o B12 deficiency and ESRD - past hematology eval for pancytopenia, started on B12 replacement, also Venofer Hyperkalemia CRC screen - none? H/o A Fib on ASA -- D/w Dr. Luis. Transfusion and dialysis in progress. Monitor Hgb and for bleeding. Check COVID, consider EGD later on. Agree w/ PPI - could change to PO if plans to eat? Has renal diet ordered. SHERI KINSEY Dec 27, 2019 12:20
--- NOTE | 2019-12-27 12:29 | HP ---
ADMIT DATE: 12/27/2019 HISTORY OF PRESENT ILLNESS: The patient is an 79-year-old male patient who apparently fell at home and apparently was on the floor for about three and half hours according to him. He stated that he is having left arm and left leg weakness and numbness that has become weak and apparently fell to the ground. He did not lose any consciousness. According to him, he was unable to get up and after being on the floor for almost three and half hours, he managed to get to the phone and called 911 and was brought to the Emergency Room for further evaluation where he was found to be extremely weak and anemic. His hemoglobin was 6.5 and he is due for dialysis today and his potassium was 6.9. He was admitted to the ICU, was started on hemodialysis and we typed and crossed and transfused 1 unit of packed RBCs. When I saw him, he denied any chest pain or shortness of breath. His main complaint was generalized weakness and easy fatigability. PAST MEDICAL HISTORY: Significant for end-stage renal disease, on hemodialysis Wednesday, Wednesday, and Wednesday. He has hypertension, hyperlipidemia, atrial fibrillation, chronic obstructive pulmonary disease, bronchial asthma, obstructive sleep apnea, benign prostatic hypertrophy, generalized osteoarthritis, and senile macular degeneration, prior right elbow infection and bilateral cataracts. PAST SURGICAL HISTORY: Significant for hemodialysis, catheter placement, right knee replacement, and skin cancer excision. ALLERGIES: ALLERGIC TO ZYRTEC. FAMILY HISTORY: Mom with cancer and lymphoma in the family. SOCIAL HISTORY: Lives alone. He is . He has 2 children. One lives nearby. The other lives out of state. He is an ex-smoker. He does not drink alcohol or use any recreational drugs. He is fairly independent. He is also allergic to ADHESIVES. MEDICATIONS: He is currently on following medications: He is on ipratropium bromide, albuterol sulfate by nebulizer 4 times a day, albuterol sulfate inhaler 2 puffs 4 times a day as needed, tamsulosin 0.4 mg twice a day, amiodarone 200 mg once a day, atorvastatin 10 mg once a day at bedtime, isosorbide mononitrate 30 mg twice a day, metoprolol tartrate 12.5 mg twice a day, aspirin 81 mg once a day, acetaminophen 500 mg every 6 hours, calcium acetate 667 mg 3 times a day with meals, zinc sulfate 220 mg once a day, Advair Diskus 250/50 one puff twice a day, folic acid, vitamin B complex, Dialyvite 1 tablet once a day, cholecalciferol and vitamin D3 25 mcg once a day. PHYSICAL EXAMINATION: GENERAL: On arrival to the Emergency Room, he was pale, but no jaundice, cyanosis, lymphadenopathy or thyromegaly. No jugular venous distention. No limb edema. VITAL SIGNS: His heart rate was 62, blood pressure was 96/47, temperature was 98, respiratory rate was 20, and oxygen saturation was 97% on 2.5 liters of oxygen. HEAD, EYES, EARS, NOSE AND THROAT: Showed normocephalic, atraumatic. NECK: Supple. HEART: Showed normal first and second heart sounds. No gallop or murmur. CHEST: Clear to auscultation. No crepitation or rhonchi. ABDOMEN: Distended, soft, nontender. NEUROLOGIC: He was lethargic, but arousable. All cranial nerves intact. EXTREMITIES: He moves extremities without difficulty. LABORATORY DATA: His lab work on arrival to the Emergency Room showed a white cell count of 11,500, hemoglobin was 6.5, hematocrit 22, MCV 100, and platelet count of 175,000. His prothrombin time was 15.3, INR 1.3, aPTT was 33. His chemistry showed that his serum sodium was 138, potassium 6.9, chloride 104, bicarbonate 29, anion gap of 5, BUN 87, creatinine 6.2, estimated GFR was 88 mL per minute, his glucose 133, calcium was 8.4, magnesium 2.1. Total bilirubin, AST, ALT, alkaline phosphatase were normal. His serum iron on last admission was 8, TIBC was 104, iron saturation was only 8%, and serum ferritin was 446 ng/mL. His vitamin B12 was 302. ASSESSMENT AND PLAN: In summary, this is an 79-year-old male patient with multiple medical problems, who apparently fell and was on the floor for almost 4 hours. He was found to be anemic with hemoglobin of 6.5, although his white cell count and platelets have dramatically improved as on his last admission, he was admitted with pancytopenia and was seen at that time by the program director/morning show host and was treated with vitamin B12 with good response. He has obviously end-stage renal disease, on hemodialysis. His potassium was high at 6.5 and he was admitted to the ICU, started on hemodialysis, was typed and crossed and transfused 1 unit of packed RBCs. We have already consulted the veterinary assistant technician as well as the architecture professor as well as the program director/morning show host to assist with his management although his platelet and white cell count have dramatically responded to vitamin B12, his hemoglobin has dramatically dropped from 11.4 on 08/06/2019 down to 6.5 on 12/27/2019. RALEIGH ZHAO MD DR: TAYLOR/carly JOB#: [id number] / [id number]
[2019-12-27] MEDS: BUDESONIDE 0.5 MG/2 ML NEBU. NEB SCH ×2 (12:55→19:52)
[2019-12-27] MEDS: IPRATRPIUM/ALBUTEROL 0.5/2.5MG 3 ML NEBU. NEB SCH ×3 (12:55→19:52)
--- NOTE | 2019-12-27 15:09 | PDOC2 ---
CONSULT Date of Consult Date of Consult DATE: 12/27/19 TIME: 14:59 Reason for Consult Reason for Consult: Anemia Referring Physician Referring Physician: Dr. Lucas Identification/Chief Complaint Chief Complaint Weakness Problems: (1) Anemia Source Source: Chart review, Patient History of Present Illness Reason for Visit: Mr. Barbosa is an 79-year-old male with end-stage renal disease and B12 deficiency who has been admitted for further evaluation and management of weakness. He reports that he has progressive generalized weakness over the last few days. He fell at home yesterday and was unable to move. He did not lose consciousness. He subsequently called 911 and was brought to the emergency room for further evaluation. His initial lab studies in the emergency room showed a hemoglobin of 6.5 and hyperkalemia with potassium 6.9. He was due for dialysis today. He has been seen by nephrology and hemodialysis been planned. He has also received 1 unit of PRBCs. GI has been consulted due to positive fecal occult blood testing in the emergency room. The patient denied hematemesis, hematuria, melena, hematochezia, bright red blood per rectum. He notes that his stool has been brown-colored. Of note, he was seen by me during his most recent hospitalization for pancytopenia. His lab studies at the time showed B12 deficiency. He has been receiving B12 replacement. He is also been receiving IV iron and Venofer with hemodialysis. Review of his laboratory shows gradually progressing anemia of the past few months. WBC count and platelets had decreased previously but have increased to normal after B12 replacement. Past Medical History Cardiovascular: HTN, Hyperlipidemia Pulmonary: COPD CENTRAL NERVOUS SYSTEM: Other GI: No pertinent hx Heme/Onc: No pertinent hx Hepatobiliary: No pertinent hx Psych: No pertinent hx Musculoskeletal: Osteoarthritis Rheumatologic: No pertinent hx Infectious disease: No pertinent hx Renal/: Chronic renal failure, Benign prostatic enlarg. Endocrine: No pertinent hx, Hyperparathyroidism Past Surgical History Past Surgical History: Cataract Removal, Total knee replacement, Other Family History Family History: No Significant Social History Quit ALCOHOL: none Drugs: None Lives: Alone Domestic Violence: Neg Current Problem List Problem List Problems Medical Problems: (1) Weakness Status: Acute Current Medications Current Medications Current Medications Pantoprazole Sodium (PROTONIX VIAL for IV PUSH) 80 mg 1X ONCE IVP Last administered on 12/27/19at 05:31; Start 12/27/19 at 05:15; Stop 12/27/19 at 05:16; Status DC Pantoprazole Sodium 80 mg/ Sodium Chloride 100 ml @ 10 mls/hr Q10H IV Last administered on 12/27/19at 14:35; Start 12/27/19 at 05:15 Calcium Gluconate (Calcium Gluconate) 1,000 mg 1X ONCE IVP Last administered on 12/27/19at 05:53; Start 12/27/19 at 05:30; Stop 12/27/19 at 05:31; Status DC Insulin Human Regular (HumuLIN R VIAL) 10 unit 1X ONCE IV Last administered on 12/27/19at 05:58; Start 12/27/19 at 05:30; Stop 12/27/19 at 05:31; Status DC Dextrose (Dextrose 50%-Water Syringe) 50 gm 1X ONCE IV Last administered on at 05:46; Start 12/27/19 at 05:30; Stop 12/27/19 at 05:31; Status DC Ondansetron HCl (Zofran) 4 mg PRN Q8HRS PRN IV NAUSEA/VOMITING; Start 12/27/19 at 05:45; Stop 12/28/19 at 05:44 Ceftriaxone Sodium (Rocephin) 1 gm 1X ONCE IVP Last administered on 12/27/19at 06:25; Start 12/27/19 at 06:00; Stop 12/27/19 at 06:06; Status DC Azithromycin 250 ml @ 250 mls/hr 1X ONCE IV Last administered on 12/27/19at 06:25; Start 12/27/19 at 06:15; Stop 12/27/19 at 07:14; Status DC Sodium Chloride 1,000 ml @ 1,000 mls/hr Q1H PRN IV hypotension; Start 12/27/19 at 09:20; Stop 12/27/19 at 15:19 Sodium Chloride 1,000 ml @ 400 mls/hr Q2H30M PRN IV PATENCY; Start 12/27/19 at 09:20; Stop 12/27/19 at 21:19 Info (PHARMACY MONITORING -- do not chart) 1 each PRN DAILY PRN MC SEE COMMENTS; Start 12/27/19 at 09:30 Darbepoetin Cortes (ARANESP for DIALYSIS PTS) 60 mcg WEEKLYHS SQ ; Start 12/27/19 at 21:00 Acetaminophen (Tylenol) 500 mg PRN Q6HRS PRN PO pain or fever; Start 12/27/19 at 12:00 Amiodarone HCl (Cordarone) 200 mg DAILY PO ; Start 12/27/19 at 12:00 Atorvastatin Calcium (Lipitor) 10 mg HS PO ; Start 12/27/19 at 21:00 Albuterol/ Ipratropium (Duoneb) 3 ml RTQID NEB Last administered on 12/27/19at 12:55; Start 12/27/19 at 12:00 Isosorbide Mononitrate (Imdur) 30 mg BID PO ; Start 12/27/19 at 12:00 Metoprolol Tartrate (Lopressor) 12.5 mg BID PO ; Start 12/27/19 at 12:00 Tamsulosin HCl (Flomax) 0.4 mg BID PO ; Start 12/27/19 at 12:00 Albuterol Sulfate (Ventolin Neb Soln) 2.5 mg PRN Q6HRS PRN NEB SHORTNESS OF BREATH; Start 12/27/19 at 12:00 Calcium Acetate (Phoslo) 667 mg TIDWMEALS PO Last administered on 12/27/19at 14:35; Start 12/27/19 at 12:00 Vitamin D (Vitamin D3) 1,000 unit DAILY PO ; Start 12/27/19 at 12:00 Budesonide (Pulmicort) 0.5 mg RTBID NEB Last administered on 12/27/19at 12:55; Start 12/27/19 at 12:00 Vitamin B Complex/ Vitamin C (Neha-Ronnie) 1 tab DAILY PO ; Start 12/27/19 at 12:00 Zinc Sulfate (Orazinc) 220 mg DAILY PO ; Start 12/27/19 at 12:00 Active Scripts Active Isosorbide Mononitrate Er (Isosorbide Mononitrate) 30 Mg Tab.er.24h 30 Mg PO BID 30 Days Amiodarone Hcl 200 Mg Tablet 1 Tab PO DAILY 30 Days Duoneb 0.5-3(2.5) Mg/3 Ml (Albuterol/Ipratropium) 3 Ml Ampul.neb 3 Ml NEB RTQID 30 Days Reported Zinc Sulfate 220 Mg Tablet 1 Tab PO DAILY 30 Days Vitamin D3 (Cholecalciferol (Vitamin D3)) 25 Mcg Capsule 25 Mcg PO DAILY 1 Days Acetaminophen 500 Mg Tablet 1 Tab PO PRN Q6HRS PRN 15 Days Calcium Acetate 667 Mg Tablet 1 Cap PO TIDAC Metoprolol Tartrate 25 Mg Tablet 0.5 Tab PO BID [ahreds] 1 Cap PO BID Ahreds #2 Preservision, One softgel by mouth twice a day Dialyvite Tablet (Folic Acid/Vitamin B Comp W-C) 1 Each Tablet 1 Tab PO DAILY Advair 250-50 Diskus (Fluticasone/Salmeterol) 1 Each Disk.w.dev 1 Puff PO BID Aspirin Ec (Aspirin) 81 Mg Tablet.dr 1 Tab PO BID LAST DOSE GIVEN: DATE: 03/17/17 TIME: 1030 am so start taking this daily tomorrow Tamsulosin Hcl 0.4 Mg Cap.er.24h 0.4 Mg PO BID Ventolin Hfa Inhaler (Albuterol Sulfate) 18 Gm Hfa.aer.ad 2 Puff INH QID Atorvastatin Calcium 10 Mg Tablet 10 Mg PO HS Allergies Allergies: Coded Allergies: adhesive (Verified Allergy, Intermediate, 12/05/19) Skin irritation cetirizine (Verified Allergy, Intermediate, hives, 12/05/19) ROS General: YES: Fatigue, Malaise; No: Chills, Night Sweats PSYCHOLOGICAL ROS: No: Anxiety, Behavioral Disorder Eyes: No Blurry vision, No Decreased vision HEENT: No: Heacaches, Visual Changes ALLERGY AND IMMUNOLOGY: No: Nasal Congestion, Post Nasal Drip Hematological and Lymphatic: YES: Blood Transfusions; No: Bleeding Problems, Blood Clots, Brusing, Night Sweats, Swollen Lymph Nodes ENDOCRINE: No: Breast Changes, Galactorrhea Breast: No New/Changing Breast Lumps, No Nipple changes Respiratory: No: Cough, Hemoptysis Cardiovascular: No Chest Pain, No Palpitations Gastrointestinal: No Nausea, No Vomiting, No Melena, No Hematochezia Genitourinary: No Dysuria, No Hematuria Musculoskeletal: No Joint Pain Neurological: No Confusion, No Dizziness Skin: No Dry Skin, No Rash Physical Exam General: Alert, Oriented X3 HEENT: Atraumatic, PERRLA Lungs: Clear to auscultation Heart: Regular rate Abdomen: Normal bowel sounds, Soft Extremities: No clubbing Skin: No rashes Neuro: Normal speech MUSCULOSKELETAL: No swelling Vitals VITALS Vital Signs Date Time Temp Pulse Resp B/P (MAP) Pulse Ox O2 Delivery O2 Flow Rate FiO2 12/27/19 14:00 97.9 83 16 147/85 (105) 92 Nasal Cannula 3.0 97.9 Labs Labs Laboratory Tests Test 12/27/19 04:22 12/27/19 04:30 12/27/19 07:55 Stool Occult Blood Positive (NEG) White Blood Count 11.5 x10^3/uL (4.0-11.0) Red Blood Count 2.21 x10^6/uL (4.30-5.70) Hemoglobin 6.5 g/dL (13.0-17.5) Hematocrit 22.1 % (39.0-53.0) Mean Corpuscular Volume 100 fL (79-100) Mean Corpuscular Hemoglobin 29 pg (25-35) Mean Corpuscular Hemoglobin Concent 29 g/dL (31-37) Red Cell Distribution Width 19.3 % (11.5-14.5) Platelet Count 175 x10^3/uL (140-400) Neutrophils (%) (Auto) 92 % (31-73) Lymphocytes (%) (Auto) 2 % (24-48) Monocytes (%) (Auto) 5 % (0-9) Eosinophils (%) (Auto) 0 % (0-3) Basophils (%) (Auto) 1 % (0-3) Neutrophils # (Auto) 10.6 x10^3/uL (1.8-7.7) Lymphocytes # (Auto) 0.2 x10^3/uL (1.0-4.8) Monocytes # (Auto) 0.6 x10^3/uL (0.0-1.1) Eosinophils # (Auto) 0.0 x10^3/uL (0.0-0.7) Basophils # (Auto) 0.1 x10^3/uL (0.0-0.2) Segmented Neutrophils % 87 % (35-66) Band Neutrophils % 7 % (0-9) Lymphocytes % 1 % (24-48) Monocytes % 4 % (0-10) Metamyelocytes % 1 % (0-0) Toxic Granulation Slight Platelet Estimate Adequate (ADEQUATE) Polychromasia Slight Anisocytosis Slight Prothrombin Time 15.3 SEC (11.7-14.0) Prothromb Time International Ratio 1.3 (0.8-1.1) Activated Partial Thromboplast Time 33 SEC (24-38) Sodium Level 138 mmol/L (136-145) Potassium Level 6.9 mmol/L (3.5-5.1) Chloride Level 104 mmol/L (98-107) Carbon Dioxide Level 29 mmol/L (21-32) Anion Gap 5 (6-14) Blood Urea Nitrogen 87 mg/dL (8-26) Creatinine 6.2 mg/dL (0.7-1.3) Estimated GFR (Cockcroft-Gault) 8.8 BUN/Creatinine Ratio 14 (6-20) Glucose Level 133 mg/dL (70-99) Lactic Acid Level 3.3 mmol/L (0.4-2.0) 2.4 mmol/L (0.4-2.0) Calcium Level 8.4 mg/dL (8.5-10.1) Magnesium Level 2.1 mg/dL (1.8-2.4) Total Bilirubin 0.3 mg/dL (0.2-1.0) Aspartate Amino Transf (AST/SGOT) 15 U/L (15-37) Alanine Aminotransferase (ALT/SGPT) 18 U/L (16-63) Alkaline Phosphatase 50 U/L (46-116) Creatine Kinase 50 U/L (39-308) Troponin I Quantitative < 0.017 ng/mL (0.000-0.055) CV-Nls-W-Type Natriuretic Peptide 90179 pg/mL (0-449) Total Protein 5.0 g/dL (6.4-8.2) Albumin 1.8 g/dL (3.4-5.0) Albumin/Globulin Ratio 0.6 (1.0-1.7) Lipase 267 U/L (73-393) Laboratory Tests Test 12/27/19 04:22 12/27/19 04:30 12/27/19 07:55 Stool Occult Blood Positive (NEG) White Blood Count 11.5 x10^3/uL (4.0-11.0) Red Blood Count 2.21 x10^6/uL (4.30-5.70) Hemoglobin 6.5 g/dL (13.0-17.5) Hematocrit 22.1 % (39.0-53.0) Mean Corpuscular Volume 100 fL (79-100) Mean Corpuscular Hemoglobin 29 pg (25-35) Mean Corpuscular Hemoglobin Concent 29 g/dL (31-37) Red Cell Distribution Width 19.3 % (11.5-14.5) Platelet Count 175 x10^3/uL (140-400) Neutrophils (%) (Auto) 92 % (31-73) Lymphocytes (%) (Auto) 2 % (24-48) Monocytes (%) (Auto) 5 % (0-9) Eosinophils (%) (Auto) 0 % (0-3) Basophils (%) (Auto) 1 % (0-3) Neutrophils # (Auto) 10.6 x10^3/uL (1.8-7.7) Lymphocytes # (Auto) 0.2 x10^3/uL (1.0-4.8) Monocytes # (Auto) 0.6 x10^3/uL (0.0-1.1) Eosinophils # (Auto) 0.0 x10^3/uL (0.0-0.7) Basophils # (Auto) 0.1 x10^3/uL (0.0-0.2) Segmented Neutrophils % 87 % (35-66) Band Neutrophils % 7 % (0-9) Lymphocytes % 1 % (24-48) Monocytes % 4 % (0-10) Metamyelocytes % 1 % (0-0) Toxic Granulation Slight Platelet Estimate Adequate (ADEQUATE) Polychromasia Slight Anisocytosis Slight Prothrombin Time 15.3 SEC (11.7-14.0) Prothromb Time International Ratio 1.3 (0.8-1.1) Activated Partial Thromboplast Time 33 SEC (24-38) Sodium Level 138 mmol/L (136-145) Potassium Level 6.9 mmol/L (3.5-5.1) Chloride Level 104 mmol/L (98-107) Carbon Dioxide Level 29 mmol/L (21-32) Anion Gap 5 (6-14) Blood Urea Nitrogen 87 mg/dL (8-26) Creatinine 6.2 mg/dL (0.7-1.3) Estimated GFR (Cockcroft-Gault) 8.8 BUN/Creatinine Ratio 14 (6-20) Glucose Level 133 mg/dL (70-99) Lactic Acid Level 3.3 mmol/L (0.4-2.0) 2.4 mmol/L (0.4-2.0) Calcium Level 8.4 mg/dL (8.5-10.1) Magnesium Level 2.1 mg/dL (1.8-2.4) Total Bilirubin 0.3 mg/dL (0.2-1.0) Aspartate Amino Transf (AST/SGOT) 15 U/L (15-37) Alanine Aminotransferase (ALT/SGPT) 18 U/L (16-63) Alkaline Phosphatase 50 U/L (46-116) Creatine Kinase 50 U/L (39-308) Troponin I Quantitative < 0.017 ng/mL (0.000-0.055) QT-Oao-B-Type Natriuretic Peptide 42878 pg/mL (0-449) Total Protein 5.0 g/dL (6.4-8.2) Albumin 1.8 g/dL (3.4-5.0) Albumin/Globulin Ratio 0.6 (1.0-1.7) Lipase 267 U/L (73-393) Assessment/Plan Assessment/Plan Assessment: Macrocytic anemia History of B12 deficiency ESRD on hemodialysis Generalized weakness Recommendations: -Noted result of repeat B12 level during prior hospital stay which was 300 and iron studies consistent with anemia of chronic disease -I would recommend repeat evaluation for B12 deficiency at this time with MMA level. We will also check for hemolytic anemias with LDH and haptoglobin level and Alfonso test -Recommend copper level and reticulocyte count -If this diagnostic evaluation returns negative, would recommend bone marrow biopsy with NGS for further evaluation. May be performed in IR. -Patient reports no clinically evident GI bleeding. Defer further work-up to GI service -Other care per hospitalist (Dr. Lucas) Epi Horton MD Medical Oncology/Hematology Ph: [phone] JAQUELIN HORTON MD Dec 27, 2019 15:09
[2019-12-27] MEDS ORDERED: DARBEPOETIN ALFA 60 MCG/0.3 ML DISP.SYRIN. SQ SCH (21:00)
[2019-12-27] MEDS: ATORVASTATIN CALCIUM 10 MG TABLET. PO SCH (21:29)
[2019-12-28] VITALS (12 sets, daily range): BP systolic 88–143; BP diastolic 30–80
[2019-12-28] MEDS: ALBUTEROL SULFATE 2.5 MG/3 ML NEBU. NEB PRN (00:52)
[2019-12-28] MEDS: PANTOPRAZOLE SODIUM IV DRIP 80 MG in IV NORMAL SALINE 100ML 100 ML IV SCH (02:56)
[2019-12-28] MEDS: AREDS 2 PO SCH ×2 (07:11→17:18)
[2019-12-28] MEDS: IPRATRPIUM/ALBUTEROL 0.5/2.5MG 3 ML NEBU. NEB SCH ×4 (07:45→20:08)
[2019-12-28] MEDS: BUDESONIDE 0.5 MG/2 ML NEBU. NEB SCH ×2 (07:46→20:08)
[2019-12-28 08:14] LABS: ALBUMIN 1.5 g/dL (3.4-5.0); ALBUMIN/GLOBULIN RATIO 0.6 (1.0-1.7); CREATININE 3.6 mg/dL (0.7-1.3); GFR 16.4; POTASSIUM 4.4 mmol/L (3.5-5.1); TOTAL BILIRUBIN 0.3 mg/dL (0.2-1.0); TOTAL PROTEIN 4.2 g/dL (6.4-8.2)
[2019-12-28] MEDS ORDERED: diphenhydrAMINE HCL 25 MG CAPSULE PO PRN ×2 (08:15→20:00)
[2019-12-28] MEDS ORDERED: ACETAMINOPHEN 325 MG TABLET. PO PRN ×2 (08:15→20:00)
[2019-12-28 08:45] LABS: BASO % 1 % (0-3); EOS # 0.2 x10^3/uL (0.0-0.7); EOS % 4 % (0-3); LYMPH # 0.5 x10^3/uL (1.0-4.8); LYMPH % 10 % (24-48); MEAN CORPUSCULAR HEMOGLOBIN 30 pg (25-35); MEAN CORPUSCULAR HGB CONC 31 g/dL (31-37); MEAN CORPUSCULAR VOLUME 97 fL (79-100); MONO # 0.5 x10^3/uL (0.0-1.1); MONO % 9 % (0-9); NEUT # 3.7 x10^3/uL (1.8-7.7); NEUT % 76 % (31-73); PLATELET COUNT 139 x10^3/uL (140-400); RED BLOOD COUNT 1.95 x10^6/uL (4.30-5.70); RED CELL DISTRIBUTION WIDTH 18.7 % (11.5-14.5); WHITE BLOOD COUNT 4.9 x10^3/uL (4.0-11.0)
[2019-12-28 08:52] LABS: HEMATOCRIT 18.8 % (39.0-53.0)
[2019-12-28] MEDS: FOLIC/VIT B COMP W-C (RENAL) TABLET. PO SCH (09:41)
[2019-12-28] MEDS: TAMSULOSIN 0.4 MG CAP.ER.24H. PO SCH ×2 (09:41→20:53)
[2019-12-28] MEDS: AMIODARONE HCL 200 MG TABLET. PO SCH (09:41)
[2019-12-28] MEDS: ZINC SULFATE 220 MG CAPSULE. PO SCH (09:41)
[2019-12-28] MEDS: CHOLECALCIFEROL (VITAMIN D3) 1,000 UNIT TABLET PO SCH (09:41)
[2019-12-28] MEDS: ISOSORBIDE MONONITRATE ER 30 MG TAB.ER.24H PO SCH ×2 (09:41→20:53)
[2019-12-28] MEDS: CALCIUM ACETATE 667 MG CAPSULE PO SCH ×3 (09:41→17:15)
[2019-12-28] MEDS: METOPROLOL TART IMMED RELEASE 25 MG TABLET. PO SCH ×2 (09:42→20:54)
--- NOTE | 2019-12-28 11:12 | PN ---
DATE: 12/28/2019 SUBJECTIVE: The patient is resting, slightly propped up in bed, sleeping comfortably. He was admitted yesterday with generalized weakness, fall and was found to be anemic with a hemoglobin of 6.5, hematocrit 22, for which he received 1 unit of packed RBCs on dialysis yesterday. He was also hyperkalemic with a potassium of 6.9, treated with hemodialysis. He obviously has end-stage renal disease, for which he is on hemodialysis on Wednesday, , Wednesday and on his last admission, he was treated for pancytopenia as he was found to have repleted stores of his iron, but he has borderline vitamin B12 deficiency, so he was treated with intramuscular injection on a daily basis and in fact, his platelet count and white cell count has improved. His hemoglobin was stable around 8-8.5 g, although looking back, his hemoglobin in July was 11.5 that has steadily declined and this admission was 6.5. He is on baby aspirin and his stool was Hemoccult positive yesterday. We did consult the autopsy assistant, physical fitness teacher as well as staff physical therapy assistant. He was seen by the physical fitness teacher and who ordered test for perhaps hemolysis. He ordered methylmalonic acid level as well as LDH and haptoglobin level and Alfonso test as well as copper level and reticulocyte count. So far, this morning, his absolute reticulocyte count was 3.6, which is apparently high, consistent with hemolysis. His haptoglobin was normal at 196 mcg/mL with normal range between 34 and 355. His LDH was normal at 140 units per liter and his methylmalonic acid is still pending at the time of this dictation. His iron studies are more consistent with anemia of chronic disease. At this time, again his iron is low at 17, but TIBC even lower at 98 and iron saturation was only 17%. PHYSICAL EXAMINATION: GENERAL: When I examined him this morning, he looked pale. No jaundice, cyanosis or thyromegaly. No jugular venous distention. No limb edema. VITAL SIGNS: His heart rate was 91, blood pressure was 108/42, temperature was 97.7, respiratory rate was 16, and oxygen saturation was 97% on 3.5 liters of oxygen. HEENT: Showed normocephalic, atraumatic. NECK: Supple. HEART: Showed normal first and second heart sounds. No gallop, rub or murmur. CHEST: Shows central trachea, equal bilateral chest expansion, air entry. No expiratory crepitation or rhonchi. ABDOMEN: Distended, soft, nontender. NEUROLOGIC: He was sleepy, but arousable. All cranial nerves are intact. He moves extremities without difficulty, although he is very weak and debilitated. His intake and output were incompletely recorded. LABORATORY WORK: This morning showed a serum sodium 140, potassium 4.4, chloride 103, bicarbonate 35, anion gap of 2, BUN 46, creatinine 3.6. Estimated GFR was 16 mL per minute. His glucose was 81, calcium was 8. Serum iron, TIBC and iron saturation are all consistent with anemia of chronic disease. His total bilirubin, AST, ALT, and alkaline phosphatase normal. Total protein was 4.2, albumin was 1.5. His lactate dehydrogenase was 140. His methylmalonic acid and B12 are still pending at the time of this dictation. His white cell count was 4900, hemoglobin 5.8, hematocrit 18.8, MCV 97 and platelet count of 139,000 with normal manual differential. His reticulocyte count is high at 3.6 and haptoglobin is normal at 196. ASSESSMENT: Anemia, most likely mixture of anemia of chronic disease, but also acute blood loss anemia as his stool for occult blood was negative. In fact, he was transfused 1 unit of blood yesterday and he probably lost that again as his H and H is down to 5.8 and 18.8 from 6.5 and 22. Obviously other medical problems include end-stage renal disease, on hemodialysis on, I think, Wednesday, and Wednesday; hypertension, hyperlipidemia, atrial fibrillation, chronic obstructive pulmonary disease, bronchial asthma, obstructive sleep apnea, benign prostatic hypertrophy, generalized osteoarthritis. He has senile macular degeneration, right elbow infection and bilateral cataracts. PLAN: The patient will be transfused 1 more unit of blood and we will repeat his H and H. We have already consulted the staff physical therapy assistant and I believe that the patient needs to have upper and lower GI endoscopy. RALEIGH ZHAO MD DR: TAYLOR/carly JOB#: [id number] / [id number]
--- NOTE | 2019-12-28 11:32 | PDOC ---
Renal-Progress Notes Subjective Notes Notes NO NEW COMPLAINTS History of Present Illness Hx of present illness STABLE Vitals Vitals Vital Signs Date Time Temp Pulse Resp B/P (MAP) Pulse Ox O2 Delivery O2 Flow Rate FiO2 12/28/19 11:28 Nasal Cannula 3.5 12/28/19 11:00 97.8 58 16 118/42 (67) 93 97.8 Weight Weight [ ] I.O. Intake and Output Intake and Output 12/28/19 07:00 Intake Total 990 ml Output Total 0 ml Balance 990 ml Intake Oral 390 ml IV Total 250 ml Blood Product IV Normal Saline Flush 350 ml Output Urine Total 0 ml Labs Labs Laboratory Tests Test 12/27/19 15:50 12/28/19 05:55 Haptoglobin 196 mg/dL (34-355) Lactate Dehydrogenase 140 U/L (85-227) White Blood Count 4.9 x10^3/uL (4.0-11.0) Red Blood Count 1.95 x10^6/uL (4.30-5.70) Hemoglobin 5.8 g/dL (13.0-17.5) Hematocrit 18.8 % (39.0-53.0) Mean Corpuscular Volume 97 fL (79-100) Mean Corpuscular Hemoglobin 30 pg (25-35) Mean Corpuscular Hemoglobin Concent 31 g/dL (31-37) Red Cell Distribution Width 18.7 % (11.5-14.5) Platelet Count 139 x10^3/uL (140-400) Neutrophils (%) (Auto) 76 % (31-73) Lymphocytes (%) (Auto) 10 % (24-48) Monocytes (%) (Auto) 9 % (0-9) Eosinophils (%) (Auto) 4 % (0-3) Basophils (%) (Auto) 1 % (0-3) Neutrophils # (Auto) 3.7 x10^3/uL (1.8-7.7) Lymphocytes # (Auto) 0.5 x10^3/uL (1.0-4.8) Monocytes # (Auto) 0.5 x10^3/uL (0.0-1.1) Eosinophils # (Auto) 0.2 x10^3/uL (0.0-0.7) Basophils # (Auto) 0.0 x10^3/uL (0.0-0.2) Sodium Level 140 mmol/L (136-145) Potassium Level 4.4 mmol/L (3.5-5.1) Chloride Level 103 mmol/L (98-107) Carbon Dioxide Level 35 mmol/L (21-32) Anion Gap 2 (6-14) Blood Urea Nitrogen 46 mg/dL (8-26) Creatinine 3.6 mg/dL (0.7-1.3) Estimated GFR (Cockcroft-Gault) 16.4 BUN/Creatinine Ratio 13 (6-20) Glucose Level 81 mg/dL (70-99) Calcium Level 8.0 mg/dL (8.5-10.1) Iron Level 17 ug/dL (65-175) Total Iron Binding Capacity 98 ug/dL (250-450) Iron Saturation 17 % (15-34) Total Bilirubin 0.3 mg/dL (0.2-1.0) Aspartate Amino Transf (AST/SGOT) 17 U/L (15-37) Alanine Aminotransferase (ALT/SGPT) 18 U/L (16-63) Alkaline Phosphatase 40 U/L (46-116) Total Protein 4.2 g/dL (6.4-8.2) Albumin 1.5 g/dL (3.4-5.0) Albumin/Globulin Ratio 0.6 (1.0-1.7) Micro Micro Microbiology 12/27/19 Blood Culture - Preliminary, Resulted NO GROWTH AFTER 1 DAY Review of Systems Constitutional: yes: weakness, alert, oriented Ears/Nose/Throat: Yes: no symptom reported Pulmonary: Yes no symptom reported Cardiovascular: Yes no symptom reported Gastrointestional: Yes: nausea Genitourinary: Yes: no symptom reported Musculoskeletal: Yes: muscle stiffness Skin: Yes no symptom reported Psychiatric/Neurological: Yes: no symptom reported Endocrine: Yes: no symptom reported Physical Exam General Appearance: no apparent distress Skin: warm Respiratory: bilateral CTA Heart: S1S2 Abdomen: soft, bowel sounds present Genitourinary: bladder flat Extremities: pulses present Neurology: alert Musculoskeletal: Osteoarthritis Assessment Assessment IMP SEVERE HYPERKALEMIA ANEMIA ESRD HTN HX HYPOTENSION PLAN PRBC NEEDED VENOFER VENOFER NEEDED STARTED ARANESP HD TOMORRO SUGGEST HOLD BP MEDS WILL FOLLOW RAMIREZ AYALA MD Dec 28, 2019 11:32
[2019-12-28] MEDS ORDERED: IRON SUCROSE COMPLEX 500 MG in IV NORMAL SALINE 250ML 250 ML IV ONE (12:00)
--- NOTE | 2019-12-28 12:59 | PDOC ---
Date of Service: DATE: 12/28/19 TIME: 12:53 Subjective: Subjective: No GI symptoms, no GI bleeding. Thinks had bleeding from IV site earlier. Objective: Objective: No GI bleeding per nurse. Discussed this morning - Hgb dropped, another transfusion planned. Vital Signs: Vital Signs Date Time Temp Pulse Resp B/P (MAP) Pulse Ox O2 Delivery O2 Flow Rate FiO2 12/28/19 11:28 Nasal Cannula 3.5 12/28/19 11:00 97.8 58 16 118/42 (67) 93 97.8 Labs: Laboratory Tests Test 12/27/19 15:50 12/28/19 05:55 Haptoglobin 196 mg/dL Lactate Dehydrogenase 140 U/L Methylmalonic Acid Pending Copper Level Pending White Blood Count 4.9 x10^3/uL Red Blood Count 1.95 x10^6/uL Hemoglobin 5.8 g/dL Hematocrit 18.8 % Mean Corpuscular Volume 97 fL Mean Corpuscular Hemoglobin 30 pg Mean Corpuscular Hemoglobin Concent 31 g/dL Red Cell Distribution Width 18.7 % Platelet Count 139 x10^3/uL Neutrophils (%) (Auto) 76 % Lymphocytes (%) (Auto) 10 % Monocytes (%) (Auto) 9 % Eosinophils (%) (Auto) 4 % Basophils (%) (Auto) 1 % Neutrophils # (Auto) 3.7 x10^3/uL Lymphocytes # (Auto) 0.5 x10^3/uL Monocytes # (Auto) 0.5 x10^3/uL Eosinophils # (Auto) 0.2 x10^3/uL Basophils # (Auto) 0.0 x10^3/uL Sodium Level 140 mmol/L Potassium Level 4.4 mmol/L Chloride Level 103 mmol/L Carbon Dioxide Level 35 mmol/L Anion Gap 2 Blood Urea Nitrogen 46 mg/dL Creatinine 3.6 mg/dL Estimated GFR (Cockcroft-Gault) 16.4 BUN/Creatinine Ratio 13 Glucose Level 81 mg/dL Calcium Level 8.0 mg/dL Iron Level 17 ug/dL Total Iron Binding Capacity 98 ug/dL Iron Saturation 17 % Total Bilirubin 0.3 mg/dL Aspartate Amino Transf (AST/SGOT) 17 U/L Alanine Aminotransferase (ALT/SGPT) 18 U/L Alkaline Phosphatase 40 U/L Total Protein 4.2 g/dL Albumin 1.5 g/dL Albumin/Globulin Ratio 0.6 PE: GEN: appears chronically ill LUNGS: diminished, NC 3.5L HEART: borderline bradycardic ABD: S/ND/NT NEURO/PSYCH: lethargic but answers questions appropriately A/P: ?dark stool, +Hemoccult ACD/YSABEL, h/o pancytopenia/b12 deficiency A Fib, ESRD, B12 deficiency R/o COVID-19 -- Transfuse to keep Hgb >7 - d/w nurse who just spoke w/ Dr. Luis. COVID pending - ?EGD soon if negative - will review w/ Dr. Haskins. Continue PPI in some form. Justicifation of Admission Dx: Justifications for Admission: Justification of Admission Dx: Yes SHERI KINSEY Dec 28, 2019 12:59
[2019-12-28 13:32] LABS: RED BLOOD COUNT 1.85 x10^6/uL (4.30-5.70); RED CELL DISTRIBUTION WIDTH 18.5 % (11.5-14.5); WHITE BLOOD COUNT 4.2 x10^3/uL (4.0-11.0)
[2019-12-28 13:41] LABS: HEMOGLOBIN 5.7 g/dL (13.0-17.5)
[2019-12-28 13:42] LABS: HEMATOCRIT 18.1 % (39.0-53.0)
--- NOTE | 2019-12-28 16:24 | RAD ---
ABDOMEN COMPLETE History: Possible retroperitoneal bleed, drop in hemoglobin Comparison: None. Findings: Multiple sonographic images of the abdomen are submitted. Incidental note is made of bilateral pleural effusions. No free fluid is demonstrated in the abdomen. There is abnormal echogenicity in the gallbladder lumen likely what likely represents a more focal gallstone near the neck and other echogenicity likely due to sludge. Gallbladder wall is borderline thickened about 0.3 cm. Right kidney measured 7.8 x 5.8 x 3.9 cm, no hydronephrosis. Left kidney measured 7.9 x 3.6 x 3.8 cm without hydronephrosis. There are couple of cysts of the bilateral kidneys. Largest inferiorly of the right kidney measures up to 1.9 cm and likely complex cyst of the superior right kidney up to 1.3 cm with increased through transmission and internal echoes. Superior cyst of the left kidney measures about 1.5 cm, tiny focus inferiorly 0.5 cm. There is scattered plaque of the abdominal aorta, caliber within normal limits about 2.1 cm. Common bile duct is within normal limits about 0.3 cm. Hepatic echogenicity is within normal limits. There is a more solid-appearing hyperechoic lesion of the spleen up to 1.2 cm. Impression: 1. There are bilateral pleural effusions. No free fluid is demonstrated in the abdomen. 2. There is cholelithiasis and likely gallbladder sludge, nonspecific borderline gallbladder wall thickening. 3. Both kidneys are atrophic, no hydronephrosis. There are cysts of the bilateral kidneys. 4. There is nonspecific more solid-appearing hyperechoic lesion of the spleen up to 1.2 cm, could be hyperechoic mass or hemangioma. Electronically signed by: Maynor Carpio MD (12/28/2019 4:22 PM) [id number]
[2019-12-28] MEDS: PANTOPRAZOLE IV PUSH 40 MG VIAL. IVP SCH (17:15)
[2019-12-28 19:19] LABS: HEMATOCRIT 20.1 % (39.0-53.0); HEMOGLOBIN 6.5 g/dL (13.0-17.5)
--- NOTE | 2019-12-28 19:55 | RAD ---
Exam: CT of abdomen and pelvis without contrast INDICATION: Falling hemoglobin, without obvious bleeding TECHNIQUE: Sequential axial images through the abdomen and pelvis obtained without IV contrast. Sagittal and coronal reformatted images were reconstructed from the axial data and reviewed. Comparisons: Chest CT 08/06/2019, chest x-ray 12/27/2019 FINDINGS: Heart size is normal. No pericardial effusion. Small right pleural effusion with adjacent atelectasis. Evaluation of the solid organs is limited secondary to noncontrast technique. Liver, spleen, pancreas are unremarkable. Bilateral adrenal nodules are noted greater on the left measuring 2.4 cm. Gallstones noted within the dependent portion of the gallbladder without gallbladder distention or pericholecystic inflammatory changes. No perinephric inflammation or hydronephrosis. Kidneys are atrophic bilaterally. No renal or ureteral calculi are identified. Bladder is decompressed not well evaluated. Prostate is not enlarged. Extensive diverticulosis at the sigmoid colon. Otherwise, Large and small bowel are unremarkable. Appendix is normal. No free intra-abdominal air or fluid. No obstruction. Abdominal aorta has a normal course and caliber. There are several prominent but not enlarged retroperitoneal lymph nodes in the upper abdomen. No suspicious osseous lesions or acute fractures. IMPRESSION: 1. There is a moderate sized left and small right pleural effusion with adjacent atelectasis. 2. No hematoma or evidence of hemorrhage identified within the abdomen or pelvis. 3. Diverticulosis without evidence of acute diverticulitis. 4. Cholelithiasis. 5. Bilateral adrenal nodules, incompletely characterized on this exam. 6. Mild upper abdominal retroperitoneal lymphadenopathy. Correlate for malignancy history. Exposure: One or more of the following in the visualized dose reduction techniques were utilized for this examination: 1. Automated exposure control 2. Adjustment of the MA and/or KV according to patient size 3. Use of iterative of reconstructive technique Electronically signed by: Charlene Garcia MD (12/28/2019 7:52 PM) [id number]
[2019-12-28] MEDS: ATORVASTATIN CALCIUM 10 MG TABLET. PO SCH (20:53)
[2019-12-29] VITALS (8 sets, daily range): BP systolic 109–135; BP diastolic 45–56
[2019-12-29] MEDS: ALBUTEROL SULFATE 2.5 MG/3 ML NEBU. NEB PRN (00:31)
[2019-12-29 05:03] LABS: HEMATOCRIT 22.5 % (39.0-53.0); HEMOGLOBIN 7.1 g/dL (13.0-17.5); RED BLOOD COUNT 2.4 x10^6/uL (4.30-5.70); RED CELL DISTRIBUTION WIDTH 19.6 % (11.5-14.5); WHITE BLOOD COUNT 4.2 x10^3/uL (4.0-11.0)
[2019-12-29 05:18] LABS: CREATININE 5.1 mg/dL (0.7-1.3); POTASSIUM 4.6 mmol/L (3.5-5.1)
[2019-12-29] MEDS: AREDS 2 PO SCH ×2 (06:38→16:28)
[2019-12-29] MEDS: BUDESONIDE 0.5 MG/2 ML NEBU. NEB SCH ×2 (07:26→20:16)
[2019-12-29] MEDS: IPRATRPIUM/ALBUTEROL 0.5/2.5MG 3 ML NEBU. NEB SCH ×4 (07:26→20:16)
[2019-12-29] MEDS: PANTOPRAZOLE IV PUSH 40 MG VIAL. IVP SCH (07:30)
[2019-12-29] MEDS ORDERED: IV NORMAL SALINE 1000ML BAG 1,000 ML IV PRN ×2 (07:38)
[2019-12-29] MEDS ORDERED: DIALYSIS PATIENT. MC PRN (07:45)
[2019-12-29] MEDS ORDERED: ALBUMIN HUMAN 25% 200 ML IV PRN (07:45)
[2019-12-29] MEDS: CALCIUM ACETATE 667 MG CAPSULE PO SCH ×3 (08:00→16:28)
[2019-12-29] MEDS: METOPROLOL TART IMMED RELEASE 25 MG TABLET. PO SCH ×2 (09:00→21:00)
[2019-12-29] MEDS: AMIODARONE HCL 200 MG TABLET. PO SCH (09:00)
--- NOTE | 2019-12-29 11:28 | PDOC ---
Renal-Progress Notes Subjective Notes Notes HUNGRY History of Present Illness Hx of present illness STABLE Vitals Vitals Vital Signs Date Time Temp Pulse Resp B/P (MAP) Pulse Ox O2 Delivery O2 Flow Rate FiO2 12/29/19 08:00 Nasal Cannula 3.5 12/29/19 07:28 97 12/29/19 07:00 97.3 47 19 135/45 (75) 97.3 Weight Weight [ ] I.O. Intake and Output Intake and Output 12/29/19 07:00 Intake Total 2320 ml Output Total 0 ml Balance 2320 ml Intake Oral 950 ml Blood Product 360 ml Blood Product IV Normal Saline Flush 510 ml Other 500 ml Output Urine Total 0 ml Labs Labs Laboratory Tests Test 12/28/19 13:12 12/28/19 18:45 12/29/19 04:00 White Blood Count 4.2 x10^3/uL (4.0-11.0) 4.2 x10^3/uL (4.0-11.0) Red Blood Count 1.85 x10^6/uL (4.30-5.70) 2.40 x10^6/uL (4.30-5.70) Hemoglobin 5.7 g/dL (13.0-17.5) 6.5 g/dL (13.0-17.5) 7.1 g/dL (13.0-17.5) Hematocrit 18.1 % (39.0-53.0) 20.1 % (39.0-53.0) 22.5 % (39.0-53.0) Mean Corpuscular Volume 98 fL (79-100) 94 fL (79-100) Mean Corpuscular Hemoglobin 31 pg (25-35) 30 pg (25-35) Mean Corpuscular Hemoglobin Concent 31 g/dL (31-37) 32 g/dL (31-37) Red Cell Distribution Width 18.5 % (11.5-14.5) 19.6 % (11.5-14.5) Platelet Count 132 x10^3/uL (140-400) 116 x10^3/uL (140-400) Sodium Level 137 mmol/L (136-145) Potassium Level 4.6 mmol/L (3.5-5.1) Chloride Level 102 mmol/L (98-107) Carbon Dioxide Level 31 mmol/L (21-32) Anion Gap 4 (6-14) Blood Urea Nitrogen 54 mg/dL (8-26) Creatinine 5.1 mg/dL (0.7-1.3) Estimated GFR (Cockcroft-Gault) 11.0 Glucose Level 81 mg/dL (70-99) Calcium Level 8.0 mg/dL (8.5-10.1) Micro Micro Microbiology 12/27/19 Blood Culture - Preliminary, Resulted NO GROWTH AFTER 2 DAYS Review of Systems Constitutional: yes: weakness, alert, oriented Ears/Nose/Throat: Yes: no symptom reported Pulmonary: Yes no symptom reported Cardiovascular: Yes no symptom reported Gastrointestional: Yes: nausea Genitourinary: Yes: no symptom reported Musculoskeletal: Yes: muscle stiffness Skin: Yes no symptom reported Psychiatric/Neurological: Yes: no symptom reported Endocrine: Yes: no symptom reported Physical Exam General Appearance: no apparent distress Skin: warm Respiratory: bilateral CTA Heart: S1S2 Abdomen: soft, bowel sounds present Genitourinary: bladder flat Extremities: pulses present Neurology: alert Musculoskeletal: Osteoarthritis Assessment Assessment IMP SEVERE HYPERKALEMIA ANEMIA ESRD HTN HX HYPOTENSION PLAN PRBC NEEDED VENOFER GIVEN STARTED ARANESP HD TODAY UF TO DW SUGGEST HOLD BP MEDS EGD PENDING WILL FOLLOW RAMIREZ AYALA MD Dec 29, 2019 11:28
--- NOTE | 2019-12-29 11:45 | PN ---
DATE: 12/29/2019 SUBJECTIVE: The patient is resting, slightly propped up in bed, having his hemodialysis. On questioning him about some generalized weakness, he did complain of low back pain. He said the pain is severe that he can only stand or sit for about 10 minutes and then the pain becomes so severe, that he has to have rest. He also complained of pain in his left ankle joint. There is slight erythema and superficial wound that is scabbing. I have had a lengthy discussion with his son and [id number] about all the finding on his labs and all the tests that were done here before and now, and I expressed my concern that the patient is not strong enough to live on his own and that the best option for him is to be in assisted living facility. PHYSICAL EXAMINATION: GENERAL: When I examined him this afternoon, he was pale, but no jaundice, cyanosis, or thyromegaly. No jugular venous distention. No lower limb edema. VITAL SIGNS: His heart rate was 47, blood pressure was 135/45, temperature was 97.3, respiratory rate was 19, and oxygen saturation was 91% on 3.5 liters of oxygen. HEAD, EYES, EARS, NOSE AND THROAT: Showed normocephalic, atraumatic. NECK: Supple. HEART: Showed normal first and second heart sounds. No gallop, rub, or murmur. CHEST: Clear to auscultation. No crepitation or rhonchi. ABDOMEN: Distended, soft, nontender. NEUROLOGIC: He is awake, alert, responding appropriately. All cranial nerves are intact. He moves extremities without difficulty, though he is mostly bedbound. He has marked muscle wasting. His intake was 919, output was recorded. LABORATORY DATA: As of this morning showed his white cell count was 4200; hemoglobin 7.1; hematocrit 22.5; MCV 94 and platelet count of 116,000. His prothrombin time, INR, and aPTT are slightly elevated. His chemistry this morning showed a serum sodium 137, potassium 4.6, chloride 102, bicarbonate 31, anion gap of 4, BUN 54, creatinine 5.1, estimated GFR was 11. Glucose was 81, calcium was 8. Serum iron, total iron binding capacity, and iron saturation are all consistent with anemia of chronic disease. His LDH was normal and his haptoglobin is also normal, ruling out the possibility of hemolysis. His blood cultures so far negative. He has had an abdominal ultrasound for possible retroperitoneal bleed and drop in hemoglobin. It showed that there are bilateral pleural effusions. No free fluid is demonstrated in the abdomen. There is cholelithiasis, likely gallbladder sludge, nonspecific borderline gallbladder wall thickening. With kidneys are atrophic, no hydronephrosis, there are cysts in the bilateral kidneys. There are nonspecific, more solid-appearing hyperechoic lesion of the spleen up to 1.2 cm, could be hyperechoic mass or hemangioma. Had had a CT scan of the abdomen and pelvis, which showed the patient there is moderate-sized left and small right-sided pleural effusion with adjacent atelectasis. No hematoma or evidence of the hemorrhage identified within the abdomen and pelvis. ASSESSMENT: 1. Diverticulosis without evidence of acute diverticulitis, cholelithiasis, bilateral adrenal nodules, incompletely characterized on this exam, and mild upper abdominal retroperitoneal lymphadenopathy correlate for malignancy history. In summary, anemia, most likely a mixture of anemia of chronic disease, vitamin B12 deficiency, but also has blood loss anemia as his stool for occult blood was negative. He received 2 units of packed RBCs and his hemoglobin today is 7.1. 2. End-stage renal disease, on hemodialysis. 3. Hypertension. 4. Hyperlipidemia. 5. Atrial fibrillation. 6. Chronic obstructive pulmonary disease. 7. Bronchial asthma. 8. Obstructive sleep apnea. 9. Benign prostatic hypertrophy. 10. Generalized osteoarthritis. 11. Senile macular degeneration. 12. Chronic low back pain. PLAN: My plan is obviously to await decision by the Gastroenterology team as well as the plan is obviously to continue with PPI and I will arrange for him to have a CT scan of the lumbosacral spine and x-ray of his left ankle joint. I have had a lengthy discussion with his son and [id number] about his disposition and that he is not a candidate to stay home alone and that he needs to be in either a prison facility for rehab and eventually he needs to be in assisted living facility. RALEIGH ZHAO MD DR: TAYLOR/carly JOB#: [id number] / [id number]
--- NOTE | 2019-12-29 13:12 | PDOC ---
Date of Service: DATE: 12/29/19 TIME: 13:07 Subjective: Subjective: Hungry, wants someone to explain what's going on. Objective: Objective: D/w nurse and nurse a couple times today, also d/w nurse several times yesterday. Vital Signs: Vital Signs Date Time Temp Pulse Resp B/P (MAP) Pulse Ox O2 Delivery O2 Flow Rate FiO2 12/29/19 12:54 Nasal Cannula 3.5 12/29/19 07:28 97 12/29/19 07:00 97.3 47 19 135/45 (75) 97.3 Labs: Laboratory Tests Test 12/28/19 13:12 12/28/19 18:45 12/29/19 04:00 White Blood Count 4.2 x10^3/uL 4.2 x10^3/uL Red Blood Count 1.85 x10^6/uL 2.40 x10^6/uL Hemoglobin 5.7 g/dL 6.5 g/dL 7.1 g/dL Hematocrit 18.1 % 20.1 % 22.5 % Mean Corpuscular Volume 98 fL 94 fL Mean Corpuscular Hemoglobin 31 pg 30 pg Mean Corpuscular Hemoglobin Concent 31 g/dL 32 g/dL Red Cell Distribution Width 18.5 % 19.6 % Platelet Count 132 x10^3/uL 116 x10^3/uL Sodium Level 137 mmol/L Potassium Level 4.6 mmol/L Chloride Level 102 mmol/L Carbon Dioxide Level 31 mmol/L Anion Gap 4 Blood Urea Nitrogen 54 mg/dL Creatinine 5.1 mg/dL Estimated GFR (Cockcroft-Gault) 11.0 Glucose Level 81 mg/dL Calcium Level 8.0 mg/dL Imaging: Abd US Impression: 1. There are bilateral pleural effusions. No free fluid is demonstrated in the abdomen. 2. There is cholelithiasis and likely gallbladder sludge, nonspecific borderline gallbladder wall thickening. 3. Both kidneys are atrophic, no hydronephrosis. There are cysts of the bilateral kidneys. 4. There is nonspecific more solid-appearing hyperechoic lesion of the spleen up to 1.2 cm, could be hyperechoic mass or hemangioma. CT A/P IMPRESSION: 1. There is a moderate sized left and small right pleural effusion with adjacent atelectasis. 2. No hematoma or evidence of hemorrhage identified within the abdomen or pelvis. 3. Diverticulosis without evidence of acute diverticulitis. 4. Cholelithiasis. 5. Bilateral adrenal nodules, incompletely characterized on this exam. 6. Mild upper abdominal retroperitoneal lymphadenopathy. Correlate for m alignancy history. Lumbar CT pending PE: GEN: NAD, children present LUNGS: diminished HEART: james ABD: soft, non-tender NEURO/PSYCH: A & O 3 - more alert today A/P: ?dark stool, +Hemoccult - no bleeding since admission, s/p transfusions ACD/YSABEL, h/o pancytopenia/B12 deficiency A Fib, ESRD -- Discussed workup so far w/ pt and family, questions answered. Okay to eat today, will return later with Dr. Haskins. Continue PPI. Justicifation of Admission Dx: Justifications for Admission: Justification of Admission Dx: Yes SHERI KINSEY Dec 29, 2019 13:12
[2019-12-29] MEDS: ZINC SULFATE 220 MG CAPSULE. PO SCH (13:23)
[2019-12-29] MEDS: TAMSULOSIN 0.4 MG CAP.ER.24H. PO SCH ×2 (13:23→20:40)
[2019-12-29] MEDS: CHOLECALCIFEROL (VITAMIN D3) 1,000 UNIT TABLET PO SCH (13:24)
[2019-12-29] MEDS: ISOSORBIDE MONONITRATE ER 30 MG TAB.ER.24H PO SCH ×2 (13:24→20:40)
[2019-12-29] MEDS: FOLIC/VIT B COMP W-C (RENAL) TABLET. PO SCH (13:26)
[2019-12-29] MEDS: PANTOPRAZOLE 40 MG TABLET.DR. PO SCH (16:28)
--- NOTE | 2019-12-29 17:23 | RAD ---
CT LUMBAR SPINE WO CONTRAST Indication: Severe back pain Technique: Noncontrast CT imaging was performed of the lumbar spine, multiplanar reconstruction images submitted. One or more of the following individualized dose reduction techniques were utilized for this examination: 1. Automated exposure control 2. Adjustment of the mA and/or kV according to patient size 3. Use of iterative reconstruction technique. Comparison: None Findings: Lumbar vertebral body stature is overall maintained. There is advanced degenerative disc disease T12-L1 through L4-5 and minimally L5-S1, some variable vacuum disc disease. There is sclerotic endplate change greatest L3-4 and L4-5 and to lesser degree at L2-3. There is negligible posterior subluxation L4 relative L5 and L3 relative L4, and L2 relative L3. There is mild levoscoliosis centered upon the mid lumbar spine. There is very minimal left lateral subluxation L3 relative to L4 and very mild right lateral subluxation L2 relative L3. Not fully included, there are pleural effusions bilaterally. There is cholelithiasis. There is scattered plaque of the abdominal aorta. There is sigmoid diverticulosis, degree of associated thickening. T12-L1: There is moderate facet degenerative change. There is probably a bulge/protrusion in the anterior left neural foramen with moderate to severe narrowing. There is also [id number] narrowing of the right neural foramen by facet degenerative change. There is mild narrowing of the far left lateral recess due to facet degenerative change. L1-2: There is bilateral facet degenerative change. Neural foramina and spinal canal are overall adequate. L2-3: There is minimal disc osteophyte complex. There is bilateral facet degenerative change and mild buckling of the ligamentum flavum. There is likely at least mild narrowing of the far lateral recesses bilaterally. There is moderate neural foramina compromise bilaterally from posteriorly by facets. L3-4: There is broad posterior disc osteophyte complex. There is bilateral facet degenerative change. There is some calcification associated with the right ligamentum flavum. There is likely at least moderate left lateral recess stenosis and mild to moderate right lateral recess stenosis. There is moderate to severe left and moderate right neural foramina compromise primarily from facets although also disc osteophyte complex inferiorly. L4-L5: There is moderate facet hypertrophic change. There is broad disc osteophyte complex. There is suspected overall moderate spinal stenosis including narrowing of the far lateral recesses bilaterally greater on the left. There is severe left and moderate right neural foramina compromise mostly from facets. L5-S1: There is minimal bulge. There is moderate facet degenerative change, buckling of the ligamentum flavum. There is likely mild narrowing of the far lateral recesses bilaterally. There is moderate right and moderate to severe left neural foramina compromise in part from disc osteophyte complex in combination with facet degenerative change. IMPRESSION: 1. There is multilevel advanced lumbar degenerative disc disease. There is multilevel abnormal alignment, multilevel facet degenerative change. There is multilevel lumbar neural foramina compromise as described. There is multilevel lateral recess stenosis, also probable moderate spinal stenosis at L4-5 and to a somewhat lesser degree at L3-4. 2. There are bilateral pleural effusions. There is cholelithiasis. 3. There is sigmoid diverticulosis, some associated wall thickening which can be associated with diverticulitis in the appropriate clinical setting. Electronically signed by: Maynor Carpio MD (12/29/2019 5:20 PM) [id number]
[2019-12-29] MEDS: ATORVASTATIN CALCIUM 10 MG TABLET. PO SCH (20:40)
--- NOTE | 2019-12-29 20:57 | RAD ---
EXAM: 3 views of the left ankle DATE: 12/29/2019 11:06 AM INDICATION: Reason: fall with pain and swellinf / Spl. Instructions: / History: COMPARISON: No Prior FINDINGS: No acute fracture or dislocation. Ankle mortise is congruent. Talar dome is intact. Midfoot degenerative changes are seen. Decreased bone mineral density. Mild midfoot soft tissue swelling. Atherosclerotic vascular calcifications are seen. IMPRESSION: No acute fracture or dislocation. Electronically signed by: Kush Lozoya MD (12/29/2019 8:54 PM) RIZWAN
--- NOTE | 2019-12-30 01:04 | CONS ---
DATE OF CONSULTATION: 12/29/2019 REASON FOR CONSULTATION: Bradycardia. CONSULTING PHYSICIAN: Lance Luis MD HISTORY OF PRESENT ILLNESS: The patient is an 79-year-old man with past medical history as noted below, who has been admitted to the hospital with anemia. Current evaluation is ongoing by GI and Hematology. Cardiology was asked to evaluate him for known history of atrial fibrillation that has been paroxysmal and he has not been on anticoagulation due to prior history of thrombocytopenia and other pancytopenia. Nonetheless, the patient today denies any specific cardiovascular limitations and has chronic dyspnea and fatigue. PAST MEDICAL HISTORY: 1. End-stage renal disease. 2. Hypertension. 3. Dyslipidemia. 4. Paroxysmal atrial fibrillation. 5. COPD. PAST SURGICAL HISTORY: Known for hemodialysis catheter placement, right knee replacement. ALLERGIES: ADHESIVE AND ZYRTEC. FAMILY HISTORY: Noncontributory. SOCIAL HISTORY: He lives alone and is . He has two children. CURRENT CARDIOVASCULAR MEDICATIONS: Metoprolol 12.5 mg p.o. b.i.d. and amiodarone 200 mg daily and Imdur 30 mg p.o. b.i.d. REVIEW OF SYSTEMS: Negative for 10 out of 14 systems reviewed, unless otherwise mentioned above in HPI. PHYSICAL EXAMINATION: GENERAL: He is sleeping upon arrival. VITAL SIGNS: Stable. HEAD AND NECK: Unremarkable. CARDIAC: Regular rate and rhythm. No obvious murmurs. CHEST: Clear. ABDOMEN: Soft. NEUROLOGIC: No focal deficits. DIAGNOSTIC STUDIES: Reviewed. Telemetry reveals sinus bradycardia. IMPRESSION: Sinus bradycardia in the setting of severe anemia and other cardiovascular comorbidities as noted above. RECOMMENDATIONS: 1. At this present time, we would continue his metoprolol at 12.5 mg p.o. daily and cut his amiodarone to 100 mg daily and monitor him closely. 2. Supportive care for now. 3. We will follow along. GUSTABO CHRISTIAN MD DR: AURA/carly JOB#: [id number] / [id number]
[2019-12-30 03:30] VITALS: BP 112/36
[2019-12-30 05:08] LABS: HEMATOCRIT 22.6 % (39.0-53.0); HEMOGLOBIN 7.2 g/dL (13.0-17.5)
[2019-12-30 07:00] VITALS: BP 129/47
[2019-12-30] MEDS: IPRATRPIUM/ALBUTEROL 0.5/2.5MG 3 ML NEBU. NEB SCH ×4 (07:33→20:24)
[2019-12-30] MEDS: BUDESONIDE 0.5 MG/2 ML NEBU. NEB SCH ×2 (07:33→20:24)
[2019-12-30] MEDS: ISOSORBIDE MONONITRATE ER 30 MG TAB.ER.24H PO SCH (08:46)
[2019-12-30] MEDS: CALCIUM ACETATE 667 MG CAPSULE PO SCH ×3 (08:46→18:13)
[2019-12-30] MEDS: FOLIC/VIT B COMP W-C (RENAL) TABLET. PO SCH (08:46)
[2019-12-30] MEDS: CHOLECALCIFEROL (VITAMIN D3) 1,000 UNIT TABLET PO SCH (08:46)
[2019-12-30] MEDS: AMIODARONE HCL 200 MG TABLET. PO SCH (08:47)
[2019-12-30] MEDS: PANTOPRAZOLE 40 MG TABLET.DR. PO SCH ×2 (08:47→18:13)
[2019-12-30] MEDS: TAMSULOSIN 0.4 MG CAP.ER.24H. PO SCH ×2 (08:47→21:39)
[2019-12-30] MEDS: ZINC SULFATE 220 MG CAPSULE. PO SCH (08:47)
[2019-12-30] MEDS: METOPROLOL TART IMMED RELEASE 25 MG TABLET. PO SCH (08:47)
[2019-12-30] MEDS: AREDS 2 PO SCH ×2 (08:51→21:00)
--- NOTE | 2019-12-30 09:53 | PN ---
DATE: 12/30/2019 SUBJECTIVE: The patient is resting flat, comfortably in bed, in no apparent distress. On questioning him, he denied any complaint. In particular, he denied any nausea or vomiting, diarrhea or constipation. Denied any hematemesis, melena or hematochezia. He has had a CT scan of his lumbar spine, which is basically showing a multitude of abnormalities including multilevel advanced lumbar degenerative disk disease. There are multiple abnormal alignments, multiple facet degenerative changes and multiple lumbar neural foraminal compromise. There are multiple lateral recess stenoses and also probable moderate spinal stenosis at L4-L5 and somewhat to a lesser degree at L3-L4. He has obviously bilateral pleural effusion, cholelithiasis, sigmoid diverticulosis, but no diverticulitis. He has also x-ray of his left ankle joint, which showed no acute fracture or dislocation. The patient seems to be in a much better spirit, willing to work with physical therapy. PHYSICAL EXAMINATION: GENERAL: When I examined him, he looked pale, cachectic, but no jaundice, cyanosis or thyromegaly. No jugular venous distention. No limb edema. VITAL SIGNS: His heart rate was 66, blood pressure was 129/47, temperature 97.8, respiratory rate was 18 and oxygen saturation was 96% on 3.5 liters of oxygen. HEAD, EYES, EARS, NOSE AND THROAT: Normocephalic, atraumatic. NECK: Supple. HEART: Showed normal first and second heart sounds. No gallop or murmur. CHEST: Clear to auscultation. No crepitation or rhonchi. ABDOMEN: Distended, soft, nontender. No guarding or rigidity. No organomegaly. All hernial orifice intact. Bowel sounds normal. NEUROLOGIC: He was awake, alert, responding appropriately. All cranial nerves are intact. He moves extremities without difficulty, although he has marked muscle wasting and weakness. His intake was 2320, no output was recorded. LABORATORY DATA: His H and H this morning was 7.2 and 22.6 with a white cell count of 4200 and platelets that dropped down again to 116,000. ASSESSMENT: 1. End-stage renal disease, on hemodialysis. 2. Hypertension. 3. Hyperlipidemia. 4. Atrial fibrillation. 5. Chronic obstructive pulmonary disease. 6. Bronchial asthma. 7. Obstructive sleep apnea. 8. Benign prostatic hypertrophy. 9. Generalized osteoarthritis. 10. Senile macular degeneration. 11. Chronic low back pain. 12.: The patient has obviously anemia, most likely a mixture of anemia of chronic kidney disease, vitamin B12 deficiency and probably blood loss anemia. PLAN: He has so far received 2 units of packed RBCs and his hemoglobin and hematocrit are stable so far. I did consult Dr. Gonzáles to see him for his chronic low back pain, although I doubt that he could be a surgical candidate given his advanced age and multiple comorbidities. Apparently the gastroenterologists are planning for EGD on Wednesday. RALEIGH ZHAO MD DR: TAYLOR/carly JOB#: [id number] / [id number]
[2019-12-30 11:00] VITALS: BP 128/44
--- NOTE | 2019-12-30 13:44 | PDOC ---
CARDIOLOGY PROGRESS NOTE SUBJECTIVE: No new issues overnight. OBJECTIVE: Vital Signs/I&O: Vital Signs Date Time Temp Pulse Resp B/P (MAP) Pulse Ox O2 Delivery O2 Flow Rate FiO2 12/30/19 11:28 96 Nasal Cannula 3.5 12/30/19 11:00 98.3 58 20 128/44 (72) 98.3 I & O 12/29/19 12/29/19 12/30/19 15:00 23:00 07:00 Intake Total 100 ml 300 ml Output Total 50 ml Balance 50 ml 300 ml Objective: Frail/older than stated age Normal heart tones No significant edema. CURRENT MEDICATIONS: Current Medications Medications (Trade) Dose Ordered Sig/Samina Route PRN Reason Start Time Stop Time Status Last Admin Dose Admin Pantoprazole Sodium (Protonix) 40 mg BIDAC PO 12/29/19 16:30 12/30/19 08:47 Non-Formulary Medication 1 ea BID PO 12/30/19 09:00 12/30/19 08:51 DIAGNOSTIC TESTING: Labs: Laboratory Tests 12/30/19 04:30 Laboratory Tests Test 12/30/19 04:30 Hemoglobin 7.2 g/dL (13.0-17.5) L Hematocrit 22.6 % (39.0-53.0) L ASSESSMENT: 1. PAF on amiodaone and metoprolol. 2. Anemia PLAN: 1. Discussed with nurse. Continue Metoprolol Tartrate at 12.5mg daily and amiodarone 200mg daily. May need to uptitrate Metoprolol as BP/HR allow. Thanks Will follow along peripherally. Justicifation of Admission Dx: Justifications for Admission: Justification of Admission Dx: Yes GUSTABO CHRISTIAN MD Dec 30, 2019 13:44
[2019-12-30 14:11] LABS: COPPER LEVEL 16 ug/dL (72-166)
[2019-12-30 15:00] VITALS: BP 130/48
[2019-12-30 19:40] VITALS: BP 130/52
[2019-12-30] MEDS: ATORVASTATIN CALCIUM 10 MG TABLET. PO SCH (21:39)
[2019-12-30 23:55] VITALS: BP 162/48
[2019-12-31 03:39] VITALS: BP 148/52
[2019-12-31 06:02] LABS: HEMATOCRIT 23.3 % (39.0-53.0); HEMOGLOBIN 7.2 g/dL (13.0-17.5)
[2019-12-31 07:00] VITALS: BP 139/45
[2019-12-31] MEDS: IPRATRPIUM/ALBUTEROL 0.5/2.5MG 3 ML NEBU. NEB SCH ×4 (07:54→19:41)
[2019-12-31] MEDS: BUDESONIDE 0.5 MG/2 ML NEBU. NEB SCH ×2 (07:54→19:41)
[2019-12-31] MEDS: TAMSULOSIN 0.4 MG CAP.ER.24H. PO SCH ×2 (08:21→21:11)
[2019-12-31] MEDS: ISOSORBIDE MONONITRATE ER 30 MG TAB.ER.24H PO SCH (08:21)
[2019-12-31] MEDS: ZINC SULFATE 220 MG CAPSULE. PO SCH (08:22)
[2019-12-31] MEDS: AMIODARONE HCL 200 MG TABLET. PO SCH (08:22)
[2019-12-31] MEDS: PANTOPRAZOLE 40 MG TABLET.DR. PO SCH ×2 (08:22→16:51)
[2019-12-31] MEDS: CALCIUM ACETATE 667 MG CAPSULE PO SCH ×3 (08:22→16:51)
[2019-12-31] MEDS: FOLIC/VIT B COMP W-C (RENAL) TABLET. PO SCH (08:22)
[2019-12-31] MEDS: CHOLECALCIFEROL (VITAMIN D3) 1,000 UNIT TABLET PO SCH (08:22)
[2019-12-31] MEDS: METOPROLOL TART IMMED RELEASE 25 MG TABLET. PO SCH (08:23)
[2019-12-31] MEDS: AREDS 2 PO SCH ×2 (08:23→21:00)
--- NOTE | 2019-12-31 09:36 | PN ---
DATE: 12/31/2019 SUBJECTIVE: The patient is resting, slightly propped up, sleeping comfortably, he is arousable. On questioning him, he denied any complaint. The nursing staff did not voice any concerns. He stated that he had an eventful night. He apparently did participate with physical therapy and walked with a walker. He has had a CT scan of his lumbar spine and I did consult Dr. Del Toro to see him that he is unsafe to be at home alone. I think he is now becoming receptive to the idea that he should be better at the assisted living. His H and H remained stable this morning at 7.2 and 23.3. PHYSICAL EXAMINATION: GENERAL: When I examined him this morning, he looked pale, but no jaundice, cyanosis, or thyromegaly. No jugular venous distention. No lower limb edema. VITAL SIGNS: His heart rate was 68, blood pressure is 148/62, temperature was 98.2, respiratory rate was 16, and oxygen saturation was 95% on 3.5 liters. HEAD, EYES, EARS, NOSE, AND THROAT: Showed normocephalic, atraumatic. NECK: Supple. HEART: Normal first and second heart sounds. No gallop or murmur. CHEST: Shows central trachea, equal bilateral expansion, air entry, vesicular sounds. No crepitation or rhonchi anteriorly. He has dull percussion noted and absent breath sounds posteriorly, more so on the left than right. ABDOMEN: Scaphoid, soft, nontender. NEUROLOGIC: He was sleepy, but arousable. All cranial nerves are intact. He moves extremities without difficulty, although has marked muscle wasting and weakness. His intake was 400, no output was recorded. LABORATORY DATA: As of this morning, his hemoglobin was 7.2, hematocrit 23.3. ASSESSMENT: 1. Anemia, however, his hemoglobin and hematocrit remained stable at 7.2 and 22.6. 2. The patient has multiple other medical problems, including: A. End-stage renal disease, on hemodialysis. B. Hypertension. C. Hyperlipidemia. 3. Atrial fibrillation. 4. Chronic obstructive pulmonary disease. 5. Bronchial asthma. 6. Obstructive sleep apnea. 7. Benign prostatic hypertrophy. 8. Generalized osteoarthritis. 9. Senile macular degeneration. 10. Chronic back pain. PLAN: My plan is to check his lab work again tomorrow. Await the decision by the Gastroenterology team regarding upper GI endoscopy. I did consult Dr. Del Toro to see him for his chronic back pain. RALEIGH ZHAO MD DR: TAYLOR/carly JOB#: [id number] / [id number]
[2019-12-31 11:00] VITALS: BP 125/53
[2019-12-31 19:40] VITALS: BP 143/48
[2019-12-31] MEDS: ATORVASTATIN CALCIUM 10 MG TABLET. PO SCH (21:11)
[2019-12-31 23:45] VITALS: BP 142/44
[2020-01-01 03:15] VITALS: BP 125/46
[2020-01-01 07:00] VITALS: BP 131/48
[2020-01-01] MEDS: PANTOPRAZOLE 40 MG TABLET.DR. PO SCH ×2 (07:30→16:09)
[2020-01-01] MEDS: BUDESONIDE 0.5 MG/2 ML NEBU. NEB SCH ×2 (07:43→19:22)
[2020-01-01] MEDS: IPRATRPIUM/ALBUTEROL 0.5/2.5MG 3 ML NEBU. NEB SCH ×4 (07:43→19:22)
[2020-01-01] MEDS: CALCIUM ACETATE 667 MG CAPSULE PO SCH ×3 (08:00→17:31)
[2020-01-01 08:41] LABS: HEMATOCRIT 23.5 % (39.0-53.0); HEMOGLOBIN 7.3 g/dL (13.0-17.5); RED BLOOD COUNT 2.46 x10^6/uL (4.30-5.70); RED CELL DISTRIBUTION WIDTH 19.6 % (11.5-14.5)
[2020-01-01 08:43] LABS: ALBUMIN 1.5 g/dL (3.4-5.0); ALBUMIN/GLOBULIN RATIO 0.5 (1.0-1.7); CALCIUM 8.1 mg/dL (8.5-10.1); CREATININE 6.8 mg/dL (0.7-1.3); GFR 7.9; POTASSIUM 4.6 mmol/L (3.5-5.1); TOTAL BILIRUBIN 0.3 mg/dL (0.2-1.0); TOTAL PROTEIN 4.8 g/dL (6.4-8.2)
[2020-01-01] MEDS: ZINC SULFATE 220 MG CAPSULE. PO SCH (09:00)
[2020-01-01] MEDS: AREDS 2 PO SCH ×2 (09:00→21:00)
[2020-01-01] MEDS ORDERED: IV NORMAL SALINE 1000ML BAG 1,000 ML IV PRN ×2 (09:24)
[2020-01-01] MEDS ORDERED: DIALYSIS PATIENT. MC PRN (09:30)
--- NOTE | 2020-01-01 09:40 | PDOC ---
Date of Service: DATE: 01/01/20 TIME: 09:37 Subjective: Subjective: Says we're starving him, says no one tells him anything, says he can't believe he has to skip two meals now (for early afternoon EGD). Upset - wants to eat but wants scope. Objective: Objective: Nurse present. Vital Signs: Vital Signs Date Time Temp Pulse Resp B/P (MAP) Pulse Ox O2 Delivery O2 Flow Rate FiO2 01/01/20 07:45 99 Nasal Cannula 3.0 01/01/20 03:15 97.5 59 18 125/46 (72) 97.5 Labs: Laboratory Tests Test 01/01/20 08:08 White Blood Count 5.0 x10^3/uL Red Blood Count 2.46 x10^6/uL Hemoglobin 7.3 g/dL Hematocrit 23.5 % Mean Corpuscular Volume 95 fL Mean Corpuscular Hemoglobin 30 pg Mean Corpuscular Hemoglobin Concent 31 g/dL Red Cell Distribution Width 19.6 % Platelet Count 121 x10^3/uL Sodium Level 138 mmol/L Potassium Level 4.6 mmol/L Chloride Level 102 mmol/L Carbon Dioxide Level 30 mmol/L Anion Gap 6 Blood Urea Nitrogen 53 mg/dL Creatinine 6.8 mg/dL Estimated GFR (Cockcroft-Gault) 7.9 BUN/Creatinine Ratio 8 Glucose Level 84 mg/dL Calcium Level 8.1 mg/dL Total Bilirubin 0.3 mg/dL Aspartate Amino Transf (AST/SGOT) 16 U/L Alanine Aminotransferase (ALT/SGPT) 17 U/L Alkaline Phosphatase 44 U/L Total Protein 4.8 g/dL Albumin 1.5 g/dL Albumin/Globulin Ratio 0.5 PE: GEN: NAD ABD: non-distended SKIN: pale NEURO/PSYCH: A & O 3, angry A/P: ACD/YSABEL, h/o pancytopenia/B12 deficiency A Fib, ESRD -- Unpleasant this morning. EGD this afternoon, NPO for now - hopefully can resume PO after. Defer IVF to Dr. Luis. Justicifation of Admission Dx: Justifications for Admission: Justification of Admission Dx: Yes SHERI KINSEY Jan 01, 2020 09:40
--- NOTE | 2020-01-01 10:51 | CONS ---
DATE OF CONSULTATION: LOCATION: He is in room 207. ATTENDING PHYSICIAN: Lance Luis MD REASON FOR CONSULTATION: The patient was seen at the request of Dr. Luis for rehab evaluation. HISTORY OF PRESENT ILLNESS: This is an 79-year-old right-handed male, retired [employer] employee. The patient was admitted on 12/27/2019 after he apparently fell at home and on the floor for about 3-1/2 hours and he is having left arm and left leg weakness and numbness, has become weak and apparently fell to the ground without any loss of consciousness. He was unable to get up. He managed to get to the phone and called 911 and admitted through the Emergency Room where he was found extremely weak and anemic, hemoglobin is 6.5. He is due for dialysis today and his serum potassium of 6.9. The patient was admitted to ICU and was started on hemodialysis and he received 1 unit of packed red blood cell transfusion. The patient complained of generalized weakness and easy fatigability. PAST MEDICAL HISTORY: Includes end-stage renal disease, on hemodialysis for about 1 year; hypertension; hyperlipidemia; atrial fibrillation; chronic obstructive pulmonary disease; bronchial asthma; obstructive sleep apnea; benign prostatic hypertrophy; generalized osteoarthritis; senile macular degeneration; right elbow infection and bilateral cataract; status post right total knee arthroplasty and skin cancer excision; known allergic to ZYRTEC. FAMILY HISTORY: Mother with carcinoma and lymphoma in the family SOCIAL HISTORY: He lives alone since his , had 2 children who lives close by, one of them lives close by and one out of state. He is an ex-smoker. He has been independent with his mobility prior to the present hospitalization. ALLERGIES: HE IS ALSO KNOWN ALLERGIC TO ADHESIVES. REVIEW OF SYSTEMS: The patient admits chronic lower back pain, especially when he stands up for about 10-15 minutes. He does not have any pain while he is supine. The patient denies any numbness sensation in the extremities. He denies any trouble with bowel control. The patient had radiological studies, which revealed multilevel degenerative disk disease and degenerative joint disease without any significant central spinal stenosis. PHYSICAL EXAMINATION: On physical examination today revealed an elderly male. He is alert, oriented to time, place, person and circumstance, follows commands appropriately, moves all 4 extremities voluntarily where he had 4/5 to 4+/5 grade muscle strength. Deep tendon reflexes are decreased overall with absent knee and ankle jerks and he had equal perception of touch and pinprick sensation bilaterally. The patient had crepitus on range of motion of left knee joint. The patient had multiple skin bruises mainly in his upper extremities. He is using oxygen by nasal cannula. He is independent, rolling from side to side. I have not tested his transfers or ambulation skills at this time. No significant tenderness to palpation of thoracic or lumbar spine or adjoining paraspinal muscles or sacroiliac joint area. He had pain free range of motion of both hip joints. Straight leg raising test is negative bilaterally. ASSESSMENT: 1. Elderly male with chronic lower back pain from degenerative disk disease and degenerative joint disease of lumbar vertebrae without any clinical evidence of ongoing lumbar radiculopathy. 2. Clinical evidence of peripheral neuropathy. 3. Degenerative joint disease of left knee, status post right total knee arthroplasty in the past without any problems. 4. End-stage renal disease, on hemodialysis. 5. Hypertension. 6. Hyperlipidemia. 7. Atrial fibrillation. 8. Chronic obstructive pulmonary disease. 9. Benign prostatic hypertrophy. 10. Macular degeneration. 11. Bilateral cataracts. RECOMMENDATIONS: Agree with the plan for physical therapy and occupational therapy and to assisted living when plans are complete, to let him try lumbar corset for use while up as he is having most of the back pain while he is upstanding. I do not see any need for any per the radiological studies or MRI scan as he is not having that significant pain to consider any lumbar decompression laminectomy and I do not think he needs any injections to help ease the pain at present time. Dr. Luis, I appreciate asking me to participate in the care of this interesting patient. I will be glad to follow him with you as needed for his rehabilitation. MANDY BECKFORD MD DR: ROSALIE/carly JOB#: [id number] / [id number]
--- NOTE | 2020-01-01 12:04 | PDOC ---
DATE OF SERVICE DATE: 01/01/20 TIME: 11:59 SUBJECTIVE ROS Seen on HD, No complaints voiced by the patient OBJECTIVE Vital Signs Vital Signs Date Time Temp Pulse Resp B/P (MAP) Pulse Ox O2 Delivery O2 Flow Rate FiO2 01/01/20 07:45 99 Nasal Cannula 3.0 01/01/20 07:00 97.9 62 16 131/48 (75) 97.9 I & 0 Intake and Output 01/01/20 07:00 Intake Total 1040 ml Output Total 100 ml Balance 940 ml Intake Oral 1040 ml Output Urine Total 100 ml PHYSICAL EXAM Physical Exam General Appearance: no apparent distress Skin: warm Respiratory: bilateral CTA Heart: S1S2 Abdomen: soft, bowel sounds present Genitourinary: No Castanon Extremities: pulses present Neurology: alert Musculoskeletal: Osteoarthritis DIAGNOSIS/ASSESSMENT Assessment & Plan ESRD - On HD MWF seen on HD , tolerating well, Discussed Tx plan with Felipe Anemia, 6.5 at presentation , currently stable at 7.2 PRBC as indicated , per primary scheduled for EGD Recd Venofer x 1 Hyper Kalemia- severe at presentation, Resolved Hypertension- stable Atrial fibrillation. Chronic obstructive pulmonary disease. Bronchial asthma. Obstructive sleep apnea. COMMENT/RELEVANT DATA Meds Current Medications Medications (Trade) Dose Ordered Sig/Samina Start Time Stop Time Status Last Admin Dose Admin Acetaminophen (Tylenol) 650 mg 1X PRN PRN 12/28/19 20:00 Albumin Human 200 ml @ 200 mls/hr 1X PRN PRN 12/29/19 07:45 12/29/19 13:44 DC Albuterol Sulfate (Ventolin Neb Soln) 2.5 mg PRN Q6HRS PRN 12/27/19 12:00 12/29/19 00:31 2.5 MG Albuterol/ Ipratropium (Duoneb) 3 ml RTQID 12/27/19 12:00 01/01/20 07:43 3 ML Amiodarone HCl (Cordarone) 200 mg DAILY 12/27/19 12:00 12/31/19 08:22 200 MG Atorvastatin Calcium (Lipitor) 10 mg HS 12/27/19 21:00 12/31/19 21:11 10 MG Azithromycin 250 ml @ 250 mls/hr 1X ONCE 12/27/19 06:15 12/27/19 07:14 DC 12/27/19 06:25 250 MLS/HR Budesonide (Pulmicort) 0.5 mg RTBID 12/27/19 12:00 01/01/20 07:43 0.5 MG Calcium Acetate (Phoslo) 667 mg TIDWMEALS 12/27/19 12:00 12/31/19 16:51 667 MG Calcium Gluconate (Calcium Gluconate) 1,000 mg 1X ONCE 12/27/19 05:30 12/27/19 05:31 DC 12/27/19 05:53 1,000 MG Ceftriaxone Sodium (Rocephin) 1 gm 1X ONCE 12/27/19 06:00 12/27/19 06:06 DC 12/27/19 06:25 1 GM Darbepoetin Cortes (ARANESP for DIALYSIS PTS) 60 mcg WEEKLYHS 12/27/19 21:00 12/27/19 21:32 60 MCG Dextrose (Dextrose 50%-Water Syringe) 50 gm 1X ONCE 12/27/19 05:30 12/27/19 05:31 DC 12/27/19 05:46 50 GM Diphenhydramine HCl (Benadryl) 25 mg PRN 1X PRN 12/28/19 20:00 Info (PHARMACY MONITORING -- do not chart) 1 each PRN DAILY PRN 01/01/20 09:30 Insulin Human Regular (HumuLIN R VIAL) 10 unit 1X ONCE 12/27/19 05:30 12/27/19 05:31 DC 12/27/19 05:58 10 UNIT Iron Sucrose 500 mg/Sodium Chloride 275 ml @ 78.571 mls/ hr 1X ONCE 12/28/19 12:00 12/28/19 15:29 DC 12/28/19 12:42 78.571 MLS/HR Isosorbide Mononitrate (Imdur) 30 mg DAILY 12/31/19 09:00 12/31/19 08:21 30 MG Metoprolol Tartrate (Lopressor) 12.5 mg DAILY 12/31/19 09:00 12/31/19 08:23 12.5 MG Non-Formulary Medication 1 ea BID 12/30/19 09:00 12/31/19 21:00 1 EA Ondansetron HCl (Zofran) 4 mg PRN Q8HRS PRN 12/27/19 05:45 12/28/19 05:44 DC Pantoprazole Sodium (PROTONIX VIAL for IV PUSH) 40 mg BIDAC 12/28/19 16:30 12/29/19 13:32 DC 12/28/19 17:15 40 MG Pantoprazole Sodium (Protonix) 40 mg BIDAC 12/29/19 16:30 12/31/19 16:51 40 MG Pantoprazole Sodium 80 mg/ Sodium Chloride 100 ml @ 10 mls/hr Q10H 12/27/19 05:15 12/28/19 13:00 DC 12/28/19 02:56 10 MLS/HR Sodium Chloride 1,000 ml @ 400 mls/hr Q2H30M PRN 01/01/20 09:24 01/01/20 21:23 Tamsulosin HCl (Flomax) 0.4 mg BID 12/27/19 12:00 12/31/19 21:11 0.4 MG Vitamin B Complex/ Vitamin C (Neha-Ronnie) 1 tab DAILY 12/27/19 12:00 12/31/19 08:22 1 TAB Vitamin D (Vitamin D3) 1,000 unit DAILY 12/27/19 12:00 12/31/19 08:22 1,000 UNIT Zinc Sulfate (Orazinc) 220 mg DAILY 12/27/19 12:00 12/31/19 08:22 220 MG Lab Laboratory Tests Test 01/01/20 08:08 White Blood Count 5.0 x10^3/uL (4.0-11.0) Red Blood Count 2.46 x10^6/uL (4.30-5.70) Hemoglobin 7.3 g/dL (13.0-17.5) Hematocrit 23.5 % (39.0-53.0) Mean Corpuscular Volume 95 fL (79-100) Mean Corpuscular Hemoglobin 30 pg (25-35) Mean Corpuscular Hemoglobin Concent 31 g/dL (31-37) Red Cell Distribution Width 19.6 % (11.5-14.5) Platelet Count 121 x10^3/uL (140-400) Sodium Level 138 mmol/L (136-145) Potassium Level 4.6 mmol/L (3.5-5.1) Chloride Level 102 mmol/L (98-107) Carbon Dioxide Level 30 mmol/L (21-32) Anion Gap 6 (6-14) Blood Urea Nitrogen 53 mg/dL (8-26) Creatinine 6.8 mg/dL (0.7-1.3) Estimated GFR (Cockcroft-Gault) 7.9 BUN/Creatinine Ratio 8 (6-20) Glucose Level 84 mg/dL (70-99) Calcium Level 8.1 mg/dL (8.5-10.1) Total Bilirubin 0.3 mg/dL (0.2-1.0) Aspartate Amino Transf (AST/SGOT) 16 U/L (15-37) Alanine Aminotransferase (ALT/SGPT) 17 U/L (16-63) Alkaline Phosphatase 44 U/L (46-116) Total Protein 4.8 g/dL (6.4-8.2) Albumin 1.5 g/dL (3.4-5.0) Albumin/Globulin Ratio 0.5 (1.0-1.7) Results All relevant outside records, renal labs, imaging studies, telemetry/EKG's were reviewed. Justicifation of Admission Dx: Justifications for Admission: Justification of Admission Dx: Yes GLORIA ANGUIANO MD Jan 01, 2020 12:04
[2020-01-01 12:11] LABS: METHYLMALONIC ACID 314 nmol/L (0-378)
--- NOTE | 2020-01-01 12:26 | PN ---
DATE: 01/01/2020 SUBJECTIVE: The patient is resting, slightly propped up, having his scheduled hemodialysis this morning. On questioning him, he denied any complaint. The nursing staff did not voice any concern except that he is somewhat agitated, angry that he has not eaten since yesterday. He is n.p.o. as he is scheduled for esophagogastroduodenoscopy this afternoon. He apparently was accepted at [facility] and hopefully if he remains stable, will be discharged there tomorrow. OBJECTIVE: GENERAL: When I examined him, he looked pale, but no jaundice, cyanosis or thyromegaly. No jugular venous distention. No lower limb edema. VITAL SIGNS: His heart rate was 62, blood pressure was 131/48, temperature 97.9, respiratory rate was 16, and oxygen saturation was 99% on 3 liters of oxygen. HEAD, EYES, EARS, NOSE AND THROAT: Normocephalic, atraumatic. NECK: Supple. HEART: Normal first and second heart sounds with no gallop, rub or murmur. CHEST: Clear to auscultation. No crepitation or rhonchi. ABDOMEN: Distended, soft, nontender. No guarding or rigidity. No organomegaly. All hernial orifice intact. Bowel sounds normal. NEUROLOGIC: He was awake, alert, responding appropriately. All cranial nerves are intact. He moves extremities without difficulty, ambulates with a walker. LABORATORY AND DIAGNOSTIC DATA: His lab work this morning showed his serum sodium 138, potassium 4.6, chloride 102, bicarbonate 30, anion gap of 6, BUN 53, creatinine 6.8, estimated GFR was 7.9 mL per minute, his glucose 84, calcium was 8.1. Total bilirubin, AST, ALT, alkaline phosphatase were normal. Total protein was 4.8 and albumin was 1.5. His white cell count was 5000, hemoglobin 7.3, hematocrit 23.5, MCV 95, and platelet count of 121,000. ASSESSMENT: 1. Anemia that is normochromic, normocytic. His H and H have been stable over the last 3 days with a hemoglobin of 7, hematocrit 22. He is scheduled for esophagogastroduodenoscopy this afternoon. 2. The patient has multiple other medical problems including: A. End-stage renal disease, on hemodialysis on Wednesday, Wednesday, Moris. B. Hypertension. C. Hyperlipidemia. 3. Atrial fibrillation. 4. Chronic obstructive pulmonary disease. 5. Bronchial asthma. 6. Obstructive sleep apnea. 7. Benign prostatic hypertrophy. 8. Generalized osteoarthritis. 9. Senile macular degeneration. 10. Chronic back pain. 11. Bilateral pleural effusions, more so on the left than right. PLAN: Obviously to await the result of the esophagogastroduodenoscopy. If he remains stable and H and H remains stable, he will be discharged to [facility]. RALEIGH ZHAO MD DR: TAYLOR/carly JOB#: [id number] / [id number]
[2020-01-01] MEDS ORDERED: PROPOFOL 10 MG/ML (20ML) VIAL. IV ONE (13:35)
[2020-01-01] MEDS ORDERED: LIDOCAINE 2% PF 5 ML VIAL. ONE (13:35)
--- NOTE | 2020-01-01 14:08 | PDOC4 ---
PROCEDURE Procedure EGD with biopsies Indication: Anemia, "dark stool" Meds: per anesthesia Findings: E--Grade B reflux esophagitis at 42cm. G--Macular white area mid-body, greater curve. Adherent med suspect--biopsied area x 2. D-Normal bulb. Unable to progress further secondary to looping in large stomach. Venancio. well. IMP: GERD Macular area, body REC: await biopsies. continue PPI. BEV SCHREIBER MD Jan 01, 2020 14:08
[2020-01-01 15:00] VITALS: BP_SYST 13; BP_SYST 133; BP_DIAS 44
[2020-01-01] MEDS: FOLIC/VIT B COMP W-C (RENAL) TABLET. PO SCH (16:08)
[2020-01-01] MEDS: TAMSULOSIN 0.4 MG CAP.ER.24H. PO SCH ×2 (16:08→21:33)
[2020-01-01] MEDS: ISOSORBIDE MONONITRATE ER 30 MG TAB.ER.24H PO SCH (16:09)
[2020-01-01] MEDS: CHOLECALCIFEROL (VITAMIN D3) 1,000 UNIT TABLET PO SCH (16:09)
[2020-01-01] MEDS: AMIODARONE HCL 200 MG TABLET. PO SCH (16:10)
[2020-01-01] MEDS: METOPROLOL TART IMMED RELEASE 25 MG TABLET. PO SCH (16:10)
--- NOTE | 2020-01-01 17:09 | PDOC2 ---
CONSULT Date of Consult Date of Consult DATE: 01/01/20 TIME: 16:51 Reason for Consult Reason for Consult: Long painful nails. Referring Physician Referring Physician: Dr. Gonzáles Identification/Chief Complaint Chief Complaint Patient with long and painful nails. Source Source: Patient History of Present Illness Reason for Visit: Patient was seen bedside this evening for long, painful nails. Patient reports that he gets thicker nails and the big toe nails get incurvated. Patient reports that usually he trims the nails himself. Patient had a fall and was admitted to the hospital. Past Medical History Cardiovascular: HTN, Hyperlipidemia Pulmonary: COPD CENTRAL NERVOUS SYSTEM: Other GI: No pertinent hx Heme/Onc: No pertinent hx Hepatobiliary: No pertinent hx Psych: No pertinent hx Musculoskeletal: Osteoarthritis Rheumatologic: No pertinent hx Infectious disease: No pertinent hx Renal/: Chronic renal failure, Benign prostatic enlarg. Endocrine: No pertinent hx, Hyperparathyroidism Past Surgical History Past Surgical History: Cataract Removal, Total knee replacement, Other Family History Family History: No Significant Social History Quit ALCOHOL: none Drugs: None Lives: Alone Domestic Violence: Neg Current Problem List Problem List Problems Medical Problems: (1) Weakness Status: Acute Current Medications Current Medications Current Medications Pantoprazole Sodium (PROTONIX VIAL for IV PUSH) 80 mg 1X ONCE IVP Last administered on 12/27/19at 05:31; Start 12/27/19 at 05:15; Stop 12/27/19 at 05:16; Status DC Pantoprazole Sodium 80 mg/ Sodium Chloride 100 ml @ 10 mls/hr Q10H IV Last administered on 12/28/19at 02:56; Start 12/27/19 at 05:15; Stop 12/28/19 at 13:00; Status DC Calcium Gluconate (Calcium Gluconate) 1,000 mg 1X ONCE IVP Last administered on 12/27/19at 05:53; Start 12/27/19 at 05:30; Stop 12/27/19 at 05:31; Status DC Insulin Human Regular (HumuLIN R VIAL) 10 unit 1X ONCE IV Last administered on 12/27/19at 05:58; Start 12/27/19 at 05:30; Stop 12/27/19 at 05:31; Status DC Dextrose (Dextrose 50%-Water Syringe) 50 gm 1X ONCE IV Last administered on 12/27/19at 05:46; Start 12/27/19 at 05:30; Stop 12/27/19 at 05:31; Status DC Ondansetron HCl (Zofran) 4 mg PRN Q8HRS PRN IV NAUSEA/VOMITING; Start 12/27/19 at 05:45; Stop 12/28/19 at 05:44; Status DC Ceftriaxone Sodium (Rocephin) 1 gm 1X ONCE IVP Last administered on 12/27/19at 06:25; Start 12/27/19 at 06:00; Stop 12/27/19 at 06:06; Status DC Azithromycin 250 ml @ 250 mls/hr 1X ONCE IV Last administered on 12/27/19at 06:25; Start 12/27/19 at 06:15; Stop 12/27/19 at 07:14; Status DC Sodium Chloride 1,000 ml @ 1,000 mls/hr Q1H PRN IV hypotension; Start 12/27/19 at 09:20; Stop 12/27/19 at 15:19; Status DC Sodium Chloride 1,000 ml @ 400 mls/hr Q2H30M PRN IV PATENCY; Start 12/27/19 at 09:20; Stop 12/27/19 at 21:19; Status DC Info (PHARMACY MONITORING -- do not chart) 1 each PRN DAILY PRN MC SEE COMMENTS; Start 12/27/19 at 09:30; Status Cancel Darbepoetin Cortes (ARANESP for DIALYSIS PTS) 60 mcg WEEKLYHS SQ Last administered on 12/27/19at 21:32; Start 12/27/19 at 21:00 Acetaminophen (Tylenol) 500 mg PRN Q6HRS PRN PO pain or fever; Start 12/27/19 at 12:00 Amiodarone HCl (Cordarone) 200 mg DAILY PO Last administered on 01/01/20at 16:10; Start 12/27/19 at 12:00 Atorvastatin Calcium (Lipitor) 10 mg HS PO Last administered on 12/31/19at 21:11; Start 12/27/19 at 21:00 Albuterol/ Ipratropium (Duoneb) 3 ml RTQID NEB Last administered on 01/01/20at 15:54; Start 12/27/19 at 12:00 Isosorbide Mononitrate (Imdur) 30 mg BID PO Last administered on 12/30/19 08:46; Start 12/27/19 at 12:00; Stop 12/30/19 at 13:45; Status DC Metoprolol Tartrate (Lopressor) 12.5 mg BID PO Last administered on 12/30/19 08:47; Start 12/27/19 at 12:00; Stop 12/30/19 at 13:45; Status DC Tamsulosin HCl (Flomax) 0.4 mg BID PO Last administered on 01/01/20at 16:08; Start 12/27/19 at 12:00 Albuterol Sulfate (Ventolin Neb Soln) 2.5 mg PRN Q6HRS PRN NEB SHORTNESS OF BREATH Last administered on 12/29/19 00:31; Start 12/27/19 at 12:00 Calcium Acetate (Phoslo) 667 mg TIDWMEALS PO Last administered on 12/31/19 16:51; Start 12/27/19 at 12:00 Vitamin D (Vitamin D3) 1,000 unit DAILY PO Last administered on 01/01/20 16:09; Start 12/27/19 at 12:00 Budesonide (Pulmicort) 0.5 mg RTBID NEB Last administered on 01/01/20 07:43; Start 12/27/19 at 12:00 Vitamin B Complex/ Vitamin C (Neha-Ronnie) 1 tab DAILY PO Last administered on 01/01/20at 16:08; Start 12/27/19 at 12:00 Zinc Sulfate (Orazinc) 220 mg DAILY PO Last administered on 12/31/19 08:22; Start 12/27/19 at 12:00 Non-Formulary Medication 1 ea [id number] PO Last administered on 12/29/19at 16:28; Start 12/28/19 at 07:00; Stop 12/29/19 at 23:11; Status DC Acetaminophen (Tylenol) 650 mg 1X PRN PRN PO PRE-TRANSFUSION Last administered on 12/28/19at 14:58; Start 12/28/19 at 08:15; Stop 12/28/19 at 15:01; Status DC Diphenhydramine HCl (Benadryl) 25 mg PRN 1X PRN PO PRE-TRANSFUSION; Start 12/28/19 at 08:15 Iron Sucrose 500 mg/Sodium Chloride 275 ml @ 78.571 mls/ hr 1X ONCE IV Last administered on 12/28/19at 12:42; Start 12/28/19 at 12:00; Stop 12/28/19 at 15:29; Status DC Pantoprazole Sodium (PROTONIX VIAL for IV PUSH) 40 mg BIDAC IVP Last administered on 12/28/19at 17:15; Start 12/28/19 at 16:30; Stop 12/29/19 at 13:32; Status DC Acetaminophen (Tylenol) 650 mg 1X PRN PRN PO PRE-TRANSFUSION; Start 12/28/19 at 20:00 Diphenhydramine HCl (Benadryl) 25 mg PRN 1X PRN PO PRE-TRANSFUSION; Start 12/28/19 at 20:00 Sodium Chloride 1,000 ml @ 1,000 mls/hr Q1H PRN IV hypotension; Start 12/29/19 at 07:38; Stop 12/29/19 at 13:37; Status DC Albumin Human 200 ml @ 200 mls/hr 1X PRN PRN IV Hypotension; Start 12/29/19 at 07:45; Stop 12/29/19 at 13:44; Status DC Sodium Chloride 1,000 ml @ 400 mls/hr Q2H30M PRN IV PATENCY; Start 12/29/19 at 07:38; Stop 12/29/19 at 19:37; Status DC Info (PHARMACY MONITORING -- do not chart) 1 each PRN DAILY PRN MC SEE COMMENTS; Start 12/29/19 at 07:45 Pantoprazole Sodium (Protonix) 40 mg BIDAC PO Last administered on 01/01/20at 16:09; Start 12/29/19 at 16:30 Non-Formulary Medication 1 ea BID PO Last administered on 01/01/20at 09:00; Start 12/30/19 at 09:00 Isosorbide Mononitrate (Imdur) 30 mg DAILY PO Last administered on 01/01/20at 16:09; Start 12/31/19 at 09:00 Metoprolol Tartrate (Lopressor) 12.5 mg DAILY PO Last administered on 01/01/20at 16:10; Start 12/31/19 at 09:00 Sodium Chloride 1,000 ml @ 1,000 mls/hr Q1H PRN IV hypotension; Start 01/01/20 at 09:24; Stop 01/01/20 at 15:23; Status DC Sodium Chloride 1,000 ml @ 400 mls/hr Q2H30M PRN IV PATENCY Last administered on 01/01/20at 13:25; Start 01/01/20 at 09:24; Stop 01/01/20 at 21:23 Info (PHARMACY MONITORING -- do not chart) 1 each PRN DAILY PRN MC SEE COMMENTS; Start 01/01/20 at 09:30 Propofol (Diprivan) 200 mg STK-MED ONCE IV ; Start 01/01/20 at 13:35; Stop 01/01/20 at 13:35; Status DC Lidocaine HCl (Lidocaine Pf 2% Vial) 5 ml STK-MED ONCE .ROUTE ; Start 01/01/20 at 13:35; Stop 01/01/20 at 13:35; Status DC Multivitamins (Thera M Plus) 1 tab DAILY PO ; Start 01/01/20 at 17:00 Active Scripts Active Isosorbide Mononitrate Er (Isosorbide Mononitrate) 30 Mg Tab.er.24h 30 Mg PO BID 30 Days Amiodarone Hcl 200 Mg Tablet 1 Tab PO DAILY 30 Days Duoneb 0.5-3(2.5) Mg/3 Ml (Albuterol/Ipratropium) 3 Ml Ampul.neb 3 Ml NEB RTQID 30 Days Reported Zinc Sulfate 220 Mg Tablet 1 Tab PO DAILY 30 Days Vitamin D3 (Cholecalciferol (Vitamin D3)) 25 Mcg Capsule 25 Mcg PO DAILY 1 Days Acetaminophen 500 Mg Tablet 1 Tab PO PRN Q6HRS PRN 15 Days Calcium Acetate 667 Mg Tablet 1 Cap PO TIDAC Metoprolol Tartrate 25 Mg Tablet 0.5 Tab PO BID [ahreds] 1 Cap PO BID Ahreds #2 Preservision, One softgel by mouth twice a day Dialyvite Tablet (Folic Acid/Vitamin B Comp W-C) 1 Each Tablet 1 Tab PO DAILY Advair 250-50 Diskus (Fluticasone/Salmeterol) 1 Each Disk.w.dev 1 Puff PO BID Aspirin Ec (Aspirin) 81 Mg Tablet. 1 Tab PO BID LAST DOSE GIVEN: DATE: 03/17/17 TIME: 1030 am so start taking this daily tomorrow Tamsulosin Hcl 0.4 Mg Cap.er.24h 0.4 Mg PO BID Ventolin Hfa Inhaler (Albuterol Sulfate) 18 Gm Hfa.aer.ad 2 Puff INH QID Atorvastatin Calcium 10 Mg Tablet 10 Mg PO HS Allergies Allergies: Coded Allergies: adhesive (Verified Allergy, Intermediate, 12/05/19) Skin irritation cetirizine (Verified Allergy, Intermediate, hives, 12/05/19) ROS Musculoskeletal: Yes Gait Disturbance, Yes Muscular Weakness Skin: Yes Nail Changes Physical Exam General: Alert, Oriented X3, No acute distress Extremities: Other (Faintly palpable pedal pulses, bilateral feet. Pitting edema noted to bilateral feet.) Skin: Other (Nails bilateral hallux and left 2nd digit are incurvated, elongated, thickened, dystorphic with subungal debris noted. Dry eschar noted at the left lateral malleolus measuring 1.8cm x 1.1cm. No erythema or edema noted. No eccymosis noted. No fluctuance noted. No drainage or bleeding noted. No malodor noted.) Neuro: Other (Epicritic sensation diminished at the level of digits when tested with semmes heather monofilament.) MUSCULOSKELETAL: Other (Mild POP at the incurvated nail sites, bilateral hallux.) Vitals VITALS Vital Signs Date Time Temp Pulse Resp B/P (MAP) Pulse Ox O2 Delivery O2 Flow Rate FiO2 01/01/20 16:10 61 133/44 01/01/20 15:56 95 Nasal Cannula 3.0 01/01/20 15:00 97.6 16 97.6 Labs Labs Laboratory Tests Test 12/31/19 05:30 01/01/20 08:08 Hemoglobin 7.2 g/dL (13.0-17.5) 7.3 g/dL (13.0-17.5) Hematocrit 23.3 % (39.0-53.0) 23.5 % (39.0-53.0) White Blood Count 5.0 x10^3/uL (4.0-11.0) Red Blood Count 2.46 x10^6/uL (4.30-5.70) Mean Corpuscular Volume 95 fL (79-100) Mean Corpuscular Hemoglobin 30 pg (25-35) Mean Corpuscular Hemoglobin Concent 31 g/dL (31-37) Red Cell Distribution Width 19.6 % (11.5-14.5) Platelet Count 121 x10^3/uL (140-400) Sodium Level 138 mmol/L (136-145) Potassium Level 4.6 mmol/L (3.5-5.1) Chloride Level 102 mmol/L (98-107) Carbon Dioxide Level 30 mmol/L (21-32) Anion Gap 6 (6-14) Blood Urea Nitrogen 53 mg/dL (8-26) Creatinine 6.8 mg/dL (0.7-1.3) Estimated GFR (Cockcroft-Gault) 7.9 BUN/Creatinine Ratio 8 (-20) Glucose Level 84 mg/dL (70-99) Calcium Level 8.1 mg/dL (8.5-10.1) Total Bilirubin 0.3 mg/dL (0.2-1.0) Aspartate Amino Transf (AST/SGOT) 16 U/L (15-37) Alanine Aminotransferase (ALT/SGPT) 17 U/L (16-63) Alkaline Phosphatase 44 U/L (46-116) Total Protein 4.8 g/dL (6.4-8.2) Albumin 1.5 g/dL (3.4-5.0) Albumin/Globulin Ratio 0.5 (1.0-1.7) Laboratory Tests Test 01/01/20 08:08 White Blood Count 5.0 x10^3/uL (4.0-11.0) Red Blood Count 2.46 x10^6/uL (4.30-5.70) Hemoglobin 7.3 g/dL (13.0-17.5) Hematocrit 23.5 % (39.0-53.0) Mean Corpuscular Volume 95 fL (79-100) Mean Corpuscular Hemoglobin 30 pg (25-35) Mean Corpuscular Hemoglobin Concent 31 g/dL (31-37) Red Cell Distribution Width 19.6 % (11.5-14.5) Platelet Count 121 x10^3/uL (140-400) Sodium Level 138 mmol/L (136-145) Potassium Level 4.6 mmol/L (3.5-5.1) Chloride Level 102 mmol/L (98-107) Carbon Dioxide Level 30 mmol/L (21-32) Anion Gap 6 (6-14) Blood Urea Nitrogen 53 mg/dL (8-26) Creatinine 6.8 mg/dL (0.7-1.3) Estimated GFR (Cockcroft-Gault) 7.9 BUN/Creatinine Ratio 8 (6-20) Glucose Level 84 mg/dL (70-99) Calcium Level 8.1 mg/dL (8.5-10.1) Total Bilirubin 0.3 mg/dL (0.2-1.0) Aspartate Amino Transf (AST/SGOT) 16 U/L (15-37) Alanine Aminotransferase (ALT/SGPT) 17 U/L (16-63) Alkaline Phosphatase 44 U/L (46-116) Total Protein 4.8 g/dL (6.4-8.2) Albumin 1.5 g/dL (3.4-5.0) Albumin/Globulin Ratio 0.5 (1.0-1.7) Assessment/Plan Assessment/Plan Onychomycosis and Onychocryptosis: Incurvated and fungal nails were debrided mecahnically and electrically. Rest of the nails were trimmed down. Discussed in detail with patient about nail care. Peripheral Neuopathy: Patient advised to check his feet for any issues especially with neuropathy in his extremities. Possible Pressure ulcer, left ankle: Discussed with patient about the dry eschar on the feet. Patient did not know that he had the scab. Patient does not recall how he got that. Discussed about either a possible injury when he fell causing the abrasion or possible pressure ulcer (as the patient lays on his left side). Patient advised to shift positions frequently. Discussed with nurse about he dry eschar. Recommended a offloading foam heel boot or a foam padding to the site. Nurse relates that she will apply a foam padding to the left ankle. Will sign off. If any issues please contact. Thank You, Dr. Aroldo Brunson DPM [phone] AROLDO BRUNSON DPM Jan 01, 2020 17:09
[2020-01-01] MEDS: MULTIVITAMIN with MINERAL TABLET. PO SCH (17:31)
--- NOTE | 2020-01-01 18:36 | PDOC ---
PROGRESS NOTES Date of Service DATE: 01/01/20 TIME: 18:26 Subjective Subjective No new concerns today. Possible EGD per GI. No bleeding. ROS negative for fever, chills, CP, N/V, diarrhea, bloody stools, flank pain. Objective Objective Vital Signs Date Time Temp Pulse Resp B/P (MAP) Pulse Ox O2 Delivery O2 Flow Rate FiO2 01/01/20 16:10 61 133/44 01/01/20 15:56 95 Nasal Cannula 3.0 01/01/20 15:00 97.6 16 97.6 Intake and Output 01/01/20 07:00 Intake Total 1040 ml Output Total 100 ml Balance 940 ml Intake Oral 1040 ml Output Urine Total 100 ml Physical Exam Abdomen: Normal bowel sounds, Soft Heart: Regular rate, Normal S1 General: Alert, Oriented X3 HEENT: Atraumatic Lungs: Clear to auscultation MUSCULOSKELETAL: No swelling Neck: Supple Neuro: Normal speech Skin: No rashes Assessment Assessment Assessment: Macrocytic anemia History of B12 deficiency ESRD on hemodialysis Generalized weakness Copper deficiency Plan Plan of Care -Noted result of repeat B12 level during prior hospital stay which was 300 and iron studies consistent with anemia of chronic disease -Copper level returned low at 16. Suspect that weakness and anemia are partly secondary to copper deficiency. -Myelopathy and anemia are commonly seen in copper deficiency -He has no hx of gastric surgeries that would explain copper deficiency. 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 -I ordered a zinc level -Discussed with hospital pharmacist. We do not carry copper compounds but Multivitamin with minerals (Thera-M) contains 2 mg of copper. Placed orders for this to be started today. I recommend this be continued at hospital discharge -Will request follow-up in my clinic in 4 weeks time -Patient reports no clinically evident GI bleeding. Defer further work-up to GI service -Other care per hospitalist physician Comment Review of Relevant I have reviewed the following items ron (where applicable) has been applied. Labs Laboratory Tests Test 12/31/19 05:30 01/01/20 08:08 Hemoglobin 7.2 g/dL (13.0-17.5) 7.3 g/dL (13.0-17.5) Hematocrit 23.3 % (39.0-53.0) 23.5 % (39.0-53.0) White Blood Count 5.0 x10^3/uL (4.0-11.0) Red Blood Count 2.46 x10^6/uL (4.30-5.70) Mean Corpuscular Volume 95 fL (79-100) Mean Corpuscular Hemoglobin 30 pg (25-35) Mean Corpuscular Hemoglobin Concent 31 g/dL (31-37) Red Cell Distribution Width 19.6 % (11.5-14.5) Platelet Count 121 x10^3/uL (140-400) Sodium Level 138 mmol/L (136-145) Potassium Level 4.6 mmol/L (3.5-5.1) Chloride Level 102 mmol/L (98-107) Carbon Dioxide Level 30 mmol/L (21-32) Anion Gap 6 (6-14) Blood Urea Nitrogen 53 mg/dL (8-26) Creatinine 6.8 mg/dL (0.7-1.3) Estimated GFR (Cockcroft-Gault) 7.9 BUN/Creatinine Ratio 8 (6-20) Glucose Level 84 mg/dL (70-99) Calcium Level 8.1 mg/dL (8.5-10.1) Total Bilirubin 0.3 mg/dL (0.2-1.0) Aspartate Amino Transf (AST/SGOT) 16 U/L (15-37) Alanine Aminotransferase (ALT/SGPT) 17 U/L (16-63) Alkaline Phosphatase 44 U/L (46-116) Total Protein 4.8 g/dL (6.4-8.2) Albumin 1.5 g/dL (3.4-5.0) Albumin/Globulin Ratio 0.5 (1.0-1.7) Laboratory Tests Test 01/01/20 08:08 White Blood Count 5.0 x10^3/uL (4.0-11.0) Red Blood Count 2.46 x10^6/uL (4.30-5.70) Hemoglobin 7.3 g/dL (13.0-17.5) Hematocrit 23.5 % (39.0-53.0) Mean Corpuscular Volume 95 fL (79-100) Mean Corpuscular Hemoglobin 30 pg (25-35) Mean Corpuscular Hemoglobin Concent 31 g/dL (31-37) Red Cell Distribution Width 19.6 % (11.5-14.5) Platelet Count 121 x10^3/uL (140-400) Sodium Level 138 mmol/L (136-145) Potassium Level 4.6 mmol/L (3.5-5.1) Chloride Level 102 mmol/L (98-107) Carbon Dioxide Level 30 mmol/L (21-32) Anion Gap 6 (6-14) Blood Urea Nitrogen 53 mg/dL (8-26) Creatinine 6.8 mg/dL (0.7-1.3) Estimated GFR (Cockcroft-Gault) 7.9 BUN/Creatinine Ratio 8 (6-20) Glucose Level 84 mg/dL (70-99) Calcium Level 8.1 mg/dL (8.5-10.1) Total Bilirubin 0.3 mg/dL (0.2-1.0) Aspartate Amino Transf (AST/SGOT) 16 U/L (15-37) Alanine Aminotransferase (ALT/SGPT) 17 U/L (16-63) Alkaline Phosphatase 44 U/L (46-116) Total Protein 4.8 g/dL (6.4-8.2) Albumin 1.5 g/dL (3.4-5.0) Albumin/Globulin Ratio 0.5 (1.0-1.7) Microbiology 12/27/19 Blood Culture - Final, Complete NO GROWTH AFTER 5 DAYS Medications Current Medications Pantoprazole Sodium (PROTONIX VIAL for IV PUSH) 80 mg 1X ONCE IVP Last administered on 12/27/19at 05:31; Start 12/27/19 at 05:15; Stop 12/27/19 at 05:16; Status DC Pantoprazole Sodium 80 mg/ Sodium Chloride 100 ml @ 10 mls/hr Q10H IV Last administered on 12/28/19at 02:56; Start 12/27/19 at 05:15; Stop 12/28/19 at 13:00; Status DC Calcium Gluconate (Calcium Gluconate) 1,000 mg 1X ONCE IVP Last administered on 12/27/19at 05:53; Start 12/27/19 at 05:30; Stop 12/27/19 at 05:31; Status DC Insulin Human Regular (HumuLIN R VIAL) 10 unit 1X ONCE IV Last administered on 12/27/19at 05:58; Start 12/27/19 at 05:30; Stop 12/27/19 at 05:31; Status DC Dextrose (Dextrose 50%-Water Syringe) 50 gm 1X ONCE IV Last administered on 12/27/19at 05:46; Start 12/27/19 at 05:30; Stop 12/27/19 at 05:31; Status DC Ondansetron HCl (Zofran) 4 mg PRN Q8HRS PRN IV NAUSEA/VOMITING; Start 12/27/19 at 05:45; Stop 12/28/19 at 05:44; Status DC Ceftriaxone Sodium (Rocephin) 1 gm 1X ONCE IVP Last administered on 12/27/19at 06:25; Start 12/27/19 at 06:00; Stop 12/27/19 at 06:06; Status DC Azithromycin 250 ml @ 250 mls/hr 1X ONCE IV Last administered on 12/27/19at 06:25; Start 12/27/19 at 06:15; Stop 12/27/19 at 07:14; Status DC Sodium Chloride 1,000 ml @ 1,000 mls/hr Q1H PRN IV hypotension; Start 12/27/19 at 09:20; Stop 12/27/19 at 15:19; Status DC Sodium Chloride 1,000 ml @ 400 mls/hr Q2H30M PRN IV PATENCY; Start 12/27/19 at 09:20; Stop 12/27/19 at 21:19; Status DC Info (PHARMACY MONITORING -- do not chart) 1 each PRN DAILY PRN MC SEE COMMENTS; Start 12/27/19 at 09:30; Status Cancel Darbepoetin Cortes (ARANESP for DIALYSIS PTS) 60 mcg WEEKLYHS SQ Last administered on 12/27/19at 21:32; Start 12/27/19 at 21:00 Acetaminophen (Tylenol) 500 mg PRN Q6HRS PRN PO pain or fever; Start 12/27/19 at 12:00 Amiodarone HCl (Cordarone) 200 mg DAILY PO Last administered on 01/01/20at 16:10; Start 12/27/19 at 12:00 Atorvastatin Calcium (Lipitor) 10 mg HS PO Last administered on 12/31/19at 21:11; Start 12/27/19 at 21:00 Albuterol/ Ipratropium (Duoneb) 3 ml RTQID NEB Last administered on 01/01/20 15:54; Start 12/27/19 at 12:00 Isosorbide Mononitrate (Imdur) 30 mg BID PO Last administered on 12/30/19 08:46; Start 12/27/19 at 12:00; Stop 12/30/19 at 13:45; Status DC Metoprolol Tartrate (Lopressor) 12.5 mg BID PO Last administered on 12/30/19 08:47; Start 12/27/19 at 12:00; Stop 12/30/19 at 13:45; Status DC Tamsulosin HCl (Flomax) 0.4 mg BID PO Last administered on 01/01/20 16:08; Start 12/27/19 at 12:00 Albuterol Sulfate (Ventolin Neb Soln) 2.5 mg PRN Q6HRS PRN NEB SHORTNESS OF BREATH Last administered on 12/29/19 00:31; Start 12/27/19 at 12:00 Calcium Acetate (Phoslo) 667 mg TIDWMEALS PO Last administered on 01/01/20 17:31; Start 12/27/19 at 12:00 Vitamin D (Vitamin D3) 1,000 unit DAILY PO Last administered on 01/01/20 16:09; Start 12/27/19 at 12:00 Budesonide (Pulmicort) 0.5 mg RTBID NEB Last administered on 01/01/20 07:43; Start 12/27/19 at 12:00 Vitamin B Complex/ Vitamin C (Neha-Ronnie) 1 tab DAILY PO Last administered on 01/01/20 16:08; Start 12/27/19 at 12:00 Zinc Sulfate (Orazinc) 220 mg DAILY PO Last administered on 12/31/19 08:22; Start 12/27/19 at 12:00 Non-Formulary Medication 1 ea [id number] PO Last administered on 12/29/19 16:28; Start 12/28/19 at 07:00; Stop 12/29/19 at 23:11; Status DC Acetaminophen (Tylenol) 650 mg 1X PRN PRN PO PRE-TRANSFUSION Last administered on 12/28/19 14:58; Start 12/28/19 at 08:15; Stop 12/28/19 at 15:01; Status DC Diphenhydramine HCl (Benadryl) 25 mg PRN 1X PRN PO PRE-TRANSFUSION; Start 12/28/19 at 08:15 Iron Sucrose 500 mg/Sodium Chloride 275 ml @ 78.571 mls/ hr 1X ONCE IV Last administered on 12/28/19at 12:42; Start 12/28/19 at 12:00; Stop 12/28/19 at 15:29; Status DC Pantoprazole Sodium (PROTONIX VIAL for IV PUSH) 40 mg BIDAC IVP Last administered on 12/28/19at 17:15; Start 12/28/19 at 16:30; Stop 12/29/19 at 13:32; Status DC Acetaminophen (Tylenol) 650 mg 1X PRN PRN PO PRE-TRANSFUSION; Start 12/28/19 at 20:00 Diphenhydramine HCl (Benadryl) 25 mg PRN 1X PRN PO PRE-TRANSFUSION; Start 12/28/19 at 20:00 Sodium Chloride 1,000 ml @ 1,000 mls/hr Q1H PRN IV hypotension; Start 12/29/19 at 07:38; Stop 12/29/19 at 13:37; Status DC Albumin Human 200 ml @ 200 mls/hr 1X PRN PRN IV Hypotension; Start 12/29/19 at 07:45; Stop 12/29/19 at 13:44; Status DC Sodium Chloride 1,000 ml @ 400 mls/hr Q2H30M PRN IV PATENCY; Start 12/29/19 at 07:38; Stop 12/29/19 at 19:37; Status DC Info (PHARMACY MONITORING -- do not chart) 1 each PRN DAILY PRN MC SEE COMMENTS; Start 12/29/19 at 07:45 Pantoprazole Sodium (Protonix) 40 mg BIDAC PO Last administered on 01/01/20at 16:09; Start 12/29/19 at 16:30 Non-Formulary Medication 1 ea BID PO Last administered on 01/01/20at 09:00; Start 12/30/19 at 09:00 Isosorbide Mononitrate (Imdur) 30 mg DAILY PO Last administered on 01/01/20at 16:09; Start 12/31/19 at 09:00 Metoprolol Tartrate (Lopressor) 12.5 mg DAILY PO Last administered on 01/01/20at 16:10; Start 12/31/19 at 09:00 Sodium Chloride 1,000 ml @ 1,000 mls/hr Q1H PRN IV hypotension; Start 01/01/20 at 09:24; Stop 01/01/20 at 15:23; Status DC Sodium Chloride 1,000 ml @ 400 mls/hr Q2H30M PRN IV PATENCY Last administered on 01/01/20at 13:25; Start 01/01/20 at 09:24; Stop 01/01/20 at 21:23 Info (PHARMACY MONITORING -- do not chart) 1 each PRN DAILY PRN MC SEE COMMENTS; Start 01/01/20 at 09:30 Propofol (Diprivan) 200 mg STK-MED ONCE IV ; Start 01/01/20 at 13:35; Stop 01/01/20 at 13:35; Status DC Lidocaine HCl (Lidocaine Pf 2% Vial) 5 ml STK-MED ONCE .ROUTE ; Start 01/01/20 at 13:35; Stop 01/01/20 at 13:35; Status DC Multivitamins (Thera M Plus) 1 tab DAILY PO Last administered on 01/01/20at 17:31; Start 01/01/20 at 17:00 Active Scripts Active Isosorbide Mononitrate Er (Isosorbide Mononitrate) 30 Mg Tab.er.24h 30 Mg PO BID 30 Days Amiodarone Hcl 200 Mg Tablet 1 Tab PO DAILY 30 Days Duoneb 0.5-3(2.5) Mg/3 Ml (Albuterol/Ipratropium) 3 Ml Ampul.neb 3 Ml NEB RTQID 30 Days Reported Zinc Sulfate 220 Mg Tablet 1 Tab PO DAILY 30 Days Vitamin D3 (Cholecalciferol (Vitamin D3)) 25 Mcg Capsule 25 Mcg PO DAILY 1 Days Acetaminophen 500 Mg Tablet 1 Tab PO PRN Q6HRS PRN 15 Days Calcium Acetate 667 Mg Tablet 1 Cap PO TIDAC Metoprolol Tartrate 25 Mg Tablet 0.5 Tab PO BID [ahreds] 1 Cap PO BID Ahreds #2 Preservision, One softgel by mouth twice a day Dialyvite Tablet (Folic Acid/Vitamin B Comp W-C) 1 Each Tablet 1 Tab PO DAILY Advair 250-50 Diskus (Fluticasone/Salmeterol) 1 Each Disk.w.dev 1 Puff PO BID Aspirin Ec (Aspirin) 81 Mg Tablet. 1 Tab PO BID LAST DOSE GIVEN: DATE: 03/17/17 TIME: 1030 am so start taking this daily tomorrow Tamsulosin Hcl 0.4 Mg Cap.er.24h 0.4 Mg PO BID Ventolin Hfa Inhaler (Albuterol Sulfate) 18 Gm Hfa.aer.ad 2 Puff INH QID Atorvastatin Calcium 10 Mg Tablet 10 Mg PO HS Vitals/I & O Vital Sign - Last 24 Hours 12/31/19 12/31/19 12/31/19 12/31/19 19:40 19:42 19:43 20:00 Temp 97.7 97.7 Pulse 62 Resp 21 B/P (MAP) 143/48 (79) Pulse Ox 97 96 96 O2 Delivery Nasal Cannula Nasal Cannula Nasal Cannula Nasal Cannula O2 Flow Rate 3.0 3.5 3.5 3.5 12/31/19 01/01/20 01/01/20 01/01/20 23:45 03:15 07:00 07:45 Temp 97.9 97.5 97.9 97.9 97.5 97.9 Pulse 58 59 62 Resp 21 18 16 B/P (MAP) 142/44 (76) 125/46 (72) 131/48 (75) Pulse Ox 96 95 96 99 O2 Delivery Nasal Cannula Nasal Cannula Nasal Cannula Nasal Cannula O2 Flow Rate 3.0 3.0 3.5 3.0 01/01/20 01/01/20 01/01/20 01/01/20 08:00 13:30 13:40 14:05 Temp 97.9 98.1 97.9 98.1 Pulse 62 62 Resp 17 16 B/P (MAP) 125/59 Pulse Ox 89 100 O2 Delivery Nasal Cannula Nasal Cannula Nasal Cannula O2 Flow Rate 3.0 10 01/01/20 01/01/20 01/01/20 01/01/20 14:20 15:00 15:56 16:09 Temp 97.6 97.6 Pulse 62 61 61 Resp 16 16 B/P (MAP) 127/59 133/44 (73) 133/44 Pulse Ox 100 95 95 O2 Delivery Simple Mask Nasal Cannula Nasal Cannula O2 Flow Rate 10 3.5 3.0 01/01/20 01/01/20 16:10 16:10 Pulse 61 61 B/P (MAP) 133/44 133/44 Intake and Output 12/31/19 12/31/19 01/01/20 15:00 23:00 07:00 Intake Total 360 ml 280 ml 400 ml Output Total 100 ml 0 ml Balance 360 ml 180 ml 400 ml Justicifation of Admission Dx: Justifications for Admission: Justification of Admission Dx: Yes JAQUELIN HORTON MD Jan 01, 2020 18:36
[2020-01-01 19:00] VITALS: BP 110/65
[2020-01-01] MEDS: ATORVASTATIN CALCIUM 10 MG TABLET. PO SCH (21:33)
[2020-01-01 23:00] VITALS: BP 130/47
[2020-01-02 03:00] VITALS: BP 117/43
[2020-01-02 06:18] LABS: HEMATOCRIT 22.6 % (39.0-53.0); HEMOGLOBIN 7.1 g/dL (13.0-17.5)
[2020-01-02 07:00] VITALS: BP 118/46
[2020-01-02] MEDS: IPRATRPIUM/ALBUTEROL 0.5/2.5MG 3 ML NEBU. NEB SCH ×2 (08:00→11:20)
[2020-01-02] MEDS: BUDESONIDE 0.5 MG/2 ML NEBU. NEB SCH (08:00)
[2020-01-02] MEDS: ZINC SULFATE 220 MG CAPSULE. PO SCH (08:22)
[2020-01-02] MEDS: CALCIUM ACETATE 667 MG CAPSULE PO SCH ×2 (08:22→12:27)
[2020-01-02] MEDS: CHOLECALCIFEROL (VITAMIN D3) 1,000 UNIT TABLET PO SCH (08:22)
[2020-01-02] MEDS: MULTIVITAMIN with MINERAL TABLET. PO SCH (08:23)
[2020-01-02] MEDS: TAMSULOSIN 0.4 MG CAP.ER.24H. PO SCH (08:23)
[2020-01-02] MEDS: PANTOPRAZOLE 40 MG TABLET.DR. PO SCH (08:23)
[2020-01-02] MEDS: FOLIC/VIT B COMP W-C (RENAL) TABLET. PO SCH (08:23)
[2020-01-02] MEDS: ISOSORBIDE MONONITRATE ER 30 MG TAB.ER.24H PO SCH (08:25)
[2020-01-02] MEDS: AMIODARONE HCL 200 MG TABLET. PO SCH (08:26)
[2020-01-02] MEDS: METOPROLOL TART IMMED RELEASE 25 MG TABLET. PO SCH (08:27)
[2020-01-02] MEDS: AREDS 2 PO SCH (08:27)
--- NOTE | 2020-01-02 08:29 | PDOC ---
PROGRESS NOTES Date of Service DATE: 01/02/20 TIME: 08:27 Subjective Subjective No new complaints. Objective Objective Vital Signs Date Time Temp Pulse Resp B/P (MAP) Pulse Ox O2 Delivery O2 Flow Rate FiO2 01/02/20 08:11 98 Nasal Cannula 3.5 01/02/20 03:00 97.7 53 20 117/43 (67) 97.7 Intake and Output 01/02/20 07:00 Intake Total 390 ml Output Total 150 ml Balance 240 ml Intake Oral 290 ml IV Total 100 ml Output Urine Total 150 ml Physical Exam Physical Exam He is alert,supine in bed and has not tried lumbar support yet. Assessment Assessment Problems Medical Problems: (1) Weakness Status: Acute Plan Plan of Care To try small abdominal binder as lumbar corset for use while up. Comment Review of Relevant I have reviewed the following items ron (where applicable) has been applied. Labs Laboratory Tests Test 01/01/20 08:08 01/02/20 05:33 White Blood Count 5.0 x10^3/uL (4.0-11.0) Red Blood Count 2.46 x10^6/uL (4.30-5.70) Hemoglobin 7.3 g/dL (13.0-17.5) 7.1 g/dL (13.0-17.5) Hematocrit 23.5 % (39.0-53.0) 22.6 % (39.0-53.0) Mean Corpuscular Volume 95 fL (79-100) Mean Corpuscular Hemoglobin 30 pg (25-35) Mean Corpuscular Hemoglobin Concent 31 g/dL (31-37) Red Cell Distribution Width 19.6 % (11.5-14.5) Platelet Count 121 x10^3/uL (140-400) Sodium Level 138 mmol/L (136-145) Potassium Level 4.6 mmol/L (3.5-5.1) Chloride Level 102 mmol/L (98-107) Carbon Dioxide Level 30 mmol/L (21-32) Anion Gap 6 (6-14) Blood Urea Nitrogen 53 mg/dL (8-26) Creatinine 6.8 mg/dL (0.7-1.3) Estimated GFR (Cockcroft-Gault) 7.9 BUN/Creatinine Ratio 8 (6-20) Glucose Level 84 mg/dL (70-99) Calcium Level 8.1 mg/dL (8.5-10.1) Total Bilirubin 0.3 mg/dL (0.2-1.0) Aspartate Amino Transf (AST/SGOT) 16 U/L (15-37) Alanine Aminotransferase (ALT/SGPT) 17 U/L (16-63) Alkaline Phosphatase 44 U/L (46-116) Total Protein 4.8 g/dL (6.4-8.2) Albumin 1.5 g/dL (3.4-5.0) Albumin/Globulin Ratio 0.5 (1.0-1.7) Laboratory Tests Test 01/02/20 05:33 Hemoglobin 7.1 g/dL (13.0-17.5) Hematocrit 22.6 % (39.0-53.0) Microbiology 12/27/19 Blood Culture - Final, Complete NO GROWTH AFTER 5 DAYS Medications Current Medications Pantoprazole Sodium (PROTONIX VIAL for IV PUSH) 80 mg 1X ONCE IVP Last administered on 12/27/19at 05:31; Start 12/27/19 at 05:15; Stop 12/27/19 at 05:16; Status DC Pantoprazole Sodium 80 mg/ Sodium Chloride 100 ml @ 10 mls/hr Q10H IV Last administered on 12/28/19at 02:56; Start 12/27/19 at 05:15; Stop 12/28/19 at 13:00; Status DC Calcium Gluconate (Calcium Gluconate) 1,000 mg 1X ONCE IVP Last administered on 12/27/19at 05:53; Start 12/27/19 at 05:30; Stop 12/27/19 at 05:31; Status DC Insulin Human Regular (HumuLIN R VIAL) 10 unit 1X ONCE IV Last administered on 12/27/19at 05:58; Start 12/27/19 at 05:30; Stop 12/27/19 at 05:31; Status DC Dextrose (Dextrose 50%-Water Syringe) 50 gm 1X ONCE IV Last administered on 12/27/19at 05:46; Start 12/27/19 at 05:30; Stop 12/27/19 at 05:31; Status DC Ondansetron HCl (Zofran) 4 mg PRN Q8HRS PRN IV NAUSEA/VOMITING; Start 12/27/19 at 05:45; Stop 12/28/19 at 05:44; Status DC Ceftriaxone Sodium (Rocephin) 1 gm 1X ONCE IVP Last administered on 12/27/19at 06:25; Start 12/27/19 at 06:00; Stop 12/27/19 at 06:06; Status DC Azithromycin 250 ml @ 250 mls/hr 1X ONCE IV Last administered on 12/27/19at 06:25; Start 12/27/19 at 06:15; Stop 12/27/19 at 07:14; Status DC Sodium Chloride 1,000 ml @ 1,000 mls/hr Q1H PRN IV hypotension; Start 12/27/19 at 09:20; Stop 12/27/19 at 15:19; Status DC Sodium Chloride 1,000 ml @ 400 mls/hr Q2H30M PRN IV PATENCY; Start 12/27/19 at 09:20; Stop 12/27/19 at 21:19; Status DC Info (PHARMACY MONITORING -- do not chart) 1 each PRN DAILY PRN MC SEE COMMENTS; Start 12/27/19 at 09:30; Status Cancel Darbepoetin Cortes (ARANESP for DIALYSIS PTS) 60 mcg WEEKLYHS SQ Last administered on 12/27/19at 21:32; Start 12/27/19 at 21:00 Acetaminophen (Tylenol) 500 mg PRN Q6HRS PRN PO pain or fever; Start 12/27/19 at 12:00 Amiodarone HCl (Cordarone) 200 mg DAILY PO Last administered on 01/01/20at 16:10; Start 12/27/19 at 12:00 Atorvastatin Calcium (Lipitor) 10 mg HS PO Last administered on 01/01/20at 21:33; Start 12/27/19 at 21:00 Albuterol/ Ipratropium (Duoneb) 3 ml RTQID NEB Last administered on 01/02/20at 08:00; Start 12/27/19 at 12:00 Isosorbide Mononitrate (Imdur) 30 mg BID PO Last administered on 12/30/19at 08:46; Start 12/27/19 at 12:00; Stop 12/30/19 at 13:45; Status DC Metoprolol Tartrate (Lopressor) 12.5 mg BID PO Last administered on 12/30/19at 08:47; Start 12/27/19 at 12:00; Stop 12/30/19 at 13:45; Status DC Tamsulosin HCl (Flomax) 0.4 mg BID PO Last administered on 01/01/20at 21:33; Start 12/27/19 at 12:00 Albuterol Sulfate (Ventolin Neb Soln) 2.5 mg PRN Q6HRS PRN NEB SHORTNESS OF BREATH Last administered on 12/29/19at 00:31; Start 12/27/19 at 12:00 Calcium Acetate (Phoslo) 667 mg TIDWMEALS PO Last administered on 01/01/20at 17:31; Start 12/27/19 at 12:00 Vitamin D (Vitamin D3) 1,000 unit DAILY PO Last administered on 01/01/20 16:09; Start 12/27/19 at 12:00 Budesonide (Pulmicort) 0.5 mg RTBID NEB Last administered on 01/02/20at 08:00; Start 12/27/19 at 12:00 Vitamin B Complex/ Vitamin C (Neha-Ronnie) 1 tab DAILY PO Last administered on 01/01/20at 16:08; Start 12/27/19 at 12:00 Zinc Sulfate (Orazinc) 220 mg DAILY PO Last administered on 12/31/19 08:22; Start 12/27/19 at 12:00 Non-Formulary Medication 1 ea [id number] PO Last administered on 12/29/19at 16:28; Start 12/28/19 at 07:00; Stop 12/29/19 at 23:11; Status DC Acetaminophen (Tylenol) 650 mg 1X PRN PRN PO PRE-TRANSFUSION Last administered on 12/28/19at 14:58; Start 12/28/19 at 08:15; Stop 12/28/19 at 15:01; Status DC Diphenhydramine HCl (Benadryl) 25 mg PRN 1X PRN PO PRE-TRANSFUSION; Start 12/28/19 at 08:15 Iron Sucrose 500 mg/Sodium Chloride 275 ml @ 78.571 mls/ hr 1X ONCE IV Last administered on 12/28/19at 12:42; Start 12/28/19 at 12:00; Stop 12/28/19 at 15:29; Status DC Pantoprazole Sodium (PROTONIX VIAL for IV PUSH) 40 mg BIDAC IVP Last administered on 12/28/19at 17:15; Start 12/28/19 at 16:30; Stop 12/29/19 at 13:32; Status DC Acetaminophen (Tylenol) 650 mg 1X PRN PRN PO PRE-TRANSFUSION; Start 12/28/19 at 20:00 Diphenhydramine HCl (Benadryl) 25 mg PRN 1X PRN PO PRE-TRANSFUSION; Start 12/28/19 at 20:00 Sodium Chloride 1,000 ml @ 1,000 mls/hr Q1H PRN IV hypotension; Start 12/29/19 at 07:38; Stop 12/29/19 at 13:37; Status DC Albumin Human 200 ml @ 200 mls/hr 1X PRN PRN IV Hypotension; Start 12/29/19 at 07:45; Stop 12/29/19 at 13:44; Status DC Sodium Chloride 1,000 ml @ 400 mls/hr Q2H30M PRN IV PATENCY; Start 12/29/19 at 07:38; Stop 12/29/19 at 19:37; Status DC Info (PHARMACY MONITORING -- do not chart) 1 each PRN DAILY PRN MC SEE COMMENTS; Start 12/29/19 at 07:45 Pantoprazole Sodium (Protonix) 40 mg BIDAC PO Last administered on 01/01/20at 16:09; Start 12/29/19 at 16:30 Non-Formulary Medication 1 ea BID PO Last administered on 01/01/20at 21:00; Start 12/30/19 at 09:00 Isosorbide Mononitrate (Imdur) 30 mg DAILY PO Last administered on 01/01/20at 16:09; Start 12/31/19 at 09:00 Metoprolol Tartrate (Lopressor) 12.5 mg DAILY PO Last administered on 01/01/20at 16:10; Start 12/31/19 at 09:00 Sodium Chloride 1,000 ml @ 1,000 mls/hr Q1H PRN IV hypotension; Start 01/01/20 at 09:24; Stop 01/01/20 at 15:23; Status DC Sodium Chloride 1,000 ml @ 400 mls/hr Q2H30M PRN IV PATENCY Last administered on 01/01/20at 13:25; Start 01/01/20 at 09:24; Stop 01/01/20 at 21:23; Status DC Info (PHARMACY MONITORING -- do not chart) 1 each PRN DAILY PRN MC SEE COMMENTS; Start 01/01/20 at 09:30 Propofol (Diprivan) 200 mg STK-MED ONCE IV ; Start 01/01/20 at 13:35; Stop at 13:35; Status DC Lidocaine HCl (Lidocaine Pf 2% Vial) 5 ml STK-MED ONCE .ROUTE ; Start 01/01/20 at 13:35; Stop 01/01/20 at 13:35; Status DC Multivitamins (Thera M Plus) 1 tab DAILY PO Last administered on 01/01/20at 17:31; Start 01/01/20 at 17:00 Active Scripts Active Isosorbide Mononitrate Er (Isosorbide Mononitrate) 30 Mg Tab.er.24h 30 Mg PO BID 30 Days Amiodarone Hcl 200 Mg Tablet 1 Tab PO DAILY 30 Days Duoneb 0.5-3(2.5) Mg/3 Ml (Albuterol/Ipratropium) 3 Ml Ampul.neb 3 Ml NEB RTQID 30 Days Reported Zinc Sulfate 220 Mg Tablet 1 Tab PO DAILY 30 Days Vitamin D3 (Cholecalciferol (Vitamin D3)) 25 Mcg Capsule 25 Mcg PO DAILY 1 Days Acetaminophen 500 Mg Tablet 1 Tab PO PRN Q6HRS PRN 15 Days Calcium Acetate 667 Mg Tablet 1 Cap PO TIDAC Metoprolol Tartrate 25 Mg Tablet 0.5 Tab PO BID [ahreds] 1 Cap PO BID Ahreds #2 Preservision, One softgel by mouth twice a day Dialyvite Tablet (Folic Acid/Vitamin B Comp W-C) 1 Each Tablet 1 Tab PO DAILY Advair 250-50 Diskus (Fluticasone/Salmeterol) 1 Each Disk.w.dev 1 Puff PO BID Aspirin Ec (Aspirin) 81 Mg Tablet. 1 Tab PO BID LAST DOSE GIVEN: DATE: 03/17/17 TIME: 1030 am so start taking this daily tomorrow Tamsulosin Hcl 0.4 Mg Cap.er.24h 0.4 Mg PO BID Ventolin Hfa Inhaler (Albuterol Sulfate) 18 Gm Hfa.aer.ad 2 Puff INH QID Atorvastatin Calcium 10 Mg Tablet 10 Mg PO HS Vitals/I & O Vital Sign - Last 24 Hours 8/17/20 8/17/20 8/17/20 8/17/20 13:30 13:40 14:05 14:20 Temp 97.9 98.1 97.9 98.1 Pulse 62 62 62 Resp 17 16 16 B/P (MAP) 125/59 127/59 Pulse Ox 89 100 100 O2 Delivery Nasal Cannula Nasal Cannula Simple Mask O2 Flow Rate 10 10 01/01/20 01/01/20 01/01/20 01/01/20 15:00 15:56 16:09 16:10 Temp 97.6 97.6 Pulse 61 61 61 Resp 16 B/P (MAP) 133/44 (73) 133/44 133/44 Pulse Ox 95 95 O2 Delivery Nasal Cannula Nasal Cannula O2 Flow Rate 3.5 3.0 01/01/20 01/01/20 01/01/20 01/01/20 16:10 19:00 19:24 19:25 Temp 98.4 98.4 Pulse 61 59 Resp 20 B/P (MAP) 133/44 110/65 (80) Pulse Ox 95 95 95 O2 Delivery Nasal Cannula Nasal Cannula Nasal Cannula O2 Flow Rate 3.0 3.5 3.5 01/01/20 01/01/20 01/02/20 01/02/20 20:00 23:00 03:00 08:08 Temp 97.6 97.7 97.6 97.7 Pulse 57 53 Resp 20 20 B/P (MAP) 130/47 (74) 117/43 (67) Pulse Ox 98 99 98 O2 Delivery Nasal Cannula Nasal Cannula Nasal Cannula Nasal Cannula O2 Flow Rate 3.0 3.0 3.0 3.5 01/02/20 08:11 Pulse Ox 98 O2 Delivery Nasal Cannula O2 Flow Rate 3.5 Intake and Output 01/01/20 01/01/20 01/02/20 15:00 23:00 07:00 Intake Total 100 ml 290 ml 0 ml Output Total 50 ml 100 ml Balance 100 ml 240 ml -100 ml Justicifation of Admission Dx: Justifications for Admission: Justification of Admission Dx: Yes MANDY BECKFORD MD Jan 02, 2020 08:29
[2020-01-02] MEDS ORDERED: CYAN10002 IM (09:51)
[2020-01-02] MEDS ORDERED: PANT40TA77 PO (09:51)
--- NOTE | 2020-01-02 09:54 | SNU/HH DC ---
DISCHARGE WITH HOME HEALTH DISCHARGE INFORMATION: Discharge Date: Jan 02, 2020 Final Diagnosis: Problems Medical Problems: (1) Weakness Status: Acute Condition on Discharge: Stable CODE STATUS: Code Status: Full HOME HEALTH: Face to Face: I certify this patient is under my care and that I, or a nurse practitioner or physician's volleyball assistant coach working with me, had a face to face encounter that meets the physician face to face encounter requirements with this patient on 01/02/2020 Medical Complications: Other Correction For: Admin/Educate Injections RN For Eval/Treatment: Yes Physical Therapy For: Evalulation/Treatment Occupational Therapy For: Evaluation/Treatment Pt Meets Homebound Status: Extreme weakness w/ amb. POST DISCHARGE ORDERS: Activity Instructions for Disc: Activity as tolerated, Avoid exertion Weight Bearing Status after Di: No restrictions, As tolerated Bathing Instructions: Shower-keep dressing dry DIET AFTER DISCHARGE: Renal Wound/Incision Care: No wound care needed CHECKS AFTER DISCHARGE: Checks after discharge: Check blood press - daily, Check your Temp as needed TREATMENT/EQUIPMENT ORDERS: Adaptive Equipment Issued: None Discharge Respiratory Equipmen: Oxygen CERTIFICATION STATEMENT: Certification Statement: Certification Statement: Based on the above finding, I certify that this patient is confined to the home and needs intermittent retirement care, physical therapy and/or speech therapy, or continues to need occupational therapy.~ This patient is under my care, and I have initiated the establishment of the plan of care.~ This patient will be followed by myself or a community physician who will periodically review the plan of care. Home Meds Active Scripts Cyanocobalamin (Vitamin B-12) (CYANOCOBALAMIN INJECTION) 1,000 Mcg/1 Ml Vial, 1 ML IM QMONTH for vitamin b12 for 30 Days, #1 VIAL 3 Refills Prov:RALEIGH ZHAO MD 01/02/20 Pantoprazole Sodium (PROTONIX ) 40 Mg Tablet.dr, 40 MG PO BID for GERD for 30 Days, #60 TAB Prov:RALEIGH ZHAO MD 01/02/20 Isosorbide Mononitrate (ISOSORBIDE MONONITRATE ER) 30 Mg Tab.er.24h, 30 MG PO BID for CHF for 30 Days, #60 TAB.SR 2 Refills Prov:OPAL PRESTON MD 08/14/19 Amiodarone Hcl (AMIODARONE HCL) 200 Mg Tablet, 1 TAB PO DAILY for rhythm control for 30 Days, #30 TAB 2 Refills Prov:CHARLES DUFF SPINNERET CLEANER 08/14/19 Ipratropium/Albuterol Sulfate (DUONEB 0.5-3(2.5) MG/3 ML) 3 Ml Ampul.neb, 3 ML NEB RTQID for copd for 30 Days, #120 EACH Prov:RACHNA DELANEY MD 03/31/19 Reported Medications Zinc Sulfate (ZINC SULFATE) 220 Mg Tablet, 1 TAB PO DAILY for ZINCE REPLACEMENT for 30 Days, #30 TAB 0 Refills 11/30/19 Cholecalciferol (Vitamin D3) (Vitamin D3) 25 Mcg Capsule, 25 MCG PO DAILY for V IT REPLACEMENT for 1 Day, #1 CAP 11/30/19 Acetaminophen (ACETAMINOPHEN) 500 Mg Tablet, 1 TAB PO PRN Q6HRS PRN for pain or fever for 15 Days, #60 TAB 0 Refills 08/07/19 Calcium Acetate (Calcium Acetate) 667 Mg Tablet, 1 CAP PO TIDAC for supplement 08/07/19 Metoprolol Tartrate (METOPROLOL TARTRATE) 25 Mg Tablet, 0.5 TAB PO BID for blood pressure 08/07/19 [ahreds] No Conflict Check, 1 CAP PO BID Ahreds #2 Preservision, One softgel by mouth twice a day 03/28/19 Folic Acid/Vitamin B Comp W-C (DIALYVITE TABLET) 1 Each Tablet, 1 TAB PO DAILY for vitamin 03/27/19 Fluticasone/Salmeterol (ADVAIR 250-50 DISKUS) 1 Each Disk.w.dev, 1 PUFF PO BID for breathing 03/27/19 Aspirin (ASPIRIN EC) 81 Mg Tablet.dr, 1 TAB PO BID for blood thinner, #30 TAB 3 Refills LAST DOSE GIVEN: DATE: 03/17/17 TIME: 1030 am so start taking this daily tomorrow 03/17/17 Tamsulosin Hcl (TAMSULOSIN HCL) 0.4 Mg Cap.er.24h, 0.4 MG PO BID, TAB 12/06/15 Albuterol Sulfate (VENTOLIN HFA INHALER) 18 Gm Hfa.aer.ad, 2 PUFF INH QID for FOR ASTHMA, INHALER 0 Refills 12/06/15 Atorvastatin Calcium (ATORVASTATIN CALCIUM) 10 Mg Tablet, 10 MG PO HS for FOR CHOLESTEROL, #30 TAB 0 Refills 12/06/15 RALEIGH ZHAO MD Jan 02, 2020 09:54
--- NOTE | 2020-01-02 10:03 | PDOC ---
DATE OF SERVICE DATE: 01/02/20 TIME: 10:00 SUBJECTIVE ROS Seen on HD, No complaints voiced by the patient OBJECTIVE Vital Signs Vital Signs Date Time Temp Pulse Resp B/P (MAP) Pulse Ox O2 Delivery O2 Flow Rate FiO2 01/02/20 08:27 53 118/46 01/02/20 08:11 98 Nasal Cannula 3.5 01/02/20 07:00 97.8 16 97.8 I & 0 Intake and Output0 01/02/20 07:00 Intake Total 390 ml Output Total 150 ml Balance 240 ml Intake Oral 290 ml IV Total 100 ml Output Urine Total 150 ml PHYSICAL EXAM Physical Exam General Appearance: no apparent distress Skin: warm Respiratory: bilateral CTA Heart: S1S2 Abdomen: soft, bowel sounds present Genitourinary: No Castanon Extremities: pulses present Neurology: alert Musculoskeletal: Osteoarthritis DIAGNOSIS/ASSESSMENT Assessment & Plan ESRD - On HD MWF No indication for HD today Anemia, 6.5 at presentation , currently stable at 7.2 s/p EGD has gastroesophageal reflux disease for which he was started on proton pump inhibitor. Recd Venofer x 1 and PRBC Hematology consulted -"-Copper level returned low at 16. Suspect that weakness and anemia are partly secondary to copper deficiency. -Myelopathy and anemia are commonly seen in copper deficiency, Zn levels pending , fu as OP in 4 weeks " Hyper Kalemia- severe at presentation, Resolved Hypertension- stable Atrial fibrillation. Chronic obstructive pulmonary disease. Bronchial asthma. Obstructive sleep apnea. COMMENT/RELEVANT DATA Meds Current Medications Medications (Trade) Dose Ordered Sig/Samina Start Time Stop Time Status Last Admin Dose Admin Acetaminophen (Tylenol) 650 mg 1X PRN PRN 12/28/19 20:00 01/02/20 09:41 DC Albumin Human 200 ml @ 200 mls/hr 1X PRN PRN 12/29/19 07:45 12/29/19 13:44 DC Albuterol Sulfate (Ventolin Neb Soln) 2.5 mg PRN Q6HRS PRN 12/27/19 12:00 12/29/19 00:31 2.5 MG Albuterol/ Ipratropium (Duoneb) 3 ml RTQID 12/27/19 12:00 01/02/20 08:00 3 ML Amiodarone HCl (Cordarone) 200 mg DAILY 12/27/19 12:00 01/02/20 08:26 200 MG Atorvastatin Calcium (Lipitor) 10 mg HS 12/27/19 21:00 01/01/20 21:33 10 MG Azithromycin 250 ml @ 250 mls/hr 1X ONCE 12/27/19 06:15 12/27/19 07:14 DC 12/27/19 06:25 250 MLS/HR Budesonide (Pulmicort) 0.5 mg RTBID 12/27/19 12:00 01/02/20 08:00 0.5 MG Calcium Acetate (Phoslo) 667 mg TIDWMEALS 12/27/19 12:00 01/02/20 08:22 667 MG Calcium Gluconate (Calcium Gluconate) 1,000 mg 1X ONCE 12/27/19 05:30 12/27/19 05:31 DC 12/27/19 05:53 1,000 MG Ceftriaxone Sodium (Rocephin) 1 gm 1X ONCE 12/27/19 06:00 12/27/19 06:06 DC 12/27/19 06:25 1 GM Darbepoetin Cortes (ARANESP for DIALYSIS PTS) 60 mcg WEEKLYHS 12/27/19 21:00 12/27/19 21:32 60 MCG Dextrose (Dextrose 50%-Water Syringe) 50 gm 1X ONCE 12/27/19 05:30 12/27/19 05:31 DC 12/27/19 05:46 50 GM Diphenhydramine HCl (Benadryl) 25 mg PRN 1X PRN 12/28/19 20:00 01/02/20 09:42 DC Info (PHARMACY MONITORING -- do not chart) 1 each PRN DAILY PRN 01/01/20 09:30 Insulin Human Regular (HumuLIN R VIAL) 10 unit 1X ONCE 12/27/19 05:30 12/27/19 05:31 DC 12/27/19 05:58 10 UNIT Iron Sucrose 500 mg/Sodium Chloride 275 ml @ 78.571 mls/ hr 1X ONCE 12/28/19 12:00 12/28/19 15:29 DC 12/28/19 12:42 78.571 MLS/HR Isosorbide Mononitrate (Imdur) 30 mg DAILY 12/31/19 09:00 01/02/20 08:25 30 MG Lidocaine HCl (Lidocaine Pf 2% Vial) 5 ml STK-MED ONCE 01/01/20 13:35 01/01/20 13:35 DC Metoprolol Tartrate (Lopressor) 12.5 mg DAILY 12/31/19 09:00 01/01/20 16:10 12.5 MG Multivitamins (Thera M Plus) 1 tab DAILY 01/01/20 17:00 01/02/20 08:23 1 TAB Non-Formulary Medication 1 ea BID 12/30/19 09:00 01/02/20 08:27 1 EA Ondansetron HCl (Zofran) 4 mg PRN Q8HRS PRN 12/27/19 05:45 12/28/19 05:44 DC Pantoprazole Sodium (PROTONIX VIAL for IV PUSH) 40 mg BIDAC 12/28/19 16:30 12/29/19 13:32 DC 12/28/19 17:15 40 MG Pantoprazole Sodium (Protonix) 40 mg BIDAC 12/29/19 16:30 01/02/20 08:23 40 MG Pantoprazole Sodium 80 mg/ Sodium Chloride 100 ml @ 10 mls/hr Q10H 12/27/19 05:15 12/28/19 13:00 DC 12/28/19 02:56 10 MLS/HR Propofol (Diprivan) 200 mg STK-MED ONCE 01/01/20 13:35 01/01/20 13:35 DC Sodium Chloride 1,000 ml @ 400 mls/hr Q2H30M PRN 01/01/20 09:24 01/01/20 21:23 DC 01/01/20 13:25 400 MLS/HR Tamsulosin HCl (Flomax) 0.4 mg BID 12/27/19 12:00 01/02/20 08:23 0.4 MG Vitamin B Complex/ Vitamin C (Neha-Ronnie) 1 tab DAILY 12/27/19 12:00 01/02/20 08:23 1 TAB Vitamin D (Vitamin D3) 1,000 unit DAILY 12/27/19 12:00 01/02/20 08:22 1,000 UNIT Zinc Sulfate (Orazinc) 220 mg DAILY 12/27/19 12:00 01/02/20 08:22 220 MG Lab Laboratory Tests Test 01/02/20 05:33 Hemoglobin 7.1 g/dL (13.0-17.5) Hematocrit 22.6 % (39.0-53.0) Results All relevant outside records, renal labs, imaging studies, telemetry/EKG's were reviewed. Justicifation of Admission Dx: Justifications for Admission: Justification of Admission Dx: Yes GLORIA ANGUIANO MD Jan 02, 2020 10:03
--- NOTE | 2020-01-02 10:16 | DS ---
DATE OF DISCHARGE: 01/02/2020 HOSPITAL COURSE: The patient is an 79-year-old male patient with end-stage renal failure, on hemodialysis on Wednesday, Wednesday, Wednesday, who was admitted with a fall with generalized weakness, was found to be anemic. In fact, his H and H on arrival was 6.5 and 21. He did receive 2 units of packed RBCs and his H and H have been stable over the last 72 hours. He underwent upper GI endoscopy and was found to have gastroesophageal reflux disease and he was started on proton pump inhibitor and biopsies were taken, the results of which are still pending. He was seen in consultation by the forestry tree pruner and Dr. Gonzáles who did not recommend any injections as he has severe degenerative joint disease. He was seen also by the medical sonographer, who trimmed his toenails. As he remained stable, a decision was made to discharge him to assisted living facility with home health. When I saw him this morning, he was resting flat in bed, in no apparent distress, sleepy, but arousable. On questioning, he denied any complaint. The nursing staff did not voice any concern. PHYSICAL EXAMINATION: GENERAL: On examining him, he was pale, but no jaundice, cyanosis or thyromegaly. No jugular venous distention. No lower limb edema. VITAL SIGNS: His heart rate was 53, blood pressure was 118/46, temperature was 97.8, respiratory rate was 16, and oxygen saturation was 98% on 3.5 liters of oxygen. HEAD, EYES, EARS, NOSE AND THROAT: Showed normocephalic, atraumatic. NECK: Supple. HEART: Showed normal first and second heart sounds. No gallop or murmur. CHEST: Showed central trachea, equal bilateral expansion, air entry, vesicular sounds. No crepitation or rhonchi anteriorly. He has dull percussion noted and absent breath sounds posteriorly mostly in the left side. ABDOMEN: Scaphoid, soft, nontender. NEUROLOGIC: He was sleepy, but arousable. He has macular degeneration, but otherwise all his cranial nerves were intact. He moves extremities without difficulty, ambulates with a walker. His intake over the last 24 hours was 1040, no output was recorded. LABORATORY DATA: As of this morning, his hemoglobin 7.1, hematocrit 22.6. His chemistry is variable as he is hemodialysis dependent. DISCHARGE MEDICATIONS: He was discharged to [facility] in [facility] to continue on cyanocobalamin 1000 mcg/mL intramuscular once a month, Protonix 40 mg twice a day, acetaminophen 500 mg every 6 hours, albuterol sulfate inhaler 2 puffs 4 times a day, amiodarone 200 mg once a day, aspirin 81 mg once a day, atorvastatin calcium 10 mg at bedtime, calcium acetate 667 mg 3 times a day with meals, cholecalciferol with vitamin D 25 mcg once a day, Advair Diskus 250/50 one puff twice a day, folic acid with vitamin B-complex 1 tablet once a day, ipratropium bromide and albuterol sulfate by nebulizer 4 times a day, isosorbide mononitrate 30 mg at bedtime, metoprolol tartrate 12.5 mg twice a day, tamsulosin 0.4 mg twice a day, and zinc sulfate 220 mg once a day. FINAL DISCHARGE DIAGNOSES: 1. Anemia that is normochromic, normocytic, likely due to blood loss anemia. His hemoglobin and hematocrit have been stable over the last 4 days. His esophagogastroduodenoscopy showed that he has gastroesophageal reflux disease for which he was started on proton pump inhibitor. 2. The patient has multiple other medical problems including: A. End-stage renal disease, on hemodialysis Wednesday, Wednesday, Wednesday. B. Hypertension. C. Hyperlipidemia. 3. Atrial fibrillation. 4. Chronic obstructive pulmonary disease. 5. Bronchial asthma. 6. Obstructive sleep apnea. 7. Chronic hypoxic respiratory failure for which he is on oxygen at 2 liters by nasal cannula. 8. Benign prostatic hypertrophy. 9. Generalized osteoarthritis. 10. Senile macular degeneration. 11. Chronic back pain. 11. Bilateral pleural effusion, more on the left side than right. DISCHARGE DISPOSITION: The patient will be discharged to [facility] with home health. He will continue with hemodialysis as an outpatient at [facility] in [place] on Wednesday, Wednesday and Wednesday. RALEIGH ZHAO MD DR: TAYLOR/carly JOB#: [id number] / [id number]
[2020-01-02 11:00] VITALS: BP 136/50
--- NOTE | 2020-01-02 11:58 | PDOC ---
CARDIO Progress Notes Date and Time Date of Service 01/02/20 Time of Evaluation 1120 Subjective Subjective: No Chest Pain, No shortness of breath Vitals Vitals Vital Signs Date Time Temp Pulse Resp B/P (MAP) Pulse Ox O2 Delivery O2 Flow Rate FiO2 01/02/20 11:21 Nasal Cannula 3.5 01/02/20 11:00 97.6 67 20 136/50 (78) 95 97.6 Weight Weight [ ] Input and Output Intake and Output Intake and Output 01/02/20 07:00 Intake Total 390 ml Output Total 150 ml Balance 240 ml Intake Oral 290 ml IV Total 100 ml Output Urine Total 150 ml Laboratory Labs Laboratory Tests Test 01/02/20 05:33 Hemoglobin 7.1 g/dL (13.0-17.5) Hematocrit 22.6 % (39.0-53.0) Microbiology Micro Microbiology 12/27/19 Blood Culture - Final, Complete NO GROWTH AFTER 5 DAYS Review of Systems Constitutional: yes: weakness, alert, oriented Ears/Nose/Throat: Yes: no symptom reported Pulmonary: Yes no symptom reported Cardiovascular: Yes no symptom reported Gastrointestional: Yes: nausea Genitourinary: Yes: no symptom reported Musculoskeletal: Yes: muscle stiffness Skin: Yes no symptom reported Psychiatric/Neurological: Yes: no symptom reported Endocrine: Yes: no symptom reported Physical Exam HEENT: Neck Supple W Full Motion Chest: Symmetric LUNGS: Clear to Auscultation Heart: RRR Abdomen: Soft N/T Extremities: No Edema Neurology: alert, oriented, follow commands Assessment Assessment 1. PAFIB; maintaining SR 2. Sinus bradycardia; resolved 3. ESRD on HD 4. Hypertension; controlled 5. Dyslipidemia; statin 6. Anemia: GI following 7. COPD. Recommendations Continue metoprolol for rate control and Amiodarone for stroke prophylaxis. Fluid offloading via HD D/w Dr. Haskins. Will start low-dose ASA therapy. Consider outpatient referral for JASON closure. Follow up with Dr. Casillas as scheduled. Justicifation of Admission Dx: Justifications for Admission: Justification of Admission Dx: Yes CHARLES DUFF APRN Jan 02, 2020 11:58
--- NOTE | 2020-01-02 12:40 | PDOC ---
Date of Service: DATE: 01/02/20 TIME: 12:38 Subjective: Subjective: "I'm here." Wonders where bleeding is coming from. Objective: Vital Signs: Vital Signs Date Time Temp Pulse Resp B/P (MAP) Pulse Ox O2 Delivery O2 Flow Rate FiO2 01/02/20 11:21 Nasal Cannula 3.5 01/02/20 11:00 97.6 67 20 136/50 (78) 95 97.6 Labs: Laboratory Tests Test 01/02/20 05:33 Hemoglobin 7.1 g/dL Hematocrit 22.6 % Imaging: EGD 12/31 E--Grade B reflux esophagitis at 42cm. G--Macular white area mid-body, greater curve. Adherent med suspect--biopsied area x 2. D-Normal bulb. Unable to progress further secondary to looping in large stomach. IMP: GERD Macular area, body REC: await biopsies. continue PPI. PE: GEN: NAD LUNGS: CTAB HEART: RRR ABD: S/ND/NT EXTREMITY: No edema SKIN: pale NEURO/PSYCH: A & O 3, was asleep A/P: ACD/YSABEL, h/o pancytopenia/B12 deficiency - EGD as above A Fib, ESRD -- Consider colonoscopy? Has DC orders. Okay for ASA - d/w cardiology. Continue PPI, follow-up on biopsies. Justicifation of Admission Dx: Justifications for Admission: Justification of Admission Dx: Yes SHERI KINSEY Jan 02, 2020 12:40
--- NOTE | 2020-01-02 13:30 | NUR ---
Discharge Note: ADALBERTO BILLS Discharge instructions and discharge home medications reviewed with Patient and a copy given. All questions have been answered and understanding verbalized. The following instructions and handouts were given: F/U with Dr. Casillas on 02/28 at 1030, F/U with Dr. Santoyo within 4 weeks. Discontinued lines and drains: Peripheral IV intact. Patient discharged to Assisted Living with Family Member via Wheelchair
--- NOTE | 2020-01-02 15:08 | PATHOLOGY ---
[facility] Accession Number: [id number] . 01 Material submitted: . stomach - GASTRIC BIOPSY . 01 Clinical history: . ANEMIA UGI BLEED, ANEMIA, HYPERKALEMIA . 02 Diagnosis: Gastric biopsies: - Mild chronic inflammation with foci of superficial mucosal necrosis, erosion, and acute inflammation. (JPM:[facility] 01/02/2020) [facility] 01/02/2020 0912 Local . 02 Comment: Sections of the gastric biopsy reveal segments of gastric body mucosa showing mild chronic inflammation with foci of superficial mucosal necrosis, erosion, and acute inflammation. A properly controlled immunoperoxidase stain for Helicobacter is negative for Helicobacter organisms. (M:[facility] 01/02/2020) . Special stain performed: Immunoperoxidase for Helicobacter . 02 Electronically signed: . Shahab De La Paz MD, Pathologist NPI- [id number] . 01 Gross description: . The specimen is received in formalin, labeled "Shahab Barbosa, gastric biopsy". Received are three segments of pale treviño soft tissue ranging in size from 0.3 to 0.5 cm in maximum dimensions. The specimen is submitted entirely in cassette A1. ([facility]; 01/01/2020) QA/QA 01/01/2020 1743 Local . 02 Pathologist provided ICD-10: K29.50 . 02 CPT . 644074, [id number] Specimen Comment: A courtesy copy of this report has been sent to [phone] Specimen Comment: [phone], Specimen Comment: Report sent to ,DR ZHAO / DR PAREKH Performed at: [address], [place], [place] [id number] MD Gibson Rivas MD Phone: [phone] Performed at: [address] [id number] MD Shahab De La Paz MD Phone: [phone]
[2020-01-03] MEDS ORDERED: ASPIRIN ENTERIC COATED 81 MG TABLET.DR. PO SCH (08:00)
[2020-01-03 11:14] LABS: HEMOGLOBIN 5.8 g/dL (13.0-17.5)
== END 2020-01-02 13:30 | disposition home health service (06) | DRG 377 ==
LOC: ER 04:06 → 1 WEST ICU 05:30 → 2 NORTH 08:16
PROVIDERS: ADMIT Internal Medicine; ATTEND Internal Medicine
PROC: 30233N1 Transfusion of Nonautologous Red Blood Cells into Peripheral Vein, Percutaneous Approach (ICD-10-PCS; principal; 2019-12-27)
PROC: 5A1D70Z Performance of Urinary Filtration, Intermittent, Less than 6 Hours Per Day (ICD-10-PCS; 2019-12-27)
PROC: 5A1D70Z Performance of Urinary Filtration, Intermittent, Less than 6 Hours Per Day (ICD-10-PCS; 2019-12-29)
PROC: 5A1D70Z Performance of Urinary Filtration, Intermittent, Less than 6 Hours Per Day (ICD-10-PCS; 2020-01-01)
PROC: 0DB68ZX Excision of Stomach, Via Natural or Artificial Opening Endoscopic, Diagnostic (ICD-10-PCS; 2020-01-01)
PROC: 0HBRXZZ Excision of Toe Nail, External Approach (ICD-10-PCS; 2020-01-01)
PROC: 0HBRXZZ Excision of Toe Nail, External Approach (ICD-10-PCS; 2020-01-01)
PROC: 0HBRXZZ Excision of Toe Nail, External Approach (ICD-10-PCS; 2020-01-01)
PROC: 0HBRXZZ Excision of Toe Nail, External Approach (ICD-10-PCS; 2020-01-01)
PROC: 0HBRXZZ Excision of Toe Nail, External Approach (ICD-10-PCS; 2020-01-01)
PROC: 0HBRXZZ Excision of Toe Nail, External Approach (ICD-10-PCS; 2020-01-01)
PROC: 0HBRXZZ Excision of Toe Nail, External Approach (ICD-10-PCS; 2020-01-01)
PROC: 0HBRXZZ Excision of Toe Nail, External Approach (ICD-10-PCS; 2020-01-01)
PROC: 0HBRXZZ Excision of Toe Nail, External Approach (ICD-10-PCS; 2020-01-01)
PROC: 0HBRXZZ Excision of Toe Nail, External Approach (ICD-10-PCS; 2020-01-01)
DX: K92.2 Gastrointestinal hemorrhage, unspecified (principal); N18.6 End stage renal disease; D62 Acute posthemorrhagic anemia; E87.0 Hyperosmolality and hypernatremia; I12.0 Hypertensive chronic kidney disease with stage 5 chronic kidney disease or end stage renal disease; J90 Pleural effusion, not elsewhere classified; J96.11 Chronic respiratory failure with hypoxia; J98.11 Atelectasis; E87.5 Hyperkalemia; K21.0 Gastro-esophageal reflux disease with esophagitis; B35.1 Tinea unguium; C44.90 Unspecified malignant neoplasm of skin, unspecified; D53.9 Nutritional anemia, unspecified; D63.1 Anemia in chronic kidney disease; E27.8 Other specified disorders of adrenal gland; E53.8 Deficiency of other specified B group vitamins; E61.0 Copper deficiency; E78.5 Hyperlipidemia, unspecified; G47.33 Obstructive sleep apnea (adult) (pediatric); G62.9 Polyneuropathy, unspecified; G89.29 Other chronic pain; H26.9 Unspecified cataract; H35.30 Unspecified macular degeneration; I48.0 Paroxysmal atrial fibrillation; K80.20 Calculus of gallbladder without cholecystitis without obstruction; K82.8 Other specified diseases of gallbladder; L60.0 Ingrowing nail; M17.12 Unilateral primary osteoarthritis, left knee; M47.816 Spondylosis without myelopathy or radiculopathy, lumbar region; M48.061 Spinal stenosis, lumbar region without neurogenic claudication; N40.0 Benign prostatic hyperplasia without lower urinary tract symptoms; Y92.009 Unspecified place in unspecified non-institutional (private) residence as the place of occurrence of the external cause; Z20.828 Contact with and (suspected) exposure to other viral communicable diseases; Z79.82 Long term (current) use of aspirin; Z79.899 Other long term (current) drug therapy; Z80.7 Family history of other malignant neoplasms of lymphoid, hematopoietic and related tissues; Z85.828 Personal history of other malignant neoplasm of skin; Z87.891 Personal history of nicotine dependence; Z96.651 Presence of right artificial knee joint; Z99.2 Dependence on renal dialysis; M19.90 Unspecified osteoarthritis, unspecified site; J44.9 Chronic obstructive pulmonary disease, unspecified; W18.39XA Other fall on same level, initial encounter; Y93.89 Activity, other specified; Y99.8 Other external cause status; Z88.8 Allergy status to other drugs, medicaments and biological substances; Z60.2 Problems related to living alone; I95.9 Hypotension, unspecified
CPT/HCPCS: 36415; 43239; 70450; 71045; 72131; 73610; 74176; 76700; 80048; 80053; 82274; 82525; 82550; 83010; 83540; 83550; 83605; 83615; 83690; 83735; 83880; 83921; 84484; 84630; 85007; 85014; 85018; 85025; 85027; 85045; 85610; 85730; 86850; 86880; 86900; 86901; 86920; 87040; 88305; 88342; 93005; 94640; 94760; 96361; 96374; 96375; C9113; J0456; J0610; J0696; J0882; J1756; J1815; J2704; J7030; J7050; P9016; 99291-25; G0378; J7613; J7626; U0003-CS

== ENCOUNTER 2020-01-04 10:47 | Inpatient (IN) | payer MEDICARE ==
[2020-01-04] VITALS (19 sets, daily range): BP systolic 80–124; BP diastolic 34–60
[~2020-01-04] VITALS: Ht 167.6 cm; Wt 71.7 kg
[~2020-01-04 10:47] MED LIST changes: +CYAN10002 IM; +PANT40TA77 PO
[2020-01-04] MEDS ORDERED: IV NORMAL SALINE 1000ML BAG 1,000 ML IV SCH (11:38)
[2020-01-04] MEDS ORDERED: cefTRIAXone IV Push 1 GM VIAL. IVP ONE (12:00)
[2020-01-04 12:18] LABS: ALBUMIN 1.3 g/dL (3.4-5.0); ALBUMIN/GLOBULIN RATIO 0.5 (1.0-1.7); CALCIUM 7.7 mg/dL (8.5-10.1); CREATININE 4.5 mg/dL (0.7-1.3)
--- NOTE | 2020-01-04 12:18 | RAD ---
EXAM: CHEST ONE VIEW. HISTORY: Hypotension. COMPARISON: 12/27/2019, 08/06/2019. FINDINGS: A frontal view of the chest is obtained. A moderate to large left pleural effusion appears increased. There appears to be a loculated component versus dense consolidation in the left apex. There is no pneumothorax. The heart is not enlarged. IMPRESSION: 1. Increased moderate to large left pleural effusion with superimposed atelectasis or consolidation Electronically signed by: La Mcgowan MD (01/04/2020 12:15 PM) [id number]
[2020-01-04 12:19] LABS: GFR 12.7; TOTAL BILIRUBIN 0.2 mg/dL (0.2-1.0)
[2020-01-04 12:23] LABS: PROTHROMBIN TIME PATIENT 15.2 SEC (11.7-14.0)
--- NOTE | 2020-01-04 12:32 | PHYS DOC ---
Past Medical History Past Medical History: COPD, Pneumonia, Renal Failure Additional Past Medical Histor: seasonal allergies/sob/smoker,ENLARGED PROSTATE Past Surgical History: Other Additional Past Surgical Histo: cataracts,L KNEE Smoking Status: Current Every Day Smoker Alcohol Use: None Drug Use: None General Adult EDM: Chief Complaint: HYPOTENSION HPI: HPI: 79-year-old male past medical history ESRD (MWF-last HD W), hypertension, hyperlipidemia, atrial fibrillation, COPD (on 3.5 L NC), asthma, sleep apnea, BPH, recently discharged the hospital 2 days ago for anemia due to blood loss (s/p upper GI showing gerd -was on PPI & 2U prbc transfusion), presents to the ED from [facility] with complaints of, " not good, I cannot breathe when I am lying on my back or right side, I just feel so weak." Patient states he had a bowel movement just prior to arrival and "needs to be cleaned up." Denies any falls, head trauma or syncope. Pt anuric. ROS: Denies associated fever, chills, cough, hemoptysis, hematochezia, judi temesis, chest pain or pressure, nausea, vomiting, diarrhea, back pain, abdominal pain. Review of Systems: Review of Systems: Constitutional: Denies fever or chills. [] Eyes: Denies change in visual acuity. [] HENT: Denies nasal congestion or sore throat. [] Respiratory: Denies cough or shortness of breath. [] Cardiovascular: Denies chest pain or edema. [] GI: Denies abdominal pain, nausea, vomiting, : Denies dysuria. [] Musculoskeletal: Denies back pain or joint pain. [] Integument: Denies rash. [] Neurologic: Denies headache, focal weakness or sensory changes. [] Endocrine: Denies polyuria or polydipsia. [] Lymphatic: Denies swollen glands. [] Psychiatric: Denies depression or anxiety. [] Current Medications: Current Medications Medications (Trade) Dose Ordered Sig/Samina Start Time Stop Time Status Last Admin Dose Admin Ceftriaxone Sodium (Rocephin) 1 gm 1X ONCE 01/04/20 12:00 01/04/20 12:01 DC Sodium Chloride 1,000 ml @ 1,980 mls/hr Q31M 01/04/20 11:38 01/04/20 12:38 Allergies: Allergies: Allergies Coded Allergies Type Severity Reaction Last Updated Verified adhesive Allergy Intermediate 12/05/19 Yes cetirizine Allergy Intermediate hives 12/05/19 Yes Physical Exam: PE: Constitutional: weak and pale appearing, no acute distress, non-toxic HENT: Normocephalic, atraumatic, bilateral external ears normal, oropharynx dry, no oral exudates, nose normal. [] Eyes: EOMI, conjunctiva normal, no discharge. [] Neck: Normal range of motion, no tenderness, supple, no stridor. [] Cardiovascular:Heart rate regular rhythm, no murmur [] Lungs & Thorax: Bilateral breath sounds clear to auscultation [] Abdomen: Bowel sounds normal, soft-obese w/fluid wave, no tenderness, no masses, no pulsatile masses. [] diaper with black stool Skin: Warm, dry, no erythema, no rash, very pale appearing Back: No tenderness, no CVA tenderness. [] Extremities: No tenderness, no cyanosis, no clubbing, ROM intact, no edema. thrill LUE-HD access Neurologic: Alert and oriented X 3, normal motor function, normal sensory function, no focal deficits noted. [] Psychologic: Affect normal, judgement normal, mood normal. [] Current Patient Data: Labs: Laboratory Tests Test 01/04/20 11:40 Sodium Level 139 mmol/L (136-145) Potassium Level 6.0 mmol/L (3.5-5.1) H Chloride Level 107 mmol/L (98-107) Carbon Dioxide Level 28 mmol/L (21-32) Anion Gap 4 (6-14) L Blood Urea Nitrogen 85 mg/dL (8-26) H Creatinine 4.5 mg/dL (0.7-1.3) H Estimated GFR (Cockcroft-Gault) 12.7 BUN/Creatinine Ratio 19 (6-20) Glucose Level 95 mg/dL (70-99) Lactic Acid Level 1.4 mmol/L (0.4-2.0) Calcium Level 7.7 mg/dL (8.5-10.1) L Total Bilirubin 0.2 mg/dL (0.2-1.0) Aspartate Amino Transferase (AST) 14 U/L (15-37) L Alanine Aminotransferase (ALT) 18 U/L (16-63) Alkaline Phosphatase 32 U/L (46-116) L Creatine Kinase 17 U/L (39-308) L Troponin I Quantitative 0.021 ng/mL (0.000-0.055) Total Protein 4.0 g/dL (6.4-8.2) L Albumin 1.3 g/dL (3.4-5.0) L Albumin/Globulin Ratio 0.5 (1.0-1.7) L Lipase 382 U/L (73-393) Laboratory Tests 01/04/20 11:40 Vital Signs: Vital Signs Date Time Temp Pulse Resp B/P (MAP) Pulse Ox O2 Delivery O2 Flow Rate FiO2 01/04/20 11:14 79 85/42 (56) 01/04/20 10:47 98.0 22 96 Nasal Cannula 3.0 98.0 EKG: EKG: nsr @ 75 bpm, LAD, with first-degree AV block WA 218, no T wave inversions, no ST elevations or ST depressions Radiology/Procedures: Radiology/Procedures: IMAGING REPORT Signed PATIENT: ADALBERTO BILLS ACCOUNT: [id number] : 1940 LOCATION: ER AGE: 79 SEX: M EXAM STATUS: REG ER ORD. PHYSICIAN: ANASTASIA MARTELL DO REASON: hypotension PROCEDURE: PORTABLE CHEST 1V EXAM: CHEST ONE VIEW. HISTORY: Hypotension. COMPARISON: 12/27/2019, 08/06/2019. FINDINGS: A frontal view of the chest is obtained. A moderate to large left pleural effusion appears increased. There appears to be a loculated component versus dense consolidation in the left apex. There is no pneumothorax. The heart is not enlarged. IMPRESSION: 1. Increased moderate to large left pleural effusion with superimposed atelectasis or consolidation Electronically signed by: La Mcgowan MD (01/04/2020 12:15 PM) [id number] DICTATED and SIGNED BY: JOYA MCGOWAN MD DATE: 01/04/20 1215 IMAGING REPORT Signed PATIENT: ADALBERTO BILLS ACCOUNT: [id number] : 1940 LOCATION: [address] [place] [address] AGE: 79 SEX: M EXAM STATUS: ADM IN ORD. PHYSICIAN: ANASTASIA MARTELL DO REASON: gib PROCEDURE: CT ABD PELV W/ IV CONTRST ONLY EXAM: CT Abdomen and Pelvis with IV contrast INDICATION: Reason: gib / Spl. Instructions: 75ML OMNI 300 DIALYSIS MWF / History: TECHNIQUE: Multi-detector row CT images were acquired from the lung bases through the abdomen and pelvis with the use of IV contrast. Sagittal and coronal images were acquired from the transaxial data. All CT scans performed at this facility utilize dose optimization techniques as appropriate to the exam, including the following: Automated exposure control and adjustment of the mA and/or KV according to patient size (this includes techniques or standardized protocols for targeted exams where dose is indication/reason for exam). IV CONTRAST: Administered ORAL CONTRAST: Not administered COMPARISON: Noncontrast abdomen pelvis CT 12/28/2019 FINDINGS: LOWER CHEST: Persistent large left pleural effusion and small right pleural effusion with volume loss in the left lung. The heart shows multivessel coronary calcifications. LIVER: Unremarkable BILIARY SYSTEM: Gallbladder contains layering density compatible with sludge, stones or vicariously excreted contrast material. Bile ducts are not dilated. PANCREAS: Unremarkable SPLEEN: Unremarkable ADRENALS: Left greater than right bilateral masslike fullness to the adrenal glands KIDNEYS & URETERS: Atrophic. No radiopaque stones or hydronephrosis. BLADDER: Decompressed. Mild diffuse bladder wall thickening is nonspecific. Under distention versus cystitis are differential considerations. REPRODUCTIVE ORGANS: Unremarkable GASTROINTESTINAL: No findings of obstruction or perforation. Moderate stool in the large bowel most conspicuous in the ascending and transverse colon. The descending colon although partially collapsed, shows increased intraluminal density suspicious for intraluminal hemorrhage. Coronal image 37 of series 4 and axial image 42 of series 2 are the most suggestive of a possible intraluminal blush of contrast. The appendix is short and contains an appendicolith but is otherwise unremarkable.. MESENTERY/PERITONEUM/RETROPERITONEUM: Unremarkable VASCULAR: Unremarkable LYMPH NODES: No adenopathy OSSEOUS & SOFT TISSUES: Ventral abdominal wall edema. Lower lumbar spinal degenerative change. IMPRESSION: GI bleeding could be arising from the descending colon. Consider nuclear medicine GI bleeding scan in further evaluation for confirmation if clinically appropriate. Electronically signed by: Jimmy Reid MD (01/04/2020 4:48 PM) [facility] DICTATED and SIGNED BY: JIMMY REID MD DATE: 01/04/20 5800 Course & Med Decision Making: Course & Med Decision Making Pertinent Labs and Imaging studies reviewed. (See chart for details) Concern for weakness and shortness of breath suspect multifactorial - (1)secondary to anemia of chronic disease - is being treated for UGIB due to melena or (2) secondary to moderate/large left pleural effusion. Potassium elevated to K, last HD yesterday. Hypotensive on arrival. Large left-sided thoracentesis was 12/08/[address] Conti. Pt saturating 99% on 3.5L lying flat. Rocephin given empirically given hypotension and concern for sepsis, LA 1.4, blood cultures pending. Will likely need another thoracentesis. 2U prbc st arted in ed. D/w Dr. Luis who accepts admission - CT a/p with contrast ordered to evaluate for intra-abdominal source of bleeding. GI consulted and present in ed. Pt admitted in critical condition, agrees with this plan. Critical Care: Authorized and Performed by: Anastasia Martell DO Total critical care time: approximately 60 minutes Due to a high probability of clinically significant, life threatening deterioration, the patient required my highest level of preparedness to intervene emergently and I personally spent this critical care time directly and personally managing the patient. This critical care time included obtaining a history; examining the patient; pulse oximetry; ventilator management if necessary; ordering and review of studies; arranging urgent treatment with development of a management plan; evaluation of patient's response to treatment; frequent reassessment; discussion with patient/family; and, discussions with other providers. This critical care time was performed to assess and manage the high probability of imminent, life-threatening deterioration that could result in multi-organ failure. It was exclusive of separately billable procedures and treating other patients and teaching time. Please see MDM section and the rest of the note for further information on pat ient assessment and treatment. I have spoken with the patient and/or caregivers. I have explained the patient's condition, diagnosis and treatment plan based on the information available to me at this time. I have answered the patient's and/or caregivers questions and answered any concerns. The patient and/or caregivers have as good an understanding of the patient's diagnosis, condition and treatment plan as can be expected at this point. The patient has been stabilized within the capability of the emergency department. The patient will be transported for further care and management or will be moved to an observation or inpatient service. I have communicated with the staff or medical practitioner taking over this patient's care. Nehal Disclaimer: Nehal Disclaimer: This electronic medical record was generated, in whole or in part, using a voice recognition dictation system. Departure Departure Impression: Primary Impression: Melena Additional Impressions: GIB (gastrointestinal bleeding) Dyspnea Pleural effusion, left Hyperkalemia Normocytic anemia Disposition: ADMITTED INPATIENT Admitting Physician: Madi. Lucas Condition: CRITICAL Referrals: ANN-MARIE PAREKH MD (PCP) Justicifation of Admission Dx: Justifications for Admission: Justification of Admission Dx: Yes Chronic Renal Failure: Electrolyte Abnormality Comments: GIB, hypotension, anemia requiring transfusion ANASTASIA MARTELL DO Jan 04, 2020 12:32
[2020-01-04] MEDS ORDERED: PANTOPRAZOLE IV PUSH 40 MG VIAL. IVP ONE (13:00)
[2020-01-04 13:09] LABS: BASO % 1 % (0-3); EOS % 1 % (0-3); LYMPH # 0.4 x10^3/uL (1.0-4.8); LYMPH % 10 % (24-48); MEAN CORPUSCULAR HEMOGLOBIN 30 pg (25-35); MEAN CORPUSCULAR HGB CONC 30 g/dL (31-37); MEAN CORPUSCULAR VOLUME 98 fL (79-100); MONO # 0.6 x10^3/uL (0.0-1.1); MONO % 12 % (0-9); NEUT # 3.6 x10^3/uL (1.8-7.7); NEUT % 77 % (31-73); PLATELET COUNT 165 x10^3/uL (140-400); RED CELL DISTRIBUTION WIDTH 19.1 % (11.5-14.5); WHITE BLOOD COUNT 4.6 x10^3/uL (4.0-11.0)
[2020-01-04 13:11] LABS: HEMATOCRIT 16.7 % (39.0-53.0); HEMOGLOBIN 5.1 g/dL (13.0-17.5)
[2020-01-04] MEDS: PANTOPRAZOLE SODIUM IV DRIP 80 MG in IV NORMAL SALINE 100ML 100 ML IV SCH ×2 (13:27→22:27)
[2020-01-04 13:39] LABS: FECAL OB PT POSITIVE (NEG)
--- NOTE | 2020-01-04 14:21 | PDOC1 ---
History and Physical Date of Admission Date of Admission DATE: 01/04/20 TIME: 14:20 Past Medical History Cardiovascular: HTN, Hyperlipidemia Pulmonary: COPD CENTRAL NERVOUS SYSTEM: Other GI: No pertinent hx Heme/Onc: No pertinent hx Hepatobiliary: No pertinent hx Psych: No pertinent hx Musculoskeletal: Osteoarthritis Rheumatologic: No pertinent hx Infectious disease: No pertinent hx Renal/: Chronic renal failure, Benign prostatic enlarg. Endocrine: No pertinent hx, Hyperparathyroidism Past Surgical History Past Surgical History: Cataract Removal, Total knee replacement, Other Family History Family History: No Significant Social History ALCOHOL: none Drugs: None Current Problem List Problem List Problems Medical Problems: (1) Dyspnea Status: Acute (2) GIB (gastrointestinal bleeding) Status: Acute (3) Melena Status: Acute (4) Normocytic anemia Status: Acute (5) Pleural effusion, left Status: Acute Current Medications Current Medications Current Medications Sodium Chloride 1,000 ml @ 1,980 mls/hr Q31M IV ; Start 01/04/20 at 11:38; Stop 01/04/20 at 12:33; Status DC Ceftriaxone Sodium (Rocephin) 1 gm 1X ONCE IVP Last administered on 01/04/20at 13:09; Start 01/04/20 at 12:00; Stop 01/04/20 at 12:01; Status DC Pantoprazole Sodium (PROTONIX VIAL for IV PUSH) 80 mg 1X ONCE IVP Last administered on 01/04/20at 13:00; Start 01/04/20 at 13:00; Stop 01/04/20 at 13:01; Status DC Pantoprazole Sodium 80 mg/ Sodium Chloride 100 ml @ 10 mls/hr Q10H IV Last administered on 01/04/20at 13:27; Start 01/04/20 at 13:00 Active Scripts Active Cyanocobalamin Injection (Cyanocobalamin (Vitamin B-12)) 1,000 Mcg/1 Ml Vial 1 Ml IM QMONTH 30 Days Protonix (Pantoprazole Sodium) 40 Mg Tablet.dr 40 Mg PO BID 30 Days Isosorbide Mononitrate Er (Isosorbide Mononitrate) 30 Mg Tab.er.24h 30 Mg PO BID 30 Days Amiodarone Hcl 200 Mg Tablet 1 Tab PO DAILY 30 Days Duoneb 0.5-3(2.5) Mg/3 Ml (Albuterol/Ipratropium) 3 Ml Ampul.neb 3 Ml NEB RTQID 30 Days Reported Zinc Sulfate 220 Mg Tablet 1 Tab PO DAILY 30 Days Vitamin D3 (Cholecalciferol (Vitamin D3)) 25 Mcg Capsule 25 Mcg PO DAILY 1 Days Acetaminophen 500 Mg Tablet 1 Tab PO PRN Q6HRS PRN 15 Days Calcium Acetate 667 Mg Tablet 1 Cap PO TIDAC Metoprolol Tartrate 25 Mg Tablet 0.5 Tab PO BID [ahreds] 1 Cap PO BID Ahreds #2 Preservision, One softgel by mouth twice a day Dialyvite Tablet (Folic Acid/Vitamin B Comp W-C) 1 Each Tablet 1 Tab PO DAILY Advair 250-50 Diskus (Fluticasone/Salmeterol) 1 Each Disk.w.dev 1 Puff PO BID Aspirin Ec (Aspirin) 81 Mg Tablet.dr 1 Tab PO BID LAST DOSE GIVEN: DATE: 03/17/17 TIME: 1030 am so start taking this daily tomorrow Tamsulosin Hcl 0.4 Mg Cap.er.24h 0.4 Mg PO BID Ventolin Hfa Inhaler (Albuterol Sulfate) 18 Gm Hfa.aer.ad 2 Puff INH QID Atorvastatin Calcium 10 Mg Tablet 10 Mg PO HS Allergies Allergies: Coded Allergies: adhesive (Verified Allergy, Intermediate, 12/05/19) Skin irritation cetirizine (Verified Allergy, Intermediate, hives, 12/05/19) Vitals Vitals Vital Signs Date Time Temp Pulse Resp B/P (MAP) Pulse Ox O2 Delivery O2 Flow Rate FiO2 01/04/20 11:14 79 85/42 (56) 01/04/20 10:47 98.0 22 96 Nasal Cannula 3.0 98.0 Labs Labs Laboratory Tests Test 01/04/20 11:40 01/04/20 12:55 01/04/20 13:13 Prothrombin Time 15.2 SEC (11.7-14.0) Prothromb Time International Ratio 1.2 (0.8-1.1) Activated Partial Thromboplast Time 32 SEC (24-38) Sodium Level 139 mmol/L (136-145) Potassium Level 6.0 mmol/L (3.5-5.1) Chloride Level 107 mmol/L (98-107) Carbon Dioxide Level 28 mmol/L (21-32) Anion Gap 4 (6-14) Blood Urea Nitrogen 85 mg/dL (8-26) Creatinine 4.5 mg/dL (0.7-1.3) Estimated GFR (Cockcroft-Gault) 12.7 BUN/Creatinine Ratio 19 (6-20) Glucose Level 95 mg/dL (70-99) Lactic Acid Level 1.4 mmol/L (0.4-2.0) Calcium Level 7.7 mg/dL (8.5-10.1) Total Bilirubin 0.2 mg/dL (0.2-1.0) Aspartate Amino Transf (AST/SGOT) 14 U/L (15-37) Alanine Aminotransferase (ALT/SGPT) 18 U/L (16-63) Alkaline Phosphatase 32 U/L (46-116) Creatine Kinase 17 U/L (39-308) Troponin I Quantitative 0.021 ng/mL (0.000-0.055) Total Protein 4.0 g/dL (6.4-8.2) Albumin 1.3 g/dL (3.4-5.0) Albumin/Globulin Ratio 0.5 (1.0-1.7) Lipase 382 U/L (73-393) White Blood Count 4.6 x10^3/uL (4.0-11.0) Red Blood Count 1.70 x10^6/uL (4.30-5.70) Hemoglobin 5.1 g/dL (13.0-17.5) Hematocrit 16.7 % (39.0-53.0) Mean Corpuscular Volume 98 fL (79-100) Mean Corpuscular Hemoglobin 30 pg (25-35) Mean Corpuscular Hemoglobin Concent 30 g/dL (31-37) Red Cell Distribution Width 19.1 % (11.5-14.5) Platelet Count 165 x10^3/uL (140-400) Neutrophils (%) (Auto) 77 % (31-73) Lymphocytes (%) (Auto) 10 % (24-48) Monocytes (%) (Auto) 12 % (0-9) Eosinophils (%) (Auto) 1 % (0-3) Basophils (%) (Auto) 1 % (0-3) Neutrophils # (Auto) 3.6 x10^3/uL (1.8-7.7) Lymphocytes # (Auto) 0.4 x10^3/uL (1.0-4.8) Monocytes # (Auto) 0.6 x10^3/uL (0.0-1.1) Eosinophils # (Auto) 0.0 x10^3/uL (0.0-0.7) Basophils # (Auto) 0.0 x10^3/uL (0.0-0.2) Stool Occult Blood Positive (NEG) Laboratory Tests Test 01/04/20 11:40 01/04/20 12:55 01/04/20 13:13 Prothrombin Time 15.2 SEC (11.7-14.0) Prothromb Time International Ratio 1.2 (0.8-1.1) Activated Partial Thromboplast Time 32 SEC (24-38) Sodium Level 139 mmol/L (136-145) Potassium Level 6.0 mmol/L (3.5-5.1) Chloride Level 107 mmol/L (98-107) Carbon Dioxide Level 28 mmol/L (21-32) Anion Gap 4 (6-14) Blood Urea Nitrogen 85 mg/dL (8-26) Creatinine 4.5 mg/dL (0.7-1.3) Estimated GFR (Cockcroft-Gault) 12.7 BUN/Creatinine Ratio 19 (6-20) Glucose Level 95 mg/dL (70-99) Lactic Acid Level 1.4 mmol/L (0.4-2.0) Calcium Level 7.7 mg/dL (8.5-10.1) Total Bilirubin 0.2 mg/dL (0.2-1.0) Aspartate Amino Transf (AST/SGOT) 14 U/L (15-37) Alanine Aminotransferase (ALT/SGPT) 18 U/L (16-63) Alkaline Phosphatase 32 U/L (46-116) Creatine Kinase 17 U/L (39-308) Troponin I Quantitative 0.021 ng/mL (0.000-0.055) Total Protein 4.0 g/dL (6.4-8.2) Albumin 1.3 g/dL (3.4-5.0) Albumin/Globulin Ratio 0.5 (1.0-1.7) Lipase 382 U/L (73-393) White Blood Count 4.6 x10^3/uL (4.0-11.0) Red Blood Count 1.70 x10^6/uL (4.30-5.70) Hemoglobin 5.1 g/dL (13.0-17.5) Hematocrit 16.7 % (39.0-53.0) Mean Corpuscular Volume 98 fL (79-100) Mean Corpuscular Hemoglobin 30 pg (25-35) Mean Corpuscular Hemoglobin Concent 30 g/dL (31-37) Red Cell Distribution Width 19.1 % (11.5-14.5) Platelet Count 165 x10^3/uL (140-400) Neutrophils (%) (Auto) 77 % (31-73) Lymphocytes (%) (Auto) 10 % (24-48) Monocytes (%) (Auto) 12 % (0-9) Eosinophils (%) (Auto) 1 % (0-3) Basophils (%) (Auto) 1 % (0-3) Neutrophils # (Auto) 3.6 x10^3/uL (1.8-7.7) Lymphocytes # (Auto) 0.4 x10^3/uL (1.0-4.8) Monocytes # (Auto) 0.6 x10^3/uL (0.0-1.1) Eosinophils # (Auto) 0.0 x10^3/uL (0.0-0.7) Basophils # (Auto) 0.0 x10^3/uL (0.0-0.2) Stool Occult Blood Positive (NEG) VTE Prophylaxis Ordered VTE Prophylaxis Devices: Contraindicated VTE Pharmacological Prophylaxi: Yes Justicifation of Admission Dx: Justifications for Admission: Justification of Admission Dx: Yes Chronic Renal Failure: Electrolyte Abnormality OPAL PRESTON MD Jan 04, 2020 14:21
[2020-01-04] MEDS ORDERED: CONTRAST GIVEN. MC PRN (15:15)
[2020-01-04] MEDS ORDERED: IOHEXOL 300 MG/ML 100ML VIAL. IV ONE (15:15)
--- NOTE | 2020-01-04 15:19 | PDOC ---
Date of Service: DATE: 01/04/20 TIME: 14:53 Subjective: Subjective: Please see GI consult from 12/27/19 - eval for dark stool, anemia, +Hemoccult. No obvious bleeding during hospital stay though required several transfusions before stabilized. Hgb was 7.1 when discharged on 01/01. H/o and ESRD on HD and ACD/YSABEL - on Venofer. EGD by Dr. Haskins on 01/01/20 showed Grade B esophagitis, macular white area in mid-body/greater curve (suspect adherent med - biopsy w/ mild chronic inflammation with foci of superficial mucosal necrosis,erosion, and acute inflammation - negative for H. pylori), and normal duodenal bulb (unable to progress further secondary to looping in large stomach). Discharged on BID PPI w/ consideration for outpt colonoscopy. Recent hematology eval for pancytopenia/B12 deficiency - started on replacement. Noted w/ low copper w/ recommendation to start Thera-M vitamin. Additional h/o A Fib on ASA - restarted per discussion w/ cardiology prior to DC. Back to ER today w/ fatigue and weakness. "I didn't think I could get out of bed today." ER staff reports small amount of black sticky stool in brief. Also noted some hypotension. Like last time, he denies bleeding but says his eyes aren't what they used to be. Denies abdominal pain. Says he has a small stool about every other day. Hgb 5.1 today. +Hemoccult again. Thinks he's taking all the pills he's supposed to. Children indicated last admission that it had been many years since last colo noscopy. Objective: Vital Signs: Vital Signs Date Time Temp Pulse Resp B/P (MAP) Pulse Ox O2 Delivery O2 Flow Rate FiO2 01/04/20 14:49 98.3 72 18 103/51 98.3 01/04/20 10:47 96 Nasal Cannula 3.0 Labs: Laboratory Tests Test 01/04/20 11:40 01/04/20 12:55 01/04/20 13:13 Prothrombin Time 15.2 SEC Prothromb Time International Ratio 1.2 Activated Partial Thromboplast Time 32 SEC Sodium Level 139 mmol/L Potassium Level 6.0 mmol/L Chloride Level 107 mmol/L Carbon Dioxide Level 28 mmol/L Anion Gap 4 Blood Urea Nitrogen 85 mg/dL Creatinine 4.5 mg/dL Estimated GFR (Cockcroft-Gault) 12.7 BUN/Creatinine Ratio 19 Glucose Level 95 mg/dL Lactic Acid Level 1.4 mmol/L Calcium Level 7.7 mg/dL Total Bilirubin 0.2 mg/dL Aspartate Amino Transf (AST/SGOT) 14 U/L Alanine Aminotransferase (ALT/SGPT) 18 U/L Alkaline Phosphatase 32 U/L Creatine Kinase 17 U/L Troponin I Quantitative 0.021 ng/mL Total Protein 4.0 g/dL Albumin 1.3 g/dL Albumin/Globulin Ratio 0.5 Lipase 382 U/L White Blood Count 4.6 x10^3/uL Red Blood Count 1.70 x10^6/uL Hemoglobin 5.1 g/dL Hematocrit 16.7 % Mean Corpuscular Volume 98 fL Mean Corpuscular Hemoglobin 30 pg Mean Corpuscular Hemoglobin Concent 30 g/dL Red Cell Distribution Width 19.1 % Platelet Count 165 x10^3/uL Neutrophils (%) (Auto) 77 % Lymphocytes (%) (Auto) 10 % Monocytes (%) (Auto) 12 % Eosinophils (%) (Auto) 1 % Basophils (%) (Auto) 1 % Neutrophils # (Auto) 3.6 x10^3/uL Lymphocytes # (Auto) 0.4 x10^3/uL Monocytes # (Auto) 0.6 x10^3/uL Eosinophils # (Auto) 0.0 x10^3/uL Basophils # (Auto) 0.0 x10^3/uL Platelet Estimate Pending Stool Occult Blood Positive PE: GEN: sleeping with pillow over his head LUNGS: clear anteriorly HEART: RRR ABD: NABS, S/ND/NT SKIN: pale NEURO/PSYCH: A & O 3, lethargic and a bit hard of hearing A/P: Melena, fatigue - EGD unrevealing for source on 01/01/20 Anemia - requiring transfusions H/o B12 deficiency - on replacement (monthly inj) GERD - on PPI CRC screen - unclear timing A Fib - on ASA ESRD on HD - gets Venofer per nephrology COVID negative 12/27/19 -- Reviewed w/ Dr. Haskins - check bleeding scan. Agree w/ PPI and transfusion. Okay for clears tonight. Justicifation of Admission Dx: Justifications for Admission: Justification of Admission Dx: Yes Chronic Renal Failure: Electrolyte Abnormality SHERI KINSEY Jan 04, 2020 15:19
[2020-01-04 15:36] LABS: % BANDS 2 % (0-9); % BASOS 1 % (0-3); % LYMPHS 8 % (24-48); % METAS 2 % (0-0); % MONOS 5 % (0-10); % SEGS 82 % (35-66); PLT ESTIMATE ADEQUATE (ADEQUATE)
[2020-01-04 15:37] LABS: ANISOCYTOSIS SLIGHT; TOXIC GRANULATION SLIGHT
[2020-01-04 15:38] LABS: MICROCYTOSIS SLIGHT; SCHISTOCYTES OCC
--- NOTE | 2020-01-04 16:50 | RAD ---
EXAM: CT Abdomen and Pelvis with IV contrast INDICATION: Reason: gib / Spl. Instructions: 75ML OMNI 300 DIALYSIS MWF / History: TECHNIQUE: Multi-detector row CT images were acquired from the lung bases through the abdomen and pelvis with the use of IV contrast. Sagittal and coronal images were acquired from the transaxial data. All CT scans performed at this facility utilize dose optimization techniques as appropriate to the exam, including the following: Automated exposure control and adjustment of the mA and/or KV according to patient size (this includes techniques or standardized protocols for targeted exams where dose is indication/reason for exam). IV CONTRAST: Administered ORAL CONTRAST: Not administered COMPARISON: Noncontrast abdomen pelvis CT 12/28/2019 FINDINGS: LOWER CHEST: Persistent large left pleural effusion and small right pleural effusion with volume loss in the left lung. The heart shows multivessel coronary calcifications. LIVER: Unremarkable BILIARY SYSTEM: Gallbladder contains layering density compatible with sludge, stones or vicariously excreted contrast material. Bile ducts are not dilated. PANCREAS: Unremarkable SPLEEN: Unremarkable ADRENALS: Left greater than right bilateral masslike fullness to the adrenal glands KIDNEYS & URETERS: Atrophic. No radiopaque stones or hydronephrosis. BLADDER: Decompressed. Mild diffuse bladder wall thickening is nonspecific. Under distention versus cystitis are differential considerations. REPRODUCTIVE ORGANS: Unremarkable GASTROINTESTINAL: No findings of obstruction or perforation. Moderate stool in the large bowel most conspicuous in the ascending and transverse colon. The descending colon although partially collapsed, shows increased intraluminal density suspicious for intraluminal hemorrhage. Coronal image 37 of series 4 and axial image 42 of series 2 are the most suggestive of a possible intraluminal blush of contrast. The appendix is short and contains an appendicolith but is otherwise unremarkable.. MESENTERY/PERITONEUM/RETROPERITONEUM: Unremarkable VASCULAR: Unremarkable LYMPH NODES: No adenopathy OSSEOUS & SOFT TISSUES: Ventral abdominal wall edema. Lower lumbar spinal degenerative change. IMPRESSION: GI bleeding could be arising from the descending colon. Consider nuclear medicine GI bleeding scan in further evaluation for confirmation if clinically appropriate. Electronically signed by: Efrain Luna MD (01/04/2020 4:48 PM) [facility]
--- NOTE | 2020-01-04 17:00 | NUR ---
ec'd fro ER per cart. Pt awake and talkative but PLATINUM. IV RT EJ and Rt AC patent. Protonix gtt infusing. Reported 1st UPRBC infused in ER. Will start second unit soon. VSS. SR o2 3.5LNC. Pt prefers to lie on Lt side for breathing comfort. Pt talked with son Vidal on phone. Pt NPO.
--- NOTE | 2020-01-04 18:00 | NUR ---
Took pt to Bleeding scan and placed pt on semi back for scan compliance and after about 5 min pt started c/o I cant breathe and became confused and wide complex seen on monitor. Pt placed on Lt side and things settled down, back in SR and BP improved. . Pt remains awake and talking now. Bleeding scan stopped and Dr Luis updated as well as Dr Haskins.
[2020-01-04] MEDS ORDERED: ALBUTEROL SULFATE 2.5 MG/3 ML NEBU. NEB PRN (18:45)
--- NOTE | 2020-01-04 18:53 | RAD ---
GI bleeding scan 01/04/2020 CLINICAL HISTORY: Melanotic stools. TECHNIQUE: After the intravenous administration of 30 mCi of technetium 99m labeled red blood cells, imaging of the abdomen and pelvis was performed using the gamma camera for 5 minutes. The patient was unable to tolerate any further scanning. FINDINGS: Comparison is made to a CT scan of the abdomen and pelvis performed earlier today. This study is limited in that only a 5 minute acquisition was able to be obtained. The images from the gamma camera degraded by patient motion. Activity is seen within the heart, liver spleen and major vascular structures of the abdomen and pelvis. No area of abnormal activity is seen to suggest definite evidence of active GI bleeding. IMPRESSION: Limited study for reasons outlined above. There is no definite scintigraphic evidence of active GI bleeding. Electronically signed by: Carlos Loja MD (01/04/2020 6:50 PM) [id number]
[2020-01-04] MEDS: IPRATRPIUM/ALBUTEROL 0.5/2.5MG 3 ML NEBU. NEB SCH (20:09)
[2020-01-04 21:07] LABS: RED BLOOD COUNT 2.16 x10^6/uL (4.30-5.70); RED CELL DISTRIBUTION WIDTH 17.6 % (11.5-14.5); WHITE BLOOD COUNT 4.4 x10^3/uL (4.0-11.0)
[2020-01-04 21:09] LABS: HEMOGLOBIN 6.5 g/dL (13.0-17.5)
[2020-01-04 21:10] LABS: HEMATOCRIT 20.5 % (39.0-53.0)
[2020-01-04 21:16] LABS: CALCIUM 7.6 mg/dL (8.5-10.1); CREATININE 5.1 mg/dL (0.7-1.3); MAGNESIUM 1.9 mg/dL (1.8-2.4)
[2020-01-04 21:17] LABS: POTASSIUM 6.1 mmol/L (3.5-5.1)
[2020-01-05] VITALS (32 sets, daily range): BP systolic 86–126; BP diastolic 33–69
[2020-01-05 06:15] LABS: HEMATOCRIT 24.5 % (39.0-53.0); HEMOGLOBIN 7.7 g/dL (13.0-17.5); RED BLOOD COUNT 2.62 x10^6/uL (4.30-5.70); RED CELL DISTRIBUTION WIDTH 17.9 % (11.5-14.5); WHITE BLOOD COUNT 5.6 x10^3/uL (4.0-11.0)
[2020-01-05 06:37] LABS: MAGNESIUM 2.1 mg/dL (1.8-2.4); PHOSPHORUS 3.7 mg/dL (2.6-4.7)
[2020-01-05] MEDS: IPRATRPIUM/ALBUTEROL 0.5/2.5MG 3 ML NEBU. NEB SCH ×4 (07:56→20:14)
[2020-01-05] MEDS ORDERED: DIALYSIS PATIENT. MC PRN (08:00)
[2020-01-05] MEDS ORDERED: IV NORMAL SALINE 1000ML BAG 1,000 ML IV PRN ×2 (08:00)
--- NOTE | 2020-01-05 08:13 | PDOC2 ---
CARDIAC CONSULT DATE OF CONSULT Date of Consult DATE: 01/05/20 TIME: 08:12 REASON FOR CONSULT Reason for Consult: Arrhythmia REFERRING PHYSICIAN Referring Physician: Toby SOURCE Source: Chart review HISTORY OF PRESENT ILLNESS HISTORY OF PRESENT ILLNESS This is a 79 yo male admitted for complains of weakness and SOA. He was seen by our group few days ago as he was just discharge and was see for PAF. Presetnly he is on SR. He was noted this time with severe anemia and prompting blood transfusion and noted with likely GI bleed. Denies any significant abdominal pain. No passing out, chest pain and his SOA is better. PAST MEDICAL HISTORY Past Medical History Cardiovascular: HTN, Hyperlipidemia, PSVT, CAD per CT scoring, AFIB Pulmonary: Pneumonia, COPD CENTRAL NERVOUS SYSTEM: Other (No pertinent history) GI: No pertinent hx Heme/Onc: No pertinent hx Hepatobiliary: No pertinent hx Psych: No pertinent hx Musculoskeletal: Osteoarthritis Rheumatologic: No pertinent hx Infectious disease: No pertinent hx ENT: macular degeneration Renal/: Benign prostatic enlarg, ESRD, HD since 11/2018 Endocrine: No pertinent hx Dermatology: Other (skin CA ewith removal) PAST SURGICAL HISTORY Past Surgical History: Other (skin CA removal) FAMILY HISTORY Family History noncontributory SOCIAL HISTORY Social History Smoke: 1 pack per day ALCOHOL: none Drugs: None Lives: Alone CURRENT MEDICATIONS CURRENT MEDICATIONS Current Medications Medications (Trade) Dose Ordered Sig/Samina Route PRN Reason Start Time Stop Time Status Last Admin Dose Admin Ceftriaxone Sodium (Rocephin) 1 gm 1X ONCE IVP 01/04/20 12:00 01/04/20 12:01 DC 01/04/20 13:09 Pantoprazole Sodium (PROTONIX VIAL for IV PUSH) 80 mg 1X ONCE IVP 01/04/20 13:00 01/04/20 13:01 DC 01/04/20 13:00 Pantoprazole Sodium 80 mg/ Sodium Chloride 100 ml @ 10 mls/hr Q10H IV 01/04/20 13:00 01/04/20 22:27 Iohexol (Omnipaque 300 Mg/ml) 75 ml 1X ONCE IV 01/04/20 15:15 01/04/20 15:16 DC 01/04/20 15:15 Albuterol/ Ipratropium (Duoneb) 3 ml RTQID NEB 01/04/20 20:00 01/05/20 07:56 Albuterol Sulfate (Ventolin Neb Soln) 2.5 mg PRN Q6HRS PRN NEB SHORTNESS OF BREATH 01/04/20 18:45 01/05/20 00:19 ALLERGIES ALLERGIES: Coded Allergies: adhesive (Verified Allergy, Intermediate, 12/05/19) Skin irritation cetirizine (Verified Allergy, Intermediate, hives, 12/05/19) ROS Review of System 14 point ROS evaluated with pertinent positives noted per HPI PHYSICAL EXAM General: Alert, Oriented X3, Cooperative, No acute distress HEENT: Atraumatic, Mucous membr. moist/pink Lungs: Other (diminished bases) Heart: Regular rate (SR), Other (distant heart sounds) Abdomen: Soft Extremities: No cyanosis, No edema Skin: No breakdown, Other (pale) Neuro: Normal speech, Sensation intact Psych/Mental Status: Mental status NL, Other (irritable) MUSCULOSKELETAL: Osteoarthritic changes both hands VITALS/I&O VITALS/I&O: Vital Signs Date Time Temp Pulse Resp B/P (MAP) Pulse Ox O2 Delivery O2 Flow Rate FiO2 01/05/20 07:56 96 Nasal Cannula 4.0 01/05/20 07:00 69 12 90/45 (60) 01/05/20 04:46 97.4 97.4 I & O 01/04/20 01/04/20 01/05/20 15:00 23:00 07:00 Intake Total 318 ml 318 ml 527.3 ml Output Total 0 ml 0 ml Balance 318 ml 318 ml 527.3 ml LABS Lab: Laboratory Tests Test 01/04/20 11:40 01/04/20 12:55 01/04/20 13:13 01/04/20 21:00 Prothrombin Time 15.2 SEC (11.7-14.0) H Prothrombin Time INR 1.2 (0.8-1.1) H Activated Partial Thromboplast Time 32 SEC (24-38) Sodium Level 139 mmol/L (136-145) 137 mmol/L (136-145) Potassium Level 6.0 mmol/L (3.5-5.1) H 6.1 mmol/L (3.5-5.1) *H Chloride Level 107 mmol/L (98-107) 105 mmol/L (98-107) Carbon Dioxide Level 28 mmol/L (21-32) 25 mmol/L (21-32) Anion Gap 4 (6-14) L 7 (6-14) Blood Urea Nitrogen 85 mg/dL (8-26) H 110 mg/dL (8-26) H Creatinine 4.5 mg/dL (0.7-1.3) H 5.1 mg/dL (0.7-1.3) H Estimated GFR (Cockcroft-Gault) 12.7 11.0 BUN/Creatinine Ratio 19 (6-20) Glucose Level 95 mg/dL (70-99) 88 mg/dL (70-99) Lactic Acid Level 1.4 mmol/L (0.4-2.0) Calcium Level 7.7 mg/dL (8.5-10.1) L 7.6 mg/dL (8.5-10.1) L Total Bilirubin 0.2 mg/dL (0.2-1.0) Aspartate Amino Transferase (AST) 14 U/L (15-37) L Alanine Aminotransferase (ALT) 18 U/L (16-63) Alkaline Phosphatase 32 U/L (46-116) L Creatine Kinase 17 U/L (39-308) L Troponin I Quantitative 0.021 ng/mL (0.000-0.055) Total Protein 4.0 g/dL (6.4-8.2) L Albumin 1.3 g/dL (3.4-5.0) L Albumin/Globulin Ratio 0.5 (1.0-1.7) L Lipase 382 U/L (73-393) White Blood Count 4.6 x10^3/uL (4.0-11.0) 4.4 x10^3/uL (4.0-11.0) Red Blood Count 1.70 x10^6/uL (4.30-5.70) L 2.16 x10^6/uL (4.30-5.70) L Hemoglobin 5.1 g/dL (13.0-17.5) *L 6.5 g/dL (13.0-17.5) *L Hematocrit 16.7 % (39.0-53.0) *L 20.5 % (39.0-53.0) *L Mean Corpuscular Volume 98 fL (79-100) 95 fL (79-100) Mean Corpuscular Hemoglobin 30 pg (25-35) 30 pg (25-35) Mean Corpuscular Hemoglobin Concent 30 g/dL (31-37) L 32 g/dL (31-37) Red Cell Distribution Width 19.1 % (11.5-14.5) H 17.6 % (11.5-14.5) H Platelet Count 165 x10^3/uL (140-400) 157 x10^3/uL (140-400) Neutrophils (%) (Auto) 77 % (31-73) H Lymphocytes (%) (Auto) 10 % (24-48) L Monocytes (%) (Auto) 12 % (0-9) H Eosinophils (%) (Auto) 1 % (0-3) Basophils (%) (Auto) 1 % (0-3) Neutrophils # (Auto) 3.6 x10^3/uL (1.8-7.7) Lymphocytes # (Auto) 0.4 x10^3/uL (1.0-4.8) L Monocytes # (Auto) 0.6 x10^3/uL (0.0-1.1) Eosinophils # (Auto) 0.0 x10^3/uL (0.0-0.7) Basophils # (Auto) 0.0 x10^3/uL (0.0-0.2) Segmented Neutrophils % 82 % (35-66) H Band Neutrophils % 2 % (0-9) Lymphocytes % 8 % (24-48) L Monocytes % 5 % (0-10) Basophils % 1 % (0-3) Metamyelocytes % 2 % (0-0) H Toxic Granulation Slight Platelet Estimate Adequate (ADEQUATE) Basophilic Stippling Present Anisocytosis Slight Microcytosis Slight Schistocytes Occ Stool Occult Blood Positive (NEG) Magnesium Level 1.9 mg/dL (1.8-2.4) Test 01/05/20 06:00 White Blood Count 5.6 x10^3/uL (4.0-11.0) Red Blood Count 2.62 x10^6/uL (4.30-5.70) L Hemoglobin 7.7 g/dL (13.0-17.5) L Hematocrit 24.5 % (39.0-53.0) L Mean Corpuscular Volume 93 fL (79-100) Mean Corpuscular Hemoglobin 29 pg (25-35) Mean Corpuscular Hemoglobin Concent 31 g/dL (31-37) Red Cell Distribution Width 17.9 % (11.5-14.5) H Platelet Count 146 x10^3/uL (140-400) Phosphorus Level 3.7 mg/dL (2.6-4.7) Magnesium Level 2.1 mg/dL (1.8-2.4) Laboratory Tests 01/04/20 12:55 01/04/20 21:00 01/05/20 06:00 Laboratory Tests 01/04/20 11:40 01/04/20 21:00 IMAGES IMAGES IMPRESSION 1. Coronary atherosclerosis is present, moderate amount. 2. Intermediate risk of cardiovascular event. 3. There is increased linear consolidation with air bronchograms in the lingula. Scarring or chronic atelectasis are considerations. Suggest outpatient follow-up CT chest. RECOMMENDATIONS 1. Further evaluation and prevention strategies should be based on global assessment of cardiovascular risk factors in addition to the results of this test. 2. Aggressive reduction of modifiable cardiovascular risk factors should be considered. Additional supporting information concerning the findings and recommendation contained within this report can be found in the consensus statements on coronary vascular calcium published by the [employer] and [employer] College of [employer] and Prevention 5 Conference (Circulation 1996; 94: 2307-6900; J Am Gill Cardiol 2000; 36: 326-340 and Circulation 2000; 101: 111-116). DATE: 09/01/16 1226 ECHOCARDIOGRAM ECHOCARDIOGRAM <Conclusion> The left ventricular systolic function is normal. The Ejection Fraction is 60-65%. There is normal LV segmental wall motion. There is no evidence of significant pericardial effusion. DATE: 08/14/19 1410 ASSESSMENT/PLAN ASSESSMENT/PLAN 1. PAFIB; maintaining SR 2. Severe anemia with likely GI bleed: post transfusion 3. ESRD with mild hyperkalemia 4. Hypertension; controlled 5. Dyslipidemia; statin 6. COPD. Recommendations Fluid offloading via HD Will hold BP meds for now given its at marginal range and metoprolol as well. However will continue amiodarone for rhythm maintenance Consider outpatient referral for JASON closure. Will hold off ASA for now. Follow up with Dr. Casillas as scheduled. Restart secondary prevention when able. ELIANA KLEIN FAMILY SUPPORT WORKER Jan 05, 2020 08:13
--- NOTE | 2020-01-05 08:55 | NUR ---
Ronan BACON here to do dialysis on patient.
--- NOTE | 2020-01-05 09:19 | EKG ---
[facility] [address] [place] [address] Test Date: 2020-01-04 Test Time: 12:43:42 Pat Name: ADALBERTO BILLS Department: Room: Gender: M Oxyacetylene Cutter: : 1940 Requested By: KATE MARTELL Order Number: [id number] Reading MD: Measurements Intervals [employer] Rate: 75 P: 90 IL: 218 QRS: -2 QRSD: 98 T: 29 QT: 378 QTc: 425 Interpretive Statements SINUS RHYTHM PROLONGED IL INTERVAL LEFTWARD AXIS LOW LIMB LEAD VOLTAGE QRS(T) CONTOUR ABNORMALITY CONSIDER ANTEROSEPTAL MYOCARDIAL DAMAGE ABNORMAL ECG RI6.02 No previous ECG available for comparison
[2020-01-05] MEDS: CALAMINE/ZINC OXIDE TOPICAL SUSPENSION 177ML BOTTLE. TP PRN (09:36)
--- NOTE | 2020-01-05 09:50 | PDOC ---
Date of Service: DATE: 01/05/20 TIME: 09:45 Subjective: Subjective: Not feeling better, has complaints about the number of breathing treatments he's entitled to. Denies bleeding. Fatigued. Objective: Objective: No bleeding per nurse. D/w Robyn - possibility of delayed images per nuc med yesterday - scan limited yesterday due to arrhythmia. D/w Dr. Luis - ?consider colonoscopy Vital Signs: Vital Signs Date Time Temp Pulse Resp B/P (MAP) Pulse Ox O2 Delivery O2 Flow Rate FiO2 01/05/20 09:00 51 12 105/43 (63) 99 Nasal Cannula 4.0 01/05/20 08:00 98.1 98.1 Labs: Laboratory Tests Test 01/04/20 11:40 01/04/20 12:55 01/04/20 13:13 01/04/20 21:00 Prothrombin Time 15.2 SEC Prothromb Time International Ratio 1.2 Activated Partial Thromboplast Time 32 SEC Sodium Level 139 mmol/L 137 mmol/L Potassium Level 6.0 mmol/L 6.1 mmol/L Chloride Level 107 mmol/L 105 mmol/L Carbon Dioxide Level 28 mmol/L 25 mmol/L Anion Gap 4 7 Blood Urea Nitrogen 85 mg/dL 110 mg/dL Creatinine 4.5 mg/dL 5.1 mg/dL Estimated GFR (Cockcroft-Gault) 12.7 11.0 BUN/Creatinine Ratio 19 Glucose Level 95 mg/dL 88 mg/dL Lactic Acid Level 1.4 mmol/L Calcium Level 7.7 mg/dL 7.6 mg/dL Total Bilirubin 0.2 mg/dL Aspartate Amino Transf (AST/SGOT) 14 U/L Alanine Aminotransferase (ALT/SGPT) 18 U/L Alkaline Phosphatase 32 U/L Creatine Kinase 17 U/L Troponin I Quantitative 0.021 ng/mL Total Protein 4.0 g/dL Albumin 1.3 g/dL Albumin/Globulin Ratio 0.5 Lipase 382 U/L White Blood Count 4.6 x10^3/uL 4.4 x10^3/uL Red Blood Count 1.70 x10^6/uL 2.16 x10^6/uL Hemoglobin 5.1 g/dL 6.5 g/dL Hematocrit 16.7 % 20.5 % Mean Corpuscular Volume 98 fL 95 fL Mean Corpuscular Hemoglobin 30 pg 30 pg Mean Corpuscular Hemoglobin Concent 30 g/dL 32 g/dL Red Cell Distribution Width 19.1 % 17.6 % Platelet Count 165 x10^3/uL 157 x10^3/uL Neutrophils (%) (Auto) 77 % Lymphocytes (%) (Auto) 10 % Monocytes (%) (Auto) 12 % Eosinophils (%) (Auto) 1 % Basophils (%) (Auto) 1 % Neutrophils # (Auto) 3.6 x10^3/uL Lymphocytes # (Auto) 0.4 x10^3/uL Monocytes # (Auto) 0.6 x10^3/uL Eosinophils # (Auto) 0.0 x10^3/uL Basophils # (Auto) 0.0 x10^3/uL Segmented Neutrophils % 82 % Band Neutrophils % 2 % Lymphocytes % 8 % Monocytes % 5 % Basophils % 1 % Metamyelocytes % 2 % Toxic Granulation Slight Platelet Estimate Adequate Basophilic Stippling Present Anisocytosis Slight Microcytosis Slight Schistocytes Occ Stool Occult Blood Positive Magnesium Level 1.9 mg/dL Test 01/05/20 06:00 White Blood Count 5.6 x10^3/uL Red Blood Count 2.62 x10^6/uL Hemoglobin 7.7 g/dL Hematocrit 24.5 % Mean Corpuscular Volume 93 fL Mean Corpuscular Hemoglobin 29 pg Mean Corpuscular Hemoglobin Concent 31 g/dL Red Cell Distribution Width 17.9 % Platelet Count 146 x10^3/uL Phosphorus Level 3.7 mg/dL Magnesium Level 2.1 mg/dL Imaging: CT A/P IMPRESSION: GI bleeding could be arising from the descending colon. Consider nuclear medicine GI bleeding scan in further evaluation for confirmation if clinically appropriate. GI Bleed IMPRESSION: Limited study for reasons outlined above. There is no definite scintigraphic evidence of active GI bleeding. PE: GEN: dialyzing LUNGS: diminished HEART: RRR ABD: S/ND/NT NEURO/PSYCH: seems forgetful A/P: ?melena, +Hemoccult Anemia ESRD, hyperkalemia -- Will ask for bleeding scan/delayed images. Justicifation of Admission Dx: Justifications for Admission: Justification of Admission Dx: Yes Chronic Renal Failure: Electrolyte Abnormality SHERI KINSEY Jan 05, 2020 09:50
--- NOTE | 2020-01-05 10:02 | HP ---
ADMIT DATE: 01/04/2020 HISTORY OF PRESENT ILLNESS: The patient is an 79-year-old male patient, who was brought back to the Emergency Room from [facility] with a complaint of not feeling good, I cannot breathe when I am lying on my back, where on the right side, I just feel so weak. He stated he had a bowel movement just prior to arrival and needs to be cleaned. He denies any fall, head trauma, or syncope. He is anuric. He apparently was found to have dark tarry stool and his lab work showed that his hemoglobin was only 5.1, hematocrit 16.7, for which he was admitted to the ICU and was to be transfused. His potassium was slightly high also. However, his prothrombin time, INR, and aPTT were normal. Stool for occult blood was positive. He was discharged only 2 days ago after he received 2 units of packed RBCs and his upper GI endoscopy showed that he has esophagitis, for which he was discharged on proton pump inhibitor. On the day of discharge on 01/01, his hemoglobin was 7.1, hematocrit 22.6. PAST MEDICAL HISTORY: Significant for end-stage renal disease, on hemodialysis Wednesday, Wednesday, Wednesday. He is also known to have hypertension, hyperlipidemia, atrial fibrillation, chronic obstructive pulmonary disease, bronchial asthma, obstructive sleep apnea, benign prostatic hypertrophy, generalized osteoarthritis, senile macular degeneration, prior right elbow infection and bilateral cataracts. He was also admitted with pancytopenia attributed to vitamin B12 deficiency and anemia, likely due to blood loss anemia, although his upper GI endoscopy only showed esophagitis. PAST SURGICAL HISTORY: Significant for hemodialysis catheter placement, right knee replacement, skin cancer excision, has had also a bronchoscopy multiple times as well as thoracentesis and esophagogastroduodenoscopy. ALLERGIES: HE IS ALLERGIC TO ZYRTEC. HE IS ALSO ALLERGIC TO ADHESIVES. FAMILY HISTORY: His mom with cancer and he has a history of lymphoma in his family. SOCIAL HISTORY: He has moved recently to [facility]. He is , has 2 children, 1 lives nearby, the other lives out of state. He is an ex-smoker. He does not drink alcohol or use recreational drugs. He is fairly dependent. MEDICATIONS: He was discharged to [facility] to continue on cyanocobalamin 1000 mcg/mL intramuscular once a month, Protonix 40 mg twice a day, acetaminophen 500 mg every 6 hours, albuterol sulfate inhaler 2 puffs 4 times a day, amiodarone 200 mg once a day, aspirin 81 mg once a day, atorvastatin calcium 10 mg at bedtime, calcium acetate 667 mg 3 times a day with meals, cholecalciferol vitamin D 25 mcg once a day, Advair Diskus 250/50 one puff twice a day, folic acid with vitamin B complex 1 tablet once a day, ipratropium bromide, albuterol sulfate by nebulizer 4 times a day, isosorbide mononitrate 30 mg at bedtime, metoprolol tartrate 12.5 mg twice a day, tamsulosin 0.4 mg twice a day, and zinc sulfate 220 mg once a day. REVIEW OF SYSTEMS: As per history of present illness. PHYSICAL EXAMINATION: GENERAL: On arrival to the Emergency Room, he apparently was extremely pale, but no jaundice, cyanosis, or thyromegaly. No jugular venous distention. No lower limb edema. VITAL SIGNS: His heart rate was 74, blood pressure was 84/46, temperature was 98, respiratory rate was 20, and oxygen saturation was 96% on 3 liters of oxygen. HEAD, EYES, EARS, NOSE, AND THROAT: Normocephalic, atraumatic. NECK: Supple. HEART: Showed normal first and second heart sounds. No gallop, rub, or murmur. CHEST: Clear to auscultation. No crepitation or rhonchi. ABDOMEN: Distended, soft, nontender. NEUROLOGIC: He was awake, alert, responding appropriately. All cranial nerves intact. EXTREMITIES: He moves extremities without difficulty. He has marked muscle wasting and weakness. LABORATORY DATA: His lab work on arrival showed a white cell count 4600, hemoglobin was 5.1, hematocrit 16.7, MCV 98, and platelet count of 165,000. Serum sodium was 139, potassium 6, chloride 107, bicarbonate 28, anion gap of 4, BUN 85, creatinine 4.5, estimated GFR was 12.7. His glucose was 95, calcium was 7.7. Total bilirubin, AST, ALT, alkaline phosphatase were normal. CK was 17, total protein was 4. Albumin was 1.3. His prothrombin time was 15.2, INR 1.2, aPTT was 32. His stool for occult blood was positive. IMAGING: He did have a chest x-ray, which showed that he has increased moderate to large left pleural effusion with superimposed atelectasis or consolidation. He did have a CT scan of the abdomen and pelvis with IV contrast, which basically showed that there is no finding of obstruction or perforation. There is moderate stool in the large bowel, most conspicuous in the ascending and transverse colon. The descending colon, although partially collapsed, shows increased intraluminal density suspicious for intraluminal hemorrhage. Coronal images are most suggestive of possible intraluminal collection of contrast. The appendix is short and contains appendicolith, but is otherwise unremarkable. Mesentery, peritoneum, and retroperitoneum are unremarkable. Vascular unremarkable. Lymph nodes, no adenopathy. Osseous and soft tissue, ventral abdominal wall edema, lower lumbar spinal degenerative changes. IMPRESSION AND PLAN: The patient's gastrointestinal bleeding could be arising from the ascending colon. Consider nuclear medicine GI bleeding scan and further evaluation for confirmation if clinically appropriate. Apparently, GI scan was attempted, but the patient could not lie flat. The study was limited, in that only 5 minutes' acquisition was able to be obtained. Images from the gamma camera degraded by the patient's motion. Activity seen within the heart, liver, spleen, and major vascular structures of the abdomen and pelvis. No areas of abnormal activity seen to suggest definite evidence of active gastrointestinal bleed. The patient was admitted to the ICU and we did consult the Gastroenterology team as well as the Cardiology as he developed also multiple episodes of nonsustained ventricular tachycardia. He has 3 units of packed RBCs ordered and we will continue with all his other medications and we started him on a clear liquid diet. RALEIGH ZHAO MD DR: TAYLOR/carly JOB#: [id number] / [id number]
--- NOTE | 2020-01-05 10:16 | CONS ---
DATE OF CONSULTATION: PULMONARY CONSULTATION ATTENDING PHYSICIAN: Dr. Luis. REASON FOR CONSULTATION: Pleural effusion, abnormal chest x-ray. HISTORY OF PRESENT ILLNESS: The patient is an 79-year-old male who has history of end-stage renal disease, on hemodialysis. He has history of abnormal CT chest, which revealed a large apical bulla on the left side along with mass-like consolidation and also had history of left sided pleural effusion, which had required thoracentesis previously. He underwent bronchoscopy performed by Dr. Rangel in November. He had a severe distortion of the lingular subsegment with extrinsic compression and he was unable to visualize anything besides a small opening. There was no evidence of malignancy. The patient was brought into the hospital with feeling weak. He was noted to be anemic. He is currently undergoing dialysis. His CT abdomen and pelvis was reviewed and shows moderate left sided pleural effusion and GI bleeding, which was suspicious arising from the descending colon. The patient also had a chest x-ray, which showed left lower lobe pleural effusion and moderate volume loss, which has worsened since last time in the left upper lobe. I have been asked to see him for further evaluation. He denies any further weight loss. Denies any hemoptysis. He is on home oxygen. He smoked for 50 years and still has not completely quit. PAST MEDICAL HISTORY: 1. History of COPD, history of chronic respiratory failure. 2. End-stage renal disease, on hemodialysis. 3. History of prior thoracentesis in November. It was likely transudate. 4. History of abnormal CT chest as discussed previously. PAST SURGICAL HISTORY: No significant recent surgeries, but past Including left knee surgery and cataract surgery. SOCIAL HISTORY: Ongoing tobacco for 50 years. MEDICATIONS: Reviewed as listed in the MRAD. REVIEW OF SYSTEMS: Twelve-point system obtained. Pertinent positives discussed in my history of present illness, otherwise noncontributory. All systems that were negative were reviewed as well. PHYSICAL EXAMINATION: VITAL SIGNS: Reviewed. Pulse ox 99% on 4 liters, afebrile. NECK: Supple. LUNGS: With diminished breath sounds at the bases. CARDIOVASCULAR: With a regular rate. ABDOMEN: Soft. EXTREMITIES: With trace pitting edema. LABORATORY DATA: Reviewed. Hemoglobin was 5.1. Now 7.7. White cell count 5.6, platelets are 146. BUN 110, creatinine 5.1. IMPRESSION: 1. Acute on chronic respiratory failure secondary to combination of multifactorial etiologies including underlying chronic obstructive pulmonary disease, anemia and recurrent left sided pleural effusion. 2. The patient with abnormal CT chest previously with a large left apical bulla and mass-like consolidation in the lingula. He had a PET scan, which did not show any uptake in the lingula. He also had a bronchoscopy, which showed severely distorted anatomy with a lingular subsegment extrinsic compression. Dr. Rangel was not able to visualize except a small tiny opening. We will do a followup CT chest. 3. Anemia, followed by GI. 4. End-stage renal disease, on hemodialysis. 5. Recurrent left sided pleural effusion. RECOMMENDATIONS: 1. At this point, discussed with the patient at this time, he would benefit from repeat thoracentesis. Etiology of pleural effusion, likely transudative from severe hypoalbuminemia. I will also check for cytology. 2. We will do a noncontrast CT chest to better assess for marked volume loss in the left upper lobe and lingula and then compare it from previous CAT scan. 3. Continue hemodialysis with ultrafiltration. 4. Smoking cessation counseling provided. 5. Follow hemoglobin closely. 6. Follow GI recommendations. 7. Stress ulcer prophylaxis. 8. Discussed with Dr. Luis and will follow along with you. Critical care time 37 minutes. ESTEVAN MEJÍA MD DR: LAURA/carly JOB#: [id number] / [id number]
--- NOTE | 2020-01-05 11:03 | PDOC2 ---
CONSULT Date of Consult Date of Consult DATE: 01/05/20 TIME: 10:41 Reason for Consult Reason for Consult: ESRD Source Source: Chart review History of Present Illness Reason for Visit: Pt is a 79-year-old male who was recently dced from [facility], he who was brought back to the ER from Assisted Living Facility with a complaint of not feeling good, He reported that couldn't breathe when he is lying on the back and feeling very weak. He denies any CP, No Cough, No F/C . Denies any N/V. No abdominal pain . He is anuric Denies any fall, head trauma, or syncope. He apparently was found to have dark tarry stool and his hemoglobin was only 5.1 He was admitted to the ICU and transfused PRBC last night Stool for occult blood is positive. He was discharged 2-3 days ago after he received 2 units of packed RBCs and his upper GI endoscopy showed esophagitis and was on PPI Currently he is on Dialysis . 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 Endocrine: No pertinent hx, Hyperparathyroidism Past Surgical History Past Surgical History: Other (skin CA removal) Family History Family History: No Significant Social History ALCOHOL: none Drugs: None Lives: Alone Domestic Violence: Neg Current Problem List Problem List Problems Medical Problems: (1) Dyspnea Status: Acute (2) GIB (gastrointestinal bleeding) Status: Acute (3) Melena Status: Acute (4) Normocytic anemia Status: Acute (5) Pleural effusion, left Status: Acute Current Medications Current Medications Current Medications Sodium Chloride 1,000 ml @ 1,980 mls/hr Q31M IV ; Start 01/04/20 at 11:38; Stop 01/04/20 at 12:33; Status DC Ceftriaxone Sodium (Rocephin) 1 gm 1X ONCE IVP Last administered on 01/04/20at 13:09; Start 01/04/20 at 12:00; Stop 01/04/20 at 12:01; Status DC Pantoprazole Sodium (PROTONIX VIAL for IV PUSH) 80 mg 1X ONCE IVP Last administered on 01/04/20at 13:00; Start 01/04/20 at 13:00; Stop 01/04/20 at 13:01; Status DC Pantoprazole Sodium 80 mg/ Sodium Chloride 100 ml @ 10 mls/hr Q10H IV Last administered on 01/04/20at 22:27; Start 01/04/20 at 13:00; Stop 01/05/20 at 09:52; Status DC Iohexol (Omnipaque 300 Mg/ml) 75 ml 1X ONCE IV Last administered on 01/04/20at 15:15; Start 01/04/20 at 15:15; Stop 01/04/20 at 15:16; Status DC Info (CONTRAST GIVEN -- Rx MONITORING) 1 each PRN DAILY PRN MC SEE COMMENTS; Start 01/04/20 at 15:15; Stop 01/06/20 at 15:14 Albuterol/ Ipratropium (Duoneb) 3 ml RTQID NEB Last administered on 01/05/20at 07:56; Start 01/04/20 at 20:00; Stop 01/05/20 at 09:06; Status DC Albuterol Sulfate (Ventolin Neb Soln) 2.5 mg PRN Q6HRS PRN NEB SHORTNESS OF BREATH Last administered on 01/05/20at 00:19; Start 01/04/20 at 18:45 Sodium Chloride 1,000 ml @ 1,000 mls/hr Q1H PRN IV hypotension; Start 01/05/20 at 08:00; Stop 01/05/20 at 13:59 Sodium Chloride 1,000 ml @ 400 mls/hr Q2H30M PRN IV PATENCY; Start 01/05/20 at 08:00; Stop 01/05/20 at 19:59 Info (PHARMACY MONITORING -- do not chart) 1 each PRN DAILY PRN MC SEE COMMENTS; Start 01/05/20 at 08:00 Calamine (Calamine Lotion) 1 ken PRN Q4HRS PRN TP ITCHING Last administered on 01/05/20at 09:36; Start 01/05/20 at 08:15 Albuterol/ Ipratropium (Duoneb) 3 ml Q4HRS NEB ; Start 01/05/20 at 12:00 Pantoprazole Sodium (PROTONIX VIAL for IV PUSH) 40 mg BIDAC IVP ; Start 01/05/20 at 16:30 Active Scripts Active Cyanocobalamin Injection (Cyanocobalamin (Vitamin B-12)) 1,000 Mcg/1 Ml Vial 1 Ml IM QMONTH 30 Days Protonix (Pantoprazole Sodium) 40 Mg Tablet.dr 40 Mg PO BID 30 Days Isosorbide Mononitrate Er (Isosorbide Mononitrate) 30 Mg Tab.er.24h 30 Mg PO BID 30 Days Amiodarone Hcl 200 Mg Tablet 1 Tab PO DAILY 30 Days Duoneb 0.5-3(2.5) Mg/3 Ml (Albuterol/Ipratropium) 3 Ml Ampul.neb 3 Ml NEB RTQID 30 Days Reported Zinc Sulfate 220 Mg Tablet 1 Tab PO DAILY 30 Days Vitamin D3 (Cholecalciferol (Vitamin D3)) 25 Mcg Capsule 25 Mcg PO DAILY 1 Days Acetaminophen 500 Mg Tablet 1 Tab PO PRN Q6HRS PRN 15 Days Calcium Acetate 667 Mg Tablet 1 Cap PO TIDAC Metoprolol Tartrate 25 Mg Tablet 0.5 Tab PO BID [ahreds] 1 Cap PO BID Ahreds #2 Preservision, One softgel by mouth twice a day Dialyvite Tablet (Folic Acid/Vitamin B Comp W-C) 1 Each Tablet 1 Tab PO DAILY Advair 250-50 Diskus (Fluticasone/Salmeterol) 1 Each Disk.w.dev 1 Puff PO BID Aspirin Ec (Aspirin) 81 Mg Tablet. 1 Tab PO BID LAST DOSE GIVEN: DATE: 03/17/17 TIME: 1030 am so start taking this daily tomorrow Tamsulosin Hcl 0.4 Mg Cap.er.24h 0.4 Mg PO BID Ventolin Hfa Inhaler (Albuterol Sulfate) 18 Gm Hfa.aer.ad 2 Puff INH QID Atorvastatin Calcium 10 Mg Tablet 10 Mg PO HS Allergies Allergies: Coded Allergies: adhesive (Verified Allergy, Intermediate, 12/05/19) Skin irritation cetirizine (Verified Allergy, Intermediate, hives, 12/05/19) ROS Review of System Per HPI , rest of the ROS is negative Physical Exam Physical Exam General Appearance: no apparent distress HEEN OM moist, On O2 by NC Neck Supple Respiratory: Non labored, decreased at bases Heart: S1S2 Abdomen: soft, bowel sounds present, NT Genitourinary: No Castanon Extremities: No edema Neurology: alert, grossly normal Skin: No rash Vital Signs Vital Signs Date Time Temp Pulse Resp B/P (MAP) Pulse Ox O2 Delivery O2 Flow Rate FiO2 01/05/20 09:00 51 12 105/43 (63) 99 Nasal Cannula 4.0 01/05/20 08:00 98.1 98.1 Assessment & Plan ESRD- On HD MWF BUn significantly elevated 2/2 ? GI bleed Seen on HD, tolerating well, UF 2 lts as in2zonmecr continue as ordered, Joaquin Wang HyperKalemia - Dialysis today Anemia- Acute drop in Hgb to 5.1 at Presentation , s/p PRBC last night Recd PRBC at recent admission few days back and underwent EGD Esophagitis- On recent EGD, dced on PPI Hypotension- Not on pressors Hx of HTN Acute on chronic respiratory failure multifactorial- underlying COPD ,R ecurrent left sided pleural effusion. Abnormal CT chest previously with a large left apical bulla and mass-like consolidation in the lingula. Underwent bronchoscopy, which showed severely distorted anatomy with a lingular subsegment extrinsic compression. Follow up sca recommended by Pulm Recurrent left sided pleural effusion PAFib - Cardiology managing Labs Labs Laboratory Tests Test 01/04/20 11:40 01/04/20 12:55 01/04/20 13:13 01/04/20 21:00 Prothrombin Time 15.2 SEC (11.7-14.0) Prothromb Time International Ratio 1.2 (0.8-1.1) Activated Partial Thromboplast Time 32 SEC (24-38) Sodium Level 139 mmol/L (136-145) 137 mmol/L (136-145) Potassium Level 6.0 mmol/L (3.5-5.1) 6.1 mmol/L (3.5-5.1) Chloride Level 107 mmol/L (98-107) 105 mmol/L (98-107) Carbon Dioxide Level 28 mmol/L (21-32) 25 mmol/L (21-32) Anion Gap 4 (6-14) 7 (6-14) Blood Urea Nitrogen 85 mg/dL (8-26) 110 mg/dL (8-26) Creatinine 4.5 mg/dL (0.7-1.3) 5.1 mg/dL (0.7-1.3) Estimated GFR (Cockcroft-Gault) 12.7 11.0 BUN/Creatinine Ratio 19 (6-20) Glucose Level 95 mg/dL (70-99) 88 mg/dL (70-99) Lactic Acid Level 1.4 mmol/L (0.4-2.0) Calcium Level 7.7 mg/dL (8.5-10.1) 7.6 mg/dL (8.5-10.1) Total Bilirubin 0.2 mg/dL (0.2-1.0) Aspartate Amino Transf (AST/SGOT) 14 U/L (15-37) Alanine Aminotransferase (ALT/SGPT) 18 U/L (16-63) Alkaline Phosphatase 32 U/L (46-116) Creatine Kinase 17 U/L (39-308) Troponin I Quantitative 0.021 ng/mL (0.000-0.055) Total Protein 4.0 g/dL (6.4-8.2) Albumin 1.3 g/dL (3.4-5.0) Albumin/Globulin Ratio 0.5 (1.0-1.7) Lipase 382 U/L (73-393) White Blood Count 4.6 x10^3/uL (4.0-11.0) 4.4 x10^3/uL (4.0-11.0) Red Blood Count 1.70 x10^6/uL (4.30-5.70) 2.16 x10^6/uL (4.30-5.70) Hemoglobin 5.1 g/dL (13.0-17.5) 6.5 g/dL (13.0-17.5) Hematocrit 16.7 % (39.0-53.0) 20.5 % (39.0-53.0) Mean Corpuscular Volume 98 fL (79-100) 95 fL (79-100) Mean Corpuscular Hemoglobin 30 pg (25-35) 30 pg (25-35) Mean Corpuscular Hemoglobin Concent 30 g/dL (31-37) 32 g/dL (31-37) Red Cell Distribution Width 19.1 % (11.5-14.5) 17.6 % (11.5-14.5) Platelet Count 165 x10^3/uL (140-400) 157 x10^3/uL (140-400) Neutrophils (%) (Auto) 77 % (31-73) Lymphocytes (%) (Auto) 10 % (24-48) Monocytes (%) (Auto) 12 % (0-9) Eosinophils (%) (Auto) 1 % (0-3) Basophils (%) (Auto) 1 % (0-3) Neutrophils # (Auto) 3.6 x10^3/uL (1.8-7.7) Lymphocytes # (Auto) 0.4 x10^3/uL (1.0-4.8) Monocytes # (Auto) 0.6 x10^3/uL (0.0-1.1) Eosinophils # (Auto) 0.0 x10^3/uL (0.0-0.7) Basophils # (Auto) 0.0 x10^3/uL (0.0-0.2) Segmented Neutrophils % 82 % (35-66) Band Neutrophils % 2 % (0-9) Lymphocytes % 8 % (24-48) Monocytes % 5 % (0-10) Basophils % 1 % (0-3) Metamyelocytes % 2 % (0-0) Toxic Granulation Slight Platelet Estimate Adequate (ADEQUATE) Basophilic Stippling Present Anisocytosis Slight Microcytosis Slight Schistocytes Occ Stool Occult Blood Positive (NEG) Magnesium Level 1.9 mg/dL (1.8-2.4) Test 01/05/20 06:00 White Blood Count 5.6 x10^3/uL (4.0-11.0) Red Blood Count 2.62 x10^6/uL (4.30-5.70) Hemoglobin 7.7 g/dL (13.0-17.5) Hematocrit 24.5 % (39.0-53.0) Mean Corpuscular Volume 93 fL (79-100) Mean Corpuscular Hemoglobin 29 pg (25-35) Mean Corpuscular Hemoglobin Concent 31 g/dL (31-37) Red Cell Distribution Width 17.9 % (11.5-14.5) Platelet Count 146 x10^3/uL (140-400) Phosphorus Level 3.7 mg/dL (2.6-4.7) Magnesium Level 2.1 mg/dL (1.8-2.4) Laboratory Tests Test 01/04/20 11:40 01/04/20 12:55 01/04/20 13:13 01/04/20 21:00 Prothrombin Time 15.2 SEC (11.7-14.0) Prothromb Time International Ratio 1.2 (0.8-1.1) Activated Partial Thromboplast Time 32 SEC (24-38) Sodium Level 139 mmol/L (136-145) 137 mmol/L (136-145) Potassium Level 6.0 mmol/L (3.5-5.1) 6.1 mmol/L (3.5-5.1) Chloride Level 107 mmol/L (98-107) 105 mmol/L (98-107) Carbon Dioxide Level 28 mmol/L (21-32) 25 mmol/L (21-32) Anion Gap 4 (6-14) 7 (6-14) Blood Urea Nitrogen 85 mg/dL (8-26) 110 mg/dL (8-26) Creatinine 4.5 mg/dL (0.7-1.3) 5.1 mg/dL (0.7-1.3) Estimated GFR (Cockcroft-Gault) 12.7 11.0 BUN/Creatinine Ratio 19 (6-20) Glucose Level 95 mg/dL (70-99) 88 mg/dL (70-99) Lactic Acid Level 1.4 mmol/L (0.4-2.0) Calcium Level 7.7 mg/dL (8.5-10.1) 7.6 mg/dL (8.5-10.1) Total Bilirubin 0.2 mg/dL (0.2-1.0) Aspartate Amino Transf (AST/SGOT) 14 U/L (15-37) Alanine Aminotransferase (ALT/SGPT) 18 U/L (16-63) Alkaline Phosphatase 32 U/L (46-116) Creatine Kinase 17 U/L (39-308) Troponin I Quantitative 0.021 ng/mL (0.000-0.055) Total Protein 4.0 g/dL (6.4-8.2) Albumin 1.3 g/dL (3.4-5.0) Albumin/Globulin Ratio 0.5 (1.0-1.7) Lipase 382 U/L (73-393) White Blood Count 4.6 x10^3/uL (4.0-11.0) 4.4 x10^3/uL (4.0-11.0) Red Blood Count 1.70 x10^6/uL (4.30-5.70) 2.16 x10^6/uL (4.30-5.70) Hemoglobin 5.1 g/dL (13.0-17.5) 6.5 g/dL (13.0-17.5) Hematocrit 16.7 % (39.0-53.0) 20.5 % (39.0-53.0) Mean Corpuscular Volume 98 fL (79-100) 95 fL (79-100) Mean Corpuscular Hemoglobin 30 pg (25-35) 30 pg (25-35) Mean Corpuscular Hemoglobin Concent 30 g/dL (31-37) 32 g/dL (31-37) Red Cell Distribution Width 19.1 % (11.5-14.5) 17.6 % (11.5-14.5) Platelet Count 165 x10^3/uL (140-400) 157 x10^3/uL (140-400) Neutrophils (%) (Auto) 77 % (31-73) Lymphocytes (%) (Auto) 10 % (24-48) Monocytes (%) (Auto) 12 % (0-9) Eosinophils (%) (Auto) 1 % (0-3) Basophils (%) (Auto) 1 % (0-3) Neutrophils # (Auto) 3.6 x10^3/uL (1.8-7.7) Lymphocytes # (Auto) 0.4 x10^3/uL (1.0-4.8) Monocytes # (Auto) 0.6 x10^3/uL (0.0-1.1) Eosinophils # (Auto) 0.0 x10^3/uL (0.0-0.7) Basophils # (Auto) 0.0 x10^3/uL (0.0-0.2) Segmented Neutrophils % 82 % (35-66) Band Neutrophils % 2 % (0-9) Lymphocytes % 8 % (24-48) Monocytes % 5 % (0-10) Basophils % 1 % (0-3) Metamyelocytes % 2 % (0-0) Toxic Granulation Slight Platelet Estimate Adequate (ADEQUATE) Basophilic Stippling Present Anisocytosis Slight Microcytosis Slight Schistocytes Occ Stool Occult Blood Positive (NEG) Magnesium Level 1.9 mg/dL (1.8-2.4) Test 01/05/20 06:00 White Blood Count 5.6 x10^3/uL (4.0-11.0) Red Blood Count 2.62 x10^6/uL (4.30-5.70) Hemoglobin 7.7 g/dL (13.0-17.5) Hematocrit 24.5 % (39.0-53.0) Mean Corpuscular Volume 93 fL (79-100) Mean Corpuscular Hemoglobin 29 pg (25-35) Mean Corpuscular Hemoglobin Concent 31 g/dL (31-37) Red Cell Distribution Width 17.9 % (11.5-14.5) Platelet Count 146 x10^3/uL (140-400) Phosphorus Level 3.7 mg/dL (2.6-4.7) Magnesium Level 2.1 mg/dL (1.8-2.4) Review All relevant outside records, renal labs, imaging studies, telemetry/EKG's were reviewed. Images Images CT abdomen with IV contrast GI bleeding could be arising from the descending colon. Consider nuclear medicine GI bleeding scan in further evaluation for confirmation if clinically appropriate. ADRENALS: Left greater than right bilateral masslike fullness to the adrenal glands KIDNEYS & URETERS: Atrophic. No radiopaque stones or hydronephrosis. BLADDER: Decompressed. Mild diffuse bladder wall thickening is nonspecific. Under distention versus cystitis are differential considerations. CxR-- A moderate to large left pleural effusion appears increased. There appears to be a loculated component versus dense consolidation in the left apex. There is no pneumothorax. The heart is not enlarged. IMPRESSION: 1. Increased moderate to large left pleural effusion with superimposed atelectasis or consolidation GLORIA ANGUIANO MD Jan 05, 2020 11:03
--- NOTE | 2020-01-05 11:10 | PN ---
DATE: 01/05/2020 SUBJECTIVE: The patient The patient is resting flat, having his scheduled hemodialysis today. On questioning him, he denied any complaint, in particular any chest pain or shortness of breath. He did receive 3 units of packed RBCs and hemoglobin has risen to 7.7 and 24.5. PHYSICAL EXAMINATION: GENERAL: When I examined him, he looked pale, no jaundice, cyanosis or thyromegaly. No jugular venous distention. No limb edema. VITAL SIGNS: He heart rate was 69, blood pressure was 114/49, temperature was 98.1, respiratory rate was 12 and oxygen saturation was 97% on 4 liters of oxygen. HEAD, EYES, EARS, NOSE AND THROAT: Showed he is normocephalic, atraumatic. NECK: Supple. HEART: Normal first and second heart sounds with no gallop, rub or murmur. CHEST: Shows central trachea, equal bilateral expansion, air entry, vesicular sounds. No crepitation or rhonchi anteriorly. A dull percussion noted and absent breath sounds posteriorly. ABDOMEN: Distended, soft, nontender. NEUROLOGIC: He is awake, alert, responding appropriately. He moves all extremities without difficulty. He is hemodialysis dependent and completely anuric and intake and output were incompletely recorded. LABORATORY DATA: As of this morning, his white cell count was 5600, hemoglobin 7.7, hematocrit 24.5, MCV 93, and platelet count of 146,000. His chemistry as of yesterday showed a serum sodium 137, potassium 6.1, chloride 105, bicarbonate 25, anion gap of 7, BUN 110, creatinine was 5.1, estimated GFR was 11. His glucose was 88, calcium was 7.6 and magnesium was 1.9. His lactic acid was only 1.4. ASSESSMENT: The patient was admitted yet again with another anemia, likely due to gastrointestinal bleed. The CT scan of the abdomen and pelvis with contrast showed that there is moderate stool in the large bowel, most conspicuous in the ascending and transverse colon. The descending colon, although partially collapsed shows increased intraluminal density suspicious for intraluminal hemorrhage, coronal images are suggestive of a possible intraluminal plus with contrast. The appendix is short and contains appendicolith, but is otherwise unremarkable. PLAN: Obviously to continue with hemodialysis. Continue with all his medication. He continued to be on a clear liquid diet. I will discuss with GI team as he probably needs to have colonoscopy or GI or CT angio of the abdomen and pelvis. I did also consult Dr. Andrews for clearing left-sided pleural effusion. RALEIGH ZHAO MD DR: TAYLOR/carly JOB#: [id number] / [id number]
[2020-01-05] MEDS ORDERED: LIDOCAINE WITH 8.4% SOD BICARB 3 ML DISP.SYRIN. ONE (12:44)
[2020-01-05] MEDS ORDERED: LIDOCAINE WITH 8.4% SOD BICARB 3 ML DISP.SYRIN. INJ ONE (13:00)
[2020-01-05 13:20] LABS: HEMATOCRIT 20.8 % (39.0-53.0)
--- NOTE | 2020-01-05 13:48 | RAD ---
EXAM: Gastrointestinal bleeding study. HISTORY: Melanotic stools. COMPARISON: 01/04/2020. FINDINGS: A delayed image of the abdomen/pelvis was obtained following yesterday's incomplete study. 30 mCi Tc-99m pertechnetate tagged red blood cells were administered on 01/04/2020. Persistent blood pool activity is noted within a physiologic distribution. No clear abnormal collection of activity suggestive of a hematoma is identified. IMPRESSION: 1. No evidence of active hemorrhage though sensitivity is limited. Extensive blood pool activity persists. Electronically signed by: La Mcgowan MD (01/05/2020 1:45 PM) [id number]
--- NOTE | 2020-01-05 14:03 | NUR ---
SS following for discharge planning. SS reviewed pt chart and discussed with pt RN. Pt is from [facility], ; fax [phone]. Pt was on services with [facility], ; fax [phone]. Pt has outpatient dialysis at [facility], ; fax [phone], Wednesday, Wednesday, and Wednesday. Pt is currently requiring oxygen and has home oxygen. Pt admitted for GI Bleed. Pt on clear liquid diet. SS will continue to follow for discharge planning.
[2020-01-05] MEDS: AMIODARONE HCL 200 MG TABLET. PO SCH (15:12)
--- NOTE | 2020-01-05 16:07 | RAD ---
Ultrasound-guided right-sided thoracentesis 01/05/2020 2:02 PM Indication: Left pleural effusion, shortness of breath Procedure: Informed consent was obtained. A timeout procedure was performed. Sonographic evaluation of the left chest was performed demonstrating moderate pleural effusion. The left posterior chest was prepped and draped in sterile fashion. 1% lidocaine without epinephrine was administered for local anesthesia. Real-time ultrasonographic guidance was used in passing a 5 Persian schooxeh catheter into the left pleural space. 1.6 L of serosanguineous pleural fluid was removed. Samples of fluid were sent to the lab for further evaluation per ordering physician request. The catheter was removed and pressure held to achieve hemostasis. A sterile dressing was applied. No immediate complications were identified. The patient tolerated the procedure well. Impression: Left-sided ultrasound-guided thoracentesis
[2020-01-05] MEDS: PANTOPRAZOLE IV PUSH 40 MG VIAL. IVP SCH (16:53)
[2020-01-05] MEDS: ACETAMINOPHEN 325 MG TABLET. PO PRN (18:16)
[2020-01-05 18:58] LABS: HEMATOCRIT 22.2 % (39.0-53.0); HEMOGLOBIN 7.2 g/dL (13.0-17.5)
--- NOTE | 2020-01-05 22:55 | NUR ---
patient has requested to do his CT scan in AM.
[2020-01-05 23:55] LABS: HEMOGLOBIN 7.4 g/dL (13.0-17.5)
[2020-01-06] VITALS (12 sets, daily range): BP systolic 94–132; BP diastolic 31–48
[2020-01-06] MEDS: IPRATRPIUM/ALBUTEROL 0.5/2.5MG 3 ML NEBU. NEB SCH ×6 (01:13→20:39)
[2020-01-06] MEDS: PANTOPRAZOLE IV PUSH 40 MG VIAL. IVP SCH ×2 (07:54→17:06)
--- NOTE | 2020-01-06 08:54 | PDOC ---
PULMONARY PROGRESS NOTES DATE: 01/06/20 TIME: 08:49 Subjective PT. reports he is breathing much better S/P left thoracentisis 01/05/2020 Remains on N/C No CP No Cough, No SOA Vitals Vital Signs Date Time Temp Pulse Resp B/P (MAP) Pulse Ox O2 Delivery O2 Flow Rate FiO2 01/06/20 08:40 96 Nasal Cannula 3.5 01/06/20 06:00 67 18 102/48 (66) 01/06/20 04:00 98.2 98.2 ROS: No Nausea, No Chest Pain, No Abdominal Pain, No Increase Cough General: Alert, No acute distress Lungs: Clear Cardiovascular: S1, S2 Abdomen: Soft Extremities: No Edema Labs Laboratory Tests Test 01/04/20 11:40 01/04/20 12:55 01/04/20 13:13 01/04/20 21:00 Prothrombin Time 15.2 SEC (11.7-14.0) Prothromb Time International Ratio 1.2 (0.8-1.1) Activated Partial Thromboplast Time 32 SEC (24-38) Sodium Level 139 mmol/L (136-145) 137 mmol/L (136-145) Potassium Level 6.0 mmol/L (3.5-5.1) 6.1 mmol/L (3.5-5.1) Chloride Level 107 mmol/L (98-107) 105 mmol/L (98-107) Carbon Dioxide Level 28 mmol/L (21-32) 25 mmol/L (21-32) Anion Gap 4 (6-14) 7 (6-14) Blood Urea Nitrogen 85 mg/dL (8-26) 110 mg/dL (8-26) Creatinine 4.5 mg/dL (0.7-1.3) 5.1 mg/dL (0.7-1.3) Estimated GFR (Cockcroft-Gault) 12.7 11.0 BUN/Creatinine Ratio 19 (6-20) Glucose Level 95 mg/dL (70-99) 88 mg/dL (70-99) Lactic Acid Level 1.4 mmol/L (0.4-2.0) Calcium Level 7.7 mg/dL (8.5-10.1) 7.6 mg/dL (8.5-10.1) Total Bilirubin 0.2 mg/dL (0.2-1.0) Aspartate Amino Transf (AST/SGOT) 14 U/L (15-37) Alanine Aminotransferase (ALT/SGPT) 18 U/L (16-63) Alkaline Phosphatase 32 U/L (46-116) Creatine Kinase 17 U/L (39-308) Troponin I Quantitative 0.021 ng/mL (0.000-0.055) Total Protein 4.0 g/dL (6.4-8.2) Albumin 1.3 g/dL (3.4-5.0) Albumin/Globulin Ratio 0.5 (1.0-1.7) Lipase 382 U/L (73-393) White Blood Count 4.6 x10^3/uL (4.0-11.0) 4.4 x10^3/uL (4.0-11.0) Red Blood Count 1.70 x10^6/uL (4.30-5.70) 2.16 x10^6/uL (4.30-5.70) Hemoglobin 5.1 g/dL (13.0-17.5) 6.5 g/dL (13.0-17.5) Hematocrit 16.7 % (39.0-53.0) 20.5 % (39.0-53.0) Mean Corpuscular Volume 98 fL (79-100) 95 fL (79-100) Mean Corpuscular Hemoglobin 30 pg (25-35) 30 pg (25-35) Mean Corpuscular Hemoglobin Concent 30 g/dL (31-37) 32 g/dL (31-37) Red Cell Distribution Width 19.1 % (11.5-14.5) 17.6 % (11.5-14.5) Platelet Count 165 x10^3/uL (140-400) 157 x10^3/uL (140-400) Neutrophils (%) (Auto) 77 % (31-73) Lymphocytes (%) (Auto) 10 % (24-48) Monocytes (%) (Auto) 12 % (0-9) Eosinophils (%) (Auto) 1 % (0-3) Basophils (%) (Auto) 1 % (0-3) Neutrophils # (Auto) 3.6 x10^3/uL (1.8-7.7) Lymphocytes # (Auto) 0.4 x10^3/uL (1.0-4.8) Monocytes # (Auto) 0.6 x10^3/uL (0.0-1.1) Eosinophils # (Auto) 0.0 x10^3/uL (0.0-0.7) Basophils # (Auto) 0.0 x10^3/uL (0.0-0.2) Segmented Neutrophils % 82 % (35-66) Band Neutrophils % 2 % (0-9) Lymphocytes % 8 % (24-48) Monocytes % 5 % (0-10) Basophils % 1 % (0-3) Metamyelocytes % 2 % (0-0) Toxic Granulation Slight Platelet Estimate Adequate (ADEQUATE) Basophilic Stippling Present Anisocytosis Slight Microcytosis Slight Schistocytes Occ Stool Occult Blood Positive (NEG) Magnesium Level 1.9 mg/dL (1.8-2.4) Test 01/05/20 06:00 01/05/20 12:40 01/05/20 18:30 01/05/20 23:35 White Blood Count 5.6 x10^3/uL (4.0-11.0) Red Blood Count 2.62 x10^6/uL (4.30-5.70) Hemoglobin 7.7 g/dL (13.0-17.5) 7.0 g/dL (13.0-17.5) 7.2 g/dL (13.0-17.5) 7.4 g/dL (13.0-17.5) Hematocrit 24.5 % (39.0-53.0) 20.8 % (39.0-53.0) 22.2 % (39.0-53.0) 23.0 % (39.0-53.0) Mean Corpuscular Volume 93 fL (79-100) Mean Corpuscular Hemoglobin 29 pg (25-35) Mean Corpuscular Hemoglobin Concent 31 g/dL (31-37) Red Cell Distribution Width 17.9 % (11.5-14.5) Platelet Count 146 x10^3/uL (140-400) Phosphorus Level 3.7 mg/dL (2.6-4.7) Magnesium Level 2.1 mg/dL (1.8-2.4) Laboratory Tests Test 01/05/20 12:40 01/05/20 18:30 01/05/20 23:35 Hemoglobin 7.0 g/dL (13.0-17.5) 7.2 g/dL (13.0-17.5) 7.4 g/dL (13.0-17.5) Hematocrit 20.8 % (39.0-53.0) 22.2 % (39.0-53.0) 23.0 % (39.0-53.0) Medications Active Scripts Medications Dose Route/Sig Max Daily Dose Days Date Category Dose Instructions Cyanocobalamin Injection (Cyanocobalamin (Vitamin B-12)) 1,000 Mcg/1 Ml Vial 1 Ml IM QMONTH 30 01/02/20 Rx Protonix (Pantoprazole Sodium) 40 Mg Tablet.dr 40 Mg PO BID 30 01/02/20 Rx Zinc Sulfate 220 Mg Tablet 1 Tab PO DAILY 30 11/30/19 Reported Vitamin D3 (Cholecalciferol (Vitamin D3)) 25 Mcg Capsule 25 Mcg PO DAILY 1 11/30/19 Reported Isosorbide Mononitrate Er (Isosorbide Mononitrate) 30 Mg Tab.er.24h 30 Mg PO BID 30 08/14/19 Rx Amiodarone Hcl 200 Mg Tablet 1 Tab PO DAILY 30 08/14/19 Rx Acetaminophen 500 Mg Tablet 1 Tab PO PRN Q6HRS PRN 15 08/07/19 Reported Calcium Acetate 667 Mg Tablet 1 Cap PO TIDAC 08/07/19 Reported Metoprolol Tartrate 25 Mg Tablet 0.5 Tab PO BID 08/07/19 Reported Duoneb 0.5-3(2.5) Mg/3 Ml (Albuterol/Ipratropium) 3 Ml Ampul.neb 3 Ml NEB RTQID 30 03/31/19 Rx [ahreds] 1 Cap PO BID 03/28/19 Reported Ahreds #2 Preservision, One softgel by mouth twice a day Dialyvite Tablet (Folic Acid/Vitamin B Comp W-C) 1 Each Tablet 1 Tab PO DAILY 03/27/19 Reported Advair 250-50 Diskus (Fluticasone/Salmeterol) 1 Each Disk.w.dev 1 Puff PO BID 03/27/19 Reported Aspirin Ec (Aspirin) 81 Mg Tablet. 1 Tab PO BID 03/17/17 Reported LAST DOSE GIVEN: DATE: 03/17/17 TIME: 1030 am so start taking this daily tomorrow Tamsulosin Hcl 0.4 Mg Cap.er.24h 0.4 Mg PO BID 12/06/15 Reported Ventolin Hfa Inhaler (Albuterol Sulfate) 18 Gm Hfa.aer.ad 2 Puff INH QID 12/06/15 Reported Atorvastatin Calcium 10 Mg Tablet 10 Mg PO HS 12/06/15 Reported Comments NM bleeding scan IMPRESSION: 1. No evidence of active hemorrhage though sensitivity is limited. Extensive blood pool activity persists. Impression . IMPRESSION: 1. Acute on chronic respiratory failure secondary to combination of multifactorial etiologies including underlying chronic obstructive pulmonary disease, anemia and recurrent left sided pleural effusion.-- S/P left thoracentisis removed 1.6 liters 2. The patient with abnormal CT chest previously with a large left apical bulla and mass-like consolidation in the lingula. He had a PET scan, which did not show any uptake in the lingula. He also had a bronchoscopy, which showed severely distorted anatomy with a lingular subsegment extrinsic compression. Dr. Rangel was not able to visualize except a small tiny opening. We will do a followup CT chest. 3. Anemia, followed by GI. 4. End-stage renal disease, on hemodialysis. 5. Recurrent left sided pleural effusion. Plan . RECOMMENDATIONS: 1. Follow cytology of thoracentisis --S/P thoracentisis 01/05/2020 removed 1.6 liters from left side 2. We will do a noncontrast CT chest to better assess for marked volume loss in the left upper lobe and lingula and then compare it from previous CAT scan. 3. Continue hemodialysis with ultrafiltration per nephrology recs 4. Supplemental oxygen as needed for 92% or above 5. Follow hemoglobin closely. 6. Follow GI recommendations. 7. Stress ulcer prophylaxis. 8. D/W ESTEVAN RENDON MD Jan 06, 2020 08:54
[2020-01-06] MEDS: AMIODARONE HCL 200 MG TABLET. PO SCH (09:17)
--- NOTE | 2020-01-06 10:35 | PDOC ---
DATE OF SERVICE DATE: 01/06/20 TIME: 10:29 SUBJECTIVE ROS States breathing much better S/P left thoracentisis 01/05/2020 OBJECTIVE Vital Signs Vital Signs Date Time Temp Pulse Resp B/P (MAP) Pulse Ox O2 Delivery O2 Flow Rate FiO2 01/06/20 09:17 64 114/42 01/06/20 08:40 96 Nasal Cannula 3.5 01/06/20 06:00 18 01/06/20 04:00 98.2 98.2 I & 0 Intake and Output 01/06/20 07:00 Intake Total 200 ml Output Total 1550 ml Balance -1350 ml Intake Oral 100 ml Blood Product IV Normal Saline Flush 100 ml Output Urine Total 0 ml Drainage Total 1550 ml # Bowel Movements 1 PHYSICAL EXAM Physical Exam General Appearance: no apparent distress HEEN OM moist, On O2 by NC Neck Supple Respiratory: Non labored, decreased at bases Heart: S1S2 Abdomen: soft, bowel sounds present, NT Genitourinary: No Castanon Extremities: No edema Neurology: alert, grossly normal Skin: No rash DIAGNOSIS/ASSESSMENT Assessment & Plan ESRD- On HD MWF No indication for HD today HyperKalemia - at presentation, HD yesterday Anemia- Acute drop in Hgb to 5.1 at Presentation , s/p PRBC on 01/03 Recd PRBC at recent admission few days back and underwent EGD Esophagitis- On recent EGD, dced on PPI Hypotension- Not on pressors ,stable Hx of HTN Acute on chronic respiratory failure multifactorial- underlying COPD ,Recurrent left sided pleural effusion. S/P thoracentesis on 01/04 - 1.6 lts fluid removed Abnormal CT chest previously with a large left apical bulla and mass-like consolidation in the lingula. Underwent bronchoscopy, which showed severely distorted anatomy with a lingular subsegment extrinsic compression. Follow up sca recommended by Pulm PAFib - per Cardiology COMMENT/RELEVANT DATA Meds Current Medications Medications (Trade) Dose Ordered Sig/Samina Start Time Stop Time Status Last Admin Dose Admin Acetaminophen (Tylenol) 650 mg PRN Q6HRS PRN 01/05/20 18:00 01/05/20 18:16 650 MG Albuterol Sulfate (Ventolin Neb Soln) 2.5 mg PRN Q6HRS PRN 01/04/20 18:45 01/05/20 00:19 2.5 MG Albuterol/ Ipratropium (Duoneb) 3 ml Q4HRS 01/05/20 12:00 01/06/20 08:39 3 ML Amiodarone HCl (Cordarone) 200 mg DAILY 01/05/20 14:00 01/06/20 09:17 200 MG Calamine (Calamine Lotion) 1 ken PRN Q4HRS PRN 01/05/20 08:15 01/05/20 09:36 1 KEN Ceftriaxone Sodium (Rocephin) 1 gm 1X ONCE 01/04/20 12:00 01/04/20 12:01 DC 01/04/20 13:09 1 GM Info (CONTRAST GIVEN -- Rx MONITORING) 1 each PRN DAILY PRN 01/04/20 15:15 01/06/20 15:14 Info (PHARMACY MONITORING -- do not chart) 1 each PRN DAILY PRN 01/05/20 08:00 Iohexol (Omnipaque 300 Mg/ml) 75 ml 1X ONCE 01/04/20 15:15 01/04/20 15:16 DC 01/04/20 15:15 75 ML Lidocaine HCl (Buffered Lidocaine 1%) 6 ml 1X ONCE 01/05/20 13:00 01/05/20 13:01 DC 01/05/20 13:00 4 ML Pantoprazole Sodium (PROTONIX VIAL for IV PUSH) 40 mg BIDAC 01/05/20 16:30 01/06/20 07:54 40 MG Pantoprazole Sodium 80 mg/ Sodium Chloride 100 ml @ 10 mls/hr Q10H 01/04/20 13:00 01/05/20 09:52 DC 01/04/20 22:27 10 MLS/HR Sodium Chloride 1,000 ml @ 400 mls/hr Q2H30M PRN 01/05/20 08:00 01/05/20 19:59 DC Lab Laboratory Tests Test 01/05/20 12:40 01/05/20 18:30 01/05/20 23:35 Hemoglobin 7.0 g/dL (13.0-17.5) 7.2 g/dL (13.0-17.5) 7.4 g/dL (13.0-17.5) Hematocrit 20.8 % (39.0-53.0) 22.2 % (39.0-53.0) 23.0 % (39.0-53.0) Results All relevant outside records, renal labs, imaging studies, telemetry/EKG's were reviewed. Justicifation of Admission Dx: Justifications for Admission: Justification of Admission Dx: Yes Chronic Renal Failure: Electrolyte Abnormality GLORIA ANGUIANO MD Jan 06, 2020 10:35
--- NOTE | 2020-01-06 10:48 | RAD ---
CT CHEST WO CONTRAST INDICATION: effusion/mass COMPARISON STUDY: CT abdomen pelvis 01/04/2020. CT chest 08/06/2019. TECHNIQUE: Unenhanced axial images were obtained through the lungs and upper abdomen. Coronal and sagittal multiplanar reconstructions were also obtained. PQRS compliance statement: One or more of the following individualized dose reduction techniques were utilized for this examination: 1. Automated exposure control 2. Adjustment of the mA and/or kV according to patient size 3. Use of iterative reconstruction technique FINDINGS: Lungs and Airways: Atelectasis of most of the left upper and lower lobes. Areas of groundglass opacity within the aerated regions. Right basilar dependent and relaxation atelectasis. Pleura: Small right and moderate left pleural effusions. Rounded fluid containing structure at the left apex with trace air and surrounding pleural enhancement measuring 12 x 9 x 10 cm. Heart and Mediastinum: The visualized thyroid gland is normal in size and attenuation. No axillary or supraclavicular lymphadenopathy. No mediastinal lymphadenopathy. Marcelle not well evaluated due to lack of intravenous Contras. Cardiomegaly. The great vessels of the thorax are normal. Abdomen: Please see recent CT abdomen pelvis report for intra-abdominal findings. Bones and Soft Tissues: Degenerative changes of the spine. IMPRESSION: 1. Large rounded fluid containing structure at the apex of the left hemithorax with trace air and surrounding pleural enhancement measuring up to 12 cm. This could represent a loculated hydropneumothorax, although an empyema could have a similar appearance in the appropriate clinical setting. In the setting of empyema, bronchopleural fistula should be considered, although with recent thoracentesis this may be the source of the trace pleural air. 2. Additional moderate left and small right pleural effusions. 3. Atelectasis of most of the left upper and lower lobe with areas of groundglass opacity within the aerated regions. Electronically signed by: Maynor Slaughter MD (01/06/2020 10:45 AM) [id number]
--- NOTE | 2020-01-06 11:06 | PDOC ---
PROGRESS NOTES Date of Service: DATE: 01/06/20 TIME: 11:06 Subjective Subjective Somnolent, comfortable Objective Objective Vital Signs Date Time Temp Pulse Resp B/P (MAP) Pulse Ox O2 Delivery O2 Flow Rate FiO2 01/06/20 10:00 68 29 99 Nasal Cannula 4.0 01/06/20 07:00 97.7 97.7 Intake and Output 01/06/20 07:00 Intake Total 200 ml Output Total 1550 ml Balance -1350 ml Intake Oral 100 ml Blood Product IV Normal Saline Flush 100 ml Output Urine Total 0 ml Drainage Total 1550 ml # Bowel Movements 1 Physical Exam Abdomen: Soft Heart: Regular rate (SR), Other (distant heart sounds) Extremities: No cyanosis, No edema General: Alert, Oriented X3, Cooperative, No acute distress HEENT: Atraumatic, Mucous membr. moist/pink Lungs: Other (diminished bases) Neuro: Normal speech, Sensation intact Psych/Mental Status: Mental status NL, Other (irritable) Skin: No breakdown, Other (pale) Assessment Assessment 1. PAFIB; maintaining SR. Continue amiodarone for rhythm maintenance. We will consider MARCIEJAMIN referral as outpatient since he is a poor candidate for long-term anticoagulation. 2. Severe anemia with likely GI bleed: post transfusion. GI following. 3. Acute on chronic respiratory failure, multifactorial s/p left thoracentesis with removal of 1.6 L serosanguineous fluid. Pulmonary team following. 4. ESRD with mild hyperkalemia, continue HD per nephrology team. 5. Hypertension; controlled 6. Dyslipidemia; statin Plan Plan of Care Problems Medical Problems: (1) Dyspnea Status: Acute (2) GIB (gastrointestinal bleeding) Status: Acute (3) Melena Status: Acute (4) Normocytic anemia Status: Acute (5) Pleural effusion, left Status: Acute Comment Review of Relevant I have reviewed the following items ron (where applicable) has been applied. Labs Laboratory Tests Test 01/05/20 12:40 01/05/20 18:30 01/05/20 23:35 Hemoglobin 7.0 g/dL (13.0-17.5) 7.2 g/dL (13.0-17.5) 7.4 g/dL (13.0-17.5) Hematocrit 20.8 % (39.0-53.0) 22.2 % (39.0-53.0) 23.0 % (39.0-53.0) Microbiology 01/05/20 Gram Stain - Final, Resulted 01/05/20 Aerobic and Anaerobic Culture - Preliminary, Resulted 01/04/20 Blood Culture - Preliminary, Resulted NO GROWTH AFTER 1 DAY Medications Current Medications Acetaminophen (Tylenol) 650 mg PRN Q6HRS PRN PO PAIN Last administered on 01/05/20at 18:16; Start 01/05/20 at 18:00 Albuterol/ Ipratropium (Duoneb) 3 ml Q4HRS NEB Last administered on 01/06/20at 08:39; Start 01/05/20 at 12:00 Amiodarone HCl (Cordarone) 200 mg DAILY PO Last administered on 01/06/20at 09:17; Start 01/05/20 at 14:00 Lidocaine HCl (Buffered Lidocaine 1%) 3 ml STK-MED ONCE .ROUTE ; Start 01/05/20 at 12:44; Stop 01/05/20 at 12:45; Status DC Lidocaine HCl (Buffered Lidocaine 1%) 6 ml 1X ONCE INJ Last administered on 01/05/20at 13:00; Start 01/05/20 at 13:00; Stop 01/05/20 at 13:01; Status DC Pantoprazole Sodium (PROTONIX VIAL for IV PUSH) 40 mg BIDAC IVP Last a dministered on 01/06/20at 07:54; Start 01/05/20 at 16:30 Vitals/I & O Vital Sign - Last 24 Hours 01/05/20 01/05/20 01/05/20 01/05/20 11:33 12:00 12:00 13:00 Temp 98.7 98.7 Pulse 80 79 Resp 12 12 B/P (MAP) 103/42 (62) 99/44 (62) Pulse Ox 100 97 100 O2 Delivery Nasal Cannula Nasal Cannula Nasal Cannula Nasal Cannula O2 Flow Rate 4.0 4.0 4.0 4.0 01/05/20 01/05/20 01/05/20 01/05/20 14:00 15:00 15:12 15:39 Temp 98.0 98.0 Pulse 49 66 72 69 Resp 12 12 16 B/P (MAP) 103/49 (67) 126/52 (76) 126/52 115/69 Pulse Ox 100 92 O2 Delivery Nasal Cannula Nasal Cannula O2 Flow Rate 4.0 4.0 01/05/20 01/05/20 01/05/20 01/05/20 15:50 16:00 16:00 16:09 Temp 98.6 98.7 98.2 98.6 98.7 98.2 Pulse 70 70 66 Resp 12 12 12 B/P (MAP) 119/45 113/39 (63) 110/38 Pulse Ox 97 O2 Delivery Nasal Cannula Nasal Cannula O2 Flow Rate 4.0 4.0 01/05/20 01/05/20 01/05/20 01/05/20 16:30 16:37 17:00 17:00 Temp 98.7 98.7 Pulse 70 66 66 Resp 12 14 14 B/P (MAP) 113/39 100/37 (58) 100/37 Pulse Ox 100 100 O2 Delivery Nasal Cannula Nasal Cannula O2 Flow Rate 4.0 4.0 01/05/20 01/05/20 01/05/20 01/05/20 17:34 18:02 19:00 20:00 Temp 98.9 98.2 98.9 98.2 Pulse 66 81 62 63 Resp 12 14 16 18 B/P (MAP) 99/63 114/42 (66) 102/33 (56) 109/43 (65) Pulse Ox 100 100 98 O2 Delivery Nasal Cannula Nasal Cannula Nasal Cannula O2 Flow Rate 4.0 4.0 4.0 01/05/20 01/05/20 01/05/20 01/05/20 20:00 20:13 21:00 22:00 Pulse 65 62 Resp 15 14 B/P (MAP) 97/38 (57) 96/38 (57) Pulse Ox 100 100 99 O2 Delivery Nasal Cannula Nasal Cannula Nasal Cannula Nasal Cannula O2 Flow Rate 4.0 3.5 4.0 4.0 01/05/20 01/05/20 01/05/20 01/06/20 23:00 23:59 23:59 01:00 Temp 98.7 98.7 Pulse 61 61 62 Resp 20 14 22 B/P (MAP) 106/41 (62) 103/48 (66) 99/31 (53) Pulse Ox 100 98 100 O2 Delivery Nasal Cannula Nasal Cannula Nasal Cannula Nasal Cannula O2 Flow Rate 4.0 4.0 4.0 4.0 8/01/06/20 01/06/20 01/06/20 01:12 02:00 03:00 04:00 Pulse 70 72 Resp 18 22 B/P (MAP) 108/42 (64) 100/41 (60) Pulse Ox 100 100 100 O2 Delivery Nasal Cannula Nasal Cannula Nasal Cannula Nasal Cannula O2 Flow Rate 3.5 4.0 4.0 4.0 01/06/20 01/06/20 01/06/20 01/06/20 04:00 05:00 06:00 07:00 Temp 98.2 97.7 98.2 97.7 Pulse 63 73 67 62 Resp 14 20 18 19 B/P (MAP) 98/47 (64) 121/41 (67) 102/48 (66) 94/37 (56) Pulse Ox 98 100 100 100 O2 Delivery Nasal Cannula Nasal Cannula Nasal Cannula Nasal Cannula O2 Flow Rate 4.0 4.0 4.0 4.0 01/06/20 01/06/20 01/06/20 01/06/20 08:00 08:00 08:40 09:00 Pulse 64 70 Resp 18 25 B/P (MAP) 119/46 (70) 107/42 (63) Pulse Ox 100 96 88 O2 Delivery Nasal Cannula Nasal Cannula Nasal Cannula Nasal Cannula O2 Flow Rate 4.0 4.0 3.5 4.0 01/06/20 01/06/20 09:17 10:00 Pulse 64 68 Resp 29 B/P (MAP) 114/42 Pulse Ox 99 O2 Delivery Nasal Cannula O2 Flow Rate 4.0 Intake and Output 01/05/20 01/05/20 01/06/20 15:00 23:00 07:00 Intake Total 200 ml 0 ml Output Total 1550 ml 0 ml 0 ml Balance -1550 ml 200 ml 0 ml REBECA FAN MD Jan 06, 2020 11:06
--- NOTE | 2020-01-06 11:38 | PN ---
DATE: 01/06/2020 SUBJECTIVE: The patient is resting flat, sleeping comfortably, in no apparent distress. He apparently had a thoracentesis done yesterday and about 1600 mL of serosanguineous fluid were removed. CT scan was ordered to compare with previous CT scans for his left upper lobe collapse. However, the patient refused to go there yesterday He did receive 1 more unit of packed RBCs yesterday. PHYSICAL EXAMINATION: GENERAL: When I examined him, he was resting flat in bed, in no apparent distress, pale, cachectic, but no jaundice, cyanosis or thyromegaly. No jugular venous distention. No limb edema. VITAL SIGNS: His heart rate was 67, blood pressure was 102/48, temperature 98, respiratory rate was 18, and oxygen saturation 100% on 4 liters of oxygen. HEAD, EYES, EARS, NOSE AND THROAT: Normocephalic, atraumatic. NECK: Supple. HEART: Showed normal first and second heart sounds. No gallop or murmur. CHEST: Clear to auscultation. No crepitation or rhonchi. ABDOMEN: Distended, soft, nontender. NEUROLOGIC: He was sleepy, but arousable. All cranial nerves are intact. He has marked muscle weakness and wasting. He is completely anuric and hemodialysis dependent. LABORATORY DATA: Today's labs are still pending at the time of this dictation. ASSESSMENT: Anemia, likely due to gastrointestinal bleed. The CT scan of the abdomen and pelvis showed that there is moderate amount of stool in the large bowel with increased intraluminal density suspicious for intraluminal hemorrhage. He has multiple other medical problems including end-stage renal disease, on hemodialysis; hypertension; hyperlipidemia, atrial fibrillation, bronchial asthma, obstructive sleep apnea, benign prostatic hypertrophy, generalized osteoarthritis, senile macular degeneration, he is also known to have vitamin B12 deficiency. PLAN: To continue to monitor his H and H and transfuse him as needed. He eventually will need colonoscopy to find out the source of his bleeding. RALEIGH ZHAO MD DR: TAYLOR/carly JOB#: [id number] / [id number]
[2020-01-06 14:14] LABS: HEMATOCRIT 23.1 % (39.0-53.0); HEMOGLOBIN 7.4 g/dL (13.0-17.5)
--- NOTE | 2020-01-06 14:53 | PDOC ---
Date of Service: DATE: 01/06/20 TIME: 14:51 Subjective: Subjective: Hgb 7.4 Black BMs per nursing Objective: Vital Signs: Vital Signs Date Time Temp Pulse Resp B/P (MAP) Pulse Ox O2 Delivery O2 Flow Rate FiO2 01/06/20 12:05 98 Nasal Cannula 3.5 01/06/20 10:00 97.7 68 29 97.7 Labs: Laboratory Tests Test 01/05/20 18:30 01/05/20 23:35 01/06/20 13:55 Hemoglobin 7.2 g/dL (13.0-17.5) 7.4 g/dL (13.0-17.5) 7.4 g/dL (13.0-17.5) Hematocrit 22.2 % (39.0-53.0) 23.0 % (39.0-53.0) 23.1 % (39.0-53.0) Physical Exam: Physical Exam: GEN: asleep LUNGS: diminished HEART: RRR ABD: S/ND/NT NEURO/PSYCH: seems forgetful Assessment & Plan: Assessment : A/P: ?melena, +Hemoccult Anemia ESRD, hyperkalemia Plan: okay to eat solid todya and back to clears tomorrow. Delayed bleeding scan w/o accumulation of tracer in gut. ? colonoscopy next week Will d/w Dr Haskins Justicifation of Admission Dx: Justifications for Admission: Justification of Admission Dx: Yes Chronic Renal Failure: Electrolyte Abnormality ALAINA AVILEZ MD Jan 06, 2020 14:53
[2020-01-07 03:25] VITALS: BP 109/36
[2020-01-07] MEDS: IPRATRPIUM/ALBUTEROL 0.5/2.5MG 3 ML NEBU. NEB SCH ×6 (04:00→20:33)
[2020-01-07 05:50] LABS: HEMATOCRIT 22.7 % (39.0-53.0); HEMOGLOBIN 7.3 g/dL (13.0-17.5)
[2020-01-07 07:34] VITALS: BP 120/38
[2020-01-07] MEDS: PANTOPRAZOLE IV PUSH 40 MG VIAL. IVP SCH ×2 (07:53→16:38)
[2020-01-07] MEDS: AMIODARONE HCL 200 MG TABLET. PO SCH (07:53)
--- NOTE | 2020-01-07 09:02 | PDOC ---
PULMONARY PROGRESS NOTES DATE: 01/07/20 TIME: 08:59 Subjective PT. reports he is breathing much better S/P left thoracentisis 01/05/2020 Remains on N/C No CP No Cough, No SOA Vitals Vital Signs Date Time Temp Pulse Resp B/P (MAP) Pulse Ox O2 Delivery O2 Flow Rate FiO2 01/07/20 08:00 Nasal Cannula 4.0 01/07/20 07:53 75 120/38 01/07/20 07:34 97.4 21 99 97.4 ROS: No Nausea, No Chest Pain, No Abdominal Pain, No Increase Cough General: Alert, No acute distress Lungs: Other (decrase bs left) Cardiovascular: S1, S2 Abdomen: Soft Extremities: No Edema Labs Laboratory Tests Test 01/05/20 12:40 01/05/20 13:00 01/05/20 18:30 01/05/20 23:35 Hemoglobin 7.0 g/dL (13.0-17.5) 7.2 g/dL (13.0-17.5) 7.4 g/dL (13.0-17.5) Hematocrit 20.8 % (39.0-53.0) 22.2 % (39.0-53.0) 23.0 % (39.0-53.0) Body Fluid Total Protein 2.2 g/dL (.) Body Fluid Lactate Dehydrogenase 67 IU/L (.) Test 01/06/20 13:55 01/07/20 05:00 Hemoglobin 7.4 g/dL (13.0-17.5) 7.3 g/dL (13.0-17.5) Hematocrit 23.1 % (39.0-53.0) 22.7 % (39.0-53.0) Laboratory Tests Test 01/06/20 13:55 01/07/20 05:00 Hemoglobin 7.4 g/dL (13.0-17.5) 7.3 g/dL (13.0-17.5) Hematocrit 23.1 % (39.0-53.0) 22.7 % (39.0-53.0) Medications Active Scripts Medications Dose Route/Sig Max Daily Dose Days Date Category Dose Instructions Cyanocobalamin Injection (Cyanocobalamin (Vitamin B-12)) 1,000 Mcg/1 Ml Vial 1 Ml IM QMONTH 30 01/02/20 Rx Protonix (Pantoprazole Sodium) 40 Mg Tablet.dr 40 Mg PO BID 30 01/02/20 Rx Zinc Sulfate 220 Mg Tablet 1 Tab PO DAILY 30 11/30/19 Reported Vitamin D3 (Cholecalciferol (Vitamin D3)) 25 Mcg Capsule 25 Mcg PO DAILY 1 11/30/19 Reported Isosorbide Mononitrate Er (Isosorbide Mononitrate) 30 Mg Tab.er.24h 30 Mg PO BID 30 08/14/19 Rx Amiodarone Hcl 200 Mg Tablet 1 Tab PO DAILY 30 08/14/19 Rx Acetaminophen 500 Mg Tablet 1 Tab PO PRN Q6HRS PRN 15 08/07/19 Reported Calcium Acetate 667 Mg Tablet 1 Cap PO TIDAC 08/07/19 Reported Metoprolol Tartrate 25 Mg Tablet 0.5 Tab PO BID 08/07/19 Reported Duoneb 0.5-3(2.5) Mg/3 Ml (Albuterol/Ipratropium) 3 Ml Ampul.neb 3 Ml NEB RTQID 30 03/31/19 Rx [ahreds] 1 Cap PO BID 03/28/19 Reported Ahreds #2 Preservision, One softgel by mouth twice a day Dialyvite Tablet (Folic Acid/Vitamin B Comp W-C) 1 Each Tablet 1 Tab PO DAILY 03/27/19 Reported Advair 250-50 Diskus (Fluticasone/Salmeterol) 1 Each Disk.w.dev 1 Puff PO BID 03/27/19 Reported Aspirin Ec (Aspirin) 81 Mg Tablet. 1 Tab PO BID 03/17/17 Reported LAST DOSE GIVEN: DATE: 03/17/17 TIME: 1030 am so start taking this daily tomorrow Tamsulosin Hcl 0.4 Mg Cap.er.24h 0.4 Mg PO BID 12/06/15 Reported Ventolin Hfa Inhaler (Albuterol Sulfate) 18 Gm Hfa.aer.ad 2 Puff INH QID 12/06/15 Reported Atorvastatin Calcium 10 Mg Tablet 10 Mg PO HS 12/06/15 Reported Comments NM bleeding scan IMPRESSION: 1. No evidence of active hemorrhage though sensitivity is limited. Extensive blood pool activity persists. Impression . IMPRESSION: 1. Acute on chronic respiratory failure secondary to combination of multifactorial etiologies including underlying chronic obstructive pulmonary disease, anemia and recurrent left sided pleural effusion.-- S/P left thoracentisis removed 1.6 liters , transudate 2. The patient with abnormal CT chest previously with a large left apical bulla and mass-like consolidation in the lingula. He had a PET scan, which did not show any uptake in the lingula. He also had a bronchoscopy, which showed severely distorted anatomy with a lingular subsegment extrinsic compression. Dr. Rangel was not able to visualize except a small tiny opening. We will do a followup CT chest. 3. Anemia, followed by GI. 4. End-stage renal disease, on hemodialysis. 5. Recurrent left sided pleural effusion. Plan . RECOMMENDATIONS: 1. Follow cytology of thoracentisis --S/P thoracentisis 01/05/2020 removed 1.6 liters from left side 2. CT chest reviewed. marked volume loss in the left upper lobe and lingula is related to loculated fluid collection . Possible BPF. Had large bullae undern eath it. will ask IR in am about safety of drainage. 3. Continue hemodialysis with ultrafiltration per nephrology recs 4. Supplemental oxygen as needed for 92% or above 5. Follow hemoglobin closely. 6. Follow GI recommendations. 7. Stress ulcer prophylaxis. 8. D/W ESTEVAN RENDON MD Jan 07, 2020 09:02
[2020-01-07 10:45] VITALS: BP 124/37
--- NOTE | 2020-01-07 12:00 | PDOC ---
DATE OF SERVICE DATE: 01/07/20 TIME: 12:00 SUBJECTIVE ROS Transferred out of ICU, stable OBJECTIVE Vital Signs Vital Signs Date Time Temp Pulse Resp B/P (MAP) Pulse Ox O2 Delivery O2 Flow Rate FiO2 01/07/20 10:45 97.5 69 21 124/37 (66) 99 Nasal Cannula 4.0 97.5 I & 0 Intake and Output 01/07/20 07:00 Intake Total 1225 ml Output Total 20 ml Balance 1205 ml Intake Oral 1225 ml Output Urine Total 20 ml PHYSICAL EXAM Physical Exam General Appearance: no apparent distress HEEN OM moist, On O2 by NC Neck Supple Respiratory: Non labored, decreased at bases Heart: S1S2 Abdomen: soft, bowel sounds present, NT Genitourinary: No Castanon Extremities: No edema Neurology: alert, grossly normal Skin: No rash DIAGNOSIS/ASSESSMENT Assessment & Plan ESRD- On HD MWF No indication for HD today HyperKalemia - at presentation Anemia- Acute drop in Hgb to 5.1 at Presentation , s/p PRBC on 01/03 Recd PRBC at recent admission and underwent EGD Esophagitis- On recent EGD, dced on PPI Hypotension- ,stable Hx of HTN Acute on chronic respiratory failure multifactorial- underlying COPD ,Recurrent left sided pleural effusion. S/P thoracentesis on 01/04 - 1.6 lts fluid removed Abnormal CT chest previously with a large left apical bulla and mass-like consolidation in the lingula. Underwent bronchoscopy, which showed severely distorted anatomy with a lingular subsegment extrinsic compression. Follow up sca recommended by Pulm PAFib - per Cardiology COMMENT/RELEVANT DATA Meds Current Medications Medications (Trade) Dose Ordered Sig/Samina Start Time Stop Time Status Last Admin Dose Admin Acetaminophen (Tylenol) 650 mg PRN Q6HRS PRN 01/05/20 18:00 01/05/20 18:16 650 MG Albuterol Sulfate (Ventolin Neb Soln) 2.5 mg PRN Q6HRS PRN 01/04/20 18:45 01/05/20 00:19 2.5 MG Albuterol/ Ipratropium (Duoneb) 3 ml Q4HRS 01/05/20 12:00 01/07/20 04:00 3 ML Amiodarone HCl (Cordarone) 200 mg DAILY 01/05/20 14:00 01/07/20 07:53 200 MG Calamine (Calamine Lotion) 1 ken PRN Q4HRS PRN 01/05/20 08:15 01/05/20 09:36 1 KEN Ceftriaxone Sodium (Rocephin) 1 gm 1X ONCE 01/04/20 12:00 01/04/20 12:01 DC 01/04/20 13:09 1 GM Info (CONTRAST GIVEN -- Rx MONITORING) 1 each PRN DAILY PRN 01/04/20 15:15 01/06/20 15:14 DC Info (PHARMACY MONITORING -- do not chart) 1 each PRN DAILY PRN 01/05/20 08:00 Iohexol (Omnipaque 300 Mg/ml) 75 ml 1X ONCE 01/04/20 15:15 01/04/20 15:16 DC 01/04/20 15:15 75 ML Lidocaine HCl (Buffered Lidocaine 1%) 6 ml 1X ONCE 01/05/20 13:00 01/05/20 13:01 DC 01/05/20 13:00 4 ML Pantoprazole Sodium (PROTONIX VIAL for IV PUSH) 40 mg BIDAC 01/05/20 16:30 01/07/20 07:53 40 MG Pantoprazole Sodium 80 mg/ Sodium Chloride 100 ml @ 10 mls/hr Q10H 01/04/20 13:00 01/05/20 09:52 DC 01/04/20 22:27 10 MLS/HR Sodium Chloride 1,000 ml @ 400 mls/hr Q2H30M PRN 01/05/20 08:00 01/05/20 19:59 DC Lab Laboratory Tests Test 01/06/20 13:55 01/07/20 05:00 Hemoglobin 7.4 g/dL (13.0-17.5) 7.3 g/dL (13.0-17.5) Hematocrit 23.1 % (39.0-53.0) 22.7 % (39.0-53.0) Results All relevant outside records, renal labs, imaging studies, telemetry/EKG's were reviewed. Justicifation of Admission Dx: Justifications for Admission: Justification of Admission Dx: Yes Chronic Renal Failure: Electrolyte Abnormality GLORIA ANGUIANO MD Jan 07, 2020 12:00
--- NOTE | 2020-01-07 12:13 | PDOC ---
PROGRESS NOTES Date of Service: DATE: 01/07/20 TIME: 12:13 Subjective Subjective Dyspnea improved. Denied any chest pain. Objective Objective Vital Signs Date Time Temp Pulse Resp B/P (MAP) Pulse Ox O2 Delivery O2 Flow Rate FiO2 01/07/20 12:00 Nasal Cannula 4.0 01/07/20 10:45 97.5 69 21 124/37 (66) 99 97.5 Intake and Output 01/07/20 07:00 Intake Total 1225 ml Output Total 20 ml Balance 1205 ml Intake Oral 1225 ml Output Urine Total 20 ml Physical Exam Abdomen: Soft Heart: Regular rate (SR), Other (distant heart sounds) Extremities: No cyanosis, No edema General: Alert, Oriented X3, Cooperative, No acute distress HEENT: Atraumatic, Mucous membr. moist/pink Lungs: Other (diminished bases) Neuro: Normal speech, Sensation intact Psych/Mental Status: Mental status NL, Other (irritable) Skin: No breakdown, Other (pale) Assessment Assessment 1. PAFIB; maintaining SR. Continue amiodarone for rhythm maintenance. We will consider [place] referral as outpatient since he is a poor candidate for long-term anticoagulation. 2. Severe anemia with likely GI bleed: hgb 7.3 post transfusion. GI following. 3. Acute on chronic respiratory failure, multifactorial s/p left thoracentesis with removal of 1.6 L serosanguineous fluid. Pulmonary team following. 4. ESRD with mild hyperkalemia, continue HD per nephrology team. 5. Hypertension; controlled 6. Dyslipidemia; statin Plan Plan of Care Problems Medical Problems: (1) Dyspnea Status: Acute (2) GIB (gastrointestinal bleeding) Status: Acute (3) Melena Status: Acute (4) Normocytic anemia Status: Acute (5) Pleural effusion, left Status: Acute Comment Review of Relevant I have reviewed the following items ron (where applicable) has been applied. Labs Laboratory Tests Test 01/06/20 13:55 01/07/20 05:00 Hemoglobin 7.4 g/dL (13.0-17.5) 7.3 g/dL (13.0-17.5) Hematocrit 23.1 % (39.0-53.0) 22.7 % (39.0-53.0) Microbiology 01/05/20 Gram Stain - Final, Resulted 01/05/20 Aerobic and Anaerobic Culture - Preliminary, Resulted 01/04/20 Blood Culture - Preliminary, Resulted NO GROWTH AFTER 2 DAYS Vitals/I & O Vital Sign - Last 24 Hours 01/06/20 01/06/20 01/06/20 01/06/20 16:00 16:00 16:12 18:38 Temp 98.0 97.7 98.0 97.7 Pulse 94 63 Resp 18 18 B/P (MAP) 118/42 (67) 132/39 (70) Pulse Ox 99 98 98 O2 Delivery Nasal Cannula Nasal Cannula Nasal Cannula Nasal Cannula O2 Flow Rate 4.0 4.0 3.5 4.0 01/06/20 01/06/20 01/06/20 01/07/20 19:58 20:39 23:06 00:21 Temp 98.1 98.1 Pulse 72 Resp 21 B/P (MAP) 116/37 (63) Pulse Ox 98 94 98 O2 Delivery Nasal Cannula Nasal Cannula Nasal Cannula Nasal Cannula O2 Flow Rate 4.0 3.5 4.0 3.5 01/07/20 01/07/20 01/07/20 01/07/20 03:25 05:11 07:34 07:53 Temp 98.0 97.4 98.0 97.4 Pulse 71 75 75 Resp 20 21 B/P (MAP) 109/36 (60) 120/38 (65) 120/38 Pulse Ox 96 98 99 O2 Delivery Nasal Cannula Nasal Cannula Nasal Cannula O2 Flow Rate 4.0 3.5 4.0 01/07/20 01/07/20 01/07/20 01/07/20 08:00 08:05 10:45 12:00 Temp 97.5 97.5 Pulse 69 Resp 21 B/P (MAP) 124/37 (66) Pulse Ox 96 99 O2 Delivery Nasal Cannula Nasal Cannula Nasal Cannula Nasal Cannula O2 Flow Rate 4.0 3.5 4.0 4.0 Intake and Output 01/06/20 01/06/20 01/07/20 15:00 23:00 07:00 Intake Total 1000 ml 200 ml 25 ml Output Total 0 ml 20 ml Balance 1000 ml 180 ml 25 ml REBECA FAN MD Jan 07, 2020 12:13
--- NOTE | 2020-01-07 12:59 | PN ---
DATE: 01/07/2020 SUBJECTIVE: The patient is resting, slightly propped up in bed, in no apparent respiratory distress. He is awake, alert. Denied any chest pain or shortness of breath. Denied any nausea, vomiting, diarrhea, or constipation. Denied any hematemesis, melena, or hematochezia. He is now apparently on a clear liquid diet and perhaps in preparation for colonoscopy tomorrow. PHYSICAL EXAMINATION: GENERAL: When I examined him, he looked pale, somewhat cachectic, but no jaundice, cyanosis, or thyromegaly. No jugular venous distension. No lower limb edema. VITAL SIGNS: His heart rate was 75, blood pressure was 120/38, temperature 97.4, respiratory rate was 21 and oxygen saturation was 99% on 4 liters of oxygen. HEAD, EYES, EARS, NOSE, AND THROAT: Showed normocephalic, atraumatic. NECK: Supple. HEART: Normal first and second heart sounds. No gallop, rub, or murmur. CHEST: Clear to auscultation. No crepitation or rhonchi. ABDOMEN: Distended, soft, nontender. NEUROLOGIC: He is hard of hearing, but otherwise all his cranial nerves are intact. He moves extremities without difficulty, although he is mostly bedbound. He is extremely oliguric, completely anuric and hemodialysis dependent. His intake and output were incompletely recorded. LABORATORY DATA: As of this morning showed hemoglobin of 7.3, hematocrit 22.7. His chemistry is variable as he is hemodialysis dependent. He has had a CT scan of the chest, which basically showed that he has large, rounded, fluid-containing structure at the apex of the left hemithorax with trace air and surrounding pleural enhancement measuring up to 12 cm. This could represent a loculated hydropneumothorax, although an empyema could have similar appearance in the appropriate clinical setting. The setting of empyema and bronchopleural fistula should be considered, although with recent thoracentesis, this may be the source of the trace pleural air, additional moderate left and small right-sided pleural effusion, atelectasis, most of the left upper and lower lobe with areas of ground-glass opacity within the aerated regions. He underwent thoracentesis and about 1600 mL of serosanguineous pleural fluid were removed. GI bleed scan that was delayed showed no evidence of active hemorrhage, though sensitivity is limited and extensive blood pool activity persists. ASSESSMENT: 1. Anemia, likely due to gastrointestinal bleeding. 2. CT scan of the chest showed that he has a loculated hydropneumothorax versus empyema. 3. End-stage renal disease, on hemodialysis Wednesday, , Wednesday. 4. Hypertension. 5. Hyperlipidemia. 6. Atrial fibrillation, currently in sinus rhythm. 7. Obstructive sleep apnea. 8. Bronchial asthma. 9. Senile macular degeneration. 10. Vitamin B12 deficiency. 11. Benign prostatic hypertrophy. PLAN: To continue with clear liquid diet and await the evaluation by the lead quality technician regarding the colonoscopy to find the source of his bleeding. RALEIGH ZHAO MD DR: TAYLOR/carly JOB#: [id number] / [id number]
--- NOTE | 2020-01-07 13:09 | PDOC ---
Date of Service: DATE: 01/07/20 TIME: 13:07 Subjective: Subjective: Hgb 7.3 today. breathing better Objective: Vital Signs: Vital Signs Date Time Temp Pulse Resp B/P (MAP) Pulse Ox O2 Delivery O2 Flow Rate FiO2 01/07/20 13:03 Nasal Cannula 3.5 01/07/20 10:45 97.5 69 21 124/37 (66) 99 97.5 Labs: Laboratory Tests Test 01/06/20 13:55 01/07/20 05:00 Hemoglobin 7.4 g/dL (13.0-17.5) 7.3 g/dL (13.0-17.5) Hematocrit 23.1 % (39.0-53.0) 22.7 % (39.0-53.0) Physical Exam: Physical Exam: Physical Exam: Physical Exam: GEN: doing breathing treatment LUNGS: diminished HEART: RRR ABD: S/ND/NT NEURO/PSYCH: seems forgetful Assessment & Plan: Assessment : A/P: ?melena, +Hemoccult Anemia ESRD, hyperkalemia Plan: okay to cont clears tomorrow. Delayed bleeding scan w/o accumulation of tracer in gut. ? colonoscopy next week- Hgb stable He has dialysis tomorrow. D/w family Will d/w Dr Haskins Justicifation of Admission Dx: Justifications for Admission: Justification of Admission Dx: Yes Chronic Renal Failure: Electrolyte Abnormality ALAINA AVILEZ MD Jan 07, 2020 13:09
[2020-01-07 14:45] VITALS: BP 125/69
[2020-01-07 20:06] VITALS: BP 125/42
[2020-01-07] MEDS: ACETAMINOPHEN 325 MG TABLET. PO PRN (20:25)
[2020-01-07] MEDS: CALAMINE/ZINC OXIDE TOPICAL SUSPENSION 177ML BOTTLE. TP PRN (21:06)
[2020-01-07 23:21] VITALS: BP 127/41
[2020-01-08] VITALS (7 sets, daily range): BP systolic 93–173; BP diastolic 38–72
[2020-01-08] MEDS: IPRATRPIUM/ALBUTEROL 0.5/2.5MG 3 ML NEBU. NEB SCH ×6 (00:25→19:55)
[2020-01-08 07:59] LABS: HEMATOCRIT 24.4 % (39.0-53.0); HEMOGLOBIN 7.9 g/dL (13.0-17.5); RED BLOOD COUNT 2.67 x10^6/uL (4.30-5.70); RED CELL DISTRIBUTION WIDTH 18.8 % (11.5-14.5); WHITE BLOOD COUNT 3.4 x10^3/uL (4.0-11.0)
[2020-01-08 08:07] LABS: PROTHROMBIN TIME PATIENT 13.4 SEC (11.7-14.0)
[2020-01-08] MEDS: AMIODARONE HCL 200 MG TABLET. PO SCH (08:18)
[2020-01-08] MEDS: PANTOPRAZOLE IV PUSH 40 MG VIAL. IVP SCH ×2 (08:19→16:32)
[2020-01-08] MEDS ORDERED: IV NORMAL SALINE 1000ML BAG 1,000 ML IV PRN ×2 (08:29)
[2020-01-08] MEDS ORDERED: ACETAMINOPHEN 500 MG TABLET PO PRN (08:30)
[2020-01-08] MEDS ORDERED: ALBUMIN HUMAN 25% 200 ML IV PRN (08:30)
[2020-01-08] MEDS ORDERED: DIALYSIS PATIENT. MC PRN (08:30)
[2020-01-08] MEDS ORDERED: diphenhydrAMINE 50 MG/ML VIAL IV PRN ×2 (08:30)
--- NOTE | 2020-01-08 09:38 | PN ---
DATE: 01/08/2020 SUBJECTIVE: The patient is resting flat, sleeping comfortably, in no apparent distress. Nursing staff did not voice any concerns that he has an uneventful night. He was seen by the plumbing contractor over the weekend and recommended colonoscopy; however, she did not order bowel preparation. PHYSICAL EXAMINATION: GENERAL: When I examined him, he was pale. No jaundice, cyanosis or thyromegaly. No jugular venous distention. No lower limb edema. VITAL SIGNS: His heart rate was 68, blood pressure was 132/60, temperature 97.7, respiratory rate was 19 and oxygen saturation was 98% on 3.5 liters of oxygen. HEENT: Showed normocephalic, atraumatic. NECK: Supple. CARDIAC: Normal first and second heart sounds. No gallop or murmur. CHEST: Clear to auscultation. No crepitation or rhonchi. ABDOMEN: Distended, soft, nontender. NEUROLOGIC: He was sleepy, but arousable. All cranial nerves are intact. He moves extremities without difficulty. He is completely anuric and hemodialysis dependent. His intake over the last 24 hours was 1225. No output was recorded. LABORATORY DATA: As of this morning, his white cell count was 3400, hemoglobin 7.9, hematocrit 24, MCV 91, and platelet count of 155,000. His chemistry is variable. ASSESSMENT: 1. Acute blood loss anemia, status post 3 units of packed RBCs. His H and H is actually stable and rising as of this morning. His hemoglobin was 7.9, hematocrit was 24.4. His bleeding scan done twice, was negative. CT scan of the chest showed that he has loculated hydropneumothorax versus empyema. 2. End-stage renal disease, on hemodialysis Wednesday, and Wednesday. 3. Hypertension. 4. Hyperlipidemia. 5. Atrial fibrillation, currently in sinus rhythm. 6. Obstructive sleep apnea. 7. Bronchial asthma. 8. Senile macular degeneration. 9. Vitamin B12 deficiency. 10. Benign prostatic hypertrophy. PLAN: To continue the clear liquid diet and await evaluation by the Gastroenterology team this morning for possible colonoscopy. Continue obviously with dialysis as per the Nephrology team. I will repeat his H and H tomorrow. RALEIGH ZHAO MD DR: TAYLOR/carly JOB#: [id number] / [id number]
[2020-01-08 09:56] LABS: CALCIUM 7.6 mg/dL (8.5-10.1); CREATININE 6.4 mg/dL (0.7-1.3); GFR 8.4; POTASSIUM 4.6 mmol/L (3.5-5.1)
--- NOTE | 2020-01-08 10:34 | PDOC ---
Date of Service: DATE: 01/08/20 TIME: 10:28 Subjective: Subjective: Weak because he's been on a liquid diet. Wants a colonoscopy to get some answers, thinks he could do the prep. No breathing complaints. No bleeding. Objective: Objective: D/w Dr. Luis re: colonoscopy. Dr. Haskins d/w pt's son on Wednesday. Vital Signs: Vital Signs Date Time Temp Pulse Resp B/P (MAP) Pulse Ox O2 Delivery O2 Flow Rate FiO2 01/08/20 08:18 68 132/60 01/08/20 07:29 98 Nasal Cannula 3.5 01/08/20 07:00 97.5 18 97.5 Labs: Laboratory Tests Test 01/07/20 18:30 01/08/20 06:50 Hemoglobin 7.4 g/dL 7.9 g/dL Hematocrit 23.0 % 24.4 % White Blood Count 3.4 x10^3/uL Red Blood Count 2.67 x10^6/uL Mean Corpuscular Volume 91 fL Mean Corpuscular Hemoglobin 29 pg Mean Corpuscular Hemoglobin Concent 32 g/dL Red Cell Distribution Width 18.8 % Platelet Count 155 x10^3/uL Prothrombin Time 13.4 SEC Prothromb Time International Ratio 1.1 Activated Partial Thromboplast Time 33 SEC Sodium Level 135 mmol/L Potassium Level 4.6 mmol/L Chloride Level 99 mmol/L Carbon Dioxide Level 28 mmol/L Anion Gap 8 Blood Urea Nitrogen 76 mg/dL Creatinine 6.4 mg/dL Estimated GFR (Cockcroft-Gault) 8.4 Glucose Level 78 mg/dL Calcium Level 7.6 mg/dL ORDERED: ANAER/SANCHO/PEGGY COMMENTS: Has specimen been collected/obtained? Y --- --------- Procedure Result GRAM STAIN Final Final NO ORGANISMS SEEN. SQUAMOUS EPI CELL:NOT APPLICABLE PMN (WBCs):RARE Unless otherwise specified, Testing Performed by: [address] [id number] For Inquires, the Physician may contact the Microbiology department at [phone] ANAEROBIC-AEROBIC CULTURE Preliminary Preliminary No Growth on 01/06/20 at 0920 No Growth on 01/07/20 at 1001 Unless otherwise specified, Testing Performed by: [address] [address] For Inquires, the Physician may contact the Microbiology department at [phone] BLOOD CULTURE Preliminary NO GROWTH AFTER 3 DAYS Imaging: GI Bleed Scan Delayed Images 01/04 IMPRESSION: 1. No evidence of active hemorrhage though sensitivity is limited. Extensive blood pool activity persists. Chest CT 01/04 IMPRESSION: 1. Large rounded fluid containing structure at the apex of the left hemithorax with trace air and surrounding pleural enhancement measuring upto 12 cm. This could represent a loculated hydropneumothorax, although an empyema could have a similar appearance in the appropriate clinical setting. In the setting of empyema, bronchopleural fistula should be considered, although with recent thoracentesis this may be the source of the trace pleural air. 2. Additional moderate left and small right pleural effusions. 3. Atelectasis of most of the left upper and lower lobe with areas of groundglass opacity within the aerated regions. Thoracentesis 01/04 1.6L PE: GEN: NAD - asleep with pillow over head LUNGS: diminished HEART: RRR ABD: S/ND/NT SKIN: pale NEURO/PSYCH: A & O 3 A/P: ?melena, +Hemoccult, anemia A Fib, COPD, ESRD -- D/w Dr. Haskins - will plan for colonoscopy tomorrow after prep. Recheck COVID per protocol (was negative on 08/06 and 12/26). Justicifation of Admission Dx: Justifications for Admission: Justification of Admission Dx: Yes Chronic Renal Failure: Electrolyte Abnormality SHERI KINSEY Jan 08, 2020 10:34
--- NOTE | 2020-01-08 10:56 | PDOC ---
PULMONARY PROGRESS NOTES DATE: 01/08/20 TIME: 10:54 Subjective PT. reports he is breathing much better S/P left thoracentisis 01/05/2020 Remains on N/C No CP No Cough, No SOA Vitals Vital Signs Date Time Temp Pulse Resp B/P (MAP) Pulse Ox O2 Delivery O2 Flow Rate FiO2 01/08/20 08:18 68 132/60 01/08/20 07:29 98 Nasal Cannula 3.5 01/08/20 07:00 97.5 18 97.5 ROS: No Nausea, No Chest Pain, No Abdominal Pain, No Increase Cough General: Alert, No acute distress Lungs: Other (decrase bs left) Cardiovascular: S1, S2 Abdomen: Soft Extremities: No Edema Labs Laboratory Tests Test 01/06/20 13:55 01/07/20 05:00 01/07/20 18:30 01/08/20 06:50 Hemoglobin 7.4 g/dL (13.0-17.5) 7.3 g/dL (13.0-17.5) 7.4 g/dL (13.0-17.5) 7.9 g/dL (13.0-17.5) Hematocrit 23.1 % (39.0-53.0) 22.7 % (39.0-53.0) 23.0 % (39.0-53.0) 24.4 % (39.0-53.0) White Blood Count 3.4 x10^3/uL (4.0-11.0) Red Blood Count 2.67 x10^6/uL (4.30-5.70) Mean Corpuscular Volume 91 fL (79-100) Mean Corpuscular Hemoglobin 29 pg (25-35) Mean Corpuscular Hemoglobin Concent 32 g/dL (31-37) Red Cell Distribution Width 18.8 % (11.5-14.5) Platelet Count 155 x10^3/uL (140-400) Prothrombin Time 13.4 SEC (11.7-14.0) Prothromb Time International Ratio 1.1 (0.8-1.1) Activated Partial Thromboplast Time 33 SEC (24-38) Sodium Level 135 mmol/L (136-145) Potassium Level 4.6 mmol/L (3.5-5.1) Chloride Level 99 mmol/L (98-107) Carbon Dioxide Level 28 mmol/L (21-32) Anion Gap 8 (6-14) Blood Urea Nitrogen 76 mg/dL (8-26) Creatinine 6.4 mg/dL (0.7-1.3) Estimated GFR (Cockcroft-Gault) 8.4 Glucose Level 78 mg/dL (70-99) Calcium Level 7.6 mg/dL (8.5-10.1) Test 01/08/20 10:15 SARS-CoV-2 Antigen (Rapid) Negative (NEGATIVE) Laboratory Tests Test 01/07/20 18:30 01/08/20 06:50 01/08/20 10:15 Hemoglobin 7.4 g/dL (13.0-17.5) 7.9 g/dL (13.0-17.5) Hematocrit 23.0 % (39.0-53.0) 24.4 % (39.0-53.0) White Blood Count 3.4 x10^3/uL (4.0-11.0) Red Blood Count 2.67 x10^6/uL (4.30-5.70) Mean Corpuscular Volume 91 fL (79-100) Mean Corpuscular Hemoglobin 29 pg (25-35) Mean Corpuscular Hemoglobin Concent 32 g/dL (31-37) Red Cell Distribution Width 18.8 % (11.5-14.5) Platelet Count 155 x10^3/uL (140-400) Prothrombin Time 13.4 SEC (11.7-14.0) Prothromb Time International Ratio 1.1 (0.8-1.1) Activated Partial Thromboplast Time 33 SEC (24-38) Sodium Level 135 mmol/L (136-145) Potassium Level 4.6 mmol/L (3.5-5.1) Chloride Level 99 mmol/L (98-107) Carbon Dioxide Level 28 mmol/L (21-32) Anion Gap 8 (6-14) Blood Urea Nitrogen 76 mg/dL (8-26) Creatinine 6.4 mg/dL (0.7-1.3) Estimated GFR (Cockcroft-Gault) 8.4 Glucose Level 78 mg/dL (70-99) Calcium Level 7.6 mg/dL (8.5-10.1) SARS-CoV-2 Antigen (Rapid) Negative (NEGATIVE) Medications Active Scripts Medications Dose Route/Sig Max Daily Dose Days Date Category Dose Instructions Cyanocobalamin Injection (Cyanocobalamin (Vitamin B-12)) 1,000 Mcg/1 Ml Vial 1 Ml IM QMONTH 30 01/02/20 Rx Protonix (Pantoprazole Sodium) 40 Mg Tablet.dr 40 Mg PO BID 30 01/02/20 Rx Zinc Sulfate 220 Mg Tablet 1 Tab PO DAILY 30 11/30/19 Reported Vitamin D3 (Cholecalciferol (Vitamin D3)) 25 Mcg Capsule 25 Mcg PO DAILY 1 11/30/19 Reported Isosorbide Mononitrate Er (Isosorbide Mononitrate) 30 Mg Tab.er.24h 30 Mg PO BID 30 08/14/19 Rx Amiodarone Hcl 200 Mg Tablet 1 Tab PO DAILY 30 08/14/19 Rx Acetaminophen 500 Mg Tablet 1 Tab PO PRN Q6HRS PRN 15 08/07/19 Reported Calcium Acetate 667 Mg Tablet 1 Cap PO TIDAC 08/07/19 Reported Metoprolol Tartrate 25 Mg Tablet 0.5 Tab PO BID 08/07/19 Reported Duoneb 0.5-3(2.5) Mg/3 Ml (Albuterol/Ipratropium) 3 Ml Ampul.neb 3 Ml NEB RTQID 30 03/31/19 Rx [ahreds] 1 Cap PO BID 03/28/19 Reported Ahreds #2 Preservision, One softgel by mouth twice a day Dialyvite Tablet (Folic Acid/Vitamin B Comp W-C) 1 Each Tablet 1 Tab PO DAILY 03/27/19 Reported Advair 250-50 Diskus (Fluticasone/Salmeterol) 1 Each Disk.w.dev 1 Puff PO BID 03/27/19 Reported Aspirin Ec (Aspirin) 81 Mg Tablet. 1 Tab PO BID 03/17/17 Reported LAST DOSE GIVEN: DATE: 03/17/17 TIME: 1030 am so start taking this daily tomorrow Tamsulosin Hcl 0.4 Mg Cap.er.24h 0.4 Mg PO BID 12/06/15 Reported Ventolin Hfa Inhaler (Albuterol Sulfate) 18 Gm Hfa.aer.ad 2 Puff INH QID 12/06/15 Reported Atorvastatin Calcium 10 Mg Tablet 10 Mg PO HS 12/06/15 Reported Comments NM bleeding scan IMPRESSION: 1. No evidence of active hemorrhage though sensitivity is limited. Extensive blood pool activity persists. ct chest 1. Large rounded fluid containing structure at the apex of the left hemithorax with trace air and surrounding pleural enhancement measuring up to 12 cm. This could represent a loculated hydropneumothorax, although an empyema could have a similar appearance in the appropriate clinical setting. In the setting of empyema, bronchopleural fistula should be considered, although with recent thoracentesis this may be the source of the trace pleural air. 2. Additional moderate left and small right pleural effusions. 3. Atelectasis of most of the left upper and lower lobe with areas of groundglass opacity within the aerated regions. Electronically signed by: Maynor Slaughter MD (01/06/2020 10:45 AM) [id number] Impression . IMPRESSION: 1. Acute on chronic respiratory failure secondary to combination of multifactorial etiologies including underlying chronic obstructive pulmonary disease, anemia and recurrent left sided pleural effusion.-- S/P left thoracentisis removed 1.6 liters , transudate 2. The patient with abnormal CT chest previously with a large left apical bulla and mass-like consolidation in the lingula. He had a PET scan, which did not show any uptake in the lingula. He also had a bronchoscopy, which showed severely distorted anatomy with a lingular subsegment extrinsic compression. Dr. Rangel was not able to visualize except a small tiny opening. followup CT chest shows large Loculated JHONY effusion/ air fluid level. suspected BPF 3. Anemia, followed by GI. 4. End-stage renal disease, on hemodialysis. 5. Recurrent left sided pleural effusion. Plan . RECOMMENDATIONS: 1. Follow cytology of thoracentisis --S/P thoracentisis 01/05/2020 removed 1.6 liters from left side 2. CT chest reviewed. marked volume loss in the left upper lobe and lingula is related to loculated fluid collection . Possible BPF. Had large bullae underneath it. d/w IR . ct guided left tap tor/o infection. d/w pt . He agrees 3. Continue hemodialysis with ultrafiltration per nephrology recs 4. Supplemental oxygen as needed for 92% or above 5. Follow hemoglobin closely. 6. Follow GI recommendations. 7. Stress ulcer prophylaxis. 8. D/W ESTEVAN RENDON MD Jan 08, 2020 10:56
--- NOTE | 2020-01-08 12:45 | PDOC ---
CHARLES DUFF SCROLL ASSEMBLER 01/08/20 1245: CARDIO Progress Notes Date and Time Date of Service 01/08/20 Time of Evaluation 1150 Subjective Subjective: No Chest Pain, No shortness of breath, No Palpitations Vitals Vitals Vital Signs Date Time Temp Pulse Resp B/P (MAP) Pulse Ox O2 Delivery O2 Flow Rate FiO2 01/08/20 08:18 68 132/60 01/08/20 08:00 Nasal Cannula 3.0 01/08/20 07:29 98 01/08/20 07:00 97.5 18 97.5 Weight Weight [ ] Input and Output Intake and Output Intake and Output 01/08/20 07:00 Intake Total 600 ml Output Total 20 ml Balance 580 ml Intake Oral 600 ml Output Urine Total 20 ml Laboratory Labs Laboratory Tests Test 01/07/20 18:30 01/08/20 06:50 01/08/20 10:15 Hemoglobin 7.4 g/dL (13.0-17.5) 7.9 g/dL (13.0-17.5) Hematocrit 23.0 % (39.0-53.0) 24.4 % (39.0-53.0) White Blood Count 3.4 x10^3/uL (4.0-11.0) Red Blood Count 2.67 x10^6/uL (4.30-5.70) Mean Corpuscular Volume 91 fL (79-100) Mean Corpuscular Hemoglobin 29 pg (25-35) Mean Corpuscular Hemoglobin Concent 32 g/dL (31-37) Red Cell Distribution Width 18.8 % (11.5-14.5) Platelet Count 155 x10^3/uL (140-400) Prothrombin Time 13.4 SEC (11.7-14.0) Prothromb Time International Ratio 1.1 (0.8-1.1) Activated Partial Thromboplast Time 33 SEC (24-38) Sodium Level 135 mmol/L (136-145) Potassium Level 4.6 mmol/L (3.5-5.1) Chloride Level 99 mmol/L (98-107) Carbon Dioxide Level 28 mmol/L (21-32) Anion Gap 8 (6-14) Blood Urea Nitrogen 76 mg/dL (8-26) Creatinine 6.4 mg/dL (0.7-1.3) Estimated GFR (Cockcroft-Gault) 8.4 Glucose Level 78 mg/dL (70-99) Calcium Level 7.6 mg/dL (8.5-10.1) SARS-CoV-2 Antigen (Rapid) Negative (NEGATIVE) Microbiology Micro Microbiology 01/05/20 Gram Stain - Final, Resulted 01/05/20 Aerobic and Anaerobic Culture - Preliminary, Resulted 01/04/20 Blood Culture - Preliminary, Resulted NO GROWTH AFTER 3 DAYS Physical Exam HEENT: Neck Supple W Full Motion Chest: Symmetric LUNGS: Clear to Auscultation, Other (diminished bases) Heart: S1S2, RRR Abdomen: Soft N/T Extremities: No Edema Neurology: alert, follow commands Assessment Assessment 1. PAFIB; maintaining SR. Continue amiodarone for rhythm maintenance. 2. Severe anemia with likely GI bleed: s/p 4 units PRBCs. Hgb 7.9. GI following. 3. Acute on chronic respiratory failure, multifactorial s/p left thoracentesis with removal of 1.6 L serosanguineous fluid. Loculated JHONY effusion; thoracentesis planned today. pulmonary team following. 4. ESRD with mild hyperkalemia, continue HD per nephrology team. 5. Hypertension; controlled 6. Dyslipidemia; statin Recommendations Fluid offloading via HD Continue Amiodarone for rhythm maintenance Resume metoprolol ASA/OAC held due to anemia, bleeding concerns. We will consider [place] referral as outpatient since he is a poor candidate for long-term anticoagulation. Justicifation of Admission Dx: Justifications for Admission: Justification of Admission Dx: Yes Chronic Renal Failure: Electrolyte Abnormality MIRANDA FAN MD 01/08/20 1720: CARDIO Progress Notes Assessment Assessment Patient seen and evaluated PAFIB; maintaining SR. Continue amiodarone for rhythm maintenance. Severe anemia with likely GI bleed: s/p 4 units PRBCs. Hgb 7.9. GI following. OAC/ASA held. Acute on chronic respiratory failure, multifactorial s/p left thoracentesis with removal of 1.6 L serosanguineous fluid. Loculated JHONY effusion; thoracentesis planned today. pulmonary team following. ESRD with mild hyperkalemia, continue HD per nephrology team. CHARLES DUFF APRN Jan 08, 2020 12:45 MIRANDA FAN MD Jan 08, 2020 17:20
[2020-01-08] MEDS ORDERED: PEG 3350/NA SULF,BICARB,CL/KCL 4,000 ML SOLUTION. PO ONE (13:00)
--- NOTE | 2020-01-08 13:07 | PATHOLOGY ---
Note [facility] Accession Number: [id number] TESTS RESULT FLAG UNITS REF RANGE LAB Clinician Provided Cytology Information No. of containers..01 Other (Miscellaneous) Source: LEFT PLEURAL FLUID DIAGNOSIS: 02 LEFT PLEURAL FLUID INCONCLUSIVE. MESOTHELIAL CELLS ARE PRESENT. THIS INTERPRETATION INCLUDES EVALUATION OF A CELL BLOCK. COMMENT, RARE MILDLY ATYPICAL CELLS ARE PRESENT. NOT DIAGNOSTIC. MANY INFLAMMATORY CELLS ARE PRESENT. Signed out by: 02 Michael Lucas MD, Pathologist NPI- [id number] Performed by: Roxanne Mendiola, Top Lift Scourer ([facility]) Gross description: 01 45ML, CLOUDY ORANGE, 1 TP 1 CB /LCS 01/05/2020 1732 Local FLAG LEGEND: L-Low Normal,H-High Normal,LL-Alert Low,HH-Alert High <-Panic Low,>-Panic High,A-Abnormal,AA-Critical Abnormal Performed at: 01 [facility] [address] [place] [address] Gibson Rivas MD, [address] [place] [facility] [address] Aidan Valdovinos MD, Specimen Comment: A courtesy copy of this report has been sent to [phone], [phone] Specimen Comment: [id number], Specimen Comment: Report sent to ,DR ZHAO / DR PAREKH Specimen Comment: A duplicate report has been generated due to demographic updates. Performed at: 01 [facility] [address], [place], [place] [id number] MD Gibson Rivas MD Phone: [phone]
--- NOTE | 2020-01-08 13:14 | PDOC ---
Renal-Progress Notes Subjective Notes Notes NO NEW COMPLAINTS History of Present Illness Hx of present illness STABLE Vitals Vitals Vital Signs Date Time Temp Pulse Resp B/P (MAP) Pulse Ox O2 Delivery O2 Flow Rate FiO2 01/08/20 08:18 68 132/60 01/08/20 08:00 Nasal Cannula 3.0 01/08/20 07:29 98 01/08/20 07:00 97.5 18 97.5 Weight Weight [ ] I.O. Intake and Output Intake and Output 01/08/20 07:00 Intake Total 600 ml Output Total 20 ml Balance 580 ml Intake Oral 600 ml Output Urine Total 20 ml Labs Labs Laboratory Tests Test 01/07/20 18:30 01/08/20 06:50 01/08/20 10:15 Hemoglobin 7.4 g/dL (13.0-17.5) 7.9 g/dL (13.0-17.5) Hematocrit 23.0 % (39.0-53.0) 24.4 % (39.0-53.0) White Blood Count 3.4 x10^3/uL (4.0-11.0) Red Blood Count 2.67 x10^6/uL (4.30-5.70) Mean Corpuscular Volume 91 fL (79-100) Mean Corpuscular Hemoglobin 29 pg (25-35) Mean Corpuscular Hemoglobin Concent 32 g/dL (31-37) Red Cell Distribution Width 18.8 % (11.5-14.5) Platelet Count 155 x10^3/uL (140-400) Prothrombin Time 13.4 SEC (11.7-14.0) Prothromb Time International Ratio 1.1 (0.8-1.1) Activated Partial Thromboplast Time 33 SEC (24-38) Sodium Level 135 mmol/L (136-145) Potassium Level 4.6 mmol/L (3.5-5.1) Chloride Level 99 mmol/L (98-107) Carbon Dioxide Level 28 mmol/L (21-32) Anion Gap 8 (6-14) Blood Urea Nitrogen 76 mg/dL (8-26) Creatinine 6.4 mg/dL (0.7-1.3) Estimated GFR (Cockcroft-Gault) 8.4 Glucose Level 78 mg/dL (70-99) Calcium Level 7.6 mg/dL (8.5-10.1) SARS-CoV-2 Antigen (Rapid) Negative (NEGATIVE) Micro Micro Microbiology 01/05/20 Gram Stain - Final, Resulted 01/05/20 Aerobic and Anaerobic Culture - Preliminary, Resulted 01/04/20 Blood Culture - Preliminary, Resulted NO GROWTH AFTER 4 DAYS Review of Systems Constitutional: yes: weakness, alert Ears/Nose/Throat: Yes: no symptom reported Eyes: Yes: no symptom reported Pulmonary: Yes no symptom reported Cardiovascular: Yes no symptom reported Gastrointestional: Yes: no symptom reported Genitourinary: Yes: no symptom reported Musculoskeletal: Yes: no symptom reported Skin: Yes no symptom reported Psychiatric/Neurological: Yes: no symptom reported Endocrine: Yes: no symptom reported Physical Exam General Appearance: no apparent distress Heart: S1S2 Abdomen: soft, bowel sounds present Genitourinary: bladder flat Extremities: pulses present Neurology: alert Musculoskeletal: Osteoarthritis Assessment Assessment IMP ESRD ANEMIA ACUTE RESP FAILURE LEFT PLEURAL EFFUSION MPRESSION: PLAN JENNIFER HD TODAY UF TO DW THORACENTESIS WILL FOLLOW RAMIREZ AYALA MD Jan 08, 2020 13:14
[2020-01-08] MEDS ORDERED: LIDOCAINE WITH 8.4% SOD BICARB 3 ML DISP.SYRIN. ONE ×2 (13:34→14:26)
[2020-01-08] MEDS ORDERED: LIDOCAINE WITH 8.4% SOD BICARB 3 ML DISP.SYRIN. INJ ONE (14:00)
--- NOTE | 2020-01-08 14:45 | NUR ---
drainage sent to lab was thick red and purulent. Addendum: 01/08/20 at 1446 by BUZZ WEBBER RN Amended: Links added.
--- NOTE | 2020-01-08 15:04 | PDOC ---
Provider Note Provider Note IR NOTE Left pulmonary air fluid collection noted concerning for large pulmonary abscess occupying prior air filled bleb. A brochopleural fistula is possible given rapid accumulation of fluid in the bleb, in the setting of significant pleural effusion. The pleural effusion was previously tapped, and the fluid appeared re latively serous. Gram stain was negative and cultures are negative to date. Initially planned on aspiration, however very thick, turbid fluid was aspirated, not similar to findings at prior thora. Patient may not be a surgical candidate. A 12 Fr drain was placed into the collection. SATYA JAMIL MD Jan 08, 2020 15:04
--- NOTE | 2020-01-08 16:16 | RAD ---
CT-guided drainage, probable pulmonary abscess 01/08/2020 INDICATION: Bronchopleural fistula versus pulmonary abscess Discussion: The procedure was explained in its entirety to the patient or the patients designated customer retention representative by a member of the treatment team, including a discussion of the risks, benefits and commonly accepted alternatives to the procedure, as well as the expected consequences of no therapy whatsoever. Discussion of the risks included, but was not limited to, those that are most frequent and those that are rare but possibly severe or life-threatening, as well as the possibility of unforeseen complications. All elements of maximal sterile barrier technique including the use of a cap, mask, sterile gown, sterile gloves, large sterile sheet, appropriate hand hygiene, and 2% chlorhexidine for cutaneous antisepsis (or acceptable alternative antiseptic per current guidelines) were followed for this procedure. CT imaging redemonstrates a loculated collection in the left hemithorax which appeared to previously be a large air-filled bleb. The concavity is now nearly completely filled with fluid with small air-fluid level. 1% lidocaine was administered for local anesthesia. A 5 Argentine Yueh needle was advanced into this collection. Thick purulent appearing fluid was aspirated. Initial access site was felt to be suboptimal for long-term drainage. The referring shipping and receiving coordinator was called and made aware of the findings. CT-guided drainage was requested. Slightly more posterior inferior approach was selected 1% lidocaine was administered again for local anesthesia. 5 Argentine Yueh needle was advanced into the pleural space over which following dilatation a 12 Argentine pigtail drain was placed. No immediate complications were identified. The catheter was secured in place and sterile dressings were applied. Anesthesia: Local only Impression: CT-guided drainage, probable pulmonary abscess PQRS Compliance Statement: One or more of the following individualized dose reduction techniques were utilized for this examination: 1. Automated exposure control 2. Adjustment of the mA and/or kV according to patient size 3. Use of iterative reconstruction technique
[2020-01-08] MEDS: ACETAMINOPHEN 325 MG TABLET. PO PRN (16:31)
[2020-01-08] MEDS ORDERED: fentaNYL PF VIAL 100 MCG/2 ML VIAL IVP PRN (17:30)
[2020-01-08] MEDS: fentaNYL PF VIAL 100 MCG/2 ML VIAL IVP PRN ×2 (17:37→20:14)
[2020-01-08] MEDS: METOPROLOL TART IMMED RELEASE 25 MG TABLET. PO SCH (19:54)
[2020-01-08] MEDS ORDERED: DARBEPOETIN ALFA 60 MCG/0.3 ML DISP.SYRIN. SQ SCH (21:00)
[2020-01-08] MEDS: oxyCODONE/APAP 5/325 1 TAB TABLET PO PRN (22:41)
[2020-01-08] MEDS: ZOLPIDEM 5 MG TABLET. PO PRN (22:41)
[2020-01-09] MEDS: IPRATRPIUM/ALBUTEROL 0.5/2.5MG 3 ML NEBU. NEB SCH ×7 (00:30→23:44)
[2020-01-09 03:25] VITALS: BP 122/36
[2020-01-09 06:16] LABS: HEMATOCRIT 25.7 % (39.0-53.0); HEMOGLOBIN 8.4 g/dL (13.0-17.5)
[2020-01-09 07:00] VITALS: BP 137/42
[2020-01-09] MEDS ORDERED: ONDANSETRON PF 4 MG/2 ML VIAL. IV PRN (07:00)
[2020-01-09] MEDS ORDERED: fentaNYL PF VIAL 100 MCG/2 ML VIAL IV PRN ×2 (07:00)
[2020-01-09] MEDS ORDERED: MORPHINE SULFATE 2 MG/ML VIAL. IV PRN (07:00)
[2020-01-09] MEDS ORDERED: IV RINGERS,LACTATED 1000ML 1,000 ML IV SCH (07:00)
[2020-01-09] MEDS ORDERED: HYDROmorphone 2 MG/ML VIAL IV PRN (07:00)
[2020-01-09] MEDS ORDERED: PROCHLORPERAZINE 10 MG/2 ML VIAL. IV PRN (07:00)
[2020-01-09] MEDS: PANTOPRAZOLE IV PUSH 40 MG VIAL. IVP SCH ×2 (08:54→17:47)
--- NOTE | 2020-01-09 09:03 | PDOC ---
Date of Service: DATE: 01/09/20 TIME: 09:00 Subjective: Subjective: Left back hurts - didn't sleep well, feels bad. Still wants to do colonoscopy but the prep tastes bad. Wonders what the plan would be if he doesn't proceed w/ colonoscopy - "just come back and do this all again?" Objective: Objective: Called by nurse this morning - pt refused prep yesterday, has had "three cups" today - no stools. Colonoscopy cancelled. Vital Signs: Vital Signs Date Time Temp Pulse Resp B/P (MAP) Pulse Ox O2 Delivery O2 Flow Rate FiO2 01/09/20 07:00 98.1 68 20 137/42 (73) 95 Nasal Cannula 3.0 98.1 Labs: Laboratory Tests Test 01/08/20 10:15 01/08/20 14:30 01/09/20 05:30 SARS-CoV-2 Antigen (Rapid) Negative Body Fluid pH 6.92 Hemoglobin 8.4 g/dL Hematocrit 25.7 % Note [facility] Accession Number: [id number] TESTS RESULT FLAG UNITS REF RANGE LAB Clinician Provided Cytology Information No. of containers..01 Other (Miscellaneous) Source: 01 LEFT PLEURAL FLUID DIAGNOSIS: 02 LEFT PLEURAL FLUID INCONCLUSIVE. MESOTHELIAL CELLS ARE PRESENT. THIS INTERPRETATION INCLUDES EVALUATION OF A CELL BLOCK. COMMENT, RARE MILDLY ATYPICAL CELLS ARE PRESENT. NOT DIAGNOSTIC. MANY INFLAMMATORY CELLS ARE PRESENT. Signed out by: 02 Michael Lucas MD, Pathologist NPI- [id number] Performed by: 01 Roxanne Mendiola, Professor Of Business Administration ([facility]) Gross description: 01 45ML, CLOUDY ORANGE, 1 TP 1 CB /LCS 01/05/2020 1732 Local Imaging: CT drainage Impression: CT-guided drainage, probable pulmonary abscess CXR 01/08 pending PE: GEN: chronically ill - looks worse today LUNGS: diminished, chest tube HEART: RRR ABD: S/ND/NT NEURO/PSYCH: A & O 3 A/P: ?melena, anemia A Fib, COPD, ?pulm abscess, ESRD COVID negative -- Non-compliant w/ prep, colonoscopy cancelled. Can resume clears - will review re: ?reschedule for tomorrow w/ Dr. Haskins. He seems weaker today. Justicifation of Admission Dx: Justifications for Admission: Justification of Admission Dx: Yes Chronic Renal Failure: Electrolyte Abnormality SHERI KINSEY Jan 09, 2020 09:03
--- NOTE | 2020-01-09 09:38 | PN ---
DATE: 01/09/2020 SUBJECTIVE: The patient is resting, slightly propped up, sleeping comfortably, in no apparent distress. Denied any chest pain or shortness of breath; however, he has not had any bowel movement despite starting the bowel preparation yesterday. He apparently has had a chest tube placed for pulmonary abscess. PHYSICAL EXAMINATION: GENERAL: When I examined him, he looked pale, cachectic, but no jaundice, cyanosis or thyromegaly. No jugular venous distention. No lower limb edema. VITAL SIGNS: His heart rate was 68, blood pressure was 137/42, temperature was 98.1, respiratory rate was 20, and oxygen saturation was 95% on 3 liters of oxygen. HEAD, EYES, EARS, NOSE AND THROAT: Showed normocephalic, atraumatic. NECK: Supple. HEART: Normal first and second heart sounds. No gallop, rub or murmur. CHEST: Shows central trachea, equal bilateral expansion, air entry anteriorly, has a chest tube to the left hemithorax to Pleur-evac. ABDOMEN: Scaphoid, soft, nontender. NEUROLOGIC: He is hard of hearing. Otherwise, all cranial nerves are intact. He moves extremities without difficulty, although he is mostly bedbound. He is extremely oliguric, completely anuric and hemodialysis dependent. His intake was 600, output was only 20 mL. LABORATORY DATA: His pleural fluid analysis showed a pH of 6.92. Total protein was 2.2 and fluid LDH was 67. His hemoglobin was 8.4, hematocrit 25.7. His chemistry is variable as he is hemodialysis dependent. His coronavirus is negative. ASSESSMENT: 1. Acute blood loss anemia, status post 3 units of packed RBCs. His H and H is actually stable and rising. His hemoglobin was 8.4 and hematocrit 24. His bleeding scan done twice was negative. 2. CT scan of the chest showed that he has loculated hydropneumothorax versus empyema for which he underwent chest tube placement to Pleur-evac. 3. End-stage renal disease, on hemodialysis Wednesday, and Wednesday. 4. Hypertension. 5. Hyperlipidemia. 6. Atrial fibrillation, currently in sinus rhythm. 7. Obstructive sleep apnea. 8. Bronchial asthma. 9. Senile macular degeneration. 10. Vitamin B12 deficiency. 11. Benign prostatic hypertrophy. PLAN: To continue with clear liquid, continue obviously with bowel preparation. Continue with hemodialysis as per Nephrology team. We will continue to monitor his H and H and transfuse him as needed. Whether he will have colonoscopy today, remains to be seen. RALEIGH ZHAO MD DR: TAYLOR/carly JOB#: [id number] / [id number]
[2020-01-09 11:00] VITALS: BP 123/39
[2020-01-09] MEDS: oxyCODONE/APAP 5/325 1 TAB TABLET PO PRN ×2 (11:21→17:48)
[2020-01-09] MEDS: METOPROLOL TART IMMED RELEASE 25 MG TABLET. PO SCH ×2 (11:21→19:52)
[2020-01-09] MEDS: AMIODARONE HCL 200 MG TABLET. PO SCH (11:21)
--- NOTE | 2020-01-09 11:52 | RAD ---
EXAM: PORTABLE CHEST 1V INDICATION: Reason: empyema / Spl. Instructions: / History: . TECHNIQUE: Single view COMPARISON: 01/04/2020 chest x-ray FINDINGS: Increased opacification of the left hemithorax with interval placement of a left pigtail pleural drainage catheter. The heart size is normal. The great vessels appear unremarkable. There is no hilar or mediastinal mass. The right lung is clear. Left lung is almost entirely opacified with only minimal residual aerated lung near the apex noted. This represents an interval worsening in aeration No pneumothorax is apparent. There are no significant osseous abnormalities. IMPRESSION: Worsening aeration of the left lung following pleural drainage catheter placement. This could reflect worsening atelectasis. No pneumothorax is evident. Electronically signed by: Efrain Luna MD (01/09/2020 11:49 AM) [id number]
--- NOTE | 2020-01-09 12:05 | PDOC ---
PULMONARY PROGRESS NOTES DATE: 01/09/20 TIME: 12:03 Subjective PT. reports he is breathing better S/P left thoracentisis 01/05/2020 s/p left chest tube 01/07 Remains on N/C No CP No Cough, No SOA Vitals Vital Signs Date Time Temp Pulse Resp B/P (MAP) Pulse Ox O2 Delivery O2 Flow Rate FiO2 01/09/20 11:21 17 Nasal Cannula 3.0 01/09/20 11:21 68 137/42 01/09/20 07:00 98.1 95 98.1 ROS: No Nausea, No Chest Pain, No Abdominal Pain, No Increase Cough General: Alert, No acute distress Lungs: Other (decrase bs left) Cardiovascular: S1, S2 Abdomen: Soft Extremities: No Edema Labs Laboratory Tests Test 01/07/20 18:30 01/08/20 06:50 01/08/20 10:15 01/08/20 14:30 Hemoglobin 7.4 g/dL (13.0-17.5) 7.9 g/dL (13.0-17.5) Hematocrit 23.0 % (39.0-53.0) 24.4 % (39.0-53.0) White Blood Count 3.4 x10^3/uL (4.0-11.0) Red Blood Count 2.67 x10^6/uL (4.30-5.70) Mean Corpuscular Volume 91 fL (79-100) Mean Corpuscular Hemoglobin 29 pg (25-35) Mean Corpuscular Hemoglobin Concent 32 g/dL (31-37) Red Cell Distribution Width 18.8 % (11.5-14.5) Platelet Count 155 x10^3/uL (140-400) Prothrombin Time 13.4 SEC (11.7-14.0) Prothromb Time International Ratio 1.1 (0.8-1.1) Activated Partial Thromboplast Time 33 SEC (24-38) Sodium Level 135 mmol/L (136-145) Potassium Level 4.6 mmol/L (3.5-5.1) Chloride Level 99 mmol/L (98-107) Carbon Dioxide Level 28 mmol/L (21-32) Anion Gap 8 (6-14) Blood Urea Nitrogen 76 mg/dL (8-26) Creatinine 6.4 mg/dL (0.7-1.3) Estimated GFR (Cockcroft-Gault) 8.4 Glucose Level 78 mg/dL (70-99) Calcium Level 7.6 mg/dL (8.5-10.1) SARS-CoV-2 Antigen (Rapid) Negative (NEGATIVE) Body Fluid pH 6.92 Test 01/09/20 05:30 Hemoglobin 8.4 g/dL (13.0-17.5) Hematocrit 25.7 % (39.0-53.0) Laboratory Tests Test 01/08/20 14:30 01/09/20 05:30 Body Fluid pH 6.92 Hemoglobin 8.4 g/dL (13.0-17.5) Hematocrit 25.7 % (39.0-53.0) Medications Active Scripts Medications Dose Route/Sig Max Daily Dose Days Date Category Dose Instructions Cyanocobalamin Injection (Cyanocobalamin (Vitamin B-12)) 1,000 Mcg/1 Ml Vial 1 Ml IM QMONTH 30 01/02/20 Rx Protonix (Pantoprazole Sodium) 40 Mg Tablet.dr 40 Mg PO BID 30 01/02/20 Rx Zinc Sulfate 220 Mg Tablet 1 Tab PO DAILY 30 11/30/19 Reported Vitamin D3 (Cholecalciferol (Vitamin D3)) 25 Mcg Capsule 25 Mcg PO DAILY 1 11/30/19 Reported Isosorbide Mononitrate Er (Isosorbide Mononitrate) 30 Mg Tab.er.24h 30 Mg PO BID 30 08/14/19 Rx Amiodarone Hcl 200 Mg Tablet 1 Tab PO DAILY 30 08/14/19 Rx Acetaminophen 500 Mg Tablet 1 Tab PO PRN Q6HRS PRN 15 08/07/19 Reported Calcium Acetate 667 Mg Tablet 1 Cap PO TIDAC 08/07/19 Reported Metoprolol Tartrate 25 Mg Tablet 0.5 Tab PO BID 08/07/19 Reported Duoneb 0.5-3(2.5) Mg/3 Ml (Albuterol/Ipratropium) 3 Ml Ampul.neb 3 Ml NEB RTQID 30 03/31/19 Rx [ahreds] 1 Cap PO BID 03/28/19 Reported Ahreds #2 Preservision, One softgel by mouth twice a day Dialyvite Tablet (Folic Acid/Vitamin B Comp W-C) 1 Each Tablet 1 Tab PO DAILY 03/27/19 Reported Advair 250-50 Diskus (Fluticasone/Salmeterol) 1 Each Disk.w.dev 1 Puff PO BID 03/27/19 Reported Aspirin Ec (Aspirin) 81 Mg Tablet. 1 Tab PO BID 03/17/17 Reported LAST DOSE GIVEN: DATE: 03/17/17 TIME: 1030 am so start taking this daily tomorrow Tamsulosin Hcl 0.4 Mg Cap.er.24h 0.4 Mg PO BID 12/06/15 Reported Ventolin Hfa Inhaler (Albuterol Sulfate) 18 Gm Hfa.aer.ad 2 Puff INH QID 12/06/15 Reported Atorvastatin Calcium 10 Mg Tablet 10 Mg PO HS 12/06/15 Reported Comments NM bleeding scan IMPRESSION: 1. No evidence of active hemorrhage though sensitivity is limited. Extensive blood pool activity persists. ct chest 1. Large rounded fluid containing structure at the apex of the left hemithorax with trace air and surrounding pleural enhancement measuring up to 12 cm. This could represent a loculated hydropneumothorax, although an empyema could have a similar appearance in the appropriate clinical setting. In the setting of empyema, bronchopleural fistula should be considered, although with recent thoracentesis this may be the source of the trace pleural air. 2. Additional moderate left and small right pleural effusions. 3. Atelectasis of most of the left upper and lower lobe with areas of groundglass opacity within the aerated regions. Electronically signed by: Maynor Slaughter MD (01/06/2020 10:45 AM) [id number] cxr 01/08 Worsening aeration of the left lung following pleural drainage catheter placement. This could reflect worsening atelectasis. No pneumothorax is evident. Impression . IMPRESSION: 1. Acute on chronic respiratory failure secondary to combination of multifactorial etiologies including underlying chronic obstructive pulmonary disease, anemia and recurrent left sided pleural effusion.-- S/P left thoracentisis removed 1.6 liters , transudate 2. The patient with abnormal CT chest previously with a large left apical bulla and mass-like consolidation in the lingula. He had a PET scan, which did not show any uptake in the lingula. He also had a bronchoscopy, which showed severely distorted anatomy with a lingular subsegment extrinsic compression. Dr. Rangel was not able to visualize except a small tiny opening. followup CT chest shows large Loculated JHONY effusion/ air fluid level. suspected BPF 3. Anemia, followed by GI. 4. End-stage renal disease, on hemodialysis. 5. Recurrent left sided pleural effusion. Plan . RECOMMENDATIONS: 1. Follow cytology of thoracentisis --S/P thoracentisis 01/05/2020 removed 1.6 liters from left side 2. CT chest reviewed. marked volume loss in the left upper lobe and lingula is related to loculated fluid collection . Possible BPF. Had large bullae underneath d/w IR . ct guided left upper chest tube placed. findings c/w empyema. d/w pt . Monitor outpu/ cultures 3. Continue hemodialysis with ultrafiltration per nephrology recs 4. Supplemental oxygen as needed for 92% or above 5. Follow hemoglobin closely. 6. Follow GI recommendations. 7. Stress ulcer prophylaxis. 8. D/W ESTEVAN RENDON MD Jan 09, 2020 12:05
--- NOTE | 2020-01-09 13:35 | PDOC ---
Renal-Progress Notes Subjective Notes Notes NO NEW COMPLAINTS Vitals Vitals Vital Signs Date Time Temp Pulse Resp B/P (MAP) Pulse Ox O2 Delivery O2 Flow Rate FiO2 01/09/20 12:15 95 Nasal Cannula 3.5 01/09/20 11:21 17 01/09/20 11:21 68 137/42 01/09/20 11:00 98.0 98.0 Weight Weight [ ] I.O. Intake and Output Intake and Output 01/09/20 07:00 Intake Total 100 ml Output Total 385 ml Balance -285 ml Intake Oral 100 ml Output Urine Total 125 ml Chest Tube Drainage Total 100 ml Drainage Total 160 ml Labs Labs Laboratory Tests Test 01/08/20 14:30 01/09/20 05:30 Body Fluid pH 6.92 Hemoglobin 8.4 g/dL (13.0-17.5) Hematocrit 25.7 % (39.0-53.0) Micro Micro Microbiology 01/05/20 Gram Stain - Final, Resulted 01/05/20 Aerobic and Anaerobic Culture - Preliminary, Resulted 01/04/20 Blood Culture - Final, Complete NO GROWTH AFTER 5 DAYS Review of Systems Constitutional: yes: weakness, alert Ears/Nose/Throat: Yes: no symptom reported Eyes: Yes: no symptom reported Pulmonary: Yes no symptom reported Cardiovascular: Yes no symptom reported Gastrointestional: Yes: no symptom reported Genitourinary: Yes: no symptom reported Musculoskeletal: Yes: no symptom reported Skin: Yes no symptom reported Psychiatric/Neurological: Yes: no symptom reported Endocrine: Yes: no symptom reported Physical Exam General Appearance: no apparent distress Heart: S1S2 Abdomen: soft, bowel sounds present Genitourinary: bladder flat Extremities: pulses present Neurology: alert, follow commands Musculoskeletal: Osteoarthritis Assessment Assessment IMP ESRD ANEMIA ACUTE RESP FAILURE LEFT PLEURAL EFFUSION PLAN [facility] HD TOMORROW THORACENTESIS WILL FOLLOW RAMIREZ AYALA MD Jan 09, 2020 13:35
--- NOTE | 2020-01-09 14:44 | PDOC ---
CHARLES DUFF MAGNETIC TESTING TECHNICIAN 01/09/20 1444: CARDIO Progress Notes Date and Time Date of Service 01/09/20 Time of Evaluation 1310 Subjective Subjective: No Chest Pain, No shortness of breath, No Palpitations, Other (feels tired ) Vitals Vitals Vital Signs Date Time Temp Pulse Resp B/P (MAP) Pulse Ox O2 Delivery O2 Flow Rate FiO2 01/09/20 12:15 95 Nasal Cannula 3.5 01/09/20 11:21 17 01/09/20 11:21 68 137/42 01/09/20 11:00 98.0 98.0 Weight Weight [ ] Input and Output Intake and Output Intake and Output 01/09/20 07:00 Intake Total 100 ml Output Total 385 ml Balance -285 ml Intake Oral 100 ml Output Urine Total 125 ml Chest Tube Drainage Total 100 ml Drainage Total 160 ml Laboratory Labs Laboratory Tests Test 01/09/20 05:30 Hemoglobin 8.4 g/dL (13.0-17.5) Hematocrit 25.7 % (39.0-53.0) Microbiology Micro Microbiology 01/05/20 Gram Stain - Final, Resulted 01/05/20 Aerobic and Anaerobic Culture - Preliminary, Resulted 01/04/20 Blood Culture - Final, Complete NO GROWTH AFTER 5 DAYS Review of Systems Constitutional: yes: weakness, alert Ears/Nose/Throat: Yes: no symptom reported Eyes: Yes: no symptom reported Pulmonary: Yes no symptom reported Cardiovascular: Yes no symptom reported Gastrointestional: Yes: no symptom reported Genitourinary: Yes: no symptom reported Musculoskeletal: Yes: no symptom reported Skin: Yes no symptom reported Psychiatric/Neurological: Yes: no symptom reported Endocrine: Yes: no symptom reported Physical Exam HEENT: Neck Supple W Full Motion Chest: Symmetric LUNGS: Clear to Auscultation, Other (diminished bases) Heart: S1S2, RRR Abdomen: Soft N/T Extremities: No Edema Neurology: alert, follow commands Assessment Assessment 1. PAFIB; maintaining SR. Continue amiodarone for rhythm maintenance. 2. Severe anemia with likely GI bleed: s/p 4 units PRBCs. Hgb 7.9. GI following. Colonoscopy planned, but was noncompliant with prep and is weak 3. Acute on chronic respiratory failure, multifactorial s/p left thoracentesis with removal of 1.6 L serosanguineous fluid. Loculated JHONY effusion; s/p thoracentesis with CT placement. Culture sent 4. ESRD with mild hyperkalemia, continue HD per nephrology team. 5. Hypertension; controlled 6. Dyslipidemia; statin Recommendations Fluid offloading via HD Metoprolol for rate control ASA/OAC held due to anemia, bleeding concerns. We will consider [facility] referral as outpatient since he is a poor candidate for l miguel-term anticoagulation. Justicifation of Admission Dx: Justifications for Admission: Justification of Admission Dx: Yes Chronic Renal Failure: Electrolyte Abnormality MIRANDA FAN MD 01/09/20 1626: CARDIO Progress Notes Assessment Assessment Patient seen and examined I agree with our nurse practitioners assessment and plan as above. PAFIB; maintaining SR. Continue amiodarone for rhythm maintenance. Severe anemia with likely GI bleed: s/p 4 units PRBCs. Hgb 7.9. GI following. Colonoscopy planned, but was noncompliant with prep and is weak. Poor long-term candidate for anticoagulation. Acute on chronic respiratory failure, multifactorial s/p left thoracentesis with removal of 1.6 L serosanguineous fluid. Loculated JHONY effusion; s/p t horacentesis with CT placement. Culture sent ESRD with mild hyperkalemia, continue HD per nephrology team. Hypertension; controlled CHARLES DUFF APRN Jan 09, 2020 14:44 MIRANDA FAN MD Jan 09, 2020 16:26
[2020-01-09 15:00] VITALS: BP 122/31
--- NOTE | 2020-01-09 17:54 | NUR ---
Khris and Anastasia (pt's family) is at bedside and discussed with Kayleen (wedding planner) that the patient wanted the chest tube removed. Dr. Andrews notified and said he would remove it in the morning. This RN at bedside and discussed with the patient and family of his wishes. The pt stated "I don't want to do this anymore". Full code and DNR status discussed with pt. Pt stated he just wanted "nature to take it's course" and to not be in pain. Patient and family verbalizes the desire to go on hospice and be a DNR. Dr. Luis called and paged at 1640 with no return call. Second attempt made. Will continue to monitor and relay message to oncoming staff.
[2020-01-09 19:30] VITALS: BP 114/48
[2020-01-09] MEDS: ZOLPIDEM 5 MG TABLET. PO PRN (19:51)
[2020-01-09 23:00] VITALS: BP 115/38
[2020-01-10 03:45] VITALS: BP 136/51
[2020-01-10] MEDS: IPRATRPIUM/ALBUTEROL 0.5/2.5MG 3 ML NEBU. NEB SCH ×4 (04:00→15:18)
[2020-01-10 07:00] VITALS: BP 150/48
[2020-01-10] MEDS: PANTOPRAZOLE IV PUSH 40 MG VIAL. IVP SCH (08:43)
[2020-01-10] MEDS: oxyCODONE/APAP 5/325 1 TAB TABLET PO PRN ×2 (08:43→15:13)
[2020-01-10] MEDS: METOPROLOL TART IMMED RELEASE 25 MG TABLET. PO SCH (08:43)
[2020-01-10] MEDS: AMIODARONE HCL 200 MG TABLET. PO SCH (08:44)
--- NOTE | 2020-01-10 08:51 | PDOC ---
PULMONARY PROGRESS NOTES DATE: 01/10/20 TIME: 08:47 Subjective Plans to D/C home to hospice remains on N/C No compliant at this time Vitals Vital Signs Date Time Temp Pulse Resp B/P (MAP) Pulse Ox O2 Delivery O2 Flow Rate FiO2 01/10/20 08:44 96 136/72 01/10/20 08:43 17 Nasal Cannula 3.0 01/10/20 07:43 94 01/10/20 07:00 97.9 97.9 ROS: No Nausea, No Chest Pain, No Abdominal Pain, No Increase Cough General: Alert, No acute distress Lungs: Clear, Other Cardiovascular: S1, S2 Abdomen: Soft Extremities: No Edema Labs Laboratory Tests Test 01/08/20 10:15 01/08/20 14:30 01/09/20 05:30 Coronavirus (PCR) Not detected (Not Detected) SARS-CoV-2 Antigen (Rapid) Negative (NEGATIVE) Body Fluid pH 6.92 Body Fluid Glucose <2 mg/dL (.) Body Fluid Total Protein 2.0 g/dL (.) Body Fluid Lactate Dehydrogenase 8210 IU/L (.) Hemoglobin 8.4 g/dL (13.0-17.5) Hematocrit 25.7 % (39.0-53.0) Medications Active Scripts Medications Dose Route/Sig Max Daily Dose Days Date Category Dose Instructions Cyanocobalamin Injection (Cyanocobalamin (Vitamin B-12)) 1,000 Mcg/1 Ml Vial 1 Ml IM QMONTH 30 01/02/20 Rx Protonix (Pantoprazole Sodium) 40 Mg Tablet.dr 40 Mg PO BID 30 01/02/20 Rx Zinc Sulfate 220 Mg Tablet 1 Tab PO DAILY 30 11/30/19 Reported Vitamin D3 (Cholecalciferol (Vitamin D3)) 25 Mcg Capsule 25 Mcg PO DAILY 1 11/30/19 Reported Isosorbide Mononitrate Er (Isosorbide Mononitrate) 30 Mg Tab.er.24h 30 Mg PO BID 30 08/14/19 Rx Amiodarone Hcl 200 Mg Tablet 1 Tab PO DAILY 30 08/14/19 Rx Acetaminophen 500 Mg Tablet 1 Tab PO PRN Q6HRS PRN 15 08/07/19 Reported Calcium Acetate 667 Mg Tablet 1 Cap PO TIDAC 08/07/19 Reported Metoprolol Tartrate 25 Mg Tablet 0.5 Tab PO BID 08/07/19 Reported Duoneb 0.5-3(2.5) Mg/3 Ml (Albuterol/Ipratropium) 3 Ml Ampul.neb 3 Ml NEB RTQID 30 03/31/19 Rx [ahreds] 1 Cap PO BID 03/28/19 Reported Ahreds #2 Preservision, One softgel by mouth twice a day Dialyvite Tablet (Folic Acid/Vitamin B Comp W-C) 1 Each Tablet 1 Tab PO DAILY 03/27/19 Reported Advair 250-50 Diskus (Fluticasone/Salmeterol) 1 Each Disk.w.dev 1 Puff PO BID 03/27/19 Reported Aspirin Ec (Aspirin) 81 Mg Tablet.dr 1 Tab PO BID 03/17/17 Reported LAST DOSE GIVEN: DATE: 03/17/17 TIME: 1030 am so start taking this daily tomorrow Tamsulosin Hcl 0.4 Mg Cap.er.24h 0.4 Mg PO BID 12/06/15 Reported Ventolin Hfa Inhaler (Albuterol Sulfate) 18 Gm Hfa.aer.ad 2 Puff INH QID 12/06/15 Reported Atorvastatin Calcium 10 Mg Tablet 10 Mg PO HS 12/06/15 Reported Comments NM bleeding scan IMPRESSION: 1. No evidence of active hemorrhage though sensitivity is limited. Extensive blood pool activity persists. ct chest 1. Large rounded fluid containing structure at the apex of the left hemithorax with trace air and surrounding pleural enhancement measuring up to 12 cm. This could represent a loculated hydropneumothorax, although an empyema could have a similar appearance in the appropriate clinical setting. In the setting of empyema, bronchopleural fistula should be considered, although with recent thoracentesis this may be the source of the trace pleural air. 2. Additional moderate left and small right pleural effusions. 3. Atelectasis of most of the left upper and lower lobe with areas of groundglass opacity within the aerated regions. Electronically signed by: Maynor Slaughter MD (01/06/2020 10:45 AM) [id number] cxr 01/08 Worsening aeration of the left lung following pleural drainage catheter placement. This could reflect worsening atelectasis. No pneumothorax is evident. Impression . IMPRESSION: 1. Acute on chronic respiratory failure secondary to combination of multifactorial etiologies including underlying chronic obstructive pulmonary disease, anemia and recurrent left sided pleural effusion.-- S/P left thoracentisis removed 1.6 liters , transudate 2. The patient with abnormal CT chest previously with a large left apical bulla and mass-like consolidation in the lingula. He had a PET scan, which did not show any uptake in the lingula. He also had a bronchoscopy, which showed severely distorted anatomy with a lingular subsegment extrinsic compression. Dr. Rangel was not able to visualize except a small tiny opening. followup CT chest shows large Loculated JHONY effusion/ air fluid level. suspected BPF 3. Anemia, followed by GI. 4. End-stage renal disease, on hemodialysis. 5. Recurrent left sided pleural effusion. Plan . RECOMMENDATIONS: Family and patient have decided to move forward with hospice care and Chest tube D/C today, agree with decision focus on comfort at this time. Follow cytology of thoracentisis --S/P thoracentisis 01/05/2020 removed 1.6 liters from left side CT chest reviewed. marked volume loss in the left upper lobe and lingula is related to loculated fluid collection . Possible BPF. Had large bullae underneath d/w IR . ct guided left upper chest tube placed. findings c/w empyema. Continue hemodialysis with ultrafiltration per nephrology recs Supplemental oxygen as needed for 92% or above Follow hemoglobin closely. Follow GI recommendations. Stress ulcer prophylaxis. D/W ESTEVAN RENDON MD Jan 10, 2020 08:51
--- NOTE | 2020-01-10 09:06 | RAD ---
EXAM: AP View of the chest DATE: 01/10/2020 9:00 AM INDICATION: empyema COMPARISON: 01/09/2020 FINDINGS/ IMPRESSION: Pigtail catheter is seen within the left chest, similar in appearance. Diffuse opacification left hemithorax, progressed compared to 01/09/2020. Heart is not well assessed given diffuse left-sided opacities. Right perihilar opacities are grossly unchanged. No right pleural effusion or right pneumothorax. Electronically signed by: Kush Lozoya MD (01/10/2020 9:03 AM) [id number]
--- NOTE | 2020-01-10 09:24 | PDOC ---
Date of Service: DATE: 01/10/20 TIME: 09:22 Objective: Objective: Notified by finished goods planner that pt/family have asked for removal of chest tube and are interested in Hospice, want to stop dialysis, change code status to DNR. Nurse also called - gave okay to ADAT. Vital Signs: Vital Signs Date Time Temp Pulse Resp B/P (MAP) Pulse Ox O2 Delivery O2 Flow Rate FiO2 01/10/20 08:44 96 136/72 01/10/20 08:43 17 Nasal Cannula 3.0 01/10/20 07:43 94 01/10/20 07:00 97.9 97.9 Labs: GRAM STAIN Final Final NO ORGANISMS SEEN. SQUAMOUS EPI CELL:NOT APPLICABLE PMN (WBCs):MANY Unless otherwise specified, Testing Performed by: [address] [address] For Inquires, the Physician may contact the Microbiology department at [phone] ANAEROBIC-AEROBIC CULTURE PENDING PE: GEN: chronically ill, family present A/P: ?melena, anemia A Fib, COPD, pleural effusion, ESRD -- Plans for hospice as above, will sign off. Justicifation of Admission Dx: Justifications for Admission: Justification of Admission Dx: Yes Chronic Renal Failure: Electrolyte Abnormality SHERI KINSEY Jan 10, 2020 09:24
--- NOTE | 2020-01-10 09:52 | PN ---
DATE: 01/10/2020 SUBJECTIVE: The patient is resting flat, sleeping comfortably, in no apparent distress. The nursing staff did not voice any concerns that he had generally uneventful night. I have had a lengthy discussion with his son regarding all options available of transferring him to [facility] and/or comfort and hospice care and they changed his code status to DNR/DNI. They requested the chest tube to be removed and according to nursing staff, they seemed to be leaning towards hospice. PHYSICAL EXAMINATION: GENERAL: When I saw him this morning, he looked well and was clearly in no apparent respiratory distress. He was pale, but no jaundice, cyanosis or thyromegaly. No jugular venous distention or limb edema. VITAL SIGNS: His heart rate was 56, blood pressure was 136/51, temperature was 98.2, respiratory rate 22, and oxygen saturation was 93% on 4 liters of oxygen. HEENT: Normocephalic, atraumatic. NECK: Supple. HEART: Showed normal first and second heart sounds with no gallop or murmur. CHEST: Clear to auscultation. No crepitation or rhonchi. ABDOMEN: Distended, soft, nontender. NEUROLOGIC: He was sleepy, but arousable. All his cranial nerves are intact. He moves extremities without difficulty, although he is mostly bedbound. He is completely anuric and hemodialysis dependent. LABORATORY DATA: His H and H is still pending at the time of this dictation. ASSESSMENT: 1. Acute blood loss anemia, status post 2 units of packed RBCs. His H and H is actually stable and rising, although his most recent hemoglobin was 8.4, hematocrit 24. Today's labs are still pending at the time of this dictation. 2. CT scan of the chest showed that he has loculated hydropneumothorax versus empyema for which he underwent chest tube placement to Pleur-evac. 3. End-stage renal disease, on hemodialysis Wednesday, and Wednesday. 4. Hypertension. 5. Hyperlipidemia. 6. Atrial fibrillation, currently in sinus rhythm. 7. Obstructive sleep apnea. 8. Bronchial asthma. 9. Senile macular degeneration. 10. Vitamin B12 deficiency. 11. Benign prostatic hypertrophy. PLAN: To advance his diet to a regular diet if there are no plans for any colonoscopy, which is unlikely. The family requested removal of chest tube and they apparently leaning towards hospice. I will obviously wait for their final decision and decide on further management accordingly. RALEIGH ZHAO MD DR: TAYLOR/carly JOB#: [id number] / [id number]
--- NOTE | 2020-01-10 10:59 | PDOC ---
CARDIO Progress Notes Date and Time Date of Service 01/10/20 Time of Evaluation 1050 Subjective Subjective: No Chest Pain, No shortness of breath, No Palpitations, Other (feels "lowsy") Vitals Vitals Vital Signs Date Time Temp Pulse Resp B/P (MAP) Pulse Ox O2 Delivery O2 Flow Rate FiO2 01/10/20 09:40 17 Nasal Cannula 3.0 01/10/20 08:44 96 136/72 01/10/20 07:43 94 01/10/20 07:00 97.9 97.9 Weight Weight [ ] Input and Output Intake and Output Intake and Output 01/10/20 07:00 Intake Total 400 ml Output Total 50 ml Balance 350 ml Intake Oral 400 ml Chest Tube Drainage Total 50 ml Microbiology Micro Microbiology 01/08/20 Gram Stain - Final, Resulted 01/08/20 Aerobic and Anaerobic Culture, Resulted Pending 01/04/20 Blood Culture - Final, Complete NO GROWTH AFTER 5 DAYS Review of Systems Constitutional: yes: weakness, alert Ears/Nose/Throat: Yes: no symptom reported Eyes: Yes: no symptom reported Pulmonary: Yes no symptom reported Cardiovascular: Yes no symptom reported Gastrointestional: Yes: no symptom reported Genitourinary: Yes: no symptom reported Musculoskeletal: Yes: no symptom reported Skin: Yes no symptom reported Psychiatric/Neurological: Yes: no symptom reported Endocrine: Yes: no symptom reported Physical Exam HEENT: Neck Supple W Full Motion Chest: Symmetric LUNGS: Other (diminished bases) Heart: S1S2, RRR Abdomen: Soft N/T Extremities: No Edema Neurology: alert, follow commands Assessment Assessment 1. PAFIB; maintaining SR. Continue amiodarone for rhythm maintenance. 2. Severe anemia with likely GI bleed: s/p 4 units PRBCs. Hgb 7.9. GI following. Colonoscopy planned, but was noncompliant with prep and is weak 3. Acute on chronic respiratory failure, multifactorial s/p left thoracentesis with removal of 1.6 L serosanguineous fluid. Loculated JHONY effusion; s/p thoracentesis with CT placement. Culture sent 4. ESRD with mild hyperkalemia, continue HD per nephrology team. 5. Hypertension; controlled 6. Dyslipidemia; statin Recommendations Rate controlled with amiodarone, metoprolol Plans for Hospice upon discharge Supportive care Justicifation of Admission Dx: Justifications for Admission: Justification of Admission Dx: Yes Chronic Renal Failure: Electrolyte Abnormality CHARLES DUFF APRN Jan 10, 2020 10:59
[2020-01-10 11:00] VITALS: BP 113/48
--- NOTE | 2020-01-10 12:19 | SNU/HH DC ---
DISCHARGE ORDERS DISCHARGE INFORMATION: DISCHARGE DATE: Jan 10, 2020 FINAL DIAGNOSIS Problems Medical Problems: (1) Dyspnea Status: Acute (2) GIB (gastrointestinal bleeding) Status: Acute (3) Melena Status: Acute (4) Normocytic anemia Status: Acute (5) Pleural effusion, left Status: Acute CONDITION ON DISCHARGE: Stable CODE STATUS: Code Status: DNR/DNI HOSPICE: HOSPICE: Yes HOSPICE EVAL & TREAT: Yes POST DISCHARGE ORDERS: ACTIVITY ORDERS: Resume previous activity, Activity as tolerated WEIGHT BEARING STATUS: No restrictions, As tolerated BATHING ORDERS: Shower-keep dressing dry DIET AFTER DISCHARGE: Renal WOUND/INCISION CARE: No wound care needed CHECKS AFTER DISCHARGE: CHECKS AFTER DISCHARGE: Check blood press - daily, Check your Temp as needed TREATMENT/EQUIPMENT ORDERS: ADAPTIVE EQUIPMENT NEEDED: None RESPIRATORY EQUIPMENT NEEDED: Oxygen DISCHARGE MEDICATIONS: Home Meds Active Scripts Cyanocobalamin (Vitamin B-12) (CYANOCOBALAMIN INJECTION) 1,000 Mcg/1 Ml Vial, 1 ML IM QMONTH for vitamin b12 for 30 Days, #1 VIAL 3 Refills Prov:RALEIGH ZHAO MD 01/02/20 Pantoprazole Sodium (PROTONIX ) 40 Mg Tablet.dr, 40 MG PO BID for GERD for 30 Days, #60 TAB Prov:RALEIGH ZHAO MD 01/02/20 Isosorbide Mononitrate (ISOSORBIDE MONONITRATE ER) 30 Mg Tab.er.24h, 30 MG PO BID for CHF for 30 Days, #60 TAB.SR 2 Refills Prov:OPAL PRESTON MD 08/14/19 Amiodarone Hcl (AMIODARONE HCL) 200 Mg Tablet, 1 TAB PO DAILY for rhythm control for 30 Days, #30 TAB 2 Refills Prov:CHARLES DUFF APRN 08/14/19 Ipratropium/Albuterol Sulfate (DUONEB 0.5-3(2.5) MG/3 ML) 3 Ml Ampul.neb, 3 ML NEB RTQID for copd for 30 Days, #120 EACH Prov:RACHNA DELANEY MD 03/31/19 Reported Medications Zinc Sulfate (ZINC SULFATE) 220 Mg Tablet, 1 TAB PO DAILY for ZINCE REPLACEMENT for 30 Days, #30 TAB 0 Refills 11/30/19 Cholecalciferol (Vitamin D3) (Vitamin D3) 25 Mcg Capsule, 25 MCG PO DAILY for VIT REPLACEMENT for 1 Day, #1 CAP 11/30/19 Acetaminophen (ACETAMINOPHEN) 500 Mg Tablet, 1 TAB PO PRN Q6HRS PRN for pain or fever for 15 Days, #60 TAB 0 Refills 08/07/19 Calcium Acetate (Calcium Acetate) 667 Mg Tablet, 1 CAP PO TIDAC for supplement 08/07/19 Metoprolol Tartrate (METOPROLOL TARTRATE) 25 Mg Tablet, 0.5 TAB PO BID for blood pressure 08/07/19 [ahreds] No Conflict Check, 1 CAP PO BID Ahreds #2 Preservision, One softgel by mouth twice a day 03/28/19 Folic Acid/Vitamin B Comp W-C (DIALYVITE TABLET) 1 Each Tablet, 1 TAB PO DAILY for vitamin 03/27/19 Fluticasone/Salmeterol (ADVAIR 250-50 DISKUS) 1 Each Disk.w.dev, 1 PUFF PO BID for breathing 03/27/19 Aspirin (ASPIRIN EC) 81 Mg Tablet.dr, 1 TAB PO BID for blood thinner, #30 TAB 3 Refills LAST DOSE GIVEN: DATE: 03/17/17 TIME: 1030 am so start taking this daily tomorrow 03/17/17 Tamsulosin Hcl (TAMSULOSIN HCL) 0.4 Mg Cap.er.24h, 0.4 MG PO BID, TAB 12/06/15 Albuterol Sulfate (VENTOLIN HFA INHALER) 18 Gm Hfa.aer.ad, 2 PUFF INH QID for FOR ASTHMA, INHALER 0 Refills 12/06/15 Atorvastatin Calcium (ATORVASTATIN CALCIUM) 10 Mg Tablet, 10 MG PO HS for FOR CHOLESTEROL, #30 TAB 0 Refills 12/06/15 RALEIGH ZHAO MD Jan 10, 2020 12:19
--- NOTE | 2020-01-10 14:07 | PATHOLOGY ---
Note [facility] Accession Number: [id number] TESTS RESULT FLAG UNITS REF RANGE LAB Clinician Provided Cytology Information No. of containers..01 Other (Miscellaneous) Source: LEFT PLEURAL FLUID DIAGNOSIS: LEFT PLEURAL FLUID NEGATIVE FOR MALIGNANT EPITHELIAL CELLS. REACTIVE MESOTHELIAL CELLS ARE PRESENT. THIS INTERPRETATION INCLUDES EVALUATION OF A CELL BLOCK. RARE MESOTHELIAL CELLS WITH REACTIVE AND DEGENERATIVE CHANGES ARE PRESENT AMONGST EXTENSIVE BACKGROUND FIBRINOPURULANT NECROTIC DEBRIS, ACUTE AND CHRONIC INFLAMMATORY CELLS AND RED BLOOD CELLS. Pathologist ICD10: 02 J90 Signed out by: Leila Chambers MD, Pathologist NPI- [id number] Performed by: Shante López, [place] ([facility]) Gross description: 01 50ML, MILKY RED, 1 TP 1 CB /LCS 01/09/2020 1659 Local FLAG LEGEND: L-Low Normal,H-High Normal,LL-Alert Low,HH-Alert High <-Panic Low,>-Panic High,A-Abnormal,AA-Critical Abnormal Performed at: [facility] [address] [place] [address] Gibson Rivas MD, 02 [facility] [address] [address] Aidan Valdovinos MD, Specimen Comment: A courtesy copy of this report has been sent to [phone], [phone] Specimen Comment: [id number] Specimen Comment: Report sent to / DR MEJÍA Specimen Comment: A duplicate report has been generated due to demographic updates. Performed at: [address], [place], [place] [id number] MD Gibson Rivas MD Phone: [phone]
--- NOTE | 2020-01-10 14:37 | PDOC ---
Renal-Progress Notes Subjective Notes Notes TIRED History of Present Illness Hx of present illness NOT GETTING ANY BETTER Vitals Vitals Vital Signs Date Time Temp Pulse Resp B/P (MAP) Pulse Ox O2 Delivery O2 Flow Rate FiO2 01/10/20 11:25 98 Nasal Cannula 3.5 01/10/20 11:00 98.1 81 18 113/48 (69) 98.1 Weight Weight [ ] I.O. Intake and Output Intake and Output 01/10/20 07:00 Intake Total 400 ml Output Total 50 ml Balance 350 ml Intake Oral 400 ml Chest Tube Drainage Total 50 ml Micro Micro Microbiology 01/08/20 Gram Stain - Final, Resulted 01/08/20 Aerobic and Anaerobic Culture - Preliminary, Resulted 01/04/20 Blood Culture - Final, Complete NO GROWTH AFTER 5 DAYS Review of Systems Constitutional: yes: weakness, alert Ears/Nose/Throat: Yes: no symptom reported Eyes: Yes: no symptom reported Pulmonary: Yes no symptom reported Cardiovascular: Yes no symptom reported Gastrointestional: Yes: no symptom reported Genitourinary: Yes: no symptom reported Musculoskeletal: Yes: no symptom reported Skin: Yes no symptom reported Psychiatric/Neurological: Yes: no symptom reported Endocrine: Yes: no symptom reported Physical Exam General Appearance: no apparent distress Heart: S1S2 Abdomen: soft, bowel sounds present Genitourinary: bladder flat Extremities: pulses present Neurology: alert, follow commands Musculoskeletal: Osteoarthritis Assessment Assessment IMP ESRD ANEMIA ACUTE RESP FAILURE LEFT PLEURAL EFFUSION PLAN NO FURTHER HD PT TO HAVE HOSPICE AND COMFORT CARE WILL SIGN OFF RAMIREZ AYALA MD Jan 10, 2020 14:37
[2020-01-10 15:00] VITALS: BP 112/47
--- NOTE | 2020-01-10 15:30 | NUR ---
Nurse exchange report given to Bianca at [facility]. Nurse informed of code status. Outside of the Hospital DNR form signed and sent with packet.
--- NOTE | 2020-01-26 13:41 | DS ---
DATE OF DISCHARGE: 01/10/2020 HOSPITAL COURSE: The patient The patient is an 79-year-old male patient who was admitted to this facility on numerous occasions. He has multiple medical problems and it was felt that it was declining and was unable to basically take care of himself at home and therefore arrangement was made for him to be discharged to [facility]. OBJECTIVE: GENERAL: On the day of discharge, he looked well and was clearly in no apparent respiratory distress. He was pale, but no jaundice, cyanosis or thyromegaly. No jugular venous distention or limb edema. VITAL SIGNS: Her heart rate was 77, blood pressure was 112/47, temperature was 97.9, respiratory rate was 18 and oxygen saturation was 98% on 4 liters of oxygen. HEAD, EYES, EARS, NOSE AND THROAT: Showed normocephalic, atraumatic. NECK: Supple. HEART: Showed normal first and second heart sounds. No gallop or murmur. CHEST: Shows central trachea, equal bilateral expansion, air entry. No crepitation or rhonchi anteriorly, dull percussion noted and absent breath sounds posteriorly. ABDOMEN: Distended, soft, nontender. NEUROLOGIC: He has poor vision due to senile macular degeneration. Otherwise, he is grossly intact. He is completely anuric and hemodialysis dependent. LABORATORY DATA: Lab work on discharge showed his white cell count was 3400, hemoglobin 8, hematocrit 24, MCV 91, and platelet count 155,000. His chemistry is variable as hemodialysis dependent. DISCHARGE MEDICATIONS: He was discharged to [facility] in [place] to continue on Tylenol 650 mg twice a day, albuterol sulfate 2 puffs 4 times a day, amiodarone 200 mg daily, aspirin 81 mg once a day, atorvastatin calcium 10 mg at bedtime, calcium acetate 667 mg 3 times a day, cholecalciferol vitamin D3 at 25 mcg once a day, cyanocobalamin, vitamin B12 at 1000 mcg intramuscular once a week, fluticasone for Advair Diskus 250/50 one puff twice a day, folic acid with vitamin B complex 1 tablet once a day, DuoNeb 4 times a day, isosorbide mononitrate 30 mg daily, metoprolol 12.5 mg twice a day, Protonix 40 mg once a day, Flomax 0.4 mg twice a day, zinc sulfate 220 mg once a day. FINAL DISCHARGE DIAGNOSES: 1. Acute blood loss anemia, status post 3 units of packed RBCs. His H and H is actually stable and now his hemoglobin was 8.4, hematocrit 24, and his bleeding scan done twice and was negative. CT scan of the chest showed that he has localized hydropneumothorax versus empyema for which he underwent chest tube placement and Pleur-evac. 2. End-stage renal disease, on hemodialysis Wednesday, and Wednesday. 3. Hypertension. 4. Hyperlipidemia. 5. Atrial fibrillation. 6. Obstructive sleep apnea. 7. Bronchial asthma. 8. Senile macular degeneration. 9. Vitamin B12 deficiency. 10. Benign prostatic hypertrophy. RALEIGH ZHAO MD DR: TAYLOR/carly JOB#: [id number] / [id number]
== END 2020-01-10 17:15 | disposition hospice, home (50) | DRG 177 ==
LOC: ER 10:47 → 1 WEST ICU 14:16 → 2 SOUTH 01-06 18:37
PROVIDERS: ADMIT Internal Medicine; ATTEND Internal Medicine
PROC: 30233N1 Transfusion of Nonautologous Red Blood Cells into Peripheral Vein, Percutaneous Approach (ICD-10-PCS; principal; 2020-01-04)
PROC: 0W9B3ZZ Drainage of Left Pleural Cavity, Percutaneous Approach (ICD-10-PCS; 2020-01-05)
PROC: 5A1D70Z Performance of Urinary Filtration, Intermittent, Less than 6 Hours Per Day (ICD-10-PCS; 2020-01-05)
PROC: 0W9B30Z Drainage of Left Pleural Cavity with Drainage Device, Percutaneous Approach (ICD-10-PCS; 2020-01-08)
PROC: 5A1D70Z Performance of Urinary Filtration, Intermittent, Less than 6 Hours Per Day (ICD-10-PCS; 2020-01-08)
DX: J85.2 Abscess of lung without pneumonia (principal); J96.20 Acute and chronic respiratory failure, unspecified whether with hypoxia or hypercapnia; N18.6 End stage renal disease; J90 Pleural effusion, not elsewhere classified; K92.2 Gastrointestinal hemorrhage, unspecified; D62 Acute posthemorrhagic anemia; I12.0 Hypertensive chronic kidney disease with stage 5 chronic kidney disease or end stage renal disease; I47.2 Ventricular tachycardia; J98.11 Atelectasis; E53.8 Deficiency of other specified B group vitamins; E78.5 Hyperlipidemia, unspecified; E87.5 Hyperkalemia; F17.210 Nicotine dependence, cigarettes, uncomplicated; G47.33 Obstructive sleep apnea (adult) (pediatric); H35.30 Unspecified macular degeneration; I25.10 Atherosclerotic heart disease of native coronary artery without angina pectoris; I48.0 Paroxysmal atrial fibrillation; J44.9 Chronic obstructive pulmonary disease, unspecified; K21.0 Gastro-esophageal reflux disease with esophagitis; K38.1 Appendicular concretions; M15.9 Polyosteoarthritis, unspecified; N40.0 Benign prostatic hyperplasia without lower urinary tract symptoms; Z20.828 Contact with and (suspected) exposure to other viral communicable diseases; Z85.828 Personal history of other malignant neoplasm of skin; Z91.19 Patient's noncompliance with other medical treatment and regimen; Z96.651 Presence of right artificial knee joint; Z99.2 Dependence on renal dialysis; Z71.6 Tobacco abuse counseling
CPT/HCPCS: 32555; 32557; 36415; 36430; 71045; 71250; 74177; 78278; 80048; 80053; 82274; 82550; 82945; 83605; 83615; 83690; 83735; 83986; 84100; 84157; 84484; 85007; 85014; 85018; 85025; 85027; 85610; 85730; 86850; 86900; 86901; 86920; 87015; 87040; 87071; 87075; 87077; 87186; 87426; 88112; 88305; 93005; 94640; 94760; 96374; 96375; A4215; A9560; C1729; C1892; C1894; C9113; J0696; J0882; J3010; J3490; P9016; Q9967; 99291-25; G0378; J7613; U0003-CS